=== PATIENT | female | born 1955 | race Caucasian/White ===

== ENCOUNTER 2023-06-24 09:12 | Outpatient (CLI) | payer OTHER, SELFPAY ==
[2023-06-24 09:40] LABS: Basophils Absolute Auto 0.05 K/mm3 (0.00-0.10); Basophils Percent Auto 0.4 % (0.0-1.0); Eosinophils Absolute Auto 0.18 K/mm3 (0.02-0.50); Eosinophils Percent Auto 1.6 % (1.0-6.0); Hematocrit 34.9 % (35.0-42.0); Hemoglobin 11.1 g/dL (11.7-13.8); Immature Granulocyte Absolute 0.04 K/mm3 (0.00-0.00); Immature Granulocyte Percent A 0.4 % (0.0-0.0); Lymphocytes Absolute Auto 2.66 K/mm3 (1.10-4.50); Lymphocytes Percent Auto 23.8 % (18.0-42.0); Mean Corpuscular HGB Conc 31.8 g/dL (32.0-36.0); Mean Corpuscular Hemoglobin 26.6 pg (27.0-31.0); Mean Corpuscular Volume 83.5 fL (78.0-102.0); Mean Platelet Volume 8.7 fl (9.2-11.8); Monocytes Absolute Auto 0.63 K/mm3 (0.10-0.90); Monocytes Percent Auto 5.6 % (2.0-11.0); Neutrophils Absolute Auto 7.6 K/mm3 (1.7-7.2); Neutrophils Percent Auto 68.2 % (50.0-70.0); Platelet Count Result 375 K/mm3 (150-420); Red Blood Count 4.18 M/mm3 (4.20-5.40); Red Cell Distribution Width 15.8 % (11.6-14.4); White Blood Count 11.2 K/mm3 (4.8-10.8)
[2023-06-24 09:52] LABS: Creatinine Urine 52.24 mg/dL (40-278); MALB Creatinine Ratio 91.3 mg/g (0-30); Microalbumin Urine Random 47.7 mg/L
[2023-06-24 10:23] LABS: Albumin Level 4.1 g/dL (3.4-5.0); Anion Gap 12 mmol/L (8-16); Blood Urea Nitrogen 55 mg/dL (7-18); Calcium 9.5 mg/dL (8.5-10.1); Carbon Dioxide 23 mmol/L (21-32); Chloride 103 mmol/L (98-108); Estimated Glomerular Filt Rate 20; Glucose 92 mg/dL (70-99); Osmolality Calculated 301 mOsm/kg (285-295); Phosphorus 4.6 mg/dL (2.6-4.7); Potassium 4.9 mmol/L (3.5-5.1); Sodium 138 mmol/L (136-145)
[2023-06-26 19:59] LABS: Osmolality, Urine 408 mOsm/kg (50-1200)
[2023-06-27 19:37] LABS: Parathyroid Intact 119 pg/mL (14-64)
== END 2023-06-24 09:13 | disposition home or self-care (01) ==
LOC: CHSLAB 09:21
PROVIDERS: PCP Nurse Practitioner Family
DX: N18.4 Chronic kidney disease, stage 4 (severe) (principal)
CPT/HCPCS: 36415; 80069; 82043; 83935; 83970; 85025

== ENCOUNTER 2024-03-31 10:05 | Emergency (ER) | payer MEDICARE, MEDICAID, SELFPAY ==
[2024-03-31 10:08] VITALS: BP 145/55; PULSE 81; RESP 16; TEMP 36.5; O2SAT 98
--- NOTE | 2024-03-31 10:26 | PC.NURSE ---
Patient calm and cooperative at this time. Patient answered all questions. Patient denies SI today, but states in the last month she has had thought of killing herself.
[2024-03-31 11:05] LABS: Basophils Percent Auto 0.4 % (0.2-1.2); Eosinophils Absolute Auto 0.1 K/mm3 (0-0.3); Eosinophils Percent Auto 0.9 % (0-4.4); Hematocrit 33.9 % (37.0-47.0); Hemoglobin 10.7 g/dL (12.0-15.0); Immature Granulocyte Absolute 0.03 K/mm3 (0.00-0.031); Immature Granulocyte Percent A 0.3 % (0-0.5); Lymphocytes Absolute Auto 1.25 K/mm3 (0.9-3.2); Mean Corpuscular HGB Conc 31.6 g/dl (32-36); Mean Corpuscular Hemoglobin 26.1 pg (26-34); Mean Corpuscular Volume 82.7 fl (80-100); Mean Platelet Volume 9.5 fl (7.4-10.4); Monocytes Absolute Auto 0.6 K/mm3 (0.1-0.6); Monocytes Percent Auto 5.9 % (2.6-8.5); Neutrophils Absolute Auto 7.7 K/mm3 (1.3-6.7); Neutrophils Percent Auto 79.5 % (45.5-73.1); Platelet Count Result 373 k/mm3 (150-375); Red Cell Distribution Width 14.5 % (11.5-14.5); White Blood Count 9.7 K/mm3 (4.5-10.0)
[2024-03-31 11:28] LABS: Alanine Aminotransferase 23 U/L (6-35); Albumin Level 4.7 g/dL (3.5-5.1); Alkaline Phosphatase 119 U/L (38-126); Anion Gap 16 mmol/L (4-12); Aspartate Amino Transferase 17 U/L (14-36); Bilirubin,Total 0.6 mg/dL (0.2-1.3); Blood Urea Nitrogen 64 mg/dL (7-17); Calcium 9.5 mg/dL (8.4-10.2); Carbon Dioxide 17 mmol/L (22-30); Chloride 105 mmol/L (98-107); Estimated Glomerular Filt Rate 18; Glucose 112 mg/dL (65-110); Potassium 5.1 mmol/L (3.4-5.0); Sodium 138 mmol/L (137-145)
--- NOTE | 2024-03-31 11:34 | PC.NURSE ---
belongings locked in cabinet
[2024-03-31 11:36] LABS: Ethanol < 10 mg/dL (<10)
[2024-03-31 11:41] LABS: SARS-CoV-2 RNA PCR Negative (Negative)
[2024-03-31 12:00] LABS: Thyroid Stimulating Hormone Reflex < 0.015 uIU/mL (0.465-4.68)
--- NOTE | 2024-03-31 12:21 | ED.GENADULT ---
HPI - General Adult General Chief complaint: Psychiatric Symptoms Stated complaint: suicidal thoughts Time Seen by Provider: 03/31/24 11:57 History of Present Illness HPI narrative: 68-year-old female present to the emergency department for evaluation for suicidal ideation. reports the patient has had increasingly unusual behavior. Patient does have a psych history but has not seen her psychiatrist in over year. Patient states that she was having increased thoughts of suicide so she wanted to be evaluated emergency department. Review of Systems Review of Systems: All systems reviewed & are unremarkable except as noted in HPI and below PMFSH Social History Social History (System 08/21/19 @ 14:30 by Tanna Peoples) Substance use type: does not use Exam Narrative: APPEARANCE: Well appearing, no pain, no distress, well-nourished. HEAD: normocephalic, atraumatic. EYES: PERRLA/EOMI, conjunctivae clear. NOSE: Normal no drainage EARS:TMS clear with good light reflex. THROAT: Pharynx clear, no exudate. NECK: Supple. No adenopathy, no masses. RESPIRATORY: Airway patent, respirations nonlabored. Clear to auscultation bilaterally, no rales, rhonchi, wheezing. CARDIOVASCULAR: Regular rate and rhythm without murmurs rubs or gallops. ABDOMINAL: Soft, nontender, nondistended, normal bowel sounds MUSCULOSKELETAL: Moves all extremities. Strength/ROM intact, No edema, No calf tenderness. NEURO: Alert. Cranial nerves II through XII intact. Grossly intact SKIN: Warm, dry. Normal Color PSYCHIATRIC: Flat affect Course Course Emergency Course: Patient was but by crisis, patient does not meet criteria for inpatient psychiatric hospitalization. Patient family are comfortable with the plan for discharge and close follow-up. Vital Signs Vital signs: Vital Signs Temperature 97.7 F 03/31/24 10:08 Pulse Rate 81 03/31/24 10:08 Respiratory Rate 16 03/31/24 10:08 Blood Pressure 145/55 H 03/31/24 10:08 Pulse Oximetry 98 03/31/24 10:08 Temperature 98.5 F 03/31/24 15:39 Pulse Rate 74 03/31/24 15:39 Respiratory Rate 16 03/31/24 15:39 Blood Pressure 106/61 03/31/24 15:39 Pulse Oximetry 97 03/31/24 15:39 Medical Decision Making MDM Narrative Medical decision making narrative: 60-year-old female presents emergency department for evaluation for suicidal ideation. Patient denied any current suicidal ideation in the emergency department. Patient is afebrile with no leukocytosis and a stable hemoglobin of 10.7. Patient does have DONTA similar to her baseline. TSH was low free T4 free T3 are pending. Urine shows no evidence of infection but did have some evidence of contamination. Urine cultures pending. Patient was evaluated crisis and patient will sign a safety a agreement. Patient and were comfortable with this plan Differential Diagnosis Differential Diagnosis: Suicidal ideation, homicidal ideation, psychosis, schizophrenia, delusions Vital Signs Vital Signs: Vital Signs Temperature 97.7 F 03/31/24 10:08 Pulse Rate 81 03/31/24 10:08 Respiratory Rate 16 03/31/24 10:08 Blood Pressure 145/55 H 03/31/24 10:08 Pulse Oximetry 98 03/31/24 10:08 Temperature 98.5 F 03/31/24 15:39 Pulse Rate 74 03/31/24 15:39 Respiratory Rate 16 03/31/24 15:39 Blood Pressure 106/61 03/31/24 15:39 Pulse Oximetry 97 03/31/24 15:39 Lab Data Lab results reviewed: Yes I reviewed the patient's lab results. 03/31/24 10:58 03/31/24 10:58 Labs: Lab Results 03/31/24 03/31/24 03/31/24 Range/Units 10:58 13:19 13:33 WBC 9.7 (4.5-10.0) K/mm3 RBC 4.10 L (4.2-5.4) M/mm3 Hgb 10.7 L (12.0-15.0) g/dL Hct 33.9 L (37.0-47.0) % MCV 82.7 (80-100) fl MCH 26.1 (26-34) pg MCHC 31.6 L (32-36) g/dl RDW 14.5 (11.5-14.5) % Plt Count 373 (150-375) k/mm3 MPV 9.5 (7.4-10.4) fl Immature Gran % (Auto)
--- NOTE | 2024-03-31 12:23 | ECG_ITS ---
Test Date: 2024-03-31 14:17:19 Measurements Intervals [place] Rate: 72 P: 58 ME: 165 QRS: 21 QRSD: 84 T: 40 QT: 364 QTc: 401 Interpretive Statements SINUS RHYTHM BASELINE ARTIFACT- I, II, III, AVR, AVL, AVF NORMAL ECG No previous ECG available for comparison Electronically Signed On 03-31-2024 16:00:55 CDT by Richie Lima D.O.
[2024-03-31 13:54] LABS: Amphetamine Screen Urine Negative (Negative); Barbiturate Screen Urine Negative (Negative); Benzodiazepines Screen Urine Negative (Negative); Cannabinoid Screen Urine Negative (Negative); Cocaine Screen Urine Negative (Negative); Methadone Screen Urine Negative (Negative); Opiate Screen Urine Negative (Negative); Phencyclidine Screen Urine Negative (Negative)
[2024-03-31 13:56] LABS: Free T4 Free Thyroxine Reflex 3.05 ng/dL (0.78-2.19)
[2024-03-31 14:02] LABS: Appearance Urine Cloudy (Clear); Bacteria Urine 1+ /hpf; Bilirubin Urine Negative (Negative); Blood Urine Negative (Negative); Color Urine Yellow (Yellow); Glucose Urine UA Negative (Negative); Ketones Urine Negative (Negative); Leukocyte Esterase Ur 2+ LEU/UL (Negative); Need Manual Microscopic Reviewed; Nitrate Urine Negative (Negative); Protein Urine Trace mg/dL (Negative); RBC Urine 0-2 /hpf (0-2); Specific Grav Ur 1.014 (1.001-1.035); Squamous Epithelial Cell Urine Few /hpf (Few); Uric Acid Crystals Urine Present /hpf; Urobilinogen Urine 0.2 mg/dL (<2.0)
[2024-03-31 14:03] LABS: Add Urine Microscopic? YES
--- NOTE | 2024-03-31 14:12 | PC.NURSE ---
food tray ordered for patient
[2024-03-31 15:39] VITALS: BP 106/61; PULSE 74; RESP 16; TEMP 36.9; O2SAT 97
[2024-04-07 08:17] LABS: T3 Free 4.4 pg/mL
== END 2024-03-31 15:41 | disposition home or self-care (01) ==
PROVIDERS: Nurse Practitioner Family; Emergency Provider Emergency Medicine; PCP Nurse Practitioner Family
DX: R45.851 Suicidal ideations (principal); Z20.822 Contact with and (suspected) exposure to COVID-19
CPT/HCPCS: 36415; 80053; 80307; 81001; 84439; 84443; 84480; 85025; 87086; 87088; 87635; 93005; 99284

== ENCOUNTER 2025-03-17 10:14 | Emergency (ER) | payer MEDICARE, MEDICAID, SELFPAY ==
[2025-03-17 10:14] VITALS: BP 135/75; PULSE 86; RESP 16; TEMP 36.6; O2SAT 98
--- NOTE | 2025-03-17 10:16 | ED.WOUNDLAC ---
HPI - Wound/Laceration General Chief Complaint: Wound/Laceration Stated Complaint: tdap shot Time Seen by Provider: 03/17/25 10:16 Source: patient and family Mode of arrival: ambulatory Limitations: no limitations History of Present Illness HPI narrative: 69-year-old female with a history of CKD, left breast cancer status post mastectomy and chemo, thyroid cancer status post resection on thyroid replacement presents to the ED after she stepped on a nail 1 hour prior to coming to the ED. she has a puncture wound on the right sole. Patient got tetanus shot in May of 2023. No other injuries noted. Onset (ago): hour(s) ( 1 hour ago) Location: other ( right sole) Place: home Patient tetanus UTD: Yes Context: accidental Associated symptoms: none Related Data Allergies Allergy/AdvReac Type Severity Reaction Status Date / Time No Known Allergies Allergy Verified 03/17/25 10:21 Review of Systems Review of Systems: All systems reviewed & are unremarkable except as noted in HPI and below Constitutional: Constitutional: Reports as per HPI and Reports no additional constitutional complaints Eyes: Eyes: Reports as per HPI and Reports no additional eye complaints ENT: Reports system reviewed and no additional complaints, except as documented and Reports as per HPI Cardiovascular: Cardiovascular: Reports as per HPI and Reports no additional cardiovascular complaints Respiratory: Respiratory: Reports as per HPI and Reports no additional respiratory complaints Gastrointestinal: Gastrointestinal: Reports as per HPI and Reports no additional gastrointestinal complaints Genitourinary: Genitourinary: Reports no additional female genitourinary complaints and Reports as per HPI Musculoskeletal: Musculoskeletal: Reports no additional musculoskeletal complaints and Reports as per HPI Integumentary/Breasts: Skin/Breast: Reports system reviewed and no additional complaints, except as docu Comments: puncture wound right sole Neurologic: Reports system reviewed and no additional complaints, except as documented and Reports as per HPI Psychiatric: Psychiatric: Reports no additional psychiatric complaints and Reports as per HPI Endocrine: Endocrine: Reports no additional endocrine complaints and Reports as per HPI Hematologic/Lymphatic: Hematologic/Lymphatic: Reports no additional hematologic/lymphatic complaints and Reports as per HPI Allergic/Immunologic: Allergic/Immunologic: Reports no additional allergic/immunologic complaints and Reports as per HPI PMF Past Medical History Medical History (Updated 03/17/25 @ 10:29 by Bob Gray MD) Hx of thyroid cancer Breast cancer CKD (chronic kidney disease) Social History Social History (System 08/21/19 @ 14:30 by Tanna Peoples) Substance use type: does not use Exam Narrative: vitals are stable Const: General: no acute distress Nutritional Appearance: well nourished Orientation/consciousness: patient oriented x3 Limitations: no limitations HENMT: Head: normal to inspection Ears: external ears normal Face/Nose/Sinus: Normal external nose present Face and sinus: normal facial exam Mouth: Yes Normal oral and palatal mucosa present Throat: posterior oropharynx normal Eyes: Conjunctivae: conjunctivae normal Pupils: Equal, round and reactive pupils present EOM: EOMs intact bilaterally Direct Ophthalmoscopy: no photophobia Neck: Neck: normal visual inspection, no lymphadenopathy and no meningeal signs Chest: Chest palpation & inspection: normal inspection of the chest Resp: Effort & Inspection: normal respiratory effort Auscultation: clear to auscultation bilaterally Cardio: Rate: regular rate Rhythm: regular rhythm GI: GI Palp: Yes Soft to palpation Other: no tenderness/ rigidity / rebound. Back/Spine/Pelvis: Back: no CVA tenderness Skin: General skin exam: normal color Rashes: no rashes Other: Puncture wound on the right sole measuring 3 mm over the 2nd metatarsal Neuro: General: patient oriented x3, moves all extremities, no meningeal signs, no focal motor deficits and CN's II-XI intact bilaterally Cranial nerves: Yes Nystagmus not present Speech: normal speech Gait exam (Neuro): Normal gait present Extrem: General: normal to inspection and no clubbing, cyanosis or edema Psych: Mental Status: mental status grossly normal Affect: normal affect Attitude: cooperative Course Course Emergency Course: puncture wound right foot-- up-to-date on tetanus Vital Signs Vital signs: Vital Signs Temperature 36.6 C 03/17/25 10:14 Pulse Rate 86 03/17/25 10:14 Respiratory Rate 16 03/17/25 10:14 Blood Pressure 135/75 03/17/25 10:14 Pulse Oximetry 98 03/17/25 10:14 Temperature 36.6 C 03/17/25 10:50 Pulse Rate 86 03/17/25 10:50 Respiratory Rate 16 03/17/25 10:50 Blood Pressure 135/75 03/17/25 10:50 Pulse Oximetry 98 03/17/25 10:50 Oxygen Delivery Room Air 03/17/25 10:50 MDM - Wound/Laceration MDM Narrative Medical decision making narrative: puncture wound right sole Differential Diagnosis Differential diagnosis: Likely other ( abrasion,) Discharge Plan Discharge Clinical Impression: Puncture wound of foot Qualifiers: Encounter type: initial encounter Laterality: right Qualified Code(s): S91.331A - Puncture wound without foreign body, right foot, initial encounter Patient Disposition: Home Condition: Stable Instructions: Antibiotic Form, Puncture Wound in the Foot (ED) Patient Language: [place] Prescriptions: New amoxicillin 500 mg capsule 500 mg PO Q12H Qty: 14 0RF Follow-up/Referrals: UNKNOWN,DOCTOR [Non-Staff] - Time of Disposition: 10:30
--- OUTSIDE RECORDS SUMMARY | 2025-03-17 10:17 | XMS_ITS | Data Portability ---
Author Organization [facility], [address] ([place]) Address [address] 4th [place] [address] Care Team Providers Care Engineering Instructor Name Role Phone NORRIS RUSSO Primary Care Provider [phone] MARTÍN KRISHNAMURTHY Vascular Surgeon Assessment Encounter Date Assessment Date Assessment LastModified by Organization Details LastModified Time 05/31/2024 05/31/2024 69 year old yung vasquez with past medical history of kidney calcification, Breast Ca stage 1 resected April 2019, strong family history for diabetes, HTN, thyroid cancer (Jul 27, and Sep 27) following for CKD stage III, and PCKD. Her mom started HD at age 78. Ultrasound in 2015 demonstrated one kidney was 16 cm other [address] scan done March 2018 showed no volumetric measurements (Spade) Genna was unaccompanied in the office today. 1. Polycystic kidney disease, baseline 1.5-2.4 , She has had previous episodes with a idiopathic rise in her creatinine which have resolved. -Her creatinine has remained mildly variable most recently 2.0 with a GFR of 26% -We very briefly discussed dialysis and in center would be the appropriate dialysis for her. -She had a left radial cephalic AV fistula Sep [address] Krishnamurthy. The fistula has good bruit and thrill -Transplant eligibility -Currently being worked up by transplant listed status 7 -Need to follow up on biopsy of lymph nodes and will call her daughter to inquire as Genna believes that she heard the doctor say lymphoma -Urine osmolality 421. I did discuss the need for increased water as I like this urine osmolality below 200 to help prevent progression of her polycystic kidney disease 2. Hemoglobin - decreased to 9.8 planning to check an iron panel she does take ferrous sulfate daily 3. Blood pressure taking amlodipine 10 mg daily. coreg 25 mg BID, isosorbide 30 mg daily and with PKD studies showing evidence to have a systolic blood pressure below 110 to prevent cyst formation I -With her hyperkalemia and DONTA we had her discontinue her lisinopril/HCTZ -She had a myocardial perfusion scan that was abnormal showing small to medium area of moderate intensity consistent with ischemia discussed the risks with cardiac cath 4. Bone disease, patient is taking ergocalciferol, PTH 89 with a calcium of 9.0 and phosphorus of 3.9. Vit D 27 now on ergocalciferol 50,000 units weekly 5. Metabolic acidosis -stable at 27 no longer on bicarb 6. Abdominal pain with some abnormal cyst appreciated in the past, she had some equivocal cyst appreciated which were anticipated to be hemorrhagic. Since these findings were equivocal we did a CT with IV contrast in 2016. There are no abnormal otherwise appreciated on CT scan in March 2018, but the volume was not mentioned. 7. Hyperkalemia -most recently 4.6 8. Prediabetes - Most recent hgb A1c 5.5% - She reports that her PCP started her on Trulicity but she has can't get it from the pharmacy 9. Disposition: return to clinic in 2 months Labs prior to return: Renal Function Panel, CBC, microalbumin, iPTH , Urine Osm, iron panel [phone] Call daughter Edie for all appointments and labs and make sure it is listed as the primary number as Genna had hearing issues Labs today: iron panel Dr. Mac office note regarding biopsy - Call Edie to confirm Dr. dos santos Send task out to follow up on biopsy being done June 08 at [facility] [email or web address] Not available 05/31/2024 14:39:42 08/02/2024 08/02/2024 69 year old yung n with past medical history of kidney calcification, Breast Ca stage 1 resected April 2019, strong family history for diabetes, HTN, thyroid cancer (Jul 27, and Sep 27) following for CKD stage III, and PCKD. Her mom started HD at age 78. Ultrasound in 2015 demonstrated one kidney was 16 cm other [address] scan done March 2018 showed no volumetric measurements ([place]) Genna was unaccompanied in the office today. 1. Polycystic kidney disease, baseline 2.0-2.4 , She has had previous episodes with a idiopathic rise in her creatinine which have resolved. -Her creatinine has remained mildly variable most recently 2.2 with a GFR of 23%. She did have a bump in her proteinuria plan to get a urinalysis today -We very briefly discussed dialysis and in center would be the appropriate dialysis for her. -She had a left radial cephalic AV fistula Sep [address] Krishnamurthy. The fistula has good bruit and thrill -Transplant eligibility -Currently being worked up by transplant listed status 7 -Urine osmolality 422. I did discuss the need for increased water as I like this urine osmolality below 200 to help prevent progression of her polycystic kidney disease 2. Hemoglobin - Improved to 11.3 taking one ferrous sulfate daily with mild ILSA noted plean to increase to twice a day 3. Blood pressure taking amlodipine 10 mg daily. coreg 25 mg BID, isosorbide 30 mg daily and with PKD studies showing evidence to have a systolic blood pressure below 110 to prevent cyst formation I -With her hyperkalemia and DONTA we had her discontinue her lisinopril/HCTZ -She had a myocardial perfusion scan that was abnormal showing small to medium area of moderate intensity consistent with ischemia discussed the risks with cardiac cath 4. Bone disease, patient is taking ergocalciferol, PTH 110 with a calcium of 9.2 and phosphorus of 3.0. Vit D 27 now on ergocalciferol 50,000 units weekly 5. Metabolic acidosis -stable at 27 no longer on bicarb 6. Abdominal pain with some abnormal cyst appreciated in the past, she had some equivocal cyst appreciated which were anticipated to be hemorrhagic. Since these findings were equivocal we did a CT with IV contrast in 2017. There are no abnormal otherwise appreciated on CT scan in March 2018, but the volume was not mentioned. 7. Hyperkalemia -most recently 4.0 8. Prediabetes - Most recent hgb A1c 5.5% - She reports that her PCP started her on Trulicity but she has can't get it from the pharmacy 9. Disposition: return to clinic in 2-3 months Labs prior to return: Renal Function Panel, CBC, microalbumin, iPTH , Urine Osm, iron panel Ferrous sulfate twice daily -Labs today: Urinalysis with reflex to culture [phone] Call daughter dEie for all appointments and labs and make sure it is listed as the primary number as Genna had hearing issues [email or web address] Not available 08/02/2024 09:57:49 10/04/2024 10/04/2024 69 year old yung vasquez with past medical history of kidney calcification, Breast Ca stage 1 resected April 2019, strong family history for diabetes, HTN, thyroid cancer (Jul 27, and Sep 27) following for CKD stage III, and PCKD. Her mom started HD at age 78. Ultrasound in 2015 demonstrated one kidney was 16 cm other [address] scan done March 2018 showed no volumetric measurements ([place]ade) Genna was unaccompanied in the office today. 1. Polycystic kidney disease, baseline 2.0-2.4 , She has had previous episodes with a idiopathic rise in her creatinine which have resolved. -Her creatinine has remained mildly variable most recently 2.4 with a GFR of 21%. Urine albumin 795.1. Plan for urinalysis today -We very briefly discussed dialysis and in center would be the appropriate dialysis for her. -She had a left radial cephalic AV fistula Sep [address] Krishnamurthy. The fistula has good bruit and thrill -Transplant eligibility -Currently being worked up by transplant listed status 7 -Urine osmolality 422. I did discuss the need for increased water as I like this urine osmolality below 200 to help prevent progression of her polycystic kidney disease 2. Hemoglobin - Stable at 10.7 -taking one ferrous sulfate BID with mild ILSA 3. Blood pressure taking amlodipine 10 mg daily. coreg 25 mg BID, isosorbide 30 mg daily and with PKD studies showing evidence to have a systolic blood pressure below 110 to prevent cyst formation -Blood pressures likely elevated due to her pain and she has not taken her medications today. I am going to call her pharmacy and verify that she is getting these medications. -With her hyperkalemia and DONTA we had her discontinue her lisinopril/HCTZ -She had a myocardial perfusion scan that was abnormal showing small to medium area of moderate intensity consistent with ischemia discussed the risks with cardiac cath 4. Bone disease, patient is taking ergocalciferol, PTH 190 with a calcium of 8.9 and phosphorus of 4.2. Vit D 27 now on ergocalciferol 50,000 units weekly -Plan to start calcitriol 0.25 MWF 5. Metabolic acidosis -stable at 24 no longer on bicarb 6. Abdominal pain with some abnormal cyst appreciated in the past, she had some equivocal cyst appreciated which were anticipated to be hemorrhagic. Since these findings were equivocal we did a CT with IV contrast in 2017. There are no abnormal otherwise appreciated on CT scan in March 2018, but the volume was not mentioned. -Planning to repeat CT today as she is tender to palpation and visible hurting 7. Hyperkalemia -most recently 4.6 8. Prediabetes - Most recent hgb A1c 5.5% - She reports that her PCP started her on Trulicity but she has can't get it from the pharmacy any longer 9. Disposition: return to clinic in 2 months Labs prior to return: Renal Function Panel, CBC, microalbumin, iPTH , Urine Osm, iron panel Ferrous sulfate twice daily -Labs today: Urinalysis with reflex to culture. CT scan for abdominal pain -Call pharmacy to verify BP meds please echo Daly [phone] Call daughter Edie for all appointments and labs and make sure it is listed as the primary number as Genna had hearing issues [email or web address] Not available 10/04/2024 09:56:51 12/07/2024 12/07/2024 69 year old yung vasquez with past medical history of kidney calcification, Breast Ca stage 1 resected April 2019, strong family history for diabetes, HTN, thyroid cancer (Jul 27, and Sep 27) following for CKD stage III, and PCKD. Her mom started HD at age 78. Ultrasound in 2016 demonstrated one kidney was 16 cm other [address] scan done March 2018 showed no volumetric measurements ([place]) Genna was unaccompanied in the office today. Paper Labs 1. Polycystic kidney disease, baseline 2.0-2.4 , She has had previous episodes with a idiopathic rise in her creatinine which have resolved. -Her creatinine has remained mildly variable most recently 2.29 with a GFR of 23%. Urine albumin 1073. Plan for urinalysis today -We have previously discussed dialysis and in center would be the appropriate dialysis for her. -She had a left radial cephalic AV fistula Sep [address] Krishnamurthy. The fistula has good bruit and thrill -Transplant eligibility -Currently being worked up by transplant listed status 7 since January 25, 2024. Will reach out to transplant for an update on her eligibility -Urine osmolality 362. I did discuss the need for increased water as I like this urine osmolality below 200 to help prevent progression of her polycystic kidney disease 2. Hemoglobin - Stable at 11.4 -taking one ferrous sulfate BID with mild ILSA 3. Blood pressure taking amlodipine 10 mg daily. metoprolol 100 mg , isosorbide 60 mg daily and with PKD studies showing evidence to have a systolic blood pressure below 110 to prevent cyst formation -Previous hyperkalemia with lisinopril -Patient of [facility] -Stress test with ischemia in the inferolateral wall. Cath with non obstructive CAD. 2022 -She has not taken any of her blood pressure medications as of yet today. Therefore I will make no changes. I am also going to call and verify with her daughter Edie her medications as the list in the system is not accurate 4. Bone disease, patient is taking ergocalciferol, PTH 272 with a calcium of 8.9 and phosphorus of 4.2. Vit D 27 now on ergocalciferol 50,000 units monthly -We verified her medications with her daughter and calcitriol was not on her list therefore will start at 0.25 mcg MWF 5. Metabolic acidosis -stable at 24 no longer on bicarb 6. Abdominal pain with some abnormal cyst appreciated in the past, she had some equivocal cyst appreciated which were anticipated to be hemorrhagic. Since these findings were equivocal we did a CT with IV contrast in 2016. There are no abnormal otherwise appreciated on CT scan in March 2018, but the volume was not mentioned. 7. Hyperkalemia -most recently 4.6 8. Prediabetes - Most recent hgb A1c 5.5% - She reports that her PCP started her on Trulicity but she is no longer on this. 9. Disposition: return to clinic in 2 months Labs prior to return: Renal Function Panel, CBC, microalbumin, iPTH , Urine Osm, iron panel -Labs today: Urinalysis with reflex to culture -Start calcitriol to 0.25 mcg MWF [phone] Call trevor Irizarry for all appointments and labs and make sure it is listed as the primary number as Genna had hearing issues -Please call Edie and verify all her medications and update her medication list. Is she going to go to her transplant appointment in December with Genna? [email or web address] Not available 12/08/2024 08:55:51 03/09/2025 03/09/2025 69 year old yung vasquez with past medical history of kidney calcification, Breast Ca stage 1 resected April 2019, strong family history for diabetes, HTN, thyroid cancer (Jul 27, and Sep 27) following for CKD stage III, and PCKD. Her mom started HD at age 78. Ultrasound in 2016 demonstrated one kidney was 16 cm other [address] scan done March 2018 showed no volumetric measurements ([place]) Genna was unaccompanied in the office today. 1. Polycystic kidney disease, baseline 2.0-2.4 , She has had previous episodes with a idiopathic rise in her creatinine which have resolved. -Her creatinine has remained mildly variable most recently 2.79 with a GFR of 18%. Urine albumin 1403 -We have previously discussed dialysis and in center would be the appropriate dialysis for her. -She had a left radial cephalic AV fistula Sep [address] Krishnamurthy. The fistula has good bruit and thrill -Transplant eligibility -Currently being worked up by transplant listed status 7 since January 25, 2024. -She stated she needs to have a brain MRI which has not been ordered yet. I will reach out to transplant today. I also noted in their note it discussed a CT to evaluate liver. She did have a CT completed October 2024 I will notify them -6 min walk test ordered for next month -Urine osmolality 322. I did discuss the need for increased water as I like this urine osmolality below 200 to help prevent progression of her polycystic kidney disease 2. Hemoglobin - Stable at 10.7 -taking one ferrous sulfate BID with mild ILSA 3. Blood pressure taking amlodipine 10 mg daily. metoprolol 100 mg , isosorbide 60 mg daily and with PKD studies showing evidence to have a systolic blood pressure below 110 to prevent cyst formation -Previous hyperkalemia with lisinopril -Patient of [facility] -Stress test with ischemia in the inferolateral wall. Cath with non obstructive CAD. 2022 -No changes recommended today 4. Bone disease, patient is taking ergocalciferol, calcium of 9.3 and phosphorus of 2.7. Vit D 27 now on ergocalciferol 50,000 units monthly - PTH improved slightly to 204 plan to increase calcitriol to daily 5. Metabolic acidosis -stable at 24 no longer on bicarb 6. Abdominal pain with some abnormal cyst appreciated in the past, she had some equivocal cyst appreciated which were anticipated to be hemorrhagic. Since these findings were equivocal we did a CT with IV contrast in 2017. There are no abnormal otherwise appreciated on CT scan in March 2018, but the volume was not mentioned. 7. Hyperkalemia -most recently 4.6 8. Prediabetes - Most recent hgb A1c 5.5% - She reports that her PCP started her on Trulicity but she is no longer on this. 9. Disposition: return to clinic in 2 months Labs prior to return: Renal Function Panel, CBC, microalbumin, iPTH , Urine Osm, iron panel [phone] Call daughter Edie for all appointments and labs and make sure it is listed as the primary number as Genna had hearing issues [email or web address] Not available 03/09/2025 12:25:46 Plan of Treatment Reminders Order Date Submit Date Provider Last Modified By Organization Details Last Modified Time Details Appointments Establish ed Patient 15.EST 2024 08:30A M Britney Eduardo Not available Not available Not available Lab None recorded. Referral None recorded. Procedures None recorded. Surgeries None recorded. Imaging None recorded. Medication Orders None recorded. Patient TargetsNo targets recorded. Patient InstructionsNo instructions recorded. Reason for Referral None Reported. Results Created Date Observation Date Name Description Value Unit Range Abnormal Flag Note LastModifiedBy Organization Detail LastModifiedTime 08/02/20 24 08/02/2024 urina lysis , compl ete urinalysis, complete LOW LEVEL S OF HEMOG LOBIN IN ABSEN CE OF HEMAT URIA MAY NOT BE CLINI NANO TAYLER Jacobs Not Available [facility] [address], [id number], 08/02/2024 12:44:37 08/02/20 24 08/02/2024 urina lysis , compl ete color YELLOW Not Available [facility] [address] [place] [address], [id number], 08/02/2024 12:44:37 08/02/20 24 08/02/2024 urina lysis , compl ete clarity CLEAR Not Available [facility] [address], [id number], 08/02/2024 12:44:37 08/02/20 24 08/02/2024 urina lysis , compl ete pH 6.5 5.0-7. 5 Not Available [facility] [address] [place] [address], [id number], 08/02/2024 12:44:37 08/02/20 24 08/02/2024 urina lysis , compl ete specific gravity 1.010 1.000- 1.030 Not Available [facility] [address] [place] [address], [id number], 08/02/2024 12:44:37 08/02/20 24 08/02/2024 urina lysis , compl ete blood NEGATI VE negati ve Not Available [facility] [address] [place] [address], [id number], 08/02/2024 12:44:37 08/02/20 24 08/02/2024 urina lysis , compl ete bilirubin NEGATI VE negati ve Not Available [facility] [address] [place] [address], [id number], 08/02/2024 12:44:37 08/02/20 24 08/02/2024 urina lysis , compl ete urobilinogen 0.2 0.2-1. 0 Not Available [facility] [address] [place] [address], [id number], 08/02/2024 12:44:37 08/02/20 24 08/02/2024 urina lysis , compl ete ketone NEGATI VE negati ve Not Available [facility] [address] [place] [address], [id number], 08/02/2024 12:44:37 08/02/20 24 08/02/2024 urina lysis , compl ete glucose NEGATI VE negati ve Not Available [facility] [address] [place] [address], [id number], 08/02/2024 12:44:37 08/02/2008/02/2024 urina lysis , compl ete protein 2+ negati ve abnormal Not Available [facility] [address] [place] [address], [id number], 08/02/2024 12:44:37 08/02/2008/02/2024 urina lysis , compl ete nitrite NEGATI VE negati ve Not Available [facility] [address] [place] [address], [id number], 08/02/2024 12:44:37 08/02/2008/02/2024 urina lysis , compl ete leukocytes NEGATI VE negati ve Not Available [facility] [address] [place] [address], [id number], 08/02/2024 12:44:37 08/02/2008/02/2024 urina lysis , compl ete RBC 0-2 0-2/hp f Not Available [facility] [address] [place] [address], [id number], 08/02/2024 12:44:37 08/02/2008/02/2024 urina lysis , compl ete WBC 0-5 0-5/hp f Not Available [facility] [address] [place] [address], [id number], 08/02/2024 12:44:37 08/02/2008/02/2024 urina lysis , compl ete squamous epithelial 3-5 0-10/h pf Not Available [facility] [address] [place] [address], [id number], 08/02/2024 12:44:37 08/02/2008/02/2024 urina lysis , compl ete bacteria NONE SEEN none Not Available [facility] [address] [place] [address], [id number], 08/02/2024 12:44:37 08/02/20 24 08/02/2024 urina lysis , compl ete hyaline cast 0-2 0-2/lp f Not Available [facility] [address] [place] [address], [id number], 08/02/2024 12:44:37 08/02/20 24 08/03/2024 cultu re + sensi tivit y, urine urine culture and sens. CHERISE L URINE >100, 000 CFU/m L Mixed uroge nital pedro , 3 or more colon y types indic ative of conta minat ion. Not Available [facility] [address] [place] [address], [id number], 08/03/2024 14:47:07 10/04/19 25 10/04/2024 urina lysis , compl ete urinalysis, complete LOW LEVEL S OF HEMOG LOBIN IN ABSEN CE OF HEMAT URIA MAY NOT BE CLINI NANO SIGNI FICAN T. Not Available [facility] [address] [place] [address], [id number], 10/04/2024 13:30:38 10/04/19 25 10/04/2024 urina lysis , compl ete color YELLOW Not Available [facility] [address] [place] [address], [id number], 10/04/2024 13:30:38 10/04/19 25 10/04/2024 urina lysis , compl ete clarity CLEAR Not Available [facility] [address] [place] [address], [id number], 10/04/2024 13:30:38 10/04/19 25 10/04/2024 urina lysis , compl ete pH 6.5 5.0-7. 5 Not Available [facility] [address] [place] [address], [id number], 10/04/2024 13:30:38 10/04/19 25 10/04/2024 urina lysis , compl ete specific gravity 1.010 1.000- 1.030 Not Available [facility] [address] [place] [address], [id number], 10/04/2024 13:30:38 10/04/19 25 10/04/2024 urina lysis , compl ete blood NEGATI VE negati ve Not Available [facility] [address] [place] [address], [id number], 10/04/2024 13:30:38 10/04/19 25 10/04/2024 urina lysis , compl ete bilirubin NEGATI VE negati ve Not Available [facility] [address] [place] [address], [id number], 10/04/2024 13:30:38 10/04/19 25 10/04/2024 urina lysis , compl ete urobilinogen 0.2 0.2-1. 0 Not Available [facility] [address] [place] [address], [id number], 10/04/2024 13:30:38 10/04/19 25 10/04/2024 urina lysis , compl ete ketone NEGATI VE negati ve Not Available [facility] [address] [place] [address], [id number], 10/04/2024 13:30:38 10/04/19 25 10/04/2024 urina lysis , compl ete glucose NEGATI VE negati ve Not Available [facility] [address] [place] [address], [id number], 10/04/2024 13:30:38 10/04/19 25 10/04/2024 urina lysis , compl ete protein 2+ negati ve abnormal Not Available [facility] [address] [place] [address], [id number], 10/04/2024 13:30:38 10/04/19 25 10/04/2024 urina lysis , compl ete nitrite NEGATI VE negati ve Not Available [facility] [address] [place] [address], [id number], 10/04/2024 13:30:38 10/04/19 25 10/04/2024 urina lysis , compl ete leukocytes TRACE negati ve abnormal Not Available [facility] [address] [place] [address], [id number], 10/04/2024 13:30:38 10/04/19 25 10/04/2024 urina lysis , compl ete RBC 0-2 0-2/hp f Not Available [facility] [address] [place] [address], [id number], 10/04/2024 13:30:38 10/04/19 25 10/04/2024 urina lysis , compl ete WBC 0-5 0-5/hp f Not Available [facility] [address] [place] [address], [id number], 10/04/2024 13:30:38 10/04/19 25 10/04/2024 urina lysis , compl ete squamous epithelial 0-2 0-10/h pf Not Available [facility] [address] [place] [address], [id number], 10/04/2024 13:30:38 10/04/19 25 10/04/2024 urina lysis , compl ete bacteria NONE SEEN none Not Available [facility] [address] [place] [address], [id number], 10/04/2024 13:30:38 10/04/19 25 10/04/2024 urina lysis , compl ete hyaline cast 0-2 0-2/lp f Not Available [facility] [address] [place] [address], [id number], 10/04/2024 13:30:38 10/04/19 25 10/06/2024 cultu re + sensi tivit y, urine urine culture and sens. CHERISE L URINE After overn ight incub ation <10,0 00 CFU/m L Yanely l uroge nital pedro isola karen. No addit ional growt h after two night s incub ation . Not Available [facility] [address] [place] [address], [id number], 10/06/2024 10:08:20 10/04/19 25 10/05/2024 cultu re + sensi tivit y, urine urine culture and sens. PREL IM URINE After overn ight incub ation <10,0 00 CFU/m L Yanely l uroge nital pedro isola karen. Not Available [facility] [address] [place] [address], [id number], 10/05/2024 16:23:34 02/21/20 25 03/15/2025 HLA LMNX PRA luminex class I pra % 2 % Not Available [address] [address], [address], 03/15/2025 10:55:08 02/21/20 25 03/15/2025 HLA LMNX PRA luminex class I pra interp Positi ve Not Available [address], [address], 03/15/2025 10:55:08 02/21/20 25 03/15/2025 HLA LMNX PRA luminex class II pra % 0 % Not Available [address], [address], 03/15/2025 10:55:08 02/21/20 25 03/15/2025 HLA LMNX PRA luminex class II pra interp Negati ve Not Available [address], [address], 03/15/2025 10:55:08 07/10/20 24 11/26/2023 imagi ng/di agnos tic resul t No observ ation record ed. [email or web address] Not Available 23:49:02 02/20/20 25 10/23/2024 CT, abdom en, w/o contr ast No observ ation record ed. [email or web address] [facility] (Radiology) [address] [facility] , [place], [address], 02/22/2025 10:05:34 03/16/20 25 10/21/2017 imagi ng/di agnos tic resul t No observ ation record ed. [email or web address] Not Available 0 03/16/2025 06:34:50 03/16/20 25 12/08/2018 imagi ng/di agnos tic resul t No observ ation record ed. [email or web address] Not Available 0 03/16/2025 06:34:54 03/16/20 25 03/08/2018 imagi ng/di agnos tic resul t No observ ation record ed. [email or web address] Not Available 0 03/16/2025 06:35:06 03/16/20 25 03/13/2019 imagi ng/di agnos tic resul t No observ ation record ed. [email or web address] Not Available 0 03/16/2025 06:35:08 03/16/20 25 07/31/2018 imagi ng/di agnos tic resul t No observ ation record ed. [email or web address] Not Available 0 03/16/2025 06:35:17 Result Notes None recorded. Problems Name Problem SNOMED Code Status Onset Date Resolution Date Notes Provider Name and Address Organization Details Recorded Time Iron deficiency anemia 35968432 Active 2023 Kezia Turner [facility] 4 14:07:43 Acute abdominal pain 399905932 Active 2024 Kezia Turner [facility] 5 10:37:56 Increased frequency of urination 237162222 Active 2024 Gemma Cuenca [facility] 5 10:07:20 Anemia 886243372 Active 2023 Kezia Turner [facility] 4 22:00:54 Chronic kidney disease stage 4 705834032 Active 2023 Kezia Turner null, [facility] 4 22:01:06 Essential hypertension 23576317 Active 2023 Kezia Turner null, [facility] 4 22:01:15 Gastroesophage al reflux disease 513627049 Active 2023 [facility] 4 22:01:24 Hypocalcemia 1527102 Active 2023 [facility] 4 22:01:40 Autosomal dominant polycystic kidney disease 390863197 Active 2023 [facility] 4 22:01:52 Proteinuria 50597935 Active 2023 Kezia Turner [facility] 4 22:02:02 Cyst of kidney 611493685 Active 2023 [facility] 4 22:02:10 Vitamin D deficiency 93174762 Active 2023 [facility] 4 22:02:31 Ischemic hand 077106178 Active 2023 Martín Krishnamurthy MD [facility] [place] [address], [phone], [facility] 4 19:15:19 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 Procedures Surgical History Date Name Laterality Status Provider Name and Address Organization Details Recorded Time 4 Av fusion direct any site completed Bev Guido [facility] 02/04/2024 13:52:39 3 Av fusion direct any site completed Bev Guido [facility] 02/04/2024 13:51:31 Imaging Results None recorded. Procedure Notes None recorded. Medical Equipment None Reported. Medications Name Sig Start Date Stop Date Status Note LastModified by Organization Details LastModified Time quetiapine 25 mg tablet TAKE 1 TABLETS BY MOUTH DAILY active Not Available Not Available No t Available levothyroxi ne 175 mcg tablet TAKE 1 TABLET BY MOUTH DAILY DIRECTED active Not Available Not Available No t Available atorvastati n 80 mg tablet active Not Available Not Available Not Available tizanidine 2 mg tablet TAKE 1 TABLET BY MOUTH EVERY 8 HOURS NEEDED. START WITH 1 TABLET AT BEDTIME active Not Available Not Available No t Available lisinopril 20 mg-hydrochl orothiazide 12.5 mg tablet TAKE 1 TABLET BY MOUTH DAILY active Not Available Not Available No t Available hydrocodone 5 mg-acetamin ophen 325 mg tablet TAKE 1 TABLET BY MOUTH EVERY 4 TO 6 HOURS NEEDED FOR PAIN 12/08 completed Not Available Not Available Not Available lisinopril 20 mg tablet TAKE 1 TABLET BY MOUTH DAILY 12/07 completed Not Available Not Available Not Available prednisone 20 mg tablet TAKE 1 TABLET BY MOUTH TWICE DAILY FOR 4 DAYS THEN 1 TABLET DAILY FOR 4 DAYS THEN STOP 08/02 completed Not Available Not Available Not Available isosorbide mononitrate ER 30 mg tablet,exte nded release 24 hr take two tablets daily active Not Available Not Available No t Available metoprolol succinate ER 100 mg tablet,exte nded release 24 hr Take 1 tablet every day by oral route. active Not Available Not Available No t Available venlafaxine ER 150 mg capsule,ext ended release 24 hr TAKE 1 CAPSULE BY MOUTH EVERY MORNING active Not Available Not Available No t Available ciprofloxac in 500 mg tablet TAKE 1 TABLET BY MOUTH DAILY FOR 5 DAYS 08/02 completed Not Available Not Available Not Available omeprazole 40 mg capsule,del ayed release TAKE 1 CAPSULE BY MOUTH EVERY DAY active Not Available Not Available No t Available aspirin 81 mg tablet,chiquita yed release TAKE 1 TABLET BY MOUTH EVERY DAY active Not Available Not Available No t Available tramadol 50 mg tablet TAKE 1 TABLET BY MOUTH 3 TIMES DAILY NEEDED 12/08 completed Not Available Not Available Not Available isosorbide mononitrate ER 60 mg tablet,exte nded release 24 hr 12/07 completed Not Available Not Available Not Available famotidine 20 mg tablet TAKE 1 TABLET BY MOUTH TWICE DAILY active Not Available Not Available No t Available amlodipine 10 mg tablet Take 1 tablet every day by oral route. active Not Available Not Available No t Available docusate sodium 100 mg capsule TAKE 1 CAPSULE BY MOUTH EVERY MORNING FOR CONSTIPAT ION active Not Available Not Available No t Available levothyroxi ne 200 mcg tablet TAKE 1ST THING IN THE MORNING ON AN EMPTY STOMACH. WAIT 1 HOUR BEFORE FOOD OR OTHER MEDICATIO NS 12/08 completed Not Available Not Available Not Available ergocalcife rol (vitamin D2) 1,250 mcg (50,000 unit) capsule TAKE 1 CAPSULE BY MOUTH MONTHLY active Not Available Not Available No t Available letrozole 2.5 mg tablet TAKE 1 TABLET BY MOUTH DAILY active Not Available Not Available No t Available methylpredn isolone 4 mg tablets in a dose pack FOLLOW PACKAGE DIRECTION S 12/07 completed Not Available Not Available Not Available calcitriol 0.25 mcg capsule take one capsule three times a week (Wednesday,, and Wednesday) 2024 active Not Available Not Available Not Avai lable levothyroxi ne 112 mcg tablet TAKE 2 TABLETS BY MOUTH ONCE DAILY IN THE MORNING 30 MINUTES PRIOR TO BREAKFAST 12/08 completed Not Available Not Available Not Available amoxicillin 875 mg-potassiu m clavulanate 125 mg tablet TAKE 1 TABLET BY MOUTH EVERY 12 HOURS 08/02 completed Not Available Not Available Not Available FeroSul 325 mg (65 mg iron) tablet TAKE 1 TABLET BY MOUTH EVERY DAY FOR ANEMIA active Not Available Not Available No t Available oseltamivir 30 mg capsule TAKE 1 CAPSULE BY MOUTH DAILY FOR 10 DAYS 12/07 completed Not Available Not Available Not Available Trulicity 1.5 mg/0.5 mL subcutaneou s pen injector ADMINISTE R 1.5 MG UNDER THE SKIN 1 TIME WEEKLY 03/20 completed Not Available Not Available Not Available Vitals Date Recorded Body height Body mass index (BMI) Body weight Heart rate Oxygen saturation Oxygen saturation in Arterial blood by Pulse oximetry Systolic And Diastolic Systolic And Diastolic Provider Name and Address Organization Details Last Updated DateTime 5 162.56 cm 33.3 kg/m2 57094.9 2 g 70 /min 99 % 99 % 188/90 mm[Hg] 176/94 mm[Hg] Kezia Turner [place] [facility] 5 09:30:57 Date Recorded Systolic And Diastolic Provider Name and Address Organization Details Last Updated DateTime 12/07/2024 128/78 mm[Hg] Britney Eduardo, [employer] [address], [address], [facility] 12/07/2024 12:31:57 Date Recorded Body height Body mass index (BMI) Body weight Heart rate Oxygen saturation Oxygen saturation in Arterial blood by Pulse oximetry Systolic And Diastolic Provider Name and Address Organization Details Last Updated DateTime 5 162.56 cm 33 kg/m2 98910.7 4 g 65 /min 99 % 99 % 138/90 mm[Hg] [facility] 5 12:15:19 Date Recorded Body height Body mass index (BMI) Body weight Heart rate Oxygen saturation Oxygen saturation in Arterial blood by Pulse oximetry Systolic And Diastolic Provider Name and Address Organization Details Last Updated DateTime 5 162.56 cm 33.5 kg/m2 43614.5 1 g 71 /min 96 % 96 % 116/68 mm[Hg] Liane Santana [facility] 5 12:08:24 Date Recorded Body height Body mass index (BMI) Body weight Heart rate Oxygen saturation Oxygen saturation in Arterial blood by Pulse oximetry Systolic And Diastolic Provider Name and Address Organization Details Last Updated DateTime 4 162.56 cm 32.8 kg/m2 78790.1 4 g 91 /min 99 % 99 % 126/84 mm[Hg] [facility] 4 14:25:52 Date Recorded Body height Body mass index (BMI) Body weight Body temperature Heart rate Oxygen saturation Oxygen saturation in Arterial blood by Pulse oximetry Systolic And Diastolic Provider Name and Address Organization Details Last Updated DateTime 4 162.56 cm 34.2 kg/m2 19494.8 8 g 98.7 [degF] 70 /min 96 % 96 % 134/80 mm[Hg] Leann Krishnamurthy [facility] 4 09:38:21 Social History None recorded. Functional Status None recorded. Mental Status None recorded. Family History Nothing Reported. Medical History No medical history recorded. Gynecological HistoryNo gynecological history recorded. Obstetrics History GPAL:G 0 P 0 0 0 0 Immunizations Vaccine Type Date Status Note Provider Nam e and Address Organization Details Recorded Time Pneumococcal conjugate PCV20, polysaccharide [id number] conjugate, adjuvant, 4 completed [facility] 09:38:44 RSV, recombinant, protein subunit RSVpreF, adjuvant reconstituted, 0.5 mL, 4 completed [facility] 08/02/2024 09:38:45 Influenza, high-dose, trivalent, 4 completed [facility] 08/02/2024 09:38:45 Influenza, split virus, quadrivalent, preservative 9 completed Kezia Turner [facility] 01/18/2024 10:43:40 Influenza, split virus, quadrivalent, preservative 8 completed [facility] 01/18/2024 10:43:40 zoster recombinant 2 completed [facility] 01/18/2024 10:43:40 zoster recombinant 1 completed Kezia Turner [facility] 01/18/2024 10:43:40 Influenza, high-dose, quadrivalent, 2 completed [facility] 01/18/2024 10:43:41 Influenza, high-dose, quadrivalent, 1 completed [facility] 01/18/2024 10:43:41 Influenza, adjuvanted, quadrivalent, 3 completed [facility] 01/18/2024 10:43:41 Influenza, adjuvanted, quadrivalent, 0 completed [facility] 01/18/2024 10:43:41 COVID-19, mRNA, LNP-S, PF, 30 mcg/0.3 mL dose 1 completed Kezia Turner null, [facility] 01/18/2024 10:43:41 COVID-19, mRNA, LNP-S, PF, 30 mcg/0.3 mL dose 1 completed [facility] 01/18/2024 10:43:41 COVID-19, mRNA, LNP-S, PF, 30 mcg/0.3 mL dose 1 completed [facility] 01/18/2024 10:43:41 COVID-19, mRNA, LNP-S, PF, 30 mcg/0.3 mL dose, dany-sucrose 2 completed Kezia Turner [facility] 01/18/2024 10:43:41 COVID-19, mRNA, LNP-S, bivalent, PF, 30 mcg/0.3 mL dose 2 completed [facility] 01/18/2024 10:43:41 COVID-19, mRNA, LNP-S, PF, dany-sucrose, 30 mcg/0.3 mL 3 completed Kezia Turner [facility] 01/18/2024 10:43:41 pneumococcal polysaccharide PPV23 0 completed Keiza Turner [facility] 01/18/2024 10:43:41 Tdap 3 completed [facility] 01/18/2024 10:43:41 Influenza, split virus, trivalent, preservative 4 completed [facility] 01/18/2024 10:43:41 Influenza, split virus, quadrivalent, PF 5 completed [facility] 01/18/2024 10:43:41 Influenza, split virus, quadrivalent, PF 7 completed Kezia Turner [facility] 01/18/2024 10:43:41 Influenza, split virus, quadrivalent, PF 6 completed Kezia Turner [facility] 01/18/2024 10:43:41 Past Encounters Encounter ID Performer Location Encounter Start Date Encounter Closed Date Diagnosis/Indication Diagnosis SNOMED-CT Code Diagnosis ICD10 Code Diagnosis Note [id number] Britney Eduardo APRN [facility] ([place]) [address] [place] [address] 01/18/2024 10:14:56 01/18/2024 11:01:36 Chronic kidney disease stage 4 800724940 N18.4 Autosomal dominant polycystic kidney disease 081096124 Q61.2 Proteinuria 92974571 R80 .9 Essential hypertension 24727146 I10 Gastroesop hageal reflux disease 928367442 K21.9 Anemia 459100874 D64.9 Vitamin D deficiency 347 51252 E55.9 [id number] Britney Eduardo APRN [facility] ([place]) [address] [place] [address] 03/28/2024 11:19:17 03/28/2024 11:44:19 Chronic kidney disease stage 4 634230688 N18.4 Autosomal dominant polycystic kidney disease 225736841 Q61.2 Proteinuria 88856349 R80 .9 Essential hypertension 12624754 I10 Gastroesop hageal reflux disease 106488670 K21.9 Anemia 132586276 D64.9 Vitamin D deficiency 347 98403 E55.9 [id number] Martín Krishnamurthy MD [address] [facility] ([place]) [address] [place] [address] [address] 03/20/2024 10:36:14 03/20/2024 16:27:58 Chronic kidney disease stage 4 740541039 N18.4 Ischemic hand 941608920 I99.8 [id number] Britney Eduardo APRN [facility] ([place]) [address] [place] [address] 05/31/2024 14:22:05 05/31/2024 14:42:39 Anemia 052357447 D64.9 Chronic ki dney disease stage 4 271676578 N18.4 Gastroesop hageal reflux disease 519084995 K21.9 Vitamin D deficiency 347 25426 E55.9 Essential hypertension 19784249 I10 Proteinuria 41785751 R80 .9 Autosomal dominant polycystic kidney disease 051294205 Q61.2 [id number] Britney Eduardo [facility] ([place]) [address] [place] [address] 08/02/2024 09:27:28 08/02/2024 09:57:55 Chronic kidney disease stage 4 101577065 N18.4 Anemia 955051377 D64.9 Vitamin D deficiency 347 56507 E55.9 Gastroesop hageal reflux disease 550897235 K21.9 Autosomal dominant polycystic kidney disease 191818886 Q61.2 Essential hypertension 05143341 I10 Proteinuria 29845263 R80 .9 [id number] Britney Eduardo [facility] ([place]) [address] [place] [address] 10/04/2024 09:10:34 10/04/2024 09:58:33 Chronic kidney disease stage 4 016289090 N18.4 Anemia 201158891 D64.9 Vitamin D deficiency 347 88399 E55.9 Gastroesop hageal reflux disease 591848095 K21.9 Autosomal dominant polycystic kidney disease 726842401 Q61.2 Essential hypertension 74913509 I10 Proteinuria 76030017 R80 .9 [id number] Britney Eduardo [facility] ([place]) [address] [place] [address] 12/07/2024 12:07:32 12/07/2024 12:44:01 Gastroesophageal reflux disease 737421084 K21.9 Essential hypertension 57590746 I10 Chronic ki dney disease stage 4 602861976 N18.4 Vitamin D deficiency 347 70436 E55.9 Anemia 067259110 D64.9 Autosomal dominant polycystic kidney disease 714236490 Q61.2 Proteinuria 98763973 R80 .9 [id number] Britney Eduardo [facility] ([place]) [address] [place] [address] 03/09/2025 12:00:55 03/09/2025 12:24:32 Anemia 063364810 D64.9 Chronic ki dney disease stage 4 391604522 N18.4 Renal Function Panel, CBC, microalbum in, iPTH , Urine Osm, iron panel Gastroesop hageal reflux disease 702758955 K21.9 Vitamin D deficiency 347 13121 E55.9 Essential hypertension 83303614 I10 Autosomal dominant polycystic kidney disease 081658456 Q61.2 Proteinuria 58546093 R80 .9 Health Concerns Section Related Observation LastModified by Organization Detai ls LastModified Time None Recorded Concern Status LastModified by Organization Details LastModified Time None Recorded Advance Directives Directive None Recorded Payers Insurance Date Sequence Insurance Name Policy Number Policy Bateman Covered Member ID Bateman Member ID Guarantor Name 04/18/2024 1 [employer] (MEDICARE REPLACEMENT/A DVANTAGE - PPO) [id number] [facility] [id number] [facility] 04/18/2024 1 [place] [facility] [id number] [facility] 02/18/2025 2 [place] [facility] [id number] [facility] 03/10/2025 1 [employer] (MEDICARE REPLACEMENT/A DVANTAGE - PPO) [id number] [facility] [id number] [facility] 08/29/2024 3 [place] [facility] [id number] [facility] Notes Date Note Type Note Provider Name and Address Organization Details Recorded Time 05/31/2024 text/html 1. Her heartburn has been better controlled recently on the famotidine twice a day.2. Her blood pressure has been stable here and at home. She has not had any lightheadedness or dizziness . She has no edema.3. She denies any urinary complaints such as frequency or dysuria.4. She does not check her blood sugars at home. She is unaware of any hypoglycemic events 5. The burning she was having in her fistula has resolved and she is having no issues 6. SHe is having a biopsy done on lymph nodes in her neck on June 08. This was ordered from Dr. Middleton . Genna reports that there is concern for cancer. She reports that she was having pain in her throat and is now on antibiotics as well10 point review system was otherwise unremarkable. Britney Eduardo, P[employer]ANCE AUDITOR [address] [place] [address], [phone], [facility] 05/31/2024 16:05:06 08/02/2024 text/html 1. Her heartburn has been better controlled recently on the famotidine and omeprazole. Her swallowing has improved and she is able to eat regular foods. SHe denies any nausea2. Her blood pressure has been stable here and at home. She has not had any lightheadedness or dizziness . She has no edema.3. She denies any urinary complaints such as frequency or dysuria.4. She does not check her blood sugars at home. She is unaware of any hypoglycemic events 5. She continues to have her migraines and take tylenol for this. SHe does not take any [id number] point review system was otherwise unremarkable. Britney Eduardo, P[employer]ANCE AUDITOR [address] [place] [address], [phone], [facility] 08/02/2024 09:57:58 10/04/2024 text/html 1. Her heartburn has been better controlled recently on the famotidine and omeprazole. Her swallowing has improved and she is able to eat regular foods. She denies any nausea2. Her blood pressure has been stable here and at home. She has not had any lightheadedness or dizziness . She has no edema.3. She denies any urinary complaints such as frequency or dysuria. She reports that she is having some pain in her left flank recently. SHe has not noticed any hematuria or change in urination. SHe reports that this pain has been there for about 1 week and has continued to worsen4. She does not check her blood sugars at home. She is unaware of any hypoglycemic events 5. She continues to have her migraines and take tylenol for this. SHe does not take any [id number] point review system was otherwise unremarkable. Britney Eduardo, P[employer] AUDITOR [address] [place] [address], [phone], [facility] 10/04/2024 09:57:00 12/07/2024 text/html 1. Her heartburn has been better controlled recently on the famotidine and omeprazole. She denies any nausea. She continues to have flank pain mainly on the left side2. Her blood pressure is elevated today she has not taken any of her blood pressure medications yet. She has not had any lightheadedness or dizziness . She has no edema. She does report exertional dyspnea3. She denies any urinary complaints such as frequency or dysuria. She reports that she still has the left-sided flank pain but it has improved greatly since I saw her last.4. She does not check her blood sugars at home. She is unaware of any hypoglycemic events 5. She continues to have her migraines and take tylenol for this. She does not take any RIUIYa76 point review system was otherwise unremarkable. Wilber Orellana MD [address] [facility], [place], [address], [facility] 12/08/2024 11:37:02 03/09/2025 text/html 1. Her heartburn has been better controlled recently on the famotidine and omeprazole. She denies any nausea. She continues to have flank pain mainly on the left side2. Her blood pressure is stable today. She has not had any lightheadedness or dizziness . She has no edema. She does report exertional dyspnea which is stable for her3. She denies any urinary complaints such as frequency or dysuria.4. She does not check her blood sugars at home. She is unaware of any hypoglycemic events 5. She continues to have her migraines and take tylenol for this. She does not take any [id number] point review system was otherwise unremarkable. Britney Eduardo, ANDRIY [address] , [place], [address], [facility] 03/09/2025 12:26:12 OBGyn Episode No OBEpisode recorded.
--- OUTSIDE RECORDS SUMMARY | 2025-03-17 10:17 | XMS_ITS ---
Author Organization Unknown Address [address] [place] [phone] Phone Care Team Providers Care Consumer Analyst Name Role Phone JANETH RAPP Attending Unavailable [facility] Primary Unavailable Immunization Immunization Date Status Additional Notes Code Code System pneumococcal polysaccharide PPV23 06/13/2020 Completed 33 CVX Tdap 06/01/2023 Completed 115 CVX Influenza, high-dose, trivalent, PF 05/05/2024 Completed 135 CVX Influenza, split virus, trivalent, preservative 05/18/2014 Completed 141 CVX Influenza, split virus, quadrivalent, PF 06/19/2015 Completed 150 CVX Influenza, split virus, quadrivalent, PF 07/01/2016 Completed 150 CVX Influenza, split virus, quadrivalent, PF 06/23/2017 Completed 150 CVX Influenza, split virus, quadrivalent, preservative 06/22/2018 Completed 158 C VX Influenza, split virus, quadrivalent, preservative 06/10/2019 Completed 158 C VX zoster recombinant 07/31/2021 Completed 187 CVX zoster recombinant 09/30/2021 Completed 187 CVX Influenza, high-dose, quadrivalent, PF 07/01/2021 Completed 197 CVX Influenza, high-dose, quadrivalent, PF 06/02/2022 Completed 197 CVX Influenza, adjuvanted, quadrivalent, PF 06/13/2020 Completed 205 CVX Influenza, adjuvanted, quadrivalent, PF 06/11/2023 Completed 205 CVX COVID-19, mRNA, LNP-S, PF, 3 0 mcg/0.3 mL dose 11/01/2020 Completed 208 CVX COVID-19, mRNA, LNP-S, PF, 3 0 mcg/0.3 mL dose 11/22/2020 Completed 208 CVX COVID-19, mRNA, LNP-S, PF, 3 0 mcg/0.3 mL dose 07/01/2021 Completed 208 CVX Pneumococcal conjugate PCV20 , polysaccharide [id number] conjugate, adjuvant, PF 05/05/2024 Completed 216 CVX COVID-19, mRNA, LNP-S, PF, 3 0 mcg/0.3 mL dose, dany-sucrose 12/11/2021 Completed 217 CVX COVID-19, mRNA, LNP-S, bivalent, PF, 30 mcg/0.3 mL dose 07/17/2022 Completed 300 CVX RSV, recombinant, protein subunit RSVpreF, adjuvant reconstituted, 0.5 mL, PF 05/05/2024 Completed 303 CV X COVID-19, mRNA, LNP-S, PF, dany-sucrose, 30 mcg/0.3 mL 06/11/2023 Completed 309 CVX COVID-19, mRNA, LNP-S, PF, dany-sucrose, 30 mcg/0.3 mL 06/15/2024 Completed 309 CVX Results BASIC METABOLIC PANEL - Jeremy ect Date/Time: 07/13/2023 08:24 [facility] ID: [id number] [address] [place], [place], [id number] LOINC: 87389-0 Test Value Unit Reference Range Code Code System Flag FASTING YES BUN 49 mg/dL L=7 H=20 3094-0 LOINC H CREATININE 2.10 mg/dL L=0.52 H=1.04 2160-0 LOINC H GLUCOSE 85 mg/dL L=74 H=106 2345-7 LOINC CALCIUM 9.6 mg/dL L=8.3 H=10.5 19773-5 LOINC SODIUM 140 mmol/L L=132 H=144 2951-2 LOINC POTASSIUM 4.9 mmol/L L=3.5 H=5.1 2823-3 LOINC CHLORIDE 105 mmol/L L=98 H=107 2075-0 LOINC CO2 25.0 mmol/L L=22.0 H=30.0 8-9 LOINC ANION GAP 15 L=10 H=20 29309-8 LOINC BUN/CREAT 23.3 3097-3 LOINC AGE 68 37073-0 LOINC eGFR NON-AFR 25 ml/min eGFR AFR AMER 30 ml/min CBC W/ DIFF - Collect Date/T taj: 07/13/2023 08:24 [facility] ID: [id number] [place], [place], [id number] LOINC: 72126-3 Test Value Unit Reference Range Code Code System Flag WBC 8.9 10^3uL L=4.8 H=10.8 RBC 4.38 10^6uL L=4.20 H=5.40 HEMOGLOBIN 11.6 g/dL L=12.0 H=16.0 718-7 LOINC L HEMATOCRIT 36.5 VOL% L=37.0 H=47.0 4544-3 LOINC L MCV 83.3 fL L=81.0 H=99.0 MCH 26.5 pg L=27.0 H=32.0 L MCHC 31.8 g/dL L=32.0 H=36.0 L PLATELETS 302 10^3uL L=100 H=400 60378-1 LOINC RDW 15.9 % L=11.7 H=15.5 H %GRAN 68.4 % L=40.0 H=70.0 92088-5 LOINC %LYMPH 23.2 % L=20.0 H=45.0 736-9 LOINC %MONO 5.5 % L=2.0 H=10.0 64736-0 LOINC %EOS 2.2 % L=0.0 H=6.0 713-8 LOINC %BASO 0.6 % L=0.0 H=3.0 706-2 LOINC #NEUT 6.1 10^3uL L=1.9 H=7.6 33011-2 LOINC #LYMPH 2.1 10^3uL L=0.9 H=4.9 66879-6 LOINC #MONO 0.5 10^3uL L=0.1 H=0.9 00237-2 LOINC #EOS 0.2 10^3uL L=0.0 H=0.6 712-0 LOINC #BASO 0.05 10^3uL L=0.00 H=0.10 12771-0 LOINC #IM GRANS 0.0 10^3uL L=0.0 H=7.0 67168-1 LOINC %IM GRANS 0.1 % L=0.0 H=5.0 20202-5 LOINC %NRB 0.0 L=0.0 H=0.2 47833-9 LOINC #NRB 0.000 L=0.000 H=0.012 69705-5 LOINC MANUAL DIFF NOT INDICATED RBC MORPH NOT INDICATED Social History Type Status Start Date End Date Code Code Syst em Smoking History Never smoker (Never Smoked) 595858903 SNOMED CT Sex Female Assessment You had the following problems:ESSENTIAL (PRIMARY) HYPERTENSIONPOLYCYSTIC KIDNEY, UNSPECIFIEDPROTEINURIA, UNSPECIFIED Hospital Discharge Instructions Should you have any questions prior to discharge, please contact a member of your healthcare team. If you have left the hospital and have any questions, please contact your primary care physician. Reason For Referral No Data Found Problems Problem Start Date Resolved Date Status Code Code System ESSENTIAL (PRIMARY) HYPERTENSION active 35972802 SNOMED-CT POLYCYSTIC KIDNEY, UNSPECIFIED active 81966368 SNOMED-CT PROTEINURIA, UNSPECIFIED active 29077 008 SNOMED-CT Plan of Treatment Digital Naman Screen Bilateral (06901) US Soft Tissue Head & Neck (90719) 02/11 Encounters Encounter Diagnosis Start Date Code Code Sys tem Abnormal result of other cardiovascular function study 07/13/2023 SNOMED-CT Personal Care Team Section Performer Name Performer Role Active Date Inactive SINDHU Butler PCP - Primary care physician 2022-10-29 2023-09-21
--- OUTSIDE RECORDS SUMMARY | 2025-03-17 10:17 | XMS_ITS ---
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 System Operator Name Role Phone SYBIL LING Attending Unavailable [facility] Primary Unavailable Immunization Immunization Date Status Additional [...] 208 CVX Pneumococcal conjugate PCV20 , polysaccharide [id number] conjugate, adjuvant, PF 05/05/2024 Completed 216 CVX [...] 30 mcg/0.3 mL 06/15/2024 Completed 309 CVX Social History Type Status Start Date End Date Code Code Syst em Smoking History Never smoker (Never Smoked) 025535965 SNOMED CT Sex Female Assessment You had [...] Code Code System ESSENTIAL (PRIMARY) HYPERTENSION active 40169409 SNOMED-CT POLYCYSTIC KIDNEY, UNSPECIFIED active 60792453 SNOMED-CT PROTEINURIA, UNSPECIFIED active 78618 008 SNOMED-CT Plan of Treatment Digital Naman Screen Bilateral (94664) US Soft Tissue Head & Neck (84245) 02/11 Encounters Encounter Diagnosis Start Date Code Code Sys tem Encounter for other preprocedural examination 02/23/20 24 SNOMED-CT Personal Care Team Section Performer Name Performer Role Active Date Inactive SINDHU Butler PCP - Primary care physician 2022-10-29 2023-09-21
--- OUTSIDE RECORDS SUMMARY | 2025-03-17 10:18 | XMS_ITS | Clinical Summary ---
Author Organization [facility] Address [address] [place] [address] Care Team Providers Care Certified Family Mediator Name Role Phone Brown Middleton MD Unavailable [phone] Hai Frausto MD Unavailable [phone] Wilber Orellana MD Unavailable [phone] Kristopher Almaraz MD Unavailable [phone] Karly Valencia APRN Primary Care Provider + Allergies Active Allergy Reactions Criticality Noted Date Comments Ibuprofen Other (see comment) 08/25/2022 Severe kidney disease Medications venlafaxine XR 150 MG 24 hr capsule Take 1 capsule (150 mg total) by mouth daily with breakfast. 02/27/2021 Active letrozole (FEMARA) 2.5 MG tabletIndication s:Malignant neoplasm of upper-outer quadrant of left breast in female, estrogen receptor positive (CMS/HCC HHS/HCC) take 1 tablet by mouth daily 90 tablet 3 02/02/2024 Active isosorbide mononitrate ER (IMDUR) 60 MG 24 hr tablet TAKE 1 TABLET(60 MG) BY MOUTH DAILY 90 tablet 3 02/01/2024 Active atorvastatin (LIPITOR) 80 MG tablet Take 1 tablet (80 mg total) by mouth nightly at bedtime. 90 tablet 3 05/26/2024 Active docusate sodium (COLACE) 100 MG capsule Take 1 capsule (100 mg total) by mouth daily. Active levothyroxine (SYNTHROID) 175 MCG tablet Take 1 tablet (175 mcg total) by mouth every morning. Active omeprazole (PRILOSEC) 40 MG capsule Take 1 capsule (40 mg total) by mouth daily. Active tiZANidine (ZANAFLEX) 2 MG tablet Take 1 tablet (2 mg total) by mouth daily. Active vitamin D2, ergocalciferol, (DRISDOL) 1.25 mg capsule Take 1 capsule (1.25 mg total) by mouth once a week. Active ferrous sulfate, 65 mg elemental, 325 (65 FE) MG tablet Take 1 tablet (325 mg total) by mouth daily with breakfast. Active QUEtiapine (SEROQUEL) 25 MG tablet Take 1 tablet (25 mg total) by mouth nightly at bedtime. Active amLODIPine (NORVASC) 10 MG tablet TAKE 1 TABLET(10 MG) BY MOUTH DAILY 90 tablet 3 12/04/2024 Active aspirin EC (ASPIRIN LOW DOSE) 81 MG tablet Take 1 tablet (81 mg total) by mouth daily. 90 tablet 3 12/25/2024 Active metoprolol succinate ER (TOPROL-XL) 100 MG 24 hr tablet Take 1 tablet (100 mg total) by mouth daily. 90 tablet 3 01/25/2025 Active Active Problems Problem Noted Date Diagnosed Date Morbid (severe) obesity due to excess calories 0 01/04/2023 FH: heart disease 10/29/2022 Chest pain, unspecified type 10/29/2022 Stage 4 chronic kidney disease ([facility]) 10/29/2022 Essential (primary) hypertension 10/29/2022 Anemia due to stage 3a chronic kidney disease At risk for loss of bone density 09/19/2019 Class 1 obesity without serious comorbidity in a dult 05/23/2019 History of thyroid cancer 05/23/2019 Malignant neoplasm of upper- 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 ([facility]) 05/02/2019 Cancer Staging:Pathologic stage from 05/04/2019:Stage IA(pT1b, pN0(sn), cM0, G2, ER+, ID+, HER2-) - Unsigned Clinical: Unsigned Encounters Date Type Department Care Team Description 03/15/2025 12:56 PM CDT - 03/15/2025 11:59 PM CDT Hospital Encounter [facility] [address] [address] Wilber Orellana MD Arrived Discharge Disposition: Home or Self Care (Routine Discharge) 03/15/2025 Travel 02/20/2025 9:43 AM CDT - 02/20/2025 11:59 PM CDT Hospital Encounter [facility] [id number] [place] [address] Wilber Orellana MD Discharge Disposition: Home or Self Care (Routine Discharge) 02/20/2025 9:28 AM CDT - 02/20/2025 9:42 AM CDT Hospital Encounter [facility] [id number] [place] [address] Briteny Eduardo, SUPERIOR COURT CLERK Discharge Disposition: Home or Self Care (Routine Discharge) 02/20/2025 Orders Only [facility] [id number] [place] [address] Wilber Orellana MD 02/20/2025 Orders Only [facility] [id number] [place] [address] Britney Eduardo NP 02/20/2025 Travel 02/02/2025 8:45 AM CDT - 02/02/2025 11:59 PM CDT Hospital Encounter [facility] [id number] [place] [address] Wilber Orellana MD Discharge Disposition: Home or Self Care (Routine Discharge) 02/02/2025 Orders Only [facility] [id number] [place] [address] Wilber Orellana MD 02/02/2025 Travel 01/25/2025 Orders Only [facility] [address] [place] [address] Douglas Vincent MD 01/25/2025 Transcribe Orders [facility] Pre Access Team [address] [place] [address] Wilber Orellana MD 01/04/2025 Results Follow-Up [facility] [address] [place] [address] Alysha Guallpa RN USE ECHOCARDIOGRAM, NM PHARM NUC STRESS TEST 1 DAY W TRACING 01/03/2025 8:20 AM CDT - 01/03/2025 11:59 PM CDT Hospital Encounter [facility] [address] [place] [address] [place] [address] Douglas Vincent MD Quarton, Brian L, MD Discharge Disposition: Home or Self Care (Routine Discharge) 01/03/2025 8:20 AM CDT - 01/03/2025 11:59 PM CDT Hospital Encounter [facility] [address] [place] [address] [place] [address] Douglas Vincent MD Discharge Disposition: Home or Self Care (Routine Discharge) 01/03/2025 Travel 01/02/2025 Results Follow-Up [facility] [address] [place] [address] [place] [address] Noemi Degroot MD MG SCREENING W ОЛЬГА RT DIGI 01/01/2025 12:14 PM CDT - 01/01/2025 11:59 PM CDT Hospital Encounter [facility] [address] [place] [address] [place] [address] Noemi Degroot MD Discharge Disposition: Home or Self Care (Routine Discharge) 01/01/2025 Travel 12/25/2024 Orders Only [facility] [address] [place] [address] Douglas Vincent MD 12/22/2024 Scan [facility] [address] [place] [address] Scanned, Doc Pccl ECG (SCAN) from Last 3 Months Family History Medical History Relation Comments Heart Attack Brother Heart Attack Father Heart Disease Father Kidney Disease Mother Heart Attack Sister Stroke Sister Relation Status Comments Brother Father Mother Sister Social History Tobacco Use Types Packs/Day Years Used Date Smoking Tobacco: Never Passive Smoke Exposure: Never Smokeless Tobacco: Never Tobacco Cessation:Counseling Given: Not Answered Alcohol Use Standard Drinks/Week Comments No 0 (1 standard drink = 0.6 oz pur e alcohol) AUDIT-C Answer Date Recorded Frequency of Alcohol Consumption Never 04/04/2019 Average Number of Drinks Not on file 019 Frequency of Binge Drinking Not on file 03/14 Comments No Sex and Gender Information Value Date Recorded Sex Assigned at Female 10/23/2024 12:36 PM THREAD CUTTER Legal Sex Female 8:54 PM CDT Gender Identity Not on file Sexual Orientation Not on file Last Filed Vital Signs Vital Sign Reading Time Taken Comments Blood Pressure 130/78 11/16/2024 1:06 PM THREAD CUTTER Pulse 70 11/16/2024 1:06 PM THREAD CUTTER Temperature 36 C (96.8 F) 07/17/2024 11:23 AM THREAD CUTTER Respiratory Rate 16 11/16/2024 1:06 PM THREAD CUTTER Oxygen Saturation 98% 07/17/2024 11:23 AM THREAD CUTTER Inhaled Oxygen Concentration - - Weight 90.7 kg (200 lb) 11/16/2024 1:06 PM THREAD CUTTER Height 162.6 cm (5' 4) 11/16/2024 1:06 PM THREAD CUTTER Body Mass Index 34.33 11/16/2024 1:06 PM THREAD CUTTER Plan of Treatment Health Maintenance Due Date Last Done Comments Hepatitis C 1973 Annual Medicare Wellness Visit 2020 Colorectal Cancer Screening FIT/FOBT (1 Year) 10/13/2023 10/13/2022 COVID-19 Vaccine ( season) 2024 06/15/2024, 06/11/2023, 07/17/2022, Additional history exists Mammogram Screening 01/01/2027 01/01/2025, 12/30/2023, 12/17/2022, Additional history exists DTaP, Tdap and Td Vaccines (2 - Td or Tdap) 06/01/2033 06/01/2023 Zoster Vaccines Completed 09/30/2021, 07/31/2021 Dexa Scan (General) Completed 11/25/2023, Pneumococcal Vaccine: 50+ Years Completed 05/05/2024, 06/13/2020 RSV Immunization or 60+ Years Completed 05/05/2024 Meningococcal B Vaccine Aged Out No l onger eligible based on patient's age to complete this topic Meningococcal Vaccine Aged Out No ida juan eligible based on patient's age to complete this topic RSV Immunizations Under 20 Months Aged Out No longer eligible based on patient's age to complete this topic Procedures Procedure Name Priority Date/Time Associated Diagnosis Comments OSMOLALITY, URINE Routine 02/20/2025 9:5 4 AM CDT Chronic kidney disease, stage 4 (severe) (CMS/HCC HHS/HCC) ALBUMIN URINE RANDOM W/CREATININE Routine 02/20/2025 9:54 AM CDT Chronic kidney disease, stage 4 (severe) (CMS/HCC HHS/HCC) MISCELLANEOUS LAB TEST Routine 9:52 AM CDT Pre-transplant evaluation for kidney transplant RENAL FUNCTION PANEL Routine 02/20/2025 9:52 AM CDT Chronic kidney disease, stage 4 (severe) (CMS/HCC HHS/HCC) CBC W/DIFF AUTOMATED Routine 02/20/2025 9:52 AM CDT Chronic kidney disease, stage 4 (severe) (CMS/HCC HHS/HCC) PTH - INTACT Routine 02/20/2025 9:52 AM CDT Chronic kidney disease, stage 4 (severe) (CMS/HCC HHS/HCC) IRON SAT PANEL (IRON,IBC,%SAT) Routine 02/20/2025 9:52 AM CDT Chronic kidney disease, stage 4 (severe) (CMS/HCC HHS/HCC) MISCELLANEOUS LAB TEST Routine 9:06 AM CDT Pre-transplant evaluation for kidney transplant NM PHARM NUC STRESS TEST 1DAY W TRACING Routine 01/03/2025 11:11 AM CDT Current use of beta denis Chest pain, unspecified type STRESS TEST ONLY, EXERCISE Routine 01/03/2025 8:21 AM CDT Chest pain, unspecified type USE ECHOCARDIOGRAM Routine 01/01/2025 1: 28 PM CDT Pre-transplant evaluation for kidney transplant MG SCREENING W ОЛЬГА RT DIGI Routine 01/01/2025 12:26 PM CDT Malignant neoplasm of upper-outer quadrant of left breast in female, estrogen receptor positive (CMS/HCC HHS/HCC) Encounter for screening mammogram for malignant neoplasm of breast ECG GENERIC (SCAN ORDER) Routine 12/22/2024 12:00 AM CDT BONE DENSITY/DEXA Routine 11/25/2023 10: 22 AM CDT Malignant neoplasm of upper-outer quadrant of left breast in female, estrogen receptor positive At risk for loss of bone density penitentiary (current) use of other agents affecting estrogen receptors and estrogen levels OCCULT BLOOD, FECES STAT 10/13/2022 9 :49 AM THREAD CUTTER from Last 3 Months or Most Recently Relevant to Health Maintenance Results * (ABNORMAL) ALBUMIN CREATININE URINE RANDOM (02/20/2025 9:54 AM CDT) ALBUMIN (U) 80.6 MG/DL 02/20/2025 10:54 AM CDT [facility] Comment:REFERENCE RANGE NOT ESTABLISHED CREATININE RANDOM (U) 57.4 MG/DL 02/20/2025 10:54 AM CDT [facility] Comment:REFERENCE RANGE NOT ESTABLISHED ALBUMIN/CREAT RATIO 1,403.0(H) <30 MG/G 02/20/2025 10:54 AM CDT [facility] Comment: NORMAL TO MILDLY INCREASED ALBUMINURIA: <30 MG/G MODERATELY INCREASED ALBUMINURIA: 30 TO 300 MG/G SEVERELY INCREASED ALBUMINURIA: >300 MG/G PER KDIGO URINE SPECIMEN / Unknown 02/20/2025 9:54 AM CDT Britney Eduardo NP URINE ORDERABLES Final Result [facility] [address] [place] [address], * OSMOLALITY, URINE (02/20/2025 9:54 AM CDT) OSMOLALITY (U) 392 50 - 1,200 MOSM/KG 02/20/2025 1:45 PM CDT [facility] URINE SPECIMEN / Unknown 02/20/2025 9:54 AM CDT Britney Eduardo SUPERIOR COURT CLERK URINE ORDERABLES Final Result Performing Organization Address City/[facility]/ZIP Co de Phone Number [facility] [address] [place] [address], [place] [phone] * MISCELLANEOUS LAB TEST (02/20/2025 9:52 AM CDT) Only the most recent of2 resultswithin the time period is included. TEST NAME: HLA CARESET AB WITH SCREEN TO [facility] COURTESY DRAW 02/20/2025 9:55 AM CDT [facility] SPECIMEN TYPE BLOOD 02/20/2025 9:55 AM CDT [facility] TEST RESULT: NO REPORT 02/20/2025 10:17 AM CDT [facility] 02/20/2025 9:52 AM CDT Wilber Orellana MD LABORATORY Final Result Performing Organization Address [facility] Co de Phone Number [facility] [address] [place] [address], [place] [phone] * (ABNORMAL) PTH - INTACT (02/20/2025 9:52 AM CDT) PTH 204.6(H) 18.4 - 80.1 PG/ML 02/20/2025 1:53 PM CDT [facility] Comment: ASSAY PERFORMED BY CHEMILUMINESCENCE METHODOLOGY USING [employer]EM[employer] XPT REAGENT. PATIENT RESULTS DETERMINED BY ASSAYS USING DIFFERENT MANUFACTURERS FOR METHODS MAY NOT BE COMPARABLE. 02/20/2025 9:52 AM CDT us Britney Eduardo SUPERIOR COURT CLERK LABORATORY Final Result Performing Organization Address [facility]/ZIP Co de Phone Number [facility] [address] [place] [address], [place] [phone] * (ABNORMAL) IRON SATURATION PNL (FE/TIBC/SAT) (02/20/2025 9:52 AM CDT) IRON 39(L) 50 - 170 MCG/DL 02/20/2025 12:49 PM CDT [facility] IRON BINDING CAPACITY 235(L) 250 - 450 MCG/DL 02/20/2025 12:49 PM CDT [facility] IRON SATURATION 17 % 12:49 PM CDT [facility] Comment:REFERENCE RANGE NOT ESTABLISHED 02/20/2025 9:52 AM CDT us Britney Eduardo NP LABORATORY Final Result [facility] [email or web address] [place] [id number], * (ABNORMAL) RENAL FUNCTION PANEL (02/20/2025 9:52 AM CDT) SODIUM S/P/B 140 136 - 145 MMOL/L 02/20/2025 10:28 AM CDT [facility] POTASSIUM S/P/B 4.3 3.5 - 5.1 MMOL/L 02/20/2025 10:28 AM CDT [facility] CHLORIDE S/P/B 105 98 - 107 MMOL/L 02/20/2025 10:28 AM CDT [facility] CO2 25.7 21.0 - 32.0 MMOL/L 02/20/2025 10:28 AM CDT [facility] GLUCOSE 109(H) 70 - 99 MG/DL 02/20/2025 10:28 AM CDT [facility] Comment: FASTING GLUCOSE 100 TO 125 MG/DL IS CONSISTENT WITH IMPAIRED FASTING GLUCOSE. FASTING GLUCOSE >125 MG/DL IS CONSISTENT WITH DIABETES. RANDOM GLUCOSE >200 MG/DL WITH HYPERGLYCEMIC SYMPTOMS IS CONSISTENT WITH DIABETES. PER ADA GUIDELINES BUN 48(H) 6 - 24 MG/DL 02/20/2025 10:28 AM CDT [facility] CREATININE S/P/B 2.79(H) 0.55 - 1.02 MG/DL 02/20/2025 10:28 AM CDT [facility] CALCIUM S/P/B 9.3 8.4 - 10.5 MG/DL 02/20/2025 10:28 AM CDT [facility] ALBUMIN S/P/B 3.7 3.4 - 5.0 G/DL 02/20/2025 10:28 AM CDT [facility] PHOSPHORUS 2.7 2.6 - 4.7 MG/DL 02/20/2025 10:28 AM CDT [facility] ANION GAP 9.3 5.0 - 15.0 MMOL/L 02/20/2025 10:28 AM CDT [facility] OSMOLALITY (CALC) 303 MOSM/KG 025 10:28 AM T [facility] Comment:REFERENCE RANGE NOT ESTABLISHED GFR ESTIMATE 18(L) >89 ML/MIN/1. 73 M2 02/20/2025 10:28 AM CDT [facility] GFR NOTES GFR REFERENCE S: 02/20/2025 10:28 AM T [facility] Comment: THE ESTIMATED GFR IS CALCULATED USING THE 2020 CKD-EPI EQUATION. THE FOLLOWING CATEGORIES FOR GRADING RENAL FUNCTION ARE RECOMMENDED BY THE INTERNATIONAL SOCIETY OF NEPHROLOGY (KDIGO 2012 CLINICAL PRACTICE GUIDELINE). G1,NORMAL OR HIGH: >89 ml/min/1.73 m2 G2,MILDLY DECREASED: 60-89 ml/min/1.73 m2 G3A,MILDLY TO MODERATELY DECREASED: 45-59 ml/min/1.73 m2 G3B,MODERATELY TO SEVERELY DECREASED: 30-44 ml/min/1.73 m2 G4,SEVERELY DECREASED: 15-29 ml/min/1.73 m2 G5,KIDNEY FAILURE: <15 ml/min/1.73 m2 02/20/2025 9:52 AM CDT Britney Eduardo NP LABORATORY Final Result [facility] [address] [email or web address] [address], * (ABNORMAL) CBC W/DIFF AUTOMATED (02/20/2025 9:52 AM CDT) WBC 6.92 4.00 - 10.80 x10'3/uL 02/20/2025 10:04 AM CDT [facility] RBC 4.05(L) 4.10 - 5.40 x10'6/uL 02/20/2025 10:04 AM CDT [facility] HGB 10.7(L) 12.0 - 16.0 G/DL 02/20/2025 10:04 AM CDT [facility] HCT 34.4(L) 36.0 - 47.0 % 02/20/2025 10:04 AM CDT [facility] MCV 84.9 78.0 - 100.0 FL 02/20/2025 10:04 AM CDT [facility] MCH 26.4(L) 27.0 - 31.0 PG 02/20/2025 10:04 AM CDT [facility] MCHC 31.1(L) 33.0 - 36.0 G/DL 02/20/2025 10:04 AM CDT [facility] RDW 16.0(H) 11.5 - 14.5 % 02/20/2025 10:04 AM CDT [facility] PLT 317 150 - 350 x10'3/uL 02/20/2025 10:04 AM CDT [facility] MPV 9.2 7.4 - 10.4 FL 02/20/2025 10:04 AM CDT [facility] CBC COMMENT NORMAL REFERENCE RANGE NOT ESTABLISHED FOR THE PROPORTIONAL LEUKOCYTE DIFFERENTIAL. 02/20/2025 10:04 AM CDT [facility] NEUTROPHILS % 71.9 % 02/20/2025 10:04 AM CDT [facility] LYMPHOCYTES % 19.8 % 02/20/2025 10:04 AM CDT [facility] MONOCYTES % 4.8 % 02/20/2025 10:04 AM CDT [facility] EOSINOPHILS % 2.6 % 02/20/2025 10:04 AM CDT [facility] BASOPHILS % 0.6 % 02/20/2025 10:04 AM CDT [facility] IMMATURE GRANS % 0.3 % 02/21/20 10:04 AM CDT [facility] NRBC % 0.0 % 02/20/2025 10:04 AM CDT [facility] ABS. NEUTROPHILS 4.98 1.60 - 8.30 x10'3/uL 02/20/2025 10:04 AM CDT [facility] ABS. LYMPHOCYTES 1.37 0.80 - 4.70 x10'3/uL 02/20/2025 10:04 AM CDT [facility] ABS. MONOCYTES 0.33 0.00 - 1.50 x10'3/uL 02/20/2025 10:04 AM CDT [facility] ABS. EOSINOPHILS 0.18 0.00 - 0.40 x10'3/uL 02/20/2025 10:04 AM CDT [facility] ABS. BASOPHILS 0.04 0.00 - 0.20 x10'3/uL 02/20/2025 10:04 AM CDT [facility] ABS. IMMATURE GRANULOCYTES 0.02 0.00 - 0.03 x10'3/uL 02/20/2025 10:04 AM CDT [facility] ABS. NUCLEATED RBC'S 0.00 0.00 - 0.01 x10'3/uL 02/20/2025 10:04 AM CDT [facility] 02/20/2025 9:52 AM CDT us Britney Eduardo NP LABORATORY Final Result [facility] [address] [email or web address] [address], * NM PHARM NUC STRESS TEST 1 DAY W TRACING (01/03/2025 11:11 AM CDT) Anatomical Region Laterality Modality Cardiac Nuclear Medicine 01/03/2025 9:17 AM CDT Narrative 01/05/2025 6:10 AM CDT MYOCARDIAL PERFUSION SCAN Pat.Name: Genna Fraga Pat.ID: [id number] .Date: 01/03/2025 Refer.MD: [place], [facility] Exam Time: 9:17:00 AM Study Type:SUSAN SR Height: 64 in Weight: 200 lb BSA: 1.96 m2 Age: 8 1955,69Y Sex: F Sonogrphr: TERI Stubbs Pat. Stat.:Outpatient Reason for Study:Current use of beta denis, Chest pain, unspecified type, Pre-op kidney transplant Procedures: Study performed at [place], [place] and interpreted by [facility]. Regadenoson Stress, Stress Gated SPECT, Rest SPECT Risk Factors:Diabetes, Family history, Hypertension ++++++++++++++++++++++++++++++++++++ SUMMARY: ++++++++++++++++++++++++++++++++++++ Normal Perfusion Study with diaphragmatic attenuation . Significant diaphragmatic attenuation noted. There is a mild basal inferior perfusion defect during stress and rest. There is post stress normal wall motion in all juarez. Left ventricular EF is 59 %. The study quality is good. ++++++++++++++++++++++++++++++++++++ FINDINGS: ++++++++++++++++++++++++++++++++++++ Stress Findings: Negative electrocardiographic portion of regadenoson stress test. Impr: Normal Perfusion Study with diaphragmatic attenuation . Transient Ischemic Dilatation: The TID is 1.07. LV Perfusion Results: There is a mild basal inferior perfusion defect during stress and rest. Gated SPECT Results: Left ventricular EF is 59 %. There is post stress normal wall motion in all juarez. Study Quality/Artifacts: The study quality is good. ++++++++++++++++++++++++++++++++++++ STRESS: ++++++++++++++++++++++++++++++++++++ Baseline Vital Signs: HR: 66 bmp Rest BP: 120/80 Regadenoson Peak Dose: 0.4 mg Stress Test Results: Target HR: 151 bmp Symptoms and Complications: Reason for Stopping Test: Protocol completed Stress Induced Symptoms: None <Electronic Signature> 01/05/2025 06:10 AM Jamee De La Torre M.D. Procedure Note Jamee De La Torre MD - 01/05/2025 MYOCARDIAL PERFUSION SCAN Pat.Name: Genna Fraga Pat.ID: [id number] .Date: 01/03/2025 Refer.MD: Zelalem, [facility] Exam Time: 9:17:00 AM Study Type:[facility] Height: 64 in Weight: 200 lb BSA: 1.96 m2 Age: 8 1955,69Y Sex: F Sonogrphr: TERI Stubbs Pat. Stat.:Outpatient Reason for Study:Current use of beta denis, Chest pain, unspecified type, Pre-op kidney transplant Procedures: Study performed at [facility], [place], [place] and interpreted by [facility]. Regadenoson Stress, Stress Gated SPECT, Rest SPECT Risk Factors:Diabetes, Family history, Hypertension ++++++++++++++++++++++++++++++++++++ SUMMARY: ++++++++++++++++++++++++++++++++++++ Normal Perfusion Study with diaphragmatic attenuation . Significant diaphragmatic attenuation noted. There is a mild basal inferior perfusion defect during stress and rest. There is post stress normal wall motion in all juarez. Left ventricular EF is 59 %. The study quality is good. ++++++++++++++++++++++++++++++++++++ FINDINGS: ++++++++++++++++++++++++++++++++++++ Stress Findings: Negative electrocardiographic portion of regadenoson stress test. Impr: Normal Perfusion Study with diaphragmatic attenuation . Transient Ischemic Dilatation: The TID is 1.07. LV Perfusion Results: There is a mild basal inferior perfusion defect during stress and rest. Gated SPECT Results: Left ventricular EF is 59 %. There is post stress normal wall motion in all juarez. Study Quality/Artifacts: The study quality is good. ++++++++++++++++++++++++++++++++++++ STRESS: ++++++++++++++++++++++++++++++++++++ Baseline Vital Signs: HR: 66 bmp Rest BP: 120/80 Regadenoson Peak Dose: 0.4 mg Stress Test Results: Target HR: 151 bmp Symptoms and Complications: Reason for Stopping Test: Protocol completed Stress Induced Symptoms: None <Electronic Signature> 01/05/2025 06:10 AM Jamee De La Torre M.D. Douglas Vincent MD [facility] Final Result * USE ECHOCARDIOGRAM (01/01/2025 1:28 PM CDT) Anatomical Region Laterality Modality Cardiac Ultrasound 01/01/2025 1:02 PM CDT Narrative 01/03/2025 6:00 AM CDT Echocardiography Report Pat.Name: Fraga Genna Pat.ID: [id number] .Date: 01/01/2025 Refer.MD: Zelalem, [facility] Exam Time: 1:02:00 PM Study Type:OUTREACH Height: 64 in Weight: 199 lb BSA: 1.95 m2 Age: 8 1955,69Y Sex: F Sonogrphr: Sf Pat. Stat.:Outpatient Reason for Study:Pre-transplant evaluation for kidney transplant Procedures: Study performed at [facility], [place], [place] and interpreted by [facility]. 2D, M-mode, Doppler, Color Flow ++++++++++++++++++++++++++++++++++++ SUMMARY: ++++++++++++++++++++++++++++++++++++ The left ventricular size is normal. Estimated left ventricular ejection fraction is 55-60%. Left ventricular diastolic function is abnormal (grade 1 - impaired relaxation). The right ventricle size is normal. The right ventricular function is normal. No evidence of pericardial effusion. No evidence of aortic regurgitation or aortic stenosis. Mild mitral regurgitation. There is trace tricuspid regurgitation. ++++++++++++++++++++++++++++++++++++ FINDINGS: ++++++++++++++++++++++++++++++++++++ LV: The left ventricular size is normal. The left ventricular systolic function is normal. Estimated left ventricular ejection fraction is 55-60%. Left ventricular diastolic function is abnormal (grade 1 - impaired relaxation). RV: The right ventricle size is normal. The right ventricular function is normal. LA: Left atrial size is normal. RA: The right atrial size is normal. JEAN PIERRE: No evidence of pericardial effusion. AO: Aorta is normal. SVn: Inferior vena cava is normal. AV: The aortic valve is trileaflet. No evidence of aortic valve stenosis. The peak velocity across the aortic valve measures 2.22m/sec with a peak gradient of 20mmHg and a mean gradient of 9mmHg. The calculated aortic valve area is 2.0cm2. No evidence of aortic regurgitation. MV: Structurally normal mitral valve. Mild mitral regurgitation. PV: The pulmonic valve is normal There is trace pulmonic regurgitation TV: The tricuspid valve appears structurally normal. There is trace tricuspid regurgitation. <Electronic Signature> 01/03/2025 06:00 AM Jamee De La Torre M.D. Procedure Note Jamee De La Torre MD - 01/03/2025 Echocardiography Report Pat.Name: Genna Fraga Pat.ID: [id number] .Date: 01/01/2025 [facility]: 1:02:00 PM Study Type:OUTREACH Height: 64 in Weight: 199 lb BSA: 1.95 m2 Age: 8 1955,69Y Sex: F Sonogrphr: Sf Pat. Stat.:Outpatient Reason for Study:Pre-transplant evaluation for kidney transplant Procedures: Study performed at [place], [place] and interpreted by [facility]. 2D, M-mode, Doppler, Color Flow ++++++++++++++++++++++++++++++++++++ SUMMARY: ++++++++++++++++++++++++++++++++++++ The left ventricular size is normal. Estimated left ventricular ejection fraction is 55-60%. Left ventricular diastolic function is abnormal (grade 1 - impaired relaxation). The right ventricle size is normal. The right ventricular function is normal. No evidence of pericardial effusion. No evidence of aortic regurgitation or aortic stenosis. Mild mitral regurgitation. There is trace tricuspid regurgitation. ++++++++++++++++++++++++++++++++++++ FINDINGS: ++++++++++++++++++++++++++++++++++++ LV: The left ventricular size is normal. The left ventricular systolic function is normal. Estimated left ventricular ejection fraction is 55-60%. Left ventricular diastolic function is abnormal (grade 1 - impaired relaxation). RV: The right ventricle size is normal. The right ventricular function is normal. LA: Left atrial size is normal. RA: The right atrial size is normal. JEAN PIERRE: No evidence of pericardial effusion. AO: Aorta is normal. SVn: Inferior vena cava is normal. AV: The aortic valve is trileaflet. No evidence of aortic valve stenosis. The peak velocity across the aortic valve measures 2.22m/sec with a peak gradient of 20mmHg and a mean gradient of 9mmHg. The calculated aortic valve area is 2.0cm2. No evidence of aortic regurgitation. MV: Structurally normal mitral valve. Mild mitral regurgitation. PV: The pulmonic valve is normal There is trace pulmonic regurgitation TV: The tricuspid valve appears structurally normal. There is trace tricuspid regurgitation. <Electronic Signature> 01/03/2025 06:00 AM Jamee De La Torre M.D. Douglas Vincent MD ECHO Final Result * MG SCREENING W ОЛЬГА RT DIGI (01/01/2025 12:26 PM CDT) Anatomical Region Laterality Modality Breast Right Mammography 01/01/2025 4:26 PM CDT Impressions 01/01/2025 4:27 PM CDT IMPRESSION: No suspicious change since the previous exams. Recommendation: 1: Routine Screening Right in 1 Year Assessment: ACR BI-RADS 2 - BENIGN FINDING(S) Ordered By: NOEMI DEGROOT Interpreted By: Harsha Saucedo MD, 01/01/2025 4:26 PM Narrative 01/01/2025 4:[address] PM [address]T [address] [place] [address] Examination: Digital right screening mammogram with CAD. Clinical history: Asymptomatic patient presents for routine screening. Prior left mastectomy for cancer. Comparison: 12/30/2023, 12/17/2022, 12/15/2021. Technique: CC and MLO right digital mammograms. The exam was interpreted with the use of a computer-aided detection (CAD) system. Additional 3-D tomosynthesis images were acquired. Tissue density: There are scattered areas of fibroglandular density. Findings: The breast tissue contains scattered fibroglandular densities. Benign-appearing calcification noted. No suspicious mass, microcalcification or area of architectural distortion can be identified. From a mammographic standpoint, routine followup in one year would seem adequate. Noemi Degroot MD MAMMO Final Result * ECG (12/22/2024 12:00 AM CDT) 12/22/2024 us Doc Pccl Scanned SCANNING Final Result [facility] * BONE DENSITY/DEXA (11/25/2023 10:22 AM CDT) Anatomical Region Laterality Modality Bone Bone Density 11/26/2023 10:5 7 AM CDT Impressions 11/26/2023 10:59 AM CDT Impression: Normal BMD Referred By: NOEMI DEGROOT Interpreted By: Johan Sandhu MD, 11/26/2023 10:57 AM Narrative 11/26/2023 10:59 AM CDT 11/26/2023 Examination: DEXA Bone densitometry Clinical history: Postmenopausal female here for bone mineral density evaluation and comparison to 06/19/2021. Rheumatoid arthritis and cancer. Exercises. Technique: DEXA bone minimal density evaluation was performed in the AP projection over the lumbar spine and over both hips in the AP projection utilizing standard imaging techniques. Assessment: The BMD measured at the AP spine L1-L4 is 1.565 g/cm2 with a T-score of 4.7 and a Z-Score of 6.7. There is a 0.6% change from the prior study which is not statistically significant. The BMD measured at the femur total left is 1.226 g/cm2 with a T-score of 2.3 and a Z-Score of 3.8. There is a 4.7% change from the prior study. The BMD measured at the femur total right is 1.179 g/cm2 with a T-score of 1.9 and aZ-Score of 3.4. There is a -5% change from the prior study. Recommendations: All patients should ensure an adequate intake of dietary calcium and vitamin D. The NOF recommend adults under the age of 50 need 1000 mg of calcium and 400-800 IU of vitamin D daily. Effective therapy for the prevention and treatment of osteoporosis include biphosphonates. Follow-up: People with diagnosed cases of osteoporosis or at high risk for fracture should have regular bone mineral density test. For patients eligible for Medicare, routine testing is allowed once every 2 years. Testing frequency can be increased to one year for patients who have rapidly progressing disease, those who are receiving or discontinuing medical therapy to restore bone mass, or have additional risk factors. Based on these results, a followup exam is recommended in November 2025 Procedure Note Johan Sandhu MD - 11/26/2023 11/26/2023 Examination: DEXA Bone densitometry Clinical history: Postmenopausal female here for bone mineral densityevaluation and comparison to 06/19/2021. Rheumatoid arthritis and cancer.Exercises. Technique: DEXA bone minimal density evaluation was performed in the APprojection over the lumbar spine and over both hips in the AP projectionutilizing standard imaging techniques. Assessment: The BMD measured at the AP spine L1-L4 is 1.565 g/cm2 with a T-score of4.7 and a Z-Score of 6.7. There is a 0.6% change from the prior studywhich is not statistically significant. The BMD measured at the femur total left is 1.226 g/cm2 with a T-score of2.3 and a Z-Score of 3.8. There is a 4.7% change from the prior study. The BMD measured at the femur total right is 1.179 g/cm2 with a T-score of1.9 and aZ-Score of 3.4. There is a -5% change from the prior study. Recommendations: All patients should ensure an adequate intake of dietary calcium andvitamin D. The NOF recommend adults under the age of 50 need 1000 mg ofcalcium and 400-800 IU of vitamin D daily. Effective therapy for theprevention and treatment of osteoporosis include biphosphonates. Follow-up: People with diagnosed cases of osteoporosis or at high risk for fractureshould have regular bone mineral density test. For patients eligible forMedicare, routine testing is allowed once every 2 years. Testing frequencycan be increased to one year for patients who have rapidly progressingdisease, those who are receiving or discontinuing medical therapy torestore bone mass, or have additional risk factors. Based on these results, a followup exam is recommended in November 2025 Impression: Normal BMD Referred By: NOEMI DEGROOT Interpreted By: Johan Sandhu MD, 11/26/2023 10:57 AM Noemi Degroot MD DEXA Final Result * OCCULT BLOOD, FECES (10/13/2022 9:49 AM THREAD CUTTER) OCCULT BLOOD FECAL NEGATIVE NEGATIVE 10/13/2022 10:01 AM THREAD CUTTER [facility] STOOL SPECIMEN / Unknown 10/13/2022 9:49 AM THREAD CUTTER us Valentin Del Angel DO BODY FLUIDS AND STOOLS ORDERA BLES Final Result [facility] [address] [email or web address] [address], from Last 3 Months or Most Recently Relevant to Health Maintenance Insurance MEDICAID [employer] GENERIC - COMMERCIAL Advance Directives Documents on File Type Date Recorded Patient Operations Professional Expl anation Advance Directives and Living Will 05/02/2019 10:53 AM 08/08/14 POA-HC Advance Directives and Living Will 11/27/2017 POWER OF CARGO SERVICE SUPERVISOR FO R HEALTH CARE Advance Directives and Living Will 2015 POWER OF CARGO SERVICE SUPERVISOR FO R HEALTH CARE Advance Directives and Living Will 02/25/2015 POWER OF CARGO SERVICE SUPERVISOR FO R HEALTH CARE Advance Directives and Living Will 01/11/2015 POWER OF CARGO SERVICE SUPERVISOR FO R HEALTH CARE Advance Directives and Living Will 11/19/2014 POWER OF CARGO SERVICE SUPERVISOR FO R HEALTH CARE Advance Directives and Living Will 11/19/2014 POWER OF CARGO SERVICE SUPERVISOR FO R HEALTH CARE Advance Directives and Living Will 10/16/2014 POWER OF CARGO SERVICE SUPERVISOR FO R HEALTH CARE Advance Directives and Living Will 10/11/2014 POWER OF CARGO SERVICE SUPERVISOR FO R HEALTH CARE Advance Directives and Living Will 10/08/2014 POWER OF CARGO SERVICE SUPERVISOR FO R HEALTH CARE Advance Directives and Living Will 09/25/2014 POWER OF CARGO SERVICE SUPERVISOR FO R HEALTH CARE Advance Directives and Living Will 08/08/2014 POWER OF CARGO SERVICE SUPERVISOR FO R HEALTH CARE * Full Code (Latest Code Status on File) Date Activated Date Inactivated Comments 05/02/2019 6:10 PM 05/05/2019 3:22 PM Care Teams Certified Family Mediator Relationship Specialty Start Date End Date Karly Valencia APRN [address] [place] [id number] PCP - General Nurse Practitioner Family 02/02/25 Brown Middleton MD [address] [place] [address] Consulting Physician ENDOCRINOLOGY 05/26/24 Hai Frausto MD [address] [facility] [address] [place] [phone] SURGERY 10/27/24 Wilber Orellana MD [address] [phone] Consulting Physician INTERNAL MEDICINE 06/30/23 Kristopher Almaraz MD [address] [id number] Referring Physician Psychiatry 12/14/24
--- OUTSIDE RECORDS SUMMARY | 2025-03-17 10:18 | XMS_ITS | Encounter Summary ---
Author Organization [facility] Address Formerly [facility], [facility] [place] [address] Care Team Providers Care Child Life Assistant Name Role Phone [facility] Primary Care Provider [phone] Riccardo Osorio MD Primary Care Provider [phone] Marni Ugalde MD Unavailable Unavailabl e Britney Eduardo WATER PUMP SERVICER Unavailable [phone] Susan Sen WATER PUMP SERVICER Primary Care Provider [phone] Wilber Orellana MD Unavailable [phone] Brown Middleton MD Unavailable [phone] Hai Frausto MD Unavailable [phone] Wilber Orellana MD Unavailable [phone] None, Provider Unavailable Unavailable None, Provider Primary Care Provider Unavaila Kristopher Pandya MD Unavailable Karly Valencia APRN Primary Care Provider + Encounter Details Date Type Department Care Team (Late st Contact Info) Description 02/18/2019 Abstract [facility] CONVERSION [address] [place] [address] , Generic Conversion, Social History Tobacco Use Types Packs/Day Years Used Date Smoking Tobacco: Never Comments Unknown Sex and Gender Information Value Date Recorded Sex Assigned at Female 10/23/2024 12:36 PM TOP FRAME FITTER Legal Sex Female 8:54 PM CDT Gender Identity Not on file Sexual Orientation Not on file documented as of this encounter Plan of Treatment Not on file documented as of this encounter Visit Diagnoses Not on filedocumented in this encounter Care Teams Child Life Assistant Relationship Specialty Start Date End Date Elis Linn [facility] [address] [place], [place] [id number] PCP - General NURSE PRACTITIONER 04/03/19 08/03/22 Riccardo Osorio MD [address] [place] [address] PCP - General FAMILY PRACTICE 08/04/22 02/24/23 [place] [address] PCP - General Nurse Practitioner Women's Health 02/25/23 06/22/23 None, MD Tammie PCP - General UNKNOWN PHYSICIAN SPECIALTY 11/16/24 02/01/25 Karly Valencia APRN [address] [place] [phone] PCP - General Nurse Practitioner Family 02/02/25 [facility] [place] [address] Consulting Physician CARDIOVASCULAR DISEASE 08/25/2205/25 Britney Eduardo WATER PUMP [place] [phone] Nurse Practitioner Nurse Practitioner Family 01/01/23 05/25/24 Wilber Orellana MD [address] [place] [address] Consulting Physician NEPHROLOGY 06/30/23 11/06/24 Brown Middleton MD [address] [place] [phone] Consulting Physician ENDOCRINOLOGY 05/26/24 Hai Frausto MD [address] [facility] [address] [place] [address] SURGERY 10/27/24 Wilber Orellana MD [address] [address] Consulting Physician INTERNAL MEDICINE 06/30/23 None, Tammie, UNKNOWN PHYSICIAN SPECIALTY 11/16/24 12/13/24 Kristopher Almaraz MD [address] [id number] Referring Physician Psychiatry 12/14/24 documented as of this encounter
--- OUTSIDE RECORDS SUMMARY | 2025-03-17 10:18 | XMS_ITS ---
Author Organization [facility] Address [facility] [place] [address] Care Team Providers Care Business Area Director Name Role Phone Brown Middleton MD Unavailable [phone] Hai Frausto MD Unavailable [phone] Wilber Orellana MD Unavailable [phone] Kristopher Almaraz MD Unavailable [phone] Karly Valencia APRN Primary Care Provider + Active Problems Problem Noted Date Diagnosed Date Morbid (severe) obesity due to excess calories 0 01/04/2023 FH: heart disease 10/29/2022 Chest pain, unspecified type 10/29/2022 Stage 4 chronic kidney disease ([facility]) 10/29/2022 Essential (primary) hypertension 10/29/2022 Anemia due to stage 3a chronic kidney disease At risk for loss of bone density 09/19/2019 Class 1 obesity without serious comorbidity in a dult 05/23/2019 History of thyroid cancer 05/23/2019 Malignant neoplasm of upper- 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 ([facility]) 05/02/2019 Cancer Staging:Pathologic stage from 05/04/2019:Stage IA(pT1b, pN0(sn), cM0, G2, ER+, TN+, HER2-) - Unsigned Clinical: Unsigned Current Treatment and Therapy Plans zoledronic acid (ZOMETA) every 6 months* Plan Start Date:09/26/2019 Plan Provider:Noemi Marshall MD Linked Problems Malignant neoplasm of upper- outer quadrant of left breast in female, estrogen receptor positive (CMS/HCC HHS/HCC)At risk for loss of bone density Treatment Medications Current Day (Day 1, Cycle 6 - Planned for 05/17/2022) No medications scheduled. No medications schedul ed. Other Current Plans iron sucrose (VENOFER) weekly x3* Plan Start Date:12/17/2022 Plan Provider:DEVON Colvin Linked Problems Anemia due to stage 3a chron ic kidney disease (CMS/HCC) Treatment Medications No medications scheduled. Past Treatment and Therapy Plans No past plan information found. Treatment Summaries Malignant neoplasm of upper-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 (CMS/HCC HHS/HCC)* Images from the original note were not included. Survivorship Care Plan Patient Name Genna Fraga Date of 1955 Plan Completed By Nuzhat Pablo RN, MSN, MA, OCN on 05/10/19 Care Team Medical Oncologist Noemi Marshall MD [phone] Surgeon Serena Chandler MD [phone] Radiation Oncologist Primary Care Physician NORRIS RUSSO, [facility] [phone] Nurse Navigator Nuzhat Pablo RN, MSN, MA, OCN [phone] Diagnosis Malignant neoplasm of upper-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 (CMS/HCC) 05/02/2019 Initial Diagnosis Malignant neoplasm of upper-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 (CMS/HCC) Age at diagnosis 64-year-old Pertinent Past Medical History High blood pressure, anemia and thyroid cancer Diagnostic Procedures Malignant neoplasm of upper-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 (CMS/HCC) 05/02/2019 Pathology FINAL DIAGNOSIS: A) LYMPH NODE, LEFT SENTINEL #1, BIOPSY: - A SINGLE LYMPH NODE, NEGATIVE FOR TUMOR. - IMMUNOHISTOCHEMICAL STAIN FOR CAM5.2 WAS PERFORMED ON BLOCKS A1-A5 AND IS NEGATIVE. B) LYMPH NODE, LEFT SENTINEL #2, BIOPSY: - A SINGLE LYMPH NODE, NEGATIVE FOR TUMOR. - IMMUNOHISTOCHEMICAL STAIN FOR CAM5.2 WAS PERFORMED ON BLOCKS B1-B2 AND IS NEGATIVE. C) BREAST, LEFT, SIMPLE MASTECTOMY: HISTOLOGIC TYPE OF TUMOR: INVASIVE CARCINOMA OF NO SPECIAL TYPE (DUCTAL NOT OTHERWISE SPECIFIED). HISTOLOGIC GRADE: GLANDULAR (ACINAR)/TUBULAR DIFFERENTIATION: SCORE 3 NUCLEAR PLEOMORPHISM: SCORE 2 MITOTIC RATE: SCORE 1 TOTAL KITTY SCORE/OVERALL GRADE: GRADE 2, SCORE 6 TUMOR SIZE: GREATEST DIMENSION OF THE LARGEST INVASIVE FOCUS IS 7 MM. TUMOR FOCALITY: SINGLE FOCUS OF INVASIVE CARCINOMA. TUMOR SITE: CENTRAL BREAST. MACROSCOPIC AND MICROSCOPIC EXTENT OF TUMOR: SKIN UNINVOLVED. NIPPLE UNINVOLVED. NECROSIS: ABSENT. DUCTAL CARCINOMA IN SITU (DCIS): DCIS IS PRESENT. ESTIMATED SIZE IS 9 MM. THERE IS NO EXTENSIVE INTRADUCTAL COMPONENT. ARCHITECTURAL PATTERN IS SOLID. NUCLEAR GRADE IS INTERMEDIATE. NECROSIS IS ABSENT. LOBULAR CARCINOMA IN SITU (LCIS): NO LCIS IN SPECIMEN. ANCILLARY STUDIES (PERFORMED ON PREVIOUS OUTSIDE BIOPSY, WHICH WAS NOT REVIEWED. IF REPEAT TESTING IS DESIRED, TISSUE IS AVAILABLE. TREATMENT EFFECT: NO KNOWN PRESURGICAL THERAPY. LYMPHOVASCULAR INVASION: NONE IDENTIFIED. MARGINS INVASIVE CARCINOMA: UNINVOLVED BY INVASIVE CARCINOMA. NEAREST DEEP MARGIN IS 35 MM. DCIS: UNINVOLVED BY DCIS. NEAREST DEEP MARGIN IS UNINVOLVED BY 35 MM. REGIONAL LYMPH NODES: NUMBER OF LYMPH NODES EXAMINED: 2 NUMBER OF SENTINEL LYMPH NODES EXAMINED: 2 NUMBER OF LYMPH NODES INVOLVED BY TUMOR: 0 ADDITIONAL PATHOLOGIC FINDINGS: PROLIFERATIVE FIBROCYSTIC CHANGE. PATHOLOGIC STAGE CLASSIFICATION (AJCC 8th Edition): pT1b pN0(sn) D) BREAST, LEFT SUBCUTICULAR TISSUE, EXCISION: - BENIGN BREAST PARENCHYMA AND FIBROADIPOSE TISSUE. - NEGATIVE FOR TUMOR. Surgery Malignant neoplasm of upper-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 (CMS/HCC) 05/02/2019 Surgery Procedure: 1. LEFT AXILLARY SENTINEL NODE BIOPSY USING BLUE DYE 2. LEFT SIMPLE MASTECTOMY Surgeon: Serena Chandler MD Family History Family History Problem Relation Name Age of Onset Kidney Disease Mother Heart Disease Father Genetic Testing Chemotherapy and Other Treatments Malignant neoplasm of upper-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 (CMS/HCC) Treatment on clinical trial? NO Pre-operative chemotherapy administered? NO Radiation Malignant neoplasm of upper-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 (CMS/HCC) Ongoing Toxicities and Side Effects Malignant neoplasm of upper-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 (CMS/HCC) Follow-Up Care with Dr. Marshall every 3 months. Cancer Surveillance Tests Diagnostic Mammogram How Often? 6 months after completion of radiation and then at least annually determined by the recommendations of the previous mammogram Ordering Provider Noemi Marshall MD Follow-Up Instructions Physical exam with breast surgeon Every 6 months for 2 years, then every year for 3 years alternating with medical oncology Coordinating physician Serena Chandler MD Physical exam with medical oncologist Every 6 months for 2 years, then every year for 3 years alternating with breast surgeon Coordinating physician Noemi Marshall MD According to the [place] [employer], about 20 percent of cancer diagnoses are due to factors that are within your control such as nutrition, physical activity, smoking and alcohol use. We have made a commitment to your continued wellness as you transition into survivorship! Nutritional health and maintaining a healthy weight are a few of the many important parts of your recovery. You have already received tools to encourage healthy habits from our staff, and we want youto feel confident with your wellness decisions in the future. Continue all standard non-cancer related health care with your primary care provider. For a period of time, your oncology team will continue to monitor your cancer related health and needs after you have completed treatment. Usually this is done with physical exams and mammograms if appropriate. Other tests such as blood tumor marker studies, blood tests of liver function, CTs, bone scans, and chest x-rays are not a standard part of follow-up, and will be done only if you have symptoms or findings that suggest that the cancer has recurred, or as part of evaluating new treatments by clinical trials. It is important to tell your care team about any new unusual and/or persistent symptoms. These should include: New lumps in the breast Bone pain Chest pain Abdominal pain Shortness of breath or difficulty breathing Persistent headaches Persistent coughing Rash on breast Nipple discharge (liquid coming from the nipple) Retrieved from cancer.net 10/10/2015 Summary of the [place] [employer] Guidelines on Nutrition and Physical Activity Achieve and maintain a healthy weight throughout life. Be as lean as possible throughout life without being underweight. Avoid excess weight gain at all ages. For those who are overweight or obese, losing even a small amount of weight has health benefits and is a good place to start. Get regular physical activity and limit intake of high-calorie foods and drinks as keys to help maintain a healthy weight. Be physically active. Get at least 150 minutes of moderate intensity or 75 minutes of vigorous intensity activity each week (or a combination of these), preferably spread throughout the week. Limit sedentary behavior such as sitting, lying down, watching TV, and other forms of screen-based entertainment. Doing some physical activity above usual activities, no matter what one?s level of activity, can have many health benefits. Eat a healthy diet, with an emphasis on plant foods. Choose foods and drinks in amounts that help you get to and maintain a healthy weight Limit how much processed meat and red meat you eat. Eat at least 2?? cups of vegetables and fruits each day. Choose whole grains instead of refined grain products. If you drink alcohol, limit your intake. Drink no more than 1 drink per day for women or 2 per day for men. Last Medical Review: 09/23/2011 Last Revised: 12/20/2014 Other Concerns and Resources If you are experiencing issues with emotional or mental health, parenting, work/employment, finances, and/or insurance, there may be local and national resources available to assist you. Please discuss this with your oncology team and/or primary care provider for additional information. Below is a general list of resources: [facility] wwws.bcrecovery.org [facility]'s mission is to provide environments for women breast cancer survivors to heal emotionally. All programs are designed and conducted by survivors for survivors. [facility] offers wellness retreats- [employer]- for women in all stages of breast cancer - newly diagnosed, in treatment and many years finished with treatment. After Breast Cancer Diagnosis http://www.abcdbreastcancersupport.org/ 114.439.9259 Provides free, personalized information and one-to-one support to those affected by breast cancer- patients, families, and friends. Trained and professionally supported volunteer survivors and co-survivors help those battling breast cancer, from the newly diagnosed to those in treatment and beyond. [place] www.cancer.org 725-970-7157 Provides cancer information, resources and emotional support to patients and their family memebers. [place] [employer] Oncology www.cancer.net 896-379-3973 Provides trusted and up-to-date cancer information, developed by the world?s leading cancer doctors. [employer] www.cancercare.org 086-800-0811 A national nonprofit organization, which provides free professional help to people with cancer through counseling, education, information and referral and direct financial information. National Cancer Tornado www.cancer.gov 943-096-2589 Provides cancer information such as statistics, prevention, early detection, survivor netowrks and emotional support. National Comprehensive Cancer Network www.nccn.com Provides information about follow-up care for cancer. Living Beyond Breast Cancer www.lbbc.org 031-727-6995 Breast cancer information and support is available focusing on living well beyond breast cancer with educational newsletters, interactive message boards and much more. The [employer] www.[employer].org 640-537-3414 Offers recent breast cancer news, information on breast health, a calendar of events and announcements of research initiatives. Helpline is also available. Breast 360 www.uqzcyi682.org Provides patient information from the [place] [employer] Breast Surgeons, with the goal to engage,educate, and empower readers so they are able to make informed decisions for their breast health care.
--- OUTSIDE RECORDS SUMMARY | 2025-03-17 10:18 | XMS_ITS ---
Author Organization [facility] Address [address] [place], [place] [address] Care Team Providers Care Cocoa Bean Roaster Name Role Phone RODDY KUO Unavailable [phone] Marleen Gee Unavailable Unavailable EMILY CARVAJAL Unavailable [phone] REASON FOR VISIT *General care Encounters Encounter Location Date Provider Diagnosis [facility] [address], [place] [id number] 04/06/2024 EMILY CARVAJAL Plan Of Treatment No Information Progress Notes * Genna KEENEDOB: (69 yo F)Acc No.[id number]:04/06/2024 Patient: Genna MCPHERSON Provider: Camille CARVAJAL :1955 A ge:68 Y S ex:Female Date:04/06/2024 Address:[address] JAM[place]ning [id number] Subjective: * Chief Complaints: * 1 . *General care. * Medical History: Objective: * Vitals: Assessment: Plan: * Treatment: * Billing Information: * Visit Code: * Procedure Codes: * Electronic signature of DEBBY CARVAJAL DPM on 03/17/2025 at 10:18 AM CDT Sign off status: Pending * Provider: Camille CARVAJAL Date: 04/06/2024 Generated for Stacey gee/Juice/eTjessicasmitting on: 03/17/2025 10:18 AM CDT
--- OUTSIDE RECORDS SUMMARY | 2025-03-17 10:18 | XMS_ITS ---
Author Organization Unknown Address [address] [place] [phone] Phone Care Team Providers Care Binding Machine Operator Name Role Phone KAMILLA DALLAS Attending Unavailable [facility] Primary Unavailable [facility] Secondary Unavailable Immunization Immunization Date Status Additional Notes [...] 208 CVX Pneumococcal conjugate PCV20 , polysaccharide [id number] conjugate, adjuvant, PF 05/05/2024 Completed 216 CVX [...] mcg/0.3 mL 06/15/2024 Completed 309 CVX Results TSH - Collect Date/Time: 08:42 [facility] ID: [id number] [address] [place], [place], [id number] LOINC: 03061-9 Test Value Unit Reference Range Code Code System Flag TSH. < 0.150 uIU/L L=0.470 H=4.680 96993-6 LOINC L Social History Type Status Start Date End Date Code Code Syst em Smoking History Never smoker (Never Smoked) 778658299 SNOMED CT Sex Female Assessment You had [...] Code Code System ESSENTIAL (PRIMARY) HYPERTENSION active 19576955 SNOMED-CT POLYCYSTIC KIDNEY, UNSPECIFIED active 39087150 SNOMED-CT PROTEINURIA, UNSPECIFIED active 63632 008 SNOMED-CT Plan of Treatment Digital Naman Screen Bilateral (30649) US Soft Tissue Head & Neck (33708) 02/11 Encounters Encounter Diagnosis Start Date Code Code Sys tem Postprocedural hypothyroidism 03/01/2024 SNOMED-CT Personal Care Team Section Performer Name Performer Role Active Date Inactive SINDHU Butler PCP - Primary care physician 2022-10-29 2023-09-21
--- OUTSIDE RECORDS SUMMARY | 2025-03-17 10:18 | XMS_ITS | Encounter Summary ---
Author Organization [facility] Address [address] [place] [address] Care Team Providers Care Career Center Advisor Name Role Phone Marni Ugalde MD Unavailable Unavailabl Britney Jang NP Unavailable [phone] Wilber Orellana MD Unavailable [phone] Brown Middleton MD Unavailable [phone] Hai Frausto MD Unavailable [phone] Wilber Orellana MD Unavailable [phone] None, Provider Unavailable Unavailable None, Provider Primary Care Provider Unavaila Kristopher Pandya MD Unavailable [phone] Karly Valencia APRN Primary Care Provider + Encounter Details Date Type Department Care Team (Late st Contact Info) Description 07/09/2023 Prep for Procedure [facility] [facility] Pre/Post [address] [place] [address] Valeri Coffey MD [facility] [address] [place] [address] Social History Tobacco Use Types Packs/Day Years Used Date Smoking Tobacco: Never Passive Smoke Exposure: Never Smokeless Tobacco: Never Alcohol Use Standard Drinks/Week Comments No 0 (1 standard drink = 0.6 oz pur e alcohol) AUDIT-C Answer Date Recorded Frequency of Alcohol Consumption Never 04/04/2019 Average Number of Drinks Not on file 019 Frequency of Binge Drinking Not on file 03/14 Comments Unknown Sex and Gender Information Value Date Recorded Sex Assigned at Female 10/23/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 Answer Date of Assessment Author Status No 05/03/2019 5:09 AM CDT Activ e * Do you have serious difficulty walking or climbing stairs? Answer Date of Assessment Author Status No 05/03/2019 5:09 AM CDT Greta Miller RN Active * Do you have difficulty dressing or bathing? Answer Date of Assessment Author Status No 05/03/2019 5:09 AM TIAT Greta Miller RN Active * Because of a physical, mental, or emotional condition, do you have difficulty doing errands alone such as visiting a doctor's office or shopping? Answer Date of Assessment Author Status No 05/03/2019 5:09 AM CDT Greta Miller RN Active documented as of this encounter Mental Status * Because of a physical, mental, or emotional condition, do you have serious difficulty concentrating, remembering, or making decisions? Answer Entry Date Author Status No 05/03/2019 5:09 AM TIAT Greta Miller RN Active documented in this encounter Plan of Treatment Not on file documented as of this encounter Visit Diagnoses Not on filedocumented in this encounter Care Teams Career Center Advisor Relationship Specialty Start Date End Date None, Tammie, PCP - General UNKNOWN PHYSICIAN SPECIALTY 11/16/24 02/01/25 Karly Valencia APRN [address] [place], [place] [phone] PCP - General Nurse Practitioner Family 02/02/25 Marni Ugalde MD Consulting Physician CARDIOVASCULAR DISEASE 08/25/2205/25 Britney Eduardo NP Nurse Practitioner Nurse Practitioner Family 01/01/23 05/25/24 Wilber Orellana MD [address] [place] [address] Consulting Physician NEPHROLOGY 06/30/23 11/06/24 Brown Middleton MD [address] [place] [address] Consulting Physician ENDOCRINOLOGY 05/26/24 Hai Frausto MD [address] [phone] SURGERY 10/27/24 Wilber Orellana MD [address] [phone] Consulting Physician INTERNAL MEDICINE 06/30/23 None, Provider, UNKNOWN PHYSICIAN SPECIALTY 11/16/24 12/13/24 Kristopher Almaraz MD [address] [phone] Referring Physician Psychiatry 12/14/24 documented as of this encounter
--- OUTSIDE RECORDS SUMMARY | 2025-03-17 10:18 | XMS_ITS | Encounter Summary ---
Author Organization [facility] Address [address] [place] [address] Care Team Providers Care Driver Messenger Name Role Phone Marni Ugalde MD Unavailable Unavailabl Britney Jang NP Unavailable [phone] Wilber Orellana MD Unavailable [phone] Brown Middleton MD Unavailable [phone] Hai Frausto MD Unavailable [phone] Wilber Orellana MD Unavailable [phone] None, Provider Unavailable Unavailable None, Provider Primary Care Provider Unavaila Kristopher Pandya MD Unavailable [phone] Karly Valencia APRN Primary Care Provider + Encounter Details Date Type Department Care Team (Late st Contact Info) Description 07/07/2023 Hospital Orders Only [employer] Developer Pre/Post [address] [place] [address] Valeri Coffey MD 2 [facility] [address] [place] [address] Social History Tobacco Use Types Packs/Day Years [...] Sex Assigned at Female 10/23/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 Female 8:54 PM CDT Gender [...] on filedocumented in this encounter Care Teams Driver Messenger Relationship Specialty Start Date End Date None, Tammie, PCP - General UNKNOWN PHYSICIAN SPECIALTY 11/16/24 02/01/25 Karly Valencia APRN [address] [place], [place] [phone] PCP - General Nurse Practitioner Family 02/02/25 Marni Ugalde MD Consulting Physician CARDIOVASCULAR DISEASE 08/25/2205/25 Britney Eduardo NP Nurse Practitioner Nurse Practitioner Family 01/01/23 05/25/24 Wilber Orellana MD [address] [place] [address] Consulting Physician NEPHROLOGY 06/30/23 11/06/24 Brown Middleton MD [address] [place] [phone] Consulting Physician ENDOCRINOLOGY 05/26/24 Hai Frausto MD [address] [phone] SURGERY 10/27/24 Wilber Orellana MD [address] [phone] Consulting Physician INTERNAL MEDICINE 06/30/23 None, Provider, UNKNOWN PHYSICIAN SPECIALTY 11/16/24 12/13/24 Kristopher Almaraz MD [address] [id number] Referring Physician Psychiatry 12/14/24 documented as of this encounter
--- OUTSIDE RECORDS SUMMARY | 2025-03-17 10:18 | XMS_ITS ---
Author Organization Unknown Address [address] [place] [phone] Phone Care Team Providers Care Explosives Operator Name Role Phone KAMILLA HAYNES Attending Unavailable FAMILIA CEE Primary Unavailable CRYSTAL Rudd APN Secondary Unavailable Immunization Immunization Date Status Additional [...] 208 CVX Pneumococcal conjugate PCV20 , polysaccharide [id number] conjugate, adjuvant, PF 05/05/2024 Completed 216 CVX [...] mcg/0.3 mL 06/15/2024 Completed 309 CVX Results RENAL FUNCTION PANEL - Colle ct Date/Time: 04/25/2024 12:32 [facility] ID: [id number] [address] [place], [place], [id number] LOINC: 73326-2 Test Value Unit Reference Range Code Code System Flag FASTING? NO BUN 28 mg/dL L=7 H=20 3094-0 LOINC H CREATININE 2.10 mg/dL L=0.52 H=1.04 2160-0 LOINC H GLUCOSE 111 mg/dL L=74 H=106 2345-7 LOINC H CALCIUM 9.2 mg/dL L=8.3 H=10.5 18337-3 LOINC SODIUM 140 mmol/L L=132 H=144 2951-2 LOINC POTASSIUM 4.1 mmol/L L=3.5 H=5.1 2823-3 LOINC CHLORIDE 105 mmol/L L=98 H=107 2075-0 LOINC CO2 26.0 mmol/L L=22.0 H=30.0 2028-9 LOINC ANION GAP 13 L=10 H=20 72591-2 LOINC BUN/CREAT 13.3 3097-3 LOINC PHOSPHORUS 2.5 mg/dL L=2.5 H=4.9 2777-1 LOINC ALBUMIN 4.3 G/dL L=3.5 H=5.0 1751-7 LOINC AGE 69 [address]-3 LOINC eGFR NON-AFR 25 ml/min eGFR AFR AMER 30 ml/min US SOFT TISSUE HEAD AND NECK - Completed: 04/25/2024 14:04 LOINC: EXAM DESCRIPTION: US SOFT TISSUE HEAD AND NECK REASON FOR STUDY: Choking, history of thyroidectomy. TECHNIQUE: A Dynamic assessment was performed of the neck by the help aid, with selected grayscale and color Doppler images acquired and recorded in PACS. COMPARISON: 08/12/2020. FINDINGS: Prominent bilateral nonspecific cervical lymph nodes are again seen as noted from 07/16/2020. On the right this includes a level 1 lymph node 1 x 0.5 x 0.9 cm, level 2 1.4 x 0.7 x 1.3 cm, 1.2 x 0.5 x 1.4 cm, and 2.7 x 0.7 x 1.7 cm, level 3 lymph node 0.7 x 0.4 x 0.6 cm and level 4 lymph node 1.1 x 0.6 x 1.1 cm. In the left neck level 2 lymph node 1.0 x 0.6 x 1.1 cm and 1.2 x 0.5 x 1.2 cm. Level 3 lymph node 1.3 x 0.5 x 1.1 cm and level 4 lymph node 2.2 x 0.5 x 1.8 cm. IMPRESSION: Multiple bilateral prominent lymph nodes are nonspecific, these appears similar to July 2020. Correlate for any history of malignancy. If there is a history of thyroid malignancy, correlation with thyroglobulin level recommended and if elevated, I 131 whole-body scan could be considered. Otherwise, correlation with mucosal surface head neck assessment. Further assessment could be made with a CT neck soft tissue with contrast. THIS IS AN ELECTRONICALLY VERIFIED FINAL REPORT 04/27/2024 7:34 AM - Electronically signed by Marcelo Nielsen M.D. CH: DARCI Report ID: [id number] Reading Location: [id number] Social History Type Status Start Date End Date Code Code Syst em Smoking History Never smoker (Never Smoked) 328303823 SNOMED CT Sex Female Assessment You had [...] Code Code System ESSENTIAL (PRIMARY) HYPERTENSION active 92975326 SNOMED-CT POLYCYSTIC KIDNEY, UNSPECIFIED active 07555773 SNOMED-CT PROTEINURIA, UNSPECIFIED active 95832 008 SNOMED-CT Plan of Treatment Digital Naman Screen Bilateral (33224) US Soft Tissue Head & Neck (42545) 02/11 Encounters Encounter Diagnosis Start Date Code Code Sys tem Unspecified foreign body in larynx causing other injury, initial encounter 04/25/2024 SNOMED-CT Personal Care Team Section Performer Name Performer Role Active Date Inactive SINDHU Butler PCP - Primary care physician 2022-10-29 2023-09-21 Imaging Narrative Notes
--- OUTSIDE RECORDS SUMMARY | 2025-03-17 10:18 | XMS_ITS ---
Author Organization Unknown Address [address] [place] [phone] Phone Care Team Providers Care Count Team Clerk Name Role Phone FEEDRICO UREÑA APN Attending Unavailable FAMILIA CEE Primary Unavailable Immunization [...] 208 CVX Pneumococcal conjugate PCV20 , polysaccharide [id number] conjugate, adjuvant, PF 05/05/2024 Completed 216 CVX [...] mcg/0.3 mL 06/15/2024 Completed 309 CVX Results DIG 3D NAMAN SCREENING R MATTHIEU SHAIKH - Completed: 09/26/2024 10:47 LOINC: \TM00\\12PI\\DRAo\\BM09\ \MRLo\ [place] [address] ---------NAME--------- NUMBER SEX AGE ADMIT DISC. XRAY# F/C TYPE JASSI DIAMOND [id number] F 69 09/26/24 09/26/24 44832 MB7 O/P DATE OF : 1955 M/R# [id number] PH#: [phone] \[facility]\ LOCATION: TRANSCRIBED: 09/26/24 11:51 DIG 3D NAMAN SCREENING R [id number] COMPLETED:09/26/24 10:47 [facility] [address] (REASON-DIG 3D NAMAN SCREENING R UNILATERAL: SCREENING PHYSICIAN: FEDERICO GODOY R A D I O L O G Y R E P O R T PROCEDURE: DIG 3D NAMAN SCREENING R UNILATERAL CLINICAL INDICATION: Screening COMPARISON STUDY: 03/11/2021 TECHNIQUE: Using a full field digital 2D mammography unit CC and MLO views of the right breasts are performed. This examination was analyzed using RICS Software DBT/MMG, an [employer] Real[employer] software developed to enhance the effectiveness of breast cancer screening with mammography. FINDINGS: BREAST COMPOSITION: C - The breasts are heterogeneously dense, which may obscure small masses. No suspicious masses, architectural distortion, asymmetries or suspicious calcifications in the right breast. IMPRESSION: No evidence of malignancy. RECOMMENDATION: Recommend annual mammogram. ASSESSMENT: BIRADS: 1 - Negative T MARKETING MANAGER \ITLo\ \UNDo\ \UNDx\ \ITLx\ Reviewed and Electronically Signed by: BLACK SALVADOR Signed Date: SIGNDATE 09/26/24.1151.[email or web address].to [facility] via fax Social History Type Status Start Date End Date Code Code Syst em Smoking History Never smoker (Never Smoked) 026469026 SNOMED CT Sex Female Assessment You had [...] Code Code System ESSENTIAL (PRIMARY) HYPERTENSION active 17151322 SNOMED-CT POLYCYSTIC KIDNEY, UNSPECIFIED active 20125737 SNOMED-CT PROTEINURIA, UNSPECIFIED active 75374 008 SNOMED-CT Plan of Treatment Digital Naman Screen Bilateral (74907) US Soft Tissue Head & Neck (36156) 02/11 Encounters Encounter Diagnosis Start Date Code Code Sys tem Encounter for screening mamm ogram for malignant neoplasm of breast 09/26/2024 SNOMED-CT Personal Care Team Section Performer Name Performer Role Active Date Inactive SINDHU Butler PCP - Primary care physician 2022-10-29 2023-09-21 Imaging Narrative Notes [facility] 09/26/2024 11:[address] [address] ---------NAME--------- NUMBER SEX AGE ADMIT DISC. XRAY# F/C TYPE JASSI DIAMOND [id number] F 69 09/26/24 09/26/24 33340 MB7 O/P DATE OF : 1955 M/R# [id number] #: [id number] LOCATION: TRANSCRIBED: 09/26/24 11:51 DIG 3D NAMAN SCREENING R [id number] COMPLETED:09/26/24 10:47 [facility] [address] (REASON-DIG 3D NAMAN SCREENING R UNILATERAL: SCREENING PHYSICIAN: FEDERICO ROS RADIOLOGY REPORT PROCEDURE: DIG 3D NAMAN SCREENING R UNILATERAL CLINICAL INDICATION: Screening COMPARISON STUDY: 03/11/2021 TECHNIQUE: Using a full field digital 2D mammography unit CC and MLO views of the right breasts are performed. This examination was analyzed using RICS Software DBT/MMG, an The RealReal software developed to enhance the effectiveness of breast cancer screening with mammography. FINDINGS: BREAST COMPOSITION: C - The breasts are heterogeneously dense, which may obscure small masses. No suspicious masses, architectural distortion, asymmetries or suspicious calcifications in the right breast. IMPRESSION: No evidence of malignancy. RECOMMENDATION: Recommend annual mammogram. ASSESSMENT: BIRADS: 1 - Negative T MARKETING MANAGER Reviewed and Electronically Signed by: BLACK SALVADOR Signed Date: SIGNDATE 09/26/24.1151.[email or web address].to [facility] via fax
--- OUTSIDE RECORDS SUMMARY | 2025-03-17 10:18 | XMS_ITS | Encounter Summary ---
Author Organization [facility] Address [address] [place] [address] Care Team Providers Care Bending Shed Worker Name Role Phone Marni Ugalde MD Unavailable Unavailabl Britney Jang NP Unavailable [phone] Wilber Orellana MD Unavailable [phone] Brown Middleton MD Unavailable [phone] Hai Frausto MD Unavailable [phone] Wilber Orellana MD Unavailable [phone] None, Provider Unavailable Unavailable None, Provider Primary Care Provider Unavaila Kristopher Pandya MD Unavailable [phone] Karly Valencia APRN Primary Care Provider + Encounter Details Date Type Department Care Team (Late st Contact Info) Description 07/05/2023 Prep for Procedure [facility] [address] [place] [phone] Valrei Coffey MD 2 [facility] [address] [facility] [address] [place] [address] Social History Tobacco Use Types Packs/Day Years [...] Sex Assigned at Female 10/23/2024 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 Sex Female 8:54 PM CDT Gender [...] on filedocumented in this encounter Care Teams Bending Shed Worker Relationship Specialty Start Date End Date None, Provider, PCP - General UNKNOWN PHYSICIAN SPECIALTY 11/16/24 02/01/25 Karly Valencia APRN [address] [place], [place] [phone] PCP - General Nurse Practitioner Family 02/02/25 Marni Ugalde MD Consulting Physician CARDIOVASCULAR DISEASE 08/25/2205/25 Britney Eduardo NP Nurse Practitioner Nurse Practitioner Family 01/01/23 05/25/24 Wilber Orellana MD [address] [place] [address] Consulting Physician NEPHROLOGY 06/30/23 11/06/24 Brown Middleton MD [address] [place] [phone] Consulting Physician ENDOCRINOLOGY 05/26/24 Hia Frausto MD [address] [phone] SURGERY 10/27/24 Wilber Orellana MD [address] [place] [phone] Consulting Physician INTERNAL MEDICINE 06/30/23 None, Tammie, UNKNOWN PHYSICIAN SPECIALTY 11/16/24 12/13/24 Kristopher Almaraz MD [address] [id number] Referring Physician Psychiatry 12/14/24 documented as of this encounter
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
--- OUTSIDE RECORDS SUMMARY | 2025-03-17 10:18 | XMS_ITS ---
Author Organization Unknown Address [address] [place] [phone] Phone Care Team Providers Care Oven Laborer Name Role Phone JANETH RAPP Attending Unavailable [facility] Primary Unavailable Immunization Immunization Date Status Additional [...] 208 CVX Pneumococcal conjugate PCV20 , polysaccharide JTR711 conjugate, adjuvant, PF 05/05/2024 Completed 216 CVX [...] BASIC METABOLIC PANEL - Jeremy ect Date/Time: 07/27/2023 08:25 [facility] ID: [id number] [address] [place], [place], [id number] LOINC: 12483-2 Test Value Unit Reference Range Code Code System Flag FASTING NO BUN 73 mg/dL L=7 H=20 3094-0 LOINC H CREATININE 2.60 mg/dL L=0.52 H=1.04 2160-0 LOINC H GLUCOSE 76 mg/dL L=74 H=106 2345-7 LOINC CALCIUM 9.6 mg/dL L=8.3 H=10.5 75863-9 LOINC SODIUM 140 mmol/L L=132 H=144 2951-2 LOINC POTASSIUM 4.9 mmol/L L=3.5 H=5.1 2823-3 LOINC CHLORIDE 104 mmol/L L=98 H=107 2075-0 LOINC CO2 26.0 mmol/L L=22.0 H=30.0 2028-9 LOINC ANION GAP 15 L=10 H=20 11498-4 LOINC BUN/CREAT 28.1 3097-3 LOINC AGE 68 46944-6 LOINC eGFR NON-AFR 19 ml/min eGFR AFR AMER 23 ml/min Social History Type Status Start Date End Date Code Code Syst em Smoking History Never smoker (Never Smoked) 339338443 SNOMED CT Sex Female Assessment You had [...] Code Code System ESSENTIAL (PRIMARY) HYPERTENSION active 72647235 SNOMED-CT POLYCYSTIC KIDNEY, UNSPECIFIED active 73245795 SNOMED-CT PROTEINURIA, UNSPECIFIED active 53293 008 SNOMED-CT Plan of Treatment Digital Naman Screen Bilateral (20742) US Soft Tissue Head & Neck (24614) 02/11 Encounters Encounter Diagnosis Start Date Code Code Sys tem Disorder of kidney and ureter, unspecified 07/27/2023 SNOMED-CT Personal Care Team Section Performer Name Performer Role Active Date Inactive SINDHU Butler PCP - Primary care physician 2022-10-29 2023-09-21
--- OUTSIDE RECORDS SUMMARY | 2025-03-17 10:18 | XMS_ITS | Encounter Summary ---
Author Organization [facility] Address [address] [place] [address] Care Team Providers Care Gallery Host Name Role Phone Brown Middleton MD Unavailable [phone] Hai Frausto MD Unavailable [phone] Wilber Orellana MD Unavailable [phone] Kristopher Almaraz MD Unavailable [phone] Karly Valencia APRN Primary Care Provider + Encounter Details Date Type Department Care Team (Late st Contact Info) Description 03/15/2025 12:56 PM CDT - 03/15/2025 11:59 PM CDT Hospital Encounter [facility] [address] [facility] [place] [address] Wilber Orellana MD [address] [place] [address] Arrived Discharge Disposition: Home or Self Care (Routine Discharge) Social History Tobacco Use Types Packs/Day Years [...] Sex Assigned at Female 10/23/2024 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 90 tablet 3 12/25/2024 atorvastatin (LIPITOR) 80 MG tablet Take 1 tablet (80 mg total) by mouth nightly at bedtime. 90 tablet 3 05/26/2024 docusate sodium (COLACE) 100 MG capsule Take 1 capsule (100 mg total) by mouth daily. ferrous sulfate, 65 mg elemental, 325 (65 FE) MG tablet Take 1 tablet (325 mg total) by mouth daily with breakfast. isosorbide mononitrate ER (IMDUR) 60 MG 24 hr tablet TAKE 1 TABLET(60 MG) BY MOUTH DAILY 90 tablet 3 02/01/2024 letrozole (FEMARA) 2.5 MG tabletIndications: Malignant neoplasm of upper-outer quadrant of left breast in female, estrogen receptor positive (CMS/HCC HHS/HCC) take 1 tablet by mouth daily 90 tablet 3 02/02/2024 levothyroxine (SYNTHROID) 175 MCG tablet Take 1 tablet (175 mcg total) by mouth every morning. metoprolol succinate ER (TOPROL-XL) 100 MG 24 hr tablet Take 1 tablet (100 mg total) by mouth daily. 90 tablet 3 01/25/2025 omeprazole (PRILOSEC) 40 MG capsule Take 1 capsule (40 mg total) by mouth daily. QUEtiapine (SEROQUEL) 25 MG tablet Take 1 tablet (25 mg total) by mouth nightly at bedtime. tiZANidine (ZANAFLEX) 2 MG tablet Take 1 tablet (2 mg total) by mouth daily. venlafaxine XR 150 MG 24 hr capsule Take 1 capsule (150 mg total) by mouth daily with breakfast. 02/27/2021 vitamin D2, ergocalciferol, (DRISDOL) 1.25 mg capsule Take 1 capsule (1.25 mg total) by mouth once a week. documented as of this encounter Plan of Treatment Not on file documented as of this encounter Visit Diagnoses Not on filedocumented in this encounter Care Teams Gallery Host Relationship Specialty Start Date End Date Karly Valencia APRN [address] [place] [id number] PCP - General Nurse Practitioner Family 02/02/25 Brown Middleton MD [address] [place] [phone] Consulting Physician ENDOCRINOLOGY 05/26/24 Hai Frausto MD [address] [phone] SURGERY 10/27/24 Wilber Orellana MD [address] [place] [phone] Consulting Physician INTERNAL MEDICINE 06/30/23 Kristopher Almaraz MD [address] [place] [address] Referring Physician Psychiatry 12/14/24 documented as of this encounter
--- OUTSIDE RECORDS SUMMARY | 2025-03-17 10:18 | XMS_ITS | Encounter Summary ---
Author Organization [facility] Address [address] [place] [address] Care Team Providers Care Adjunct Nursing Faculty Name Role Phone [facility] Primary Care Provider [phone] Riccardo Osorio MD Primary Care Provider [phone] Marni Ugalde MD Unavailable Unavailabl e Britney Eduardo RESOLUTION MANAGER Unavailable [phone] Susan Sen RESOLUTION MANAGER Primary Care Provider [phone] Wilber Orellana MD Unavailable [phone] Brown Middleton MD Unavailable [phone] Hai Frausto MD Unavailable [phone] Wilber Orellana MD Unavailable [phone] None, Provider Unavailable Unavailable None, Provider Primary Care Provider Unavaila Kristopher Pandya MD Unavailable Karly Valencia APRN Primary Care Provider + Encounter Details Date Type Department Care Team (Late st Contact Info) Description 11/27/2017 Abstract [facility] CONVERSION [address] [place] [address] , Generic Conversion, Social History Tobacco Use Types Packs/Day Years Used Date Smoking Tobacco: Never Comments Unknown Sex and Gender Information Value Date Recorded Sex Assigned at Female 10/23/2024 12:36 PM TABLEAU LEAD Legal Sex Female 8:54 PM CDT Gender Identity Not on file Sexual Orientation Not on file documented as of this encounter Plan of Treatment Not on file documented as of this encounter Visit Diagnoses Not on filedocumented in this encounter Care Teams Adjunct Nursing Faculty Relationship Specialty Start Date End Date Elis Linn [facility] [address] [place] [address] PCP - General NURSE PRACTITIONER 04/03/19 08/03/22 Riccardo Osorio MD [address] [place] [address] PCP - General FAMILY PRACTICE 08/04/22 02/24/23 [place] [address] PCP - General Nurse Practitioner Women's Health 02/25/23 06/22/23 None, MD Tammie PCP - General UNKNOWN PHYSICIAN SPECIALTY 11/16/24 02/01/25 Karly Valencia APRN [address] [place] [phone] PCP - General Nurse Practitioner Family 02/02/25 Marni Ugalde MD [address] [place] [address] Consulting Physician CARDIOVASCULAR DISEASE 08/25/2205/25 Britney [place] [phone] Nurse Practitioner Nurse Practitioner Family 01/01/23 05/25/24 Wilber Orellana MD [address] [place] [address] Consulting Physician NEPHROLOGY 06/30/23 11/06/24 Brown Middleton MD [address] [place] [phone] Consulting Physician ENDOCRINOLOGY 05/26/24 Hai Frausto MD [address] [facility] [address] [place] [address] SURGERY 10/27/24 Wilber Orellana MD [address] [place] [phone] Consulting Physician INTERNAL MEDICINE 06/30/23 None, Provider, UNKNOWN PHYSICIAN SPECIALTY 11/16/24 12/13/24 Kristopher Almaraz MD [address] [id number] Referring Physician Psychiatry 12/14/24 documented as of this encounter
--- OUTSIDE RECORDS SUMMARY | 2025-03-17 10:19 | XMS_ITS | Patient Health Record ---
Author Organization [facility] Address [address] [place], [place] [id number] Care Team Providers Care Water Reclamation Systems Operator Name Role Phone RODDY KUO Unavailable [phone] Marleen Gee Unavailable Unavailable WEI EMILY Unavailable [phone] Allergies No Known Allergies Reason For Referral No Information Medications Medication SIG (Take, Route, Frequency, Duration) Notes Start Date End Date Status Levothyroxine Sodium 200 MCG Oral; Duration: 30 Days Acti ve Metoprolol Tartrate 50 MG Oral; Duration: 1 Days Active Docusate Sodium 100 MG TAKE ONE CAPSULE BY MOUTH EVERY MORNING FOR CONSTIPATION Oral; Duration: 30 Days Active Vitamin D (Ergocalciferol) 1.25 MG (04220 UT) TAKE 1 CAPSULE BY MOUTH WEEKLY FOR 8 WEEKS THEN ONCE MONTHLY Oral; Duration: 18 Days Active Metoprolol Succinate ER 100 MG Oral; Duration: 90 Days Acti ve Carvedilol 25 MG Oral; Duration: 90 Days Active FeroSul 325 (65 Fe) MG TAKE 1 TABLET BY MOUTH DAILY FOR ANEMIA Oral; Duration: 30 Days Active Lisinopril 20 MG TAKE 1 TABLET BY ROBERT TH DAILY Oral; Duration: 90 Days Active Letrozole 2.5 MG TAKE 1 TABLET BY ROBERT TH EVERY DAY Oral; Duration: 90 Days Active Famotidine 20 MG Oral; Duration: 90 Days Active predniSONE 20 MG Oral; Duration: 8 Days Active Trulicity 1.5 MG/0.5ML Subcutaneous; Dur ation: 28 Days Active amLODIPine Besylate 10 MG Oral; Duration: 90 Days Active Venlafaxine HCl ER 150 MG Oral; Duration: 76 Days Active Atorvastatin Calcium 80 MG Oral; Duration: 90 Days Active Aspirin Low Dose 81 MG TAKE 1 TABLET BY MOUTH DAILY Oral; Duration: 90 Days Active Isosorbide Mononitrate ER 30 MG Oral; Duration: 90 Days Acti ve Immunizations Vaccine Route Administration Date Status Comme nts Influenza, high dose seasonal Unknown 07/23/2023 Admini stered Encounters Encounter Location Date Provider Diagnosis [facility] [address] [place], [place] [phone] 04/27/2024 EMILY CARVAJAL Plan Of Treatment No Information Insurance Providers Payer Name Payer Address Payer Phone Subscriber Number Group Number Insured Name Patient Relationship to Insured Coverage Start Date Coverage End Date Aetna [address] [place] [address] [id number] Genna Fraga Self - patient is the insured Medical (General) History Medical History History ICD Code acid reflux Blood transfusion anemia Cancer (type of cancer) Arthritis Gout rheumatoid arthritis Sleep apnea Thyroid Disease Back Trouble Psychiatric Disorder hypertension Surgical History Surgery Date(Month/Year) left breast lumpectomy Thyroid Removed
--- OUTSIDE RECORDS SUMMARY | 2025-03-17 10:19 | XMS_ITS ---
Author Organization Unknown Address [address] [place] [address] [phone] Phone Care Team Providers Care Delivery Consultant Name Role Phone KAMILLA WINSTONROBERTO Attending Unavailable BARBOSA COLEMAN Primary Unavailable Immunization Immunization Date Status Additional [...] 208 CVX Pneumococcal conjugate PCV20 , polysaccharide [id number] conjugate, adjuvant, PF 05/05/2024 Completed 216 CVX [...] mcg/0.3 mL 06/15/2024 Completed 309 CVX Results US SOFT TISSUE HEAD AND NECK - Completed: 02/26/2025 09:15 LOINC: \TM00\\12PI\\DRAo\\BM09\ \[place]\ [place] [address] ---------NAME--------- NUMBER SEX AGE ADMIT DISC. XRAY# F/C TYPE JASSI DIAMOND [id number] F 69 02/26/25 02/26/25 24715 MB7 O/P DATE OF : 1955 M/R# [id number] PH#: [phone] [facility] LOCATION: TRANSCRIBED: 02/26/25 9:46 US SOFT TISSUE HEAD AND NECK 15062 COMPLETED:02/26/25 9:15 APC 44016 {REASON-US ECHO HEAD: MASS/LUMP PHYSICIAN: KAMILLA BE R A D I O L O G Y R E P O R T Exam: US SOFT TISSUE HEAD AND NECK Clinical History: MASS/LUMP Comparison: US SOFT TISSUE HEAD AND NECK on DOS: 04/25/24, US SOFT TISSUE HEAD AND NECK on DOS: 07/16/20 Technique: Targeted sonographic evaluation of the soft tissues of the neck was obtained utilizing grayscale and color Doppler imaging. Findings/Impression: Bilateral morphologically benign-appearing lymph nodes are present throughout the cervical chain. For example, Right level 2 node measures 2.6 x 1.8 cm. Left level 2 lymph node measures 1.2 x 0.5 cm Left level 1 lymph node measures 1.7 x 1.3 cm. Right level 1 lymph node measures 0.9 x 0.7 cm. These are grossly unchanged since ultrasound dated 04/25/2024. ATRICIAN \ITLo\ \UNDo\ \UNDx\ \ITLx\ Reviewed and Electronically Signed by: Yobany Bustos MD Signed Date: 02/26/25 09:46 02/26/25.0948.APC.to [facility] via fax Social History Type Status Start Date End Date Code Code Syst em Smoking History Never smoker (Never Smoked) 658466632 SNOMED CT Sex Female Assessment You had [...] Code Code System ESSENTIAL (PRIMARY) HYPERTENSION active 53060093 SNOMED-CT POLYCYSTIC KIDNEY, UNSPECIFIED active 73281228 SNOMED-CT PROTEINURIA, UNSPECIFIED active 45628 008 SNOMED-CT Plan of Treatment Digital Naman Screen Bilateral (76698) US Soft Tissue Head & Neck (31941) 02/11 Encounters Encounter Diagnosis Start Date Code Code Sys tem Primary malignant neoplasm of thyroid gland 02/26/2025 91814907 SNOMED-CT Personal Care Team Section Performer Name Performer Role Active Date Inactive SINDHU Butler PCP - Primary care physician 2022-10-29 2023-09-21 Imaging Narrative Notes [facility] 02/26/2025 09:49 [facility] [address] [place] [address] ---------NAME--------- NUMBER SEX AGE ADMIT DISC. XRAY# F/C TYPE JASSI DIAMOND [id number] F 69 02/26/25 02/26/25 65708 MB7 O/P DATE OF : 1955 M/R# [id number] #: [id number] LOCATION: TRANSCRIBED: 02/26/25 9:46 US SOFT TISSUE HEAD AND NECK 43802 COMPLETED:02/26/25 9:15 APC 16515 {REASON-US ECHO HEAD: MASS/LUMP PHYSICIAN: KAMILLA SA RADIOLOGY REPORT Exam: US SOFT TISSUE HEAD AND NECK Clinical History: MASS/LUMP Comparison: US SOFT TISSUE HEAD AND NECK on DOS: 04/25/24, US SOFT TISSUE HEAD AND NECK on DOS: 07/16/20 Technique: Targeted sonographic evaluation of the soft tissues of the neck was obtained utilizing grayscale and color Doppler imaging. Findings/Impression: Bilateral morphologically benign-appearing lymph nodes are present throughout the cervical chain. For example, Right level 2 node measures 2.6 x 1.8 cm. Left level 2 lymph node measures 1.2 x 0.5 cm Left level 1 lymph node measures 1.7 x 1.3 cm. Right level 1 lymph node measures 0.9 x 0.7 cm. These are grossly unchanged since ultrasound dated 04/25/2024. ATRICIAN Reviewed and Electronically Signed by: Yobany Bustos MD Signed Date: 02/26/25 09:46 02/26/25.0948.APC.to [facility] via fax
--- OUTSIDE RECORDS SUMMARY | 2025-03-17 10:19 | XMS_ITS ---
Author Organization Unknown Address [address] [place] [address] [phone] Phone Care Team Providers Care Hollow Tile Partition Erector Name Role Phone JAMILA MURPHY Attending Unavailable FAMILIA CEE Primary Unavailable CRYSTAL [...] 208 CVX Pneumococcal conjugate PCV20 , polysaccharide [id number] conjugate, adjuvant, PF 05/05/2024 Completed 216 CVX [...] mcg/0.3 mL 06/15/2024 Completed 309 CVX Results MICROALBUMIN - Collect Date/ Time: 09/21/2023 08:22 [facility] ID: [id number] [address] [place] [address], [id number] LOINC: 66685-1 Test Value Unit Reference Range Code Code System Flag MICROALBUMIN 26.2 mg/L L=0.0 H=16.7 53070-4 LOINC H UR CREATININE 65.50 mg/dL L=30.00 H=125 2161-8 LOINC MA/CR 40.0 mg/gCR OSMOLALITY URINE - Collect D ate/Time: 09/21/2023 08:22 [facility] ID: [id number] [address] [place] [address], [id number] LOINC: 2695-5 Test Value Unit Reference Range Code Code System Flag Osmolality, Urine 409 2695-5 LOINC LIPID PANEL - Collect Date/T taj: 09/21/2023 08:20 [facility] ID: [id number] [place], [place], [id number] LOINC: 23210-5 Test Value Unit Reference Range Code Code System Flag FASTING YES CHOLESTEROL 192 mg/dL L=0 H=200 2092-3 LOINC TRIGLYCERIDE 299 mg/dL L=0 H=150 2571-8 LOINC H HDL 35 mg/dL L=40 H=60 2084-9 LOINC L LDL 89 mg/dL 2088-1 LOINC CBC W/ DIFF - Collect Date/T taj: 09/21/2023 08:20 [facility] ID: [id number] [place], [id number] LOINC: 71266-7 Test Value Unit Reference Range Code Code System Flag WBC 7.7 10^3uL L=4.8 H=10.8 RBC 3.96 10^6uL L=4.20 H=5.40 L HEMOGLOBIN 10.7 g/dL L=12.0 H=16.0 718-7 LOINC L HEMATOCRIT 33.5 VOL% L=37.0 H=47.0 4544-3 LOINC L MCV 84.6 fL L=81.0 H=99.0 MCH 27.0 pg L=27.0 H=32.0 MCHC 31.9 g/dL L=32.0 H=36.0 L PLATELETS 349 10^3uL L=100 H=400 04043-8 LOINC RDW 14.6 % L=11.7 H=15.5 %GRAN 65.7 % L=40.0 H=70.0 67623-2 LOINC %LYMPH 24.1 % L=20.0 H=45.0 736-9 LOINC %MONO 6.6 % L=2.0 H=10.0 51873-2 LOINC %EOS 2.9 % L=0.0 H=6.0 713-8 LOINC %BASO 0.4 % L=0.0 H=3.0 706-2 LOINC #NEUT 5.1 10^3uL L=1.9 H=7.6 74984-1 LOINC #LYMPH 1.9 10^3uL L=0.9 H=4.9 40556-7 LOINC #MONO 0.5 10^3uL L=0.1 H=0.9 18153-3 LOINC #EOS 0.2 10^3uL L=0.0 H=0.6 712-0 LOINC #BASO 0.03 10^3uL L=0.00 H=0.10 98351-1 LOINC #IM GRANS 0.0 10^3uL L=0.0 H=7.0 53601-4 LOINC %IM GRANS 0.3 % L=0.0 H=5.0 38617-8 LOINC %NRB 0.0 L=0.0 H=0.2 76343-4 LOINC #NRB 0.000 L=0.000 H=0.012 54144-3 LOINC MANUAL DIFF NOT INDICATED RBC MORPH NOT INDICATED RENAL FUNCTION PANEL - Colle ct Date/Time: 09/21/2023 08:20 [facility] ID: [id number] [address] [place], [place], [address] LOINC: 56890-6 Test Value Unit Reference Range Code Code System Flag FASTING? YES BUN 63 mg/dL L=7 H=20 3094-0 LOINC H CREATININE 2.30 mg/dL L=0.52 H=1.04 2160-0 LOINC H GLUCOSE 116 mg/dL L=74 H=106 2345-7 LOINC H CALCIUM 9.6 mg/dL L=8.3 H=10.5 56847-2 LOINC SODIUM 141 mmol/L L=132 H=144 2951-2 LOINC POTASSIUM 4.6 mmol/L L=3.5 H=5.1 2823-3 LOINC CHLORIDE 106 mmol/L L=98 H=107 2075-0 LOINC CO2 24.0 mmol/L L=22.0 H=30.0 2028-9 LOINC ANION GAP 16 L=10 H=20 69625-0 LOINC BUN/CREAT 27.4 3097-3 LOINC PHOSPHORUS 4.1 mg/dL L=2.5 H=4.9 2777-1 LOINC ALBUMIN 4.4 G/dL L=3.5 H=5.0 1751-7 LOINC AGE 68 54048-2 LOINC eGFR NON-AFR 22 ml/min eGFR AFR AMER 27 ml/min PTH - Collect Date/Time: 05/2024 08:20 [facility] ID: [id number] [place], [place], [id number] LOINC: 2731-8 Test Value Unit Reference Range Code Code System Flag PTH, Intact 91 15-65 2731-8 LOINC H COMPREHENSIVE METABOLIC PANE L - Collect Date/Time: 09/21/2023 08:20 [facility] ID: [id number] [place], [id number] LOINC: 20869-9 Test Value Unit Reference Range Code Code System Flag FASTING YES BUN 63 mg/dL L=7 H=20 3094-0 LOINC H CREATININE 2.30 mg/dL L=0.52 H=1.04 2160-0 LOINC H GLUCOSE 116 mg/dL L=74 H=106 2345-7 LOINC H SODIUM 141 mmol/L L=132 H=144 2951-2 LOINC POTASSIUM 4.6 mmol/L L=3.5 H=5.1 2823-3 LOINC CHLORIDE 106 mmol/L L=98 H=107 2075-0 LOINC CO2 24.0 mmol/L L=22.0 H=30.0 2028-9 LOINC ANION GAP 16 L=10 H=20 23852-9 LOINC OSMOLALITY 311 mOs/kG L=280 H=296 60416-0 LOINC H BUN/CREAT 27.4 3097-3 LOINC CALCIUM 9.6 mg/dL L=8.3 H=10.5 95954-8 LOINC AST 20 U/L L=15 H=46 1920-8 LOINC ALT 22 U/L L=9 H=72 1742-6 LOINC ALKALINE PHOS 117 U/L L=38 H=126 6768-6 LOINC TOTAL BILI 0.3 mg/dL L=0.2 H=1.3 1975-2 LOINC ALBUMIN 4.4 G/dL L=3.5 H=5.0 1751-7 LOINC TOTAL PROTEIN 8.2 g/L L=6.3 H=8.2 2885-2 LOINC A/G RATIO 1.2 74664-1 LOINC AGE 68 86993-4 LOINC eGFR NON-AFR 22 ml/min eGFR AFR AMER 27 ml/min Social History Type Status Start Date End Date Code Code Syst em Smoking History Never smoker (Never Smoked) 161488255 SNOMED CT Sex Female Assessment You had [...] Code Code System ESSENTIAL (PRIMARY) HYPERTENSION active 88495818 SNOMED-CT POLYCYSTIC KIDNEY, UNSPECIFIED active 16937917 SNOMED-CT PROTEINURIA, UNSPECIFIED active 47702 008 SNOMED-CT Plan of Treatment Digital Naman Screen Bilateral (75475) US Soft Tissue Head & Neck (02186) 02/11 Encounters Encounter Diagnosis Start Date Code Code Sys tem Essential (primary) hypertension 09/21/2023 SNOMED-CT Personal Care Team Section Performer Name Performer Role Active Date Inactive SINDHU Butler PCP - Primary care physician 2022-10-29 2023-09-21
--- OUTSIDE RECORDS SUMMARY | 2025-03-17 10:44 | XMS_ITS ---
Author Organization Unknown Address [address] [place] [phone] Phone Care Team Providers Care Office Supervisor Name Role Phone JANETH RAPP Attending Unavailable [facility] Primary Unavailable Immunization Immunization Date [...] 208 CVX Pneumococcal conjugate PCV20 , polysaccharide [id number] conjugate, adjuvant, PF 05/05/2024 Completed 216 CVX [...] PANEL - Jeremy ect Date/Time: 07/13/2023 08:24 [facility] ID: [id number] [address] [place], [place], [address] LOINC: 38887-8 Test Value Unit Reference Range Code Code System Flag FASTING YES BUN 49 mg/dL L=7 H=20 3094-0 LOINC H CREATININE 2.10 mg/dL L=0.52 H=1.04 2160-0 LOINC H GLUCOSE 85 mg/dL L=74 H=106 2345-7 LOINC CALCIUM 9.6 mg/dL L=8.3 H=10.5 91198-7 LOINC SODIUM 140 mmol/L L=132 H=144 2951-2 LOINC POTASSIUM 4.9 mmol/L L=3.5 H=5.1 2823-3 LOINC CHLORIDE 105 mmol/L L=98 H=107 2075-0 LOINC CO2 25.0 mmol/L L=22.0 H=30.0 2028-9 LOINC ANION GAP 15 L=10 H=20 02812-9 LOINC BUN/CREAT 23.3 3097-3 LOINC AGE 68 84111-0 LOINC eGFR NON-AFR 25 ml/min eGFR AFR AMER 30 ml/min CBC W/ DIFF - Collect Date/T taj: 07/13/2023 08:24 [facility] ID: [id number] [address] [place], [place], [id number] LOINC: 01700-6 Test Value Unit Reference Range Code Code System Flag WBC 8.9 10^3uL L=4.8 H=10.8 RBC 4.38 10^6uL L=4.20 H=5.40 HEMOGLOBIN 11.6 g/dL L=12.0 H=16.0 718-7 LOINC L HEMATOCRIT 36.5 VOL% L=37.0 H=47.0 4544-3 LOINC L MCV 83.3 fL L=81.0 H=99.0 MCH 26.5 pg L=27.0 H=32.0 L MCHC 31.8 g/dL L=32.0 H=36.0 L PLATELETS 302 10^3uL L=100 H=400 81966-2 LOINC RDW 15.9 % L=11.7 H=15.5 H %GRAN 68.4 % L=40.0 H=70.0 19351-1 LOINC %LYMPH 23.2 % L=20.0 H=45.0 736-9 LOINC %MONO 5.5 % L=2.0 H=10.0 87070-7 LOINC %EOS 2.2 % L=0.0 H=6.0 713-8 LOINC %BASO 0.6 % L=0.0 H=3.0 706-2 LOINC #NEUT 6.1 10^3uL L=1.9 H=7.6 89210-9 LOINC #LYMPH 2.1 10^3uL L=0.9 H=4.9 63494-9 LOINC #MONO 0.5 10^3uL L=0.1 H=0.9 29000-1 LOINC #EOS 0.2 10^3uL L=0.0 H=0.6 712-0 LOINC #BASO 0.05 10^3uL L=0.00 H=0.10 30073-9 LOINC #IM GRANS 0.0 10^3uL L=0.0 H=7.0 93438-9 LOINC %IM GRANS 0.1 % L=0.0 H=5.0 52820-7 LOINC %NRB 0.0 L=0.0 H=0.2 72764-9 LOINC #NRB 0.000 L=0.000 H=0.012 41770-2 LOINC MANUAL DIFF NOT INDICATED RBC MORPH NOT INDICATED Social History Type Status Start Date End Date Code Code Syst em Smoking History Never smoker (Never Smoked) 131336182 SNOMED CT Sex Female Assessment You had [...] Code Code System ESSENTIAL (PRIMARY) HYPERTENSION active 59198108 SNOMED-CT POLYCYSTIC KIDNEY, UNSPECIFIED active 70461022 SNOMED-CT PROTEINURIA, UNSPECIFIED active 63060 008 SNOMED-CT Plan of Treatment Digital Naman Screen Bilateral (81208) US Soft Tissue Head & Neck (00076) 02/11 Encounters Encounter Diagnosis Start Date Code Code Sys tem Abnormal result of other cardiovascular function study 07/13/2023 SNOMED-CT Personal Care Team Section Performer Name Performer Role Active Date Inactive SINDHU Butler PCP - Primary care physician 2022-10-29 2023-09-21
--- OUTSIDE RECORDS SUMMARY | 2025-03-17 10:44 | XMS_ITS ---
Author Organization Unknown Address [address] [place] [phone] Phone Care Team Providers Care Manager Speech Name Role Phone SYBIL LING Attending Unavailable [...] 208 CVX Pneumococcal conjugate PCV20 , polysaccharide PEU879 conjugate, adjuvant, PF 05/05/2024 Completed 216 CVX [...] em Smoking History Never smoker (Never Smoked) 361688654 SNOMED CT Sex Female Assessment You had [...] Code Code System ESSENTIAL (PRIMARY) HYPERTENSION active 19169421 SNOMED-CT POLYCYSTIC KIDNEY, UNSPECIFIED active 99812424 SNOMED-CT PROTEINURIA, UNSPECIFIED active 75617 008 SNOMED-CT Plan of Treatment Digital Naman Screen Bilateral (36949) US Soft Tissue Head & Neck (80210) 02/11 Encounters Encounter Diagnosis Start Date Code Code Sys tem Encounter for other preprocedural examination 02/23/20 24 SNOMED-CT Personal Care Team Section Performer Name Performer Role Active Date Inactive SINDHU Butler PCP - Primary care physician 2022-10-29 2023-09-21
--- OUTSIDE RECORDS SUMMARY | 2025-03-17 10:45 | XMS_ITS | Encounter Summary ---
Author Organization [facility] Address [address] [place] [address] Care Team Providers Care Manager Commodities Name Role Phone Brown Middleton MD Unavailable [phone] Hai Frausto MD Unavailable [phone] Wilber Orellana MD Unavailable [phone] Kristopher Almaraz MD Unavailable [phone] Karly Valencia APRN Primary Care Provider + Encounter Details Date Type Department Care Team (Late st Contact Info) Description 03/15/2025 12:56 PM CDT - 03/15/2025 11:59 PM CDT Hospital Encounter [facility] [address] [place] [address] Wilber Orellana MD [address] [place] [address] Arrived Discharge Disposition: Home or [...] Sex Assigned at Female 10/23/2024 12:36 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 Legal Sex Female 8:54 PM CDT Gender [...] on filedocumented in this encounter Care Teams Manager Commodities Relationship Specialty Start Date End Date Karly Valencia APRN [address] [place] [phone] PCP - General Nurse Practitioner Family 02/02/25 Brown Middleton MD [address] [place] [phone] Consulting Physician ENDOCRINOLOGY 05/26/24 Hai Frausto MD [address] [phone] SURGERY 10/27/24 Wilber Orellana MD [address] [place] [phone] Consulting Physician INTERNAL MEDICINE 06/30/23 Kristopher Almaraz MD [address] [place] [address] Referring Physician Psychiatry 12/14/24 documented as of this encounter
--- OUTSIDE RECORDS SUMMARY | 2025-03-17 10:45 | XMS_ITS ---
Author Organization Unknown Address [address] [place] [phone] Phone Care Team Providers Care Retort Loader Name Role Phone KAMILLA HAYNES Attending Unavailable [...] 208 CVX Pneumococcal conjugate PCV20 , polysaccharide ITU453 conjugate, adjuvant, PF 05/05/2024 Completed 216 CVX [...] 309 CVX Results RENAL FUNCTION PANEL - [facility] ct Date/Time: 04/25/2024 12:32 [facility] ID: [id number] [address] [place], [place], [id number] LOINC: 46447-8 Test Value Unit Reference Range Code Code System Flag FASTING? NO BUN 28 mg/dL L=7 H=20 3094-0 LOINC H CREATININE 2.10 mg/dL L=0.52 H=1.04 2160-0 LOINC H GLUCOSE 111 mg/dL L=74 H=106 2345-7 LOINC H CALCIUM 9.2 mg/dL L=8.3 H=10.5 61357-2 LOINC SODIUM 140 mmol/L L=132 H=144 2951-2 LOINC POTASSIUM 4.1 mmol/L L=3.5 H=5.1 2823-3 LOINC CHLORIDE 105 mmol/L L=98 H=107 2075-0 LOINC CO2 26.0 mmol/L L=22.0 H=30.0 2028-9 LOINC ANION GAP 13 L=10 H=20 76917-2 LOINC BUN/CREAT 13.3 3097-3 LOINC PHOSPHORUS 2.5 mg/dL L=2.5 H=4.9 2777-1 LOINC ALBUMIN 4.3 G/dL L=3.5 H=5.0 1751-7 LOINC AGE 69 99344-7 LOINC eGFR NON-AFR 25 ml/min eGFR AFR AMER 30 ml/min US SOFT TISSUE HEAD AND NECK - Completed: 04/25/2024 14:04 LOINC: EXAM DESCRIPTION: US SOFT TISSUE HEAD AND NECK REASON FOR STUDY: Choking, history of thyroidectomy. TECHNIQUE: A Dynamic assessment was performed of the neck by the window treatment installer, with selected grayscale and color Doppler images [...] Marcelo Nielsen M.D. CH: [facility] Report ID: [id number] Reading Location: [id number] Social History Type Status Start Date End Date Code Code Syst em Smoking History Never smoker (Never Smoked) 288558222 SNOMED CT Sex Female Assessment You had [...] Code Code System ESSENTIAL (PRIMARY) HYPERTENSION active 34902668 SNOMED-CT POLYCYSTIC KIDNEY, UNSPECIFIED active 03277768 SNOMED-CT PROTEINURIA, UNSPECIFIED active 94339 008 SNOMED-CT Plan of Treatment Digital Naman Screen Bilateral (68930) US Soft Tissue Head & Neck (58746) 02/11 Encounters Encounter Diagnosis Start Date Code Code Sys tem Unspecified foreign body in larynx causing other injury, initial encounter 04/25/2024 SNOMED-CT Personal Care Team Section Performer Name Performer Role Active Date Inactive SINDHU Butler PCP - Primary care physician 2022-10-29 2023-09-21 Imaging Narrative Notes
--- OUTSIDE RECORDS SUMMARY | 2025-03-17 10:45 | XMS_ITS | Encounter Summary ---
Author Organization [facility] Address [address] [place] [address] Care Team Providers Care Regional Transportation Manager Name Role Phone [facility]ario [facility] Primary Care Provider [phone] Riccardo Osorio MD Primary Care Provider [phone] Marni Ugalde MD Unavailable Unavailabl e Britney Eduardo [employer] INTERN Unavailable [phone] Susan Sen [employer] INTERN Primary Care Provider [phone] Wilber Orellana MD Unavailable [phone] Brown Middleton MD Unavailable [phone] Hai Frausto MD Unavailable [phone] Wilber Orellana MD Unavailable [phone] None, Provider Unavailable Unavailable None, Provider Primary Care Provider Unavaila Kristopher Pandya MD Unavailable [phone] Karly Valencia APRN Primary Care Provider + Encounter Details Date Type Department Care Team (Late st Contact Info) Description 11/27/2017 Abstract [facility] CONVERSION [address] [place] [address] , Generic Conversion, Social History Tobacco Use Types Packs/Day Years Used Date Smoking Tobacco: Never Comments Unknown Sex and Gender Information Value Date Recorded Sex Assigned at Female 10/23/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 Sex Female 8:54 PM CDT Gender Identity Not on file Sexual Orientation Not on file documented as of this encounter Plan of Treatment Not on file documented as of this encounter Visit Diagnoses Not on filedocumented in this encounter Care Teams Regional Transportation Manager Relationship Specialty Start Date End Date Elis Linn [facility] [address] [place] [address] PCP - General NURSE PRACTITIONER 04/03/19 08/03/22 Riccardo Osorio MD [address] [place] [address] PCP - General FAMILY PRACTICE 08/04/22 02/24/23 [place] [address] PCP - General Nurse Practitioner Women's Health 02/25/23 06/22/23 None, MD Tammie PCP - General UNKNOWN PHYSICIAN SPECIALTY 11/16/24 02/01/25 Karly Valencia APRN [address] [place] [phone] PCP - General Nurse Practitioner Family 02/02/25 Marni Ugalde MD [address] [place] [address] Consulting Physician CARDIOVASCULAR DISEASE 08/25/2205/25 Britney [place] [phone] Nurse Practitioner Nurse Practitioner Family 01/01/23 05/25/24 Wilber Orellana MD [address] [place] [address] Consulting Physician NEPHROLOGY 06/30/23 11/06/24 Brown Middleton MD [address] [place] [phone] Consulting Physician ENDOCRINOLOGY 05/26/24 Hai Frausto MD [address] [facility] [address] [place] [phone] SURGERY 10/27/24 Wilber Orellana MD [address] [place] [phone] Consulting Physician INTERNAL MEDICINE 06/30/23 None, Provider, UNKNOWN PHYSICIAN SPECIALTY 11/16/24 12/13/24 Kristopher Almaraz MD [address] [phone] Referring Physician Psychiatry 12/14/24 documented as of this encounter
--- OUTSIDE RECORDS SUMMARY | 2025-03-17 10:45 | XMS_ITS | Encounter Summary ---
Author Organization [facility] Address [address] [place] [address] Care Team Providers Care Senior Ux Designer Name Role Phone Marni Ugalde MD Unavailable Unavailabl Britney Jang NP Unavailable [phone] Wilber Orellana MD Unavailable [phone] Brown Middleton MD Unavailable [phone] Hai Frausto MD Unavailable [phone] Wilber Orellana MD Unavailable [phone] None, Provider Unavailable Unavailable None, Provider Primary Care Provider Unavaila Kristopher Pandya MD Unavailable [phone] Karly Valencia APRN Primary Care Provider + Encounter Details Date Type Department Care Team (Late st Contact Info) Description 07/09/2023 Prep for Procedure [employer] Transaction Processor Pre/Post [address] [place] [address] Valeri Coffey MD [facility] [address] [place] [address] Social History Tobacco Use Types Packs/Day Years [...] Sex Assigned at Female 10/23/2024 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 Sex Female 8:54 PM CDT Gender [...] on filedocumented in this encounter Care Teams Senior Ux Designer Relationship Specialty Start Date End Date None, Tammie, PCP - General UNKNOWN PHYSICIAN SPECIALTY 11/16/24 02/01/25 Karly Valencia APRN [address] [place], [place] [phone] PCP - General Nurse Practitioner Family 02/02/25 Marni Ugalde MD Consulting Physician CARDIOVASCULAR DISEASE 08/25/2205/25 Britney Eduardo NP Nurse Practitioner Nurse Practitioner Family 01/01/23 05/25/24 Wilber Orellana MD [address] [place] [address] Consulting Physician NEPHROLOGY 06/30/23 11/06/24 Brown Middleton MD [address] [place] [id number] Consulting Physician ENDOCRINOLOGY 05/26/24 Hai Frausto MD [address] [phone] SURGERY 10/27/24 Wilber Orellana MD [address] [phone] Consulting Physician INTERNAL MEDICINE 06/30/23 None, Provider, UNKNOWN PHYSICIAN SPECIALTY 11/16/24 12/13/24 Kristopher Almaraz MD [address] [id number] Referring Physician Psychiatry 12/14/24 documented as of this encounter
--- OUTSIDE RECORDS SUMMARY | 2025-03-17 10:45 | XMS_ITS | Clinical Summary ---
Author Organization [facility] Address [address] [place] [address] Care Team Providers Care Apple Packing Header Name Role Phone Brown Middleton MD Unavailable [phone] Hai Frausto MD Unavailable [phone] Wilber Orellana MD Unavailable [phone] Kristopher Almaraz MD Unavailable [phone] Karly Valencia APRN Primary Care Provider [...] type 10/29/2022 Stage 4 chronic kidney disease ([facility]) 10/29/2022 Essential (primary) hypertension 10/29/2022 Anemia due to stage 3a chronic kidney disease At risk for loss of bone density 09/19/2019 Class 1 obesity without serious comorbidity in a dult 05/23/2019 History of thyroid cancer 05/23/2019 Malignant neoplasm of upper- 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 ([facility]) 05/02/2019 Cancer Staging:Pathologic stage from 05/04/2019:Stage IA(pT1b, pN0(sn), cM0, G2, ER+, FL+, HER2-) - Unsigned Clinical: Unsigned Encounters Date Type Department Care Team Description 03/15/2025 12:56 PM CDT - 03/15/2025 11:59 PM CDT Hospital Encounter [facility] [address] [place] [address] Wilber Orellana MD Arrived Discharge Disposition: Home or Self Care (Routine Discharge) 03/15/2025 Travel 02/20/2025 9:43 AM CDT - 02/20/2025 11:59 PM CDT Hospital Encounter [id number] [place] [address] Wilber Orellana MD Discharge Disposition: Home or Self Care (Routine Discharge) 02/20/2025 9:28 AM CDT - 02/20/2025 9:42 AM CDT Hospital Encounter [id number] [place] [address] Britney Eduardo, CYBER SPECIAL AGENT Discharge Disposition: Home or Self Care (Routine Discharge) 02/20/2025 Orders Only [id number] [place] [address] Wilber Orellana MD 02/20/2025 Orders Only [id number] [place] [address] Britney Eduardo NP 02/20/2025 Travel 02/02/2025 8:45 AM CDT - 02/02/2025 11:59 PM CDT Hospital Encounter [id number] [place] [address] Wilber Orellana MD Discharge Disposition: Home or Self Care (Routine Discharge) 02/02/2025 Orders Only [id number] [place] [address] Wilber Orellana MD 02/02/2025 Travel 01/25/2025 Orders Only [facility] [address] [place] [address] Douglas Vincent MD 01/25/2025 Transcribe Orders [facility] Pre Access Team [address] [place] [address] Wilber Orellana MD 01/04/2025 Results Follow-Up [facility] [address] [place] [address] Alysha Guallpa RN USE ECHOCARDIOGRAM, NM PHARM NUC STRESS TEST 1 DAY W TRACING 01/03/2025 8:20 AM CDT - 01/03/2025 11:59 PM CDT Hospital Encounter [facility] [address] [place] [address] [place] [address] Douglas Vincent MD Quarton, Brian L, MD Discharge Disposition: Home or Self Care (Routine Discharge) 01/03/2025 8:20 AM CDT - 01/03/2025 11:59 PM CDT Hospital Encounter [facility] [address] [place] [address] [place] [address] Douglas Vincent MD Discharge Disposition: Home or Self Care (Routine Discharge) 01/03/2025 Travel 01/02/2025 Results Follow-Up [facility] [address] [place] [address] [place] [address] Noemi Degroot MD MG SCREENING W ОЛЬГА RT DIGI 01/01/2025 12:14 PM CDT - 01/01/2025 11:59 PM CDT Hospital Encounter [facility] [address] [place] [address] [place] [address] Noemi Degroot MD Discharge Disposition: Home or Self Care (Routine Discharge) 01/01/2025 Travel 12/25/2024 Orders Only [facility] [address] [place] [address] Douglas Vincent MD 12/22/2024 Scan [facility] [address] [place] [address] Scanned, Doc Pccl ECG (SCAN) from Last [...] Sex Assigned at Female 10/23/2024 12:36 PM ENVIRONMENTAL LABORATORY TECHNICIAN Legal Sex Female 8:54 PM CDT Gender Identity Not on file Sexual Orientation Not on file Last Filed Vital Signs Vital Sign Reading Time Taken Comments Blood Pressure 130/78 11/16/2024 1:06 PM ENVIRONMENTAL LABORATORY TECHNICIAN Pulse 70 11/16/2024 1:06 PM ENVIRONMENTAL LABORATORY TECHNICIAN Temperature 36 C (96.8 F) 07/17/2024 11:23 AM ENVIRONMENTAL LABORATORY TECHNICIAN Respiratory Rate 16 11/16/2024 1:06 PM ENVIRONMENTAL LABORATORY TECHNICIAN Oxygen Saturation 98% 07/17/2024 11:23 AM ENVIRONMENTAL LABORATORY TECHNICIAN Inhaled Oxygen Concentration - - Weight 90.7 kg (200 lb) 11/16/2024 1:06 PM ENVIRONMENTAL LABORATORY TECHNICIAN Height 162.6 cm (5' 4) 11/16/2024 1:06 PM ENVIRONMENTAL LABORATORY TECHNICIAN Body Mass Index 34.33 11/16/2024 1:06 PM ENVIRONMENTAL LABORATORY TECHNICIAN Plan of Treatment Health Maintenance Due Date [...] At risk for loss of bone density skilled nursing (current) use of other agents affecting estrogen receptors and estrogen levels OCCULT BLOOD, FECES STAT 10/13/2022 9 :49 AM ENVIRONMENTAL LABORATORY TECHNICIAN from Last 3 Months or Most Recently Relevant to Health Maintenance Results * (ABNORMAL) ALBUMIN CREATININE URINE RANDOM (02/20/2025 9:54 AM CDT) ALBUMIN (U) 80.6 MG/DL 02/20/2025 10:54 AM CDT [facility] Comment:REFERENCE RANGE NOT ESTABLISHED CREATININE RANDOM (U) 57.4 MG/DL 02/20/2025 10:54 AM CDT [facility] Comment:REFERENCE RANGE NOT ESTABLISHED ALBUMIN/CREAT RATIO 1,403.0(H) <30 MG/G 02/20/2025 10:54 AM CDT [facility] Comment: NORMAL TO MILDLY INCREASED ALBUMINURIA: <30 MG/G MODERATELY INCREASED ALBUMINURIA: 30 TO 300 MG/G SEVERELY INCREASED ALBUMINURIA: >300 MG/G PER KDIGO URINE SPECIMEN / Unknown 02/20/2025 9:54 AM CDT Britney Eduardo NP URINE ORDERABLES Final Result [facility] [address] [place] [address], * OSMOLALITY, URINE (02/20/2025 9:54 AM CDT) OSMOLALITY (U) 392 50 - 1,200 MOSM/KG 02/20/2025 1:45 PM CDT [facility] URINE SPECIMEN / Unknown 02/20/2025 9:54 AM CDT Britney Eduardo CYBER SPECIAL AGENT URINE ORDERABLES Final Result Performing Organization Address City/[facility]/ZIP Co de Phone Number [facility] [address] [place] [address], [place] [phone] * MISCELLANEOUS LAB TEST (02/20/2025 9:52 AM CDT) Only the most recent of2 resultswithin the time period is included. TEST NAME: HLA CARESET AB WITH SCREEN TO MMC COURTESY DRAW 02/20/2025 9:55 AM CDT [facility] SPECIMEN TYPE BLOOD 02/20/2025 9:55 AM CDT [facility] TEST RESULT: NO REPORT 02/20/2025 10:17 AM CDT [facility] 02/20/2025 9:52 AM CDT Wilber Orellana MD LABORATORY Final Result Performing Organization Address [facility] Co de Phone Number [facility] [address] [place] [address], [place] [phone] * (ABNORMAL) PTH - INTACT (02/20/2025 9:52 AM CDT) PTH 204.6(H) 18.4 - 80.1 PG/ML 02/20/2025 1:53 PM CDT [facility] Comment: ASSAY PERFORMED BY CHEMILUMINESCENCE METHODOLOGY USING SIEMENS RotaryViewAUR XPT REAGENT. PATIENT RESULTS DETERMINED BY ASSAYS USING DIFFERENT MANUFACTURERS FOR METHODS MAY NOT BE COMPARABLE. 02/20/2025 9:52 AM CDT us Britney Eduardo CYBER SPECIAL AGENT LABORATORY Final Result Performing Organization Address [facility]/ZIP Co de Phone Number [facility] [address] [place] [address], [place] [phone] * (ABNORMAL) IRON SATURATION PNL (FE/TIBC/SAT) (02/20/2025 9:52 AM CDT) IRON 39(L) 50 - 170 MCG/DL 02/20/2025 12:49 PM CDT [facility] IRON BINDING CAPACITY 235(L) 250 - 450 MCG/DL 02/20/2025 12:49 PM CDT [facility] IRON SATURATION 17 % 12:49 PM CDT [facility] Comment:REFERENCE RANGE NOT ESTABLISHED 02/20/2025 9:52 AM CDT us Britney Eduardo NP LABORATORY Final Result [facility] [address] [place] [phone], * (ABNORMAL) RENAL FUNCTION PANEL (02/20/2025 9:52 AM CDT) SODIUM S/P/B 140 136 - 145 MMOL/L 02/20/2025 10:28 AM CDT [facility] POTASSIUM S/P/B 4.3 3.5 - 5.1 MMOL/L 02/20/2025 10:28 AM CDT [facility] CHLORIDE S/P/B 105 98 - 107 MMOL/L 02/20/2025 10:28 AM CDT [facility] CO2 25.7 21.0 - 32.0 MMOL/L 02/20/2025 10:28 AM CDT [facility] GLUCOSE 109(H) 70 - 99 MG/DL 02/20/2025 10:28 AM CDT [facility] Comment: FASTING GLUCOSE 100 TO 125 MG/DL IS CONSISTENT WITH IMPAIRED FASTING GLUCOSE. FASTING GLUCOSE >125 MG/DL IS CONSISTENT WITH DIABETES. RANDOM GLUCOSE >200 MG/DL WITH HYPERGLYCEMIC SYMPTOMS IS CONSISTENT WITH DIABETES. PER ADA GUIDELINES BUN 48(H) 6 - 24 MG/DL 02/20/2025 10:28 AM CDT [facility] CREATININE S/P/B 2.79(H) 0.55 - 1.02 MG/DL 02/20/2025 10:28 AM CDT [facility] CALCIUM S/P/B 9.3 8.4 - 10.5 MG/DL 02/20/2025 10:28 AM CDT [facility] ALBUMIN S/P/B 3.7 3.4 - 5.0 G/DL 02/20/2025 10:28 AM CDT [facility] PHOSPHORUS 2.7 2.6 - 4.7 MG/DL 02/20/2025 10:28 AM CDT [facility] ANION GAP 9.3 5.0 - 15.0 MMOL/L 02/20/2025 10:28 AM CDT [facility] OSMOLALITY (CALC) 303 MOSM/KG 025 10:28 AM T [facility] Comment:REFERENCE RANGE NOT ESTABLISHED GFR ESTIMATE 18(L) >89 ML/MIN/1. 73 M2 02/20/2025 10:28 AM CDT [facility] GFR NOTES GFR REFERENCE S: 02/20/2025 10:28 AM T [facility] Comment: THE ESTIMATED GFR IS CALCULATED [...] CDT Britney Eduardo NP LABORATORY Final Result [facility] [address] [place] [address], * (ABNORMAL) CBC W/DIFF AUTOMATED (02/20/2025 9:52 AM CDT) WBC 6.92 4.00 - 10.80 x10'3/uL 02/20/2025 10:04 AM CDT [facility] RBC 4.05(L) 4.10 - 5.40 x10'6/uL 02/20/2025 10:04 AM CDT [facility] HGB 10.7(L) 12.0 - 16.0 G/DL 02/20/2025 10:04 AM CDT [facility] HCT 34.4(L) 36.0 - 47.0 % 02/20/2025 10:04 AM CDT [facility] MCV 84.9 78.0 - 100.0 FL 02/20/2025 10:04 AM CDT [facility] MCH 26.4(L) 27.0 - 31.0 PG 02/20/2025 10:04 AM CDT [facility] MCHC 31.1(L) 33.0 - 36.0 G/DL 02/20/2025 10:04 AM CDT [facility] RDW 16.0(H) 11.5 - 14.5 % 02/20/2025 10:04 AM CDT [facility] PLT 317 150 - 350 x10'3/uL 02/20/2025 10:04 AM CDT [facility] MPV 9.2 7.4 - 10.4 FL 02/20/2025 10:04 AM CDT [facility] CBC COMMENT NORMAL REFERENCE RANGE NOT ESTABLISHED FOR THE PROPORTIONAL LEUKOCYTE DIFFERENTIAL. 02/20/2025 10:04 AM CDT [facility] NEUTROPHILS % 71.9 % 02/20/2025 10:04 AM CDT [facility] LYMPHOCYTES % 19.8 % 02/20/2025 10:04 AM CDT [facility] MONOCYTES % 4.8 % 02/20/2025 10:04 AM CDT [facility] EOSINOPHILS % 2.6 % 02/20/2025 10:04 AM CDT [facility] BASOPHILS % 0.6 % 02/20/2025 10:04 AM CDT [facility] IMMATURE GRANS % 0.3 % 02/21/20 10:04 AM CDT [facility] NRBC % 0.0 % 02/20/2025 10:04 AM CDT [facility] ABS. NEUTROPHILS 4.98 1.60 - 8.30 x10'3/uL 02/20/2025 10:04 AM CDT [facility] ABS. LYMPHOCYTES 1.37 0.80 - 4.70 x10'3/uL 02/20/2025 10:04 AM CDT [facility] ABS. MONOCYTES 0.33 0.00 - 1.50 x10'3/uL 02/20/2025 10:04 AM CDT [facility] ABS. EOSINOPHILS 0.18 0.00 - 0.40 x10'3/uL 02/20/2025 10:04 AM CDT [facility] ABS. BASOPHILS 0.04 0.00 - 0.20 x10'3/uL 02/20/2025 10:04 AM CDT [facility] ABS. IMMATURE GRANULOCYTES 0.02 0.00 - 0.03 x10'3/uL 02/20/2025 10:04 AM CDT [facility] ABS. NUCLEATED RBC'S 0.00 0.00 - 0.01 x10'3/uL 02/20/2025 10:04 AM CDT [facility] 02/20/2025 9:52 AM CDT us Britney Eduardo NP LABORATORY Final Result [facility] [address] [place] [address], * NM PHARM NUC STRESS TEST 1 DAY W TRACING (01/03/2025 11:11 AM CDT) Anatomical Region Laterality Modality Cardiac Nuclear Medicine 01/03/2025 9:17 AM CDT Narrative 01/05/2025 6:10 AM CDT MYOCARDIAL PERFUSION SCAN Pat.Name: Genna Fraga Pat.ID: [id number] .Date: 01/03/2025 Refer.MD: [place], [facility] Exam Time: 9:17:00 AM Study Type:SUSAN SR Height: 64 in Weight: 200 lb BSA: 1.96 m2 Age: 8 1955,69Y Sex: F Sonogrphr: TERI Stubbs Pat. Stat.:Outpatient Reason for Study:Current use of beta denis, Chest pain, unspecified type, Pre-op kidney transplant Procedures: Study performed at [place], [place] and interpreted by [facility]. Regadenoson Stress, Stress Gated SPECT, [...] MYOCARDIAL PERFUSION SCAN Pat.Name: Genna Fraga Pat.ID: [id number] .Date: 01/03/2025 Refer.MD: [place], [facility] Exam Time: 9:17:00 AM Study Type:[facility] Height: 64 in Weight: 200 lb BSA: 1.96 m2 Age: 8 1955,69Y Sex: F Sonogrphr: TERI Stubbs Pat. Stat.:Outpatient Reason for Study:Current use of beta denis, Chest pain, unspecified type, Pre-op kidney transplant Procedures: Study performed at [facility], [place], [place] and interpreted by [facility]. Regadenoson Stress, Stress Gated SPECT, [...] De La Torre M.D. Douglas Vincent MD [facility] Final Result * USE ECHOCARDIOGRAM (01/01/2025 1:28 PM CDT) Anatomical Region Laterality Modality Cardiac Ultrasound 01/01/2025 1:02 PM CDT Narrative 01/03/2025 6:00 AM CDT Echocardiography Report Pat.Name: Fraga Genna Pat.ID: [id number] .Date: 01/01/2025 Refer.MD: [place], [facility] Exam Time: 1:02:00 PM Study Type:OUTREACH Height: 64 in Weight: 199 lb BSA: 1.95 m2 Age: 8 1955,69Y Sex: F Sonogrphr: Sf Pat. Stat.:Outpatient Reason for Study:Pre-transplant evaluation for kidney transplant Procedures: Study performed at [facility], [place], [place] and interpreted by [facility]. 2D, M-mode, Doppler, Color Flow [...] 01/03/2025 Echocardiography Report Pat.Name: Genna Fraga Pat.ID: [id number] .Date: 01/01/2025 [facility]: 1:02:00 PM Study Type:OUTREACH Height: 64 in Weight: 199 lb BSA: 1.95 m2 Age: 8 1955,69Y Sex: F Sonogrphr: Sf Pat. Stat.:Outpatient Reason for Study:Pre-transplant evaluation for kidney transplant Procedures: Study performed at [place], [place] and interpreted by [facility]. 2D, M-mode, Doppler, Color Flow [...] 4:26 PM Narrative 01/01/2025 4:[address] [place] [address] Examination: Digital right screening mammogram with CAD. [...] * OCCULT BLOOD, FECES (10/13/2022 9:49 AM ENVIRONMENTAL LABORATORY TECHNICIAN) OCCULT BLOOD FECAL NEGATIVE NEGATIVE 10/13/2022 10:01 AM ENVIRONMENTAL LABORATORY TECHNICIAN [facility] STOOL SPECIMEN / Unknown 10/13/2022 9:49 AM ENVIRONMENTAL LABORATORY TECHNICIAN us Valentin Del Angel DO BODY FLUIDS AND STOOLS ORDERA BLES Final Result [facility] [address] [place] [address], from Last 3 Months or Most Recently Relevant to Health Maintenance Insurance MEDICAID [employer] - [employer]CIAL Advance Directives Documents on File Type Date Recorded Patient President And Chief Executive Officer Expl anation Advance Directives and Living Will 05/02/2019 10:53 AM 08/08/14 POA-HC Advance Directives and Living Will 11/27/2017 POWER OF MARKETING FINANCE SPECIALIST FO R HEALTH CARE Advance Directives and Living Will 2015 POWER OF MARKETING FINANCE SPECIALIST FO R HEALTH CARE Advance Directives and Living Will 02/25/2015 POWER OF MARKETING FINANCE SPECIALIST FO R HEALTH CARE Advance Directives and Living Will 01/11/2015 POWER OF MARKETING FINANCE SPECIALIST FO R HEALTH CARE Advance Directives and Living Will 11/19/2014 POWER OF MARKETING FINANCE SPECIALIST FO R HEALTH CARE Advance Directives and Living Will 11/19/2014 POWER OF MARKETING FINANCE SPECIALIST FO R HEALTH CARE Advance Directives and Living Will 10/16/2014 POWER OF MARKETING FINANCE SPECIALIST FO R HEALTH CARE Advance Directives and Living Will 10/11/2014 POWER OF MARKETING FINANCE SPECIALIST FO R HEALTH CARE Advance Directives and Living Will 10/08/2014 POWER OF MARKETING FINANCE SPECIALIST FO R HEALTH CARE Advance Directives and Living Will 09/25/2014 POWER OF MARKETING FINANCE SPECIALIST FO R HEALTH CARE Advance Directives and Living Will 08/08/2014 POWER OF MARKETING FINANCE SPECIALIST FO R HEALTH CARE * Full Code (Latest Code Status on File) Date Activated Date Inactivated Comments 05/02/2019 6:10 PM 05/05/2019 3:22 PM Care Teams Apple Packing Header Relationship Specialty Start Date End Date Karly Valencia APRN [address] [place] [phone] PCP - General Nurse Practitioner Family 02/02/25 Brown Middleton MD [address] [place] [address] Consulting Physician ENDOCRINOLOGY 05/26/24 Hai Frausto MD [address] [facility] [address] [place] [phone] SURGERY 10/27/24 Wilber Orellana MD [address] [phone] Consulting Physician INTERNAL MEDICINE 06/30/23 Kristopher Almaraz MD [address] [id number] Referring Physician Psychiatry 12/14/24
--- OUTSIDE RECORDS SUMMARY | 2025-03-17 10:45 | XMS_ITS ---
Author Organization [facility] Address [facility] [place] [address] Care Team Providers Care Machine Package Sealer Name Role Phone Brown Middleton MD Unavailable [phone] Hai Frausto MD Unavailable [phone] Wilber Orellana MD Unavailable [phone] Kristopher Almaraz MD Unavailable [phone] Karly Valencia APRN Primary Care Provider + Active Problems Problem Noted Date Diagnosed Date Morbid (severe) obesity due to excess calories 0 01/04/2023 FH: heart disease 10/29/2022 Chest pain, unspecified type 10/29/2022 Stage 4 chronic kidney disease ([facility]) 10/29/2022 Essential (primary) hypertension 10/29/2022 Anemia due to stage 3a chronic kidney disease At risk for loss of bone density 09/19/2019 Class 1 obesity without serious comorbidity in a dult 05/23/2019 History of thyroid cancer 05/23/2019 Malignant neoplasm of upper- 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 ([facility]) 05/02/2019 Cancer Staging:Pathologic stage from 05/04/2019:Stage IA(pT1b, pN0(sn), cM0, G2, ER+, FL+, HER2-) - Unsigned Clinical: Unsigned Current Treatment [...] Care Team Medical Oncologist Noemi Marshall MD [phone] Surgeon Serena Chandler MD [phone] Radiation Oncologist Primary Care Physician NORRIS RUSSO, [facility] [phone] Nurse Navigator Nuzhat Pablo RN, MSN, MA, OCN [phone] Diagnosis Malignant neoplasm of upper-outer quadrant of [...] physician Noemi Marshall MD According to the [place] [employer], about 20 percent of cancer [...] Retrieved from cancer.net 10/10/2015 Summary of the [place] [employer] Guidelines on Nutrition and Physical [...] with treatment. After Breast Cancer Diagnosis http://www.abcdbreastcancersupport.org/ 826.861.7031 Provides free, personalized information and one-to-one support to those affected by breast cancer- patients, families, and friends. Trained and professionally supported volunteer survivors and co-survivors help those battling breast cancer, from the newly diagnosed to those in treatment and beyond. [place] [employer] www.cancer.org 153-001-0333 Provides cancer information, resources and emotional support to patients and their family memebers. [place] [employer] of Clinical Oncology www.cancer.net 377-922-2546 Provides trusted and up-to-date cancer information, developed by the world?s leading cancer doctors. [employer] Inc www.cancercare.org 536-105-4701 A national nonprofit organization, which provides free professional help to people with cancer through counseling, education, information and referral and direct financial information. National Cancer [place] www.cancer.gov 150-778-7045 Provides cancer information such as statistics, prevention, early detection, survivor netowrks and emotional support. National Comprehensive Cancer Network www.nccn.com Provides information about follow-up care for cancer. Living Beyond Breast Cancer www.lbbc.org 841-355-3749 Breast cancer information and support is available focusing on living well beyond breast cancer with educational newsletters, interactive message boards and much more. The [employer]ina [employer] Komen Foundation www.Swipe.to.org 475-696-0279 Offers recent breast cancer news, information on breast health, a calendar of events and announcements of research initiatives. Helpline is also available. Breast 360 www..org Provides patient information from the [place] [employer] of Breast Surgeons, with the goal to engage,educate, and empower readers so they are able to make informed decisions for their breast health care.
--- OUTSIDE RECORDS SUMMARY | 2025-03-17 10:45 | XMS_ITS | Encounter Summary ---
Author Organization [facility] Address [address] [place] [address] Care Team Providers Care Is Analyst Name Role Phone Marni Ugalde MD Unavailable Unavailabl Britney Jang NP Unavailable [phone] Wilber Orellana MD Unavailable [phone] Brown Middleton MD Unavailable [phone] Hai Frausto MD Unavailable [phone] Wilber Orellana MD Unavailable [phone] None, Provider Unavailable Unavailable None, Provider Primary Care Provider Unavaila Kristopher Pandya MD Unavailable [phone] Karly Valencia APRN Primary Care Provider + Encounter Details Date Type Department Care Team (Late st Contact Info) Description 07/07/2023 Hospital Orders Only [facility] Pre/Post [address] [place] [address] Valeri Coffey MD 2 [facility] [address] [place] [address] Social History Tobacco Use Types Packs/Day Years [...] Sex Assigned at Female 10/23/2024 12:36 PM OB NURSE Legal Sex Female 8:54 PM CDT Gender [...] on filedocumented in this encounter Care Teams Is Analyst Relationship Specialty Start Date End Date None, Tammie, PCP - General UNKNOWN PHYSICIAN SPECIALTY 11/16/24 02/01/25 Karly Valencia APRN [address] [place], [place] [phone] PCP - General Nurse Practitioner Family 02/02/25 Marni Ugalde MD Consulting Physician CARDIOVASCULAR DISEASE 08/25/2205/25 Britney Eduardo NP Nurse Practitioner Nurse Practitioner Family 01/01/23 05/25/24 Wilber Orellana MD [address] [place] [address] Consulting Physician NEPHROLOGY 06/30/23 11/06/24 Brown Midldeton MD [address] [place] [phone] Consulting Physician ENDOCRINOLOGY 05/26/24 Hai Frausto MD [address] [phone] SURGERY 10/27/24 Wilber Orellana MD [address] [phone] Consulting Physician INTERNAL MEDICINE 06/30/23 None, Provider, UNKNOWN PHYSICIAN SPECIALTY 11/16/24 12/13/24 Kristopher Almaraz MD [address] [id number] Referring Physician Psychiatry 12/14/24 documented as of this encounter
--- OUTSIDE RECORDS SUMMARY | 2025-03-17 10:45 | XMS_ITS | Encounter Summary ---
Author Organization [facility] Address Critical access hospital[address] [place] [address] Care Team Providers Care Quick Mixer Operator Name Role Phone KavehGerardorosario [facility] Primary Care Provider [phone] Riccardo Osorio MD Primary Care Provider [phone] Marni Ugalde MD Unavailable Unavailabl e Britney Eduardo RN [facility] Unavailable [phone] Susan Sen RN [facility] Primary Care Provider [phone] Wilber Orellana MD Unavailable [phone] Brown Middleton MD Unavailable [phone] Hai Frausto MD Unavailable [phone] Wilber Orellana MD Unavailable [phone] None, Provider Unavailable Unavailable None, Provider Primary Care Provider Unavaila Kristopher Pandya MD Unavailable [phone] Karly Valencia APRN Primary Care Provider + Encounter Details Date Type Department Care Team (Late st Contact Info) Description 02/18/2019 Abstract SFL CONVERSION [address] [place] [address] , Generic Conversion, Social History Tobacco Use Types Packs/Day Years Used Date Smoking Tobacco: Never Comments Unknown Sex and Gender Information Value Date Recorded Sex Assigned at Female 10/23/2024 12:36 PM RAT POISONER Legal Sex Female 8:54 PM CDT Gender Identity Not on file Sexual Orientation Not on file documented as of this encounter Plan of Treatment Not on file documented as of this encounter Visit Diagnoses Not on filedocumented in this encounter Care Teams Quick Mixer Operator Relationship Specialty Start Date End Date Elis Linn [facility] [address] [place], [place] [phone] PCP - General NURSE PRACTITIONER 04/03/19 08/03/22 Riccardo Osorio MD [address] [place] [address] PCP - General FAMILY PRACTICE 08/04/22 02/24/23 [place] [address] PCP - General Nurse Practitioner Women's Health 02/25/23 06/22/23 None, MD Tammie PCP - General UNKNOWN PHYSICIAN SPECIALTY 11/16/24 02/01/25 Karly Valencia APRN [address] [place] [phone] PCP - General Nurse Practitioner Family 02/02/25 Marni Ugalde MD [facility] [place] [address] Consulting Physician CARDIOVASCULAR DISEASE 08/25/2205/25 Britney Eduardo RN [facility] [place] [address] Nurse Practitioner Nurse Practitioner Family 01/01/23 05/25/24 Wilber Orellana MD [address] [place] [address] Consulting Physician NEPHROLOGY 06/30/23 11/06/24 Brown Middleton MD [address] [place] [address] Consulting Physician ENDOCRINOLOGY 05/26/24 Hai Frausto MD [address] [facility] [address] [place] [address] SURGERY 10/27/24 Wilber Orellana MD [address] [address] Consulting Physician INTERNAL MEDICINE 06/30/23 None, Tammie, UNKNOWN PHYSICIAN SPECIALTY 11/16/24 12/13/24 Kristopher Almaraz MD [address] [phone] Referring Physician Psychiatry 12/14/24 documented as of this encounter
--- OUTSIDE RECORDS SUMMARY | 2025-03-17 10:45 | XMS_ITS ---
Author Organization Unknown Address [address] [place] [phone] Phone Care Team Providers Care Floor Worker Transfer Bay Name Role Phone KAMILLA DALLAS Attending Unavailable [facility] Primary Unavailable [facility] Secondary Unavailable Immunization Immunization Date Status [...] 208 CVX Pneumococcal conjugate PCV20 , polysaccharide [id number] conjugate, adjuvant, PF 05/05/2024 Completed 216 CVX [...] Completed 309 CVX COVID-19, mRNA, LNP-S, PF, adny-sucrose, 30 mcg/0.3 mL 06/15/2024 Completed 309 CVX Results TSH - Collect Date/Time: 08:42 [facility] [id number] [address] [place], [place], [phone] LOINC: 26791-9 Test Value Unit Reference Range Code Code System Flag TSH. < 0.150 uIU/L L=0.470 H=4.680 75876-4 LOINC L Social History Type Status Start Date End Date Code Code Syst em Smoking History Never smoker (Never Smoked) 704041790 SNOMED CT Sex Female Assessment You had [...] Code Code System ESSENTIAL (PRIMARY) HYPERTENSION active 14165723 SNOMED-CT POLYCYSTIC KIDNEY, UNSPECIFIED active 73884351 SNOMED-CT PROTEINURIA, UNSPECIFIED active 41059 008 SNOMED-CT Plan of Treatment Digital Naman Screen Bilateral (68023) US Soft Tissue Head & Neck (66852) 02/11 Encounters Encounter Diagnosis Start Date Code Code Sys tem Postprocedural hypothyroidism 03/01/2024 SNOMED-CT Personal Care Team Section Performer Name Performer Role Active Date Inactive SINDHU Butler PCP - Primary care physician 2022-10-29 2023-09-21
--- OUTSIDE RECORDS SUMMARY | 2025-03-17 10:45 | XMS_ITS | Encounter Summary ---
Author Organization [facility] Address [address] [place] [address] Care Team Providers Care Medical Device Assembler Name Role Phone Marni Ugalde MD Unavailable Unavailabl Britney Jang NP Unavailable [phone] Wilber Orellana MD Unavailable [phone] Brown Middleton MD Unavailable [phone] Hai Frausto MD Unavailable [phone] Wilber Orellana MD Unavailable [phone] None, Provider Unavailable Unavailable None, Provider Primary Care Provider Unavaila Kristopher Pandya MD Unavailable [phone] Karly Valencia APRN Primary Care Provider + Encounter Details Date Type Department Care Team (Late st Contact Info) Description 07/05/2023 Prep for Procedure [facility] [address] [place] [phone] Valeri Coffey MD [address] [facility] [address], [facility] [address] [place] [address] Social History Tobacco Use Types Packs/Day Years [...] Sex Assigned at Female 10/23/2024 12:36 PM LIBRARIAN SPECIAL LIBRARY Legal Sex Female 8:54 PM CDT Gender [...] on filedocumented in this encounter Care Teams Medical Device Assembler Relationship Specialty Start Date End Date None, Provider, PCP - General UNKNOWN PHYSICIAN SPECIALTY 11/16/24 02/01/25 Karly Valencia APRN [address] [place], [place] [address] PCP - General Nurse Practitioner Family 02/02/25 Marni Ugalde MD Consulting Physician CARDIOVASCULAR DISEASE 08/25/2205/25 Britney Eduardo NP Nurse Practitioner Nurse Practitioner Family 01/01/23 05/25/24 Wilber Orellana MD [address] [place] [address] Consulting Physician NEPHROLOGY 06/30/23 11/06/24 Brown Middleton MD [address] [place] [address] Consulting Physician ENDOCRINOLOGY 05/26/24 Hai Frausto MD [address] [phone] SURGERY 10/27/24 Wilber Orellana MD [address] [place] [phone] Consulting Physician INTERNAL MEDICINE 06/30/23 None, Tammie, UNKNOWN PHYSICIAN SPECIALTY 11/16/24 12/13/24 Kristopher Almaraz MD [address] [phone] Referring Physician Psychiatry 12/14/24 documented as of this encounter
--- OUTSIDE RECORDS SUMMARY | 2025-03-17 10:45 | XMS_ITS ---
Author Organization Unknown Address [address] [place] [phone] Phone Care Team Providers Care Graphics Intern Name Role Phone JANETH RAPP Attending Unavailable [facility] Primary Unavailable Immunization Immunization Date Status [...] 208 CVX Pneumococcal conjugate PCV20 , polysaccharide [id number] conjugate, adjuvant, PF 05/05/2024 Completed 216 CVX [...] PANEL - Jeremy ect Date/Time: 07/27/2023 08:25 [facility] ID: [id number] [address] [place], [place], [id number] LOINC: 09694-9 Test Value Unit Reference Range Code Code System Flag FASTING NO BUN 73 mg/dL L=7 H=20 3094-0 LOINC H CREATININE 2.60 mg/dL L=0.52 H=1.04 2160-0 LOINC H GLUCOSE 76 mg/dL L=74 H=106 2345-7 LOINC CALCIUM 9.6 mg/dL L=8.3 H=10.5 50294-7 LOINC SODIUM 140 mmol/L L=132 H=144 2951-2 LOINC POTASSIUM 4.9 mmol/L L=3.5 H=5.1 2823-3 LOINC CHLORIDE 104 mmol/L L=98 H=107 2075-0 LOINC CO2 26.0 mmol/L L=22.0 H=30.0 2028-9 LOINC ANION GAP 15 L=10 H=20 06266-7 LOINC BUN/CREAT 28.1 3097-3 LOINC AGE 68 87404-5 LOINC eGFR NON-AFR 19 ml/min eGFR AFR AMER 23 ml/min Social History Type Status Start Date End Date Code Code Syst em Smoking History Never smoker (Never Smoked) 331535165 SNOMED CT Sex Female Assessment You had [...] Code Code System ESSENTIAL (PRIMARY) HYPERTENSION active 08244678 SNOMED-CT POLYCYSTIC KIDNEY, UNSPECIFIED active 79627698 SNOMED-CT PROTEINURIA, UNSPECIFIED active 39688 008 SNOMED-CT Plan of Treatment Digital Naman Screen Bilateral (73030) US Soft Tissue Head & Neck (90393) 02/11 Encounters Encounter Diagnosis Start Date Code Code Sys tem Disorder of kidney and ureter, unspecified 07/27/2023 SNOMED-CT Personal Care Team Section Performer Name Performer Role Active Date Inactive SINDHU Butler PCP - Primary care physician 2022-10-29 2023-09-21
--- OUTSIDE RECORDS SUMMARY | 2025-03-17 10:46 | XMS_ITS ---
Author Organization Unknown Address [address] [place] [phone] Phone Care Team Providers Care Cryptologic Technician Operator/Analyst Name Role Phone KAMILLA WINSTONROBERTO Attending Unavailable [...] 208 CVX Pneumococcal conjugate PCV20 , polysaccharide [id number] conjugate, adjuvant, PF 05/05/2024 Completed 216 CVX [...] - Completed: 02/26/2025 09:15 LOINC: \TM00\\12PI\\DRAo\\BM09\ \MRHo\ [place] [address] ---------NAME--------- NUMBER SEX AGE ADMIT DISC. XRAY# F/C TYPE JASSI DIAMOND [id number] F 69 02/26/25 02/26/25 61589 MB7 O/P DATE OF : 1955 M/R# [id number] PH#: [phone] [facility] LOCATION: TRANSCRIBED: 02/26/25 9:46 US SOFT TISSUE HEAD AND NECK 63106 COMPLETED:02/26/25 9:15 APC 98351 {REASON-US ECHO HEAD: MASS/LUMP PHYSICIAN: KAMILLA BE [...] are grossly unchanged since ultrasound dated 04/25/2024. ROOM SPAWN MAKER \ITLo\ \UNDo\ \UNDx\ \ITLx\ Reviewed and Electronically Signed by: Yobany Bustos MD Signed Date: 02/26/25 09:46 02/26/25.0948.APC.to [facility] via fax Social History Type Status Start Date End Date Code Code Syst em Smoking History Never smoker (Never Smoked) 788764709 SNOMED CT Sex Female Assessment You had [...] Code Code System ESSENTIAL (PRIMARY) HYPERTENSION active 71888150 SNOMED-CT POLYCYSTIC KIDNEY, UNSPECIFIED active 31678966 SNOMED-CT PROTEINURIA, UNSPECIFIED active 56623 008 SNOMED-CT Plan of Treatment Digital Naman Screen Bilateral (57991) US Soft Tissue Head & Neck (60444) 02/11 Encounters Encounter Diagnosis Start Date Code Code Sys tem Primary malignant neoplasm of thyroid gland 02/26/2025 54111331 SNOMED-CT Personal Care Team Section Performer Name Performer Role Active Date Inactive SINDHU Butler PCP - Primary care physician 2022-10-29 2023-09-21 Imaging Narrative Notes [facility] 02/26/2025 09:49 [facility] [address] [place] [address] ---------NAME--------- NUMBER SEX AGE ADMIT DISC. XRAY# F/C TYPE JASSI DIAMOND [id number] F 69 02/26/25 02/26/25 68767 MB7 O/P DATE OF : 1955 M/R# [id number] #: [id number] LOCATION: TRANSCRIBED: 02/26/25 9:46 US SOFT TISSUE HEAD AND NECK 42676 COMPLETED:02/26/25 9:15 APC 39015 {REASON-US ECHO HEAD: MASS/LUMP PHYSICIAN: KAMILLA SA [...] are grossly unchanged since ultrasound dated 04/25/2024. ROOM SPAWN MAKER Reviewed and Electronically Signed by: Yobany Bustos MD Signed Date: 02/26/25 09:46 02/26/25.0948.APC.to [facility] via fax
--- OUTSIDE RECORDS SUMMARY | 2025-03-17 10:46 | XMS_ITS ---
Author Organization Unknown Address [address] [place] [phone] Phone Care Team Providers Care Tray Drier Operator Name Role Phone FEDERICO UREÑA APN Attending Unavailable [facility] Primary [...] 208 CVX Pneumococcal conjugate PCV20 , polysaccharide [id number] conjugate, adjuvant, PF 05/05/2024 Completed 216 CVX [...] - Completed: 09/26/2024 10:47 LOINC: \TM00\\12PI\\DRAo\\BM09\ \[place]\ [place] [address] ---------NAME--------- NUMBER SEX AGE ADMIT DISC. XRAY# F/C TYPE JASSI DIAMOND [id number] F 69 09/26/24 09/26/24 29788 MB7 O/P DATE OF : 1955 M/R# [id number] PH#: [phone] \[facility]\ LOCATION: TRANSCRIBED: 09/26/24 11:51 DIG 3D NAMAN SCREENING R [id number] COMPLETED:09/26/24 10:47 [facility] 70254 (REASON-DIG 3D NAMAN SCREENING R UNILATERAL: SCREENING PHYSICIAN: FEDERICO GODOY R A D I O L O G Y R E P O R T PROCEDURE: DIG 3D NAMAN SCREENING R UNILATERAL CLINICAL INDICATION: Screening COMPARISON STUDY: 03/11/2021 TECHNIQUE: Using a full field digital 2D mammography unit CC and MLO views of the right breasts are performed. This examination was analyzed using [employer] DBT/MMG, an [email or web address] software developed to enhance the effectiveness of breast cancer screening with mammography. FINDINGS: BREAST COMPOSITION: C - The breasts are heterogeneously dense, which may obscure small masses. No suspicious masses, architectural distortion, asymmetries or suspicious calcifications in the right breast. IMPRESSION: No evidence of malignancy. RECOMMENDATION: Recommend annual mammogram. ASSESSMENT: BIRADS: 1 - Negative UTER TRAIN OPERATOR \ITLo\ \UNDo\ \UNDx\ \ITLx\ Reviewed and Electronically Signed by: BLACK SALVADOR Signed Date: SIGNDATE 09/26/24.1151.[place].to [facility] via fax Social History Type Status Start Date End Date Code Code Syst em Smoking History Never smoker (Never Smoked) 855154340 SNOMED CT Sex Female Assessment You had [...] Code Code System ESSENTIAL (PRIMARY) HYPERTENSION active 07192165 SNOMED-CT POLYCYSTIC KIDNEY, UNSPECIFIED active 61201186 SNOMED-CT PROTEINURIA, UNSPECIFIED active 20081 008 SNOMED-CT Plan of Treatment Digital Naman Screen Bilateral (73946) US Soft Tissue Head & Neck (45073) 02/11 Encounters Encounter Diagnosis Start Date Code Code Sys tem Encounter for screening mamm ogram for malignant neoplasm of breast 09/26/2024 SNOMED-CT Personal Care Team Section Performer Name Performer Role Active Date Inactive SINDHU Butler PCP - Primary care physician 2022-10-29 2023-09-21 Imaging Narrative Notes [facility] 09/26/2024 11:[address] [address] ---------NAME--------- NUMBER SEX AGE ADMIT DISC. XRAY# F/C TYPE JASSI DIAMOND [id number] F 69 09/26/24 09/26/24 65877 MB7 O/P DATE OF : 1955 M/R# [id number] #: [id number] LOCATION: TRANSCRIBED: 09/26/24 11:51 DIG 3D NAMAN SCREENING R [id number] COMPLETED:09/26/24 10:47 [facility] 17956 (REASON-DIG 3D NAMAN SCREENING R UNILATERAL: SCREENING PHYSICIAN: FEDERICO ROS RADIOLOGY REPORT PROCEDURE: DIG 3D NAMAN SCREENING R UNILATERAL CLINICAL INDICATION: Screening COMPARISON STUDY: 03/11/2021 TECHNIQUE: Using a full field digital 2D mammography unit CC and MLO views of the right breasts are performed. This examination was analyzed using [employer] DBT/MMG, an [email or web address] software developed to enhance the effectiveness of breast cancer screening with mammography. FINDINGS: BREAST COMPOSITION: C - The breasts are heterogeneously dense, which may obscure small masses. No suspicious masses, architectural distortion, asymmetries or suspicious calcifications in the right breast. IMPRESSION: No evidence of malignancy. RECOMMENDATION: Recommend annual mammogram. ASSESSMENT: BIRADS: 1 - Negative UTER TRAIN OPERATOR Reviewed and Electronically Signed by: BLACK SALVADOR Signed Date: SIGNDATE 09/26/24.1151.[place].to [facility] via fax
--- OUTSIDE RECORDS SUMMARY | 2025-03-17 10:46 | XMS_ITS ---
Author Organization Unknown Address [address] [place] [phone] Phone Care Team Providers Care Switch Cleaner Name Role Phone JAMILA MURPHY Attending Unavailable [...] 208 CVX Pneumococcal conjugate PCV20 , polysaccharide [id number] conjugate, adjuvant, PF 05/05/2024 Completed 216 CVX [...] MICROALBUMIN - Collect Date/ Time: 09/21/2023 08:22 [facility] ID: [id number] [address] [place] [address], [id number] LOINC: 19793-3 Test Value Unit Reference Range Code Code System Flag MICROALBUMIN 26.2 mg/L L=0.0 H=16.7 83743-6 LOINC H UR CREATININE 65.50 mg/dL L=30.00 H=125 2161-8 LOINC MA/CR 40.0 mg/gCR OSMOLALITY URINE - Collect D ate/Time: 09/21/2023 08:22 [facility] ID: [id number] [address] [place] [address], [id number] LOINC: 2695-5 Test Value Unit Reference Range Code Code System Flag Osmolality, Urine 409 2695-5 LOINC LIPID PANEL - Collect Date/T taj: 09/21/2023 08:20 [facility] ID: [id number] [address] [place], [place], [id number] LOINC: 11633-9 Test Value Unit Reference Range Code Code System Flag FASTING YES CHOLESTEROL 192 mg/dL L=0 H=200 2092-3 LOINC TRIGLYCERIDE 299 mg/dL L=0 H=150 2571-8 LOINC H HDL 35 mg/dL L=40 H=60 2084-9 LOINC L LDL 89 mg/dL 2088-1 LOINC CBC W/ DIFF - Collect Date/T taj: 09/21/2023 08:20 [facility] ID: [id number] [address] [place], [place], [id number] LOINC: 27921-3 Test Value Unit Reference Range Code Code System Flag WBC 7.7 10^3uL L=4.8 H=10.8 RBC 3.96 10^6uL L=4.20 H=5.40 L HEMOGLOBIN 10.7 g/dL L=12.0 H=16.0 718-7 LOINC L HEMATOCRIT 33.5 VOL% L=37.0 H=47.0 4544-3 LOINC L MCV 84.6 fL L=81.0 H=99.0 MCH 27.0 pg L=27.0 H=32.0 MCHC 31.9 g/dL L=32.0 H=36.0 L PLATELETS 349 10^3uL L=100 H=400 68702-8 LOINC RDW 14.6 % L=11.7 H=15.5 %GRAN 65.7 % L=40.0 H=70.0 32905-2 LOINC %LYMPH 24.1 % L=20.0 H=45.0 736-9 LOINC %MONO 6.6 % L=2.0 H=10.0 84305-9 LOINC %EOS 2.9 % L=0.0 H=6.0 713-8 LOINC %BASO 0.4 % L=0.0 H=3.0 706-2 LOINC #NEUT 5.1 10^3uL L=1.9 H=7.6 15836-8 LOINC #LYMPH 1.9 10^3uL L=0.9 H=4.9 58098-8 LOINC #MONO 0.5 10^3uL L=0.1 H=0.9 33941-4 LOINC #EOS 0.2 10^3uL L=0.0 H=0.6 712-0 LOINC #BASO 0.03 10^3uL L=0.00 H=0.10 96323-8 LOINC #IM GRANS 0.0 10^3uL L=0.0 H=7.0 25509-3 LOINC %IM GRANS 0.3 % L=0.0 H=5.0 42023-5 LOINC %NRB 0.0 L=0.0 H=0.2 09444-8 LOINC #NRB 0.000 L=0.000 H=0.012 40013-5 LOINC MANUAL DIFF NOT INDICATED RBC MORPH NOT INDICATED RENAL FUNCTION PANEL - Colle ct Date/Time: 09/21/2023 08:20 [facility] ID: [id number] [address] [place], [place], [id number] LOINC: 73357-3 Test Value Unit Reference Range Code Code System Flag FASTING? YES BUN 63 mg/dL L=7 H=20 3094-0 LOINC H CREATININE 2.30 mg/dL L=0.52 H=1.04 2160-0 LOINC H GLUCOSE 116 mg/dL L=74 H=106 2345-7 LOINC H CALCIUM 9.6 mg/dL L=8.3 H=10.5 80129-2 LOINC SODIUM 141 mmol/L L=132 H=144 2951-2 LOINC POTASSIUM 4.6 mmol/L L=3.5 H=5.1 2823-3 LOINC CHLORIDE 106 mmol/L L=98 H=107 2075-0 LOINC CO2 24.0 mmol/L L=22.0 H=30.0 2028-9 LOINC ANION GAP 16 L=10 H=20 53262-0 LOINC BUN/CREAT 27.4 3097-3 LOINC PHOSPHORUS 4.1 mg/dL L=2.5 H=4.9 2777-1 LOINC ALBUMIN 4.4 G/dL L=3.5 H=5.0 1751-7 LOINC AGE 68 57017-0 LOINC eGFR NON-AFR 22 ml/min eGFR AFR AMER 27 ml/min PTH - Collect Date/Time: 05/2024 08:20 [facility] ID: [id number] [place], [place], [id number] LOINC: 2731-8 Test Value Unit Reference Range Code Code System Flag PTH, Intact 91 15-65 2731-8 LOINC H COMPREHENSIVE METABOLIC PANE L - Collect Date/Time: 09/21/2023 08:20 [facility] ID: [id number] [address] [place] [address], [id number] LOINC: 10396-0 Test Value Unit Reference Range Code Code System Flag FASTING YES BUN 63 mg/dL L=7 H=20 3094-0 LOINC H CREATININE 2.30 mg/dL L=0.52 H=1.04 2160-0 LOINC H GLUCOSE 116 mg/dL L=74 H=106 2345-7 LOINC H SODIUM 141 mmol/L L=132 H=144 2951-2 LOINC POTASSIUM 4.6 mmol/L L=3.5 H=5.1 2823-3 LOINC CHLORIDE 106 mmol/L L=98 H=107 2075-0 LOINC CO2 24.0 mmol/L L=22.0 H=30.0 8-9 LOINC ANION GAP 16 L=10 H=20 27830-5 LOINC OSMOLALITY 311 mOs/kG L=280 H=296 79365-0 LOINC H BUN/CREAT 27.4 3097-3 LOINC CALCIUM 9.6 mg/dL L=8.3 H=10.5 46289-4 LOINC AST 20 U/L L=15 H=46 1920-8 LOINC ALT 22 U/L L=9 H=72 1742-6 LOINC ALKALINE PHOS 117 U/L L=38 H=126 6768-6 LOINC TOTAL BILI 0.3 mg/dL L=0.2 H=1.3 1975-2 LOINC ALBUMIN 4.4 G/dL L=3.5 H=5.0 1751-7 LOINC TOTAL PROTEIN 8.2 g/L L=6.3 H=8.2 2885-2 LOINC A/G RATIO 1.2 24105-7 LOINC AGE 68 40391-0 LOINC eGFR NON-AFR 22 ml/min eGFR AFR AMER 27 ml/min Social History Type Status Start Date End Date Code Code Syst em Smoking History Never smoker (Never Smoked) 216956894 SNOMED CT Sex Female Assessment You had [...] Code Code System ESSENTIAL (PRIMARY) HYPERTENSION active 86226213 SNOMED-CT POLYCYSTIC KIDNEY, UNSPECIFIED active 59810865 SNOMED-CT PROTEINURIA, UNSPECIFIED active 03891 008 SNOMED-CT Plan of Treatment Digital Naman Screen Bilateral (46595) US Soft Tissue Head & Neck (30231) 02/11 Encounters Encounter Diagnosis Start Date Code Code Sys tem Essential (primary) hypertension 09/21/2023 SNOMED-CT Personal Care Team Section Performer Name Performer Role Active Date Inactive SINDHU Butler PCP - Primary care physician 2022-10-29 2023-09-21
[2025-03-17 10:50] VITALS: BP 135/75; PULSE 86; RESP 16; TEMP 36.6; O2SAT 98
== END 2025-03-17 10:50 | disposition home or self-care (01) ==
LOC: CHSED 10:42
PROVIDERS: Emergency Provider Internal Medicine Critical Care Medicine; PCP Nurse Practitioner Family
DX: S91.331A Puncture wound without foreign body, right foot, initial encounter (principal); N18.9 Chronic kidney disease, unspecified; Z85.3 Personal history of malignant neoplasm of breast; Z85.850 Personal history of malignant neoplasm of thyroid; W45.0XXA Nail entering through skin, initial encounter
CPT/HCPCS: 99283

== ENCOUNTER 2025-05-06 14:51 | Emergency (ER) | payer MEDICARE, MEDICAID, SELFPAY ==
--- OUTSIDE RECORDS SUMMARY | 2024-04-06 11:00 | XMS_ITS ---
Author Organization [facility] Address [address] [place], [place] [id number] Care Team Providers Care Latent Fingerprint Examiner Name Role Phone RODDY KUO Unavailable [phone] Marleen Gee Unavailable Unavailable EMIYL CARVAJAL Unavailable [phone] REASON FOR VISIT *General care Encounters Encounter Location Date Provider Diagnosis [facility] [address], [place] [id number] 04/06/2024 EMILY CARVAJAL Plan Of Treatment No Information Progress Notes * Genna KEENEDOB: (70 yo F)Acc No.[id number]:04/06/2024 Patient: Genna MCPHERSON Provider: Camille CARVAJAL :1955 A ge:68 Y S ex:Female Date:04/06/2024 Address:[address] [place] [id number] Subjective: * Chief Complaints: * 1 . *General care. * Medical History: Objective: * Vitals: Assessment: Plan: * Treatment: * Billing Information: * Visit Code: * Procedure Codes: * Electronic signature of DEBBY CARVAJAL DPM on 05/06/2025 at 02:53 PM CDT Sign off status: Pending * Provider: Camille CARVAJAL Date: 04/06/2024 Generated for Stacey gee/Juice/eTransmitting on: 05/06/2025 02:53 PM CDT
[2025-05-06] VITALS (32 sets, daily range): BP systolic 140–197; BP diastolic 75–98; PULSE 80–116; RESP 15–20; TEMP 37.2–37.7; O2SAT 79–100
--- NOTE | ~2025-05-06 | XR_ITS ---
XR chest 2V 05/06/2025 15:35 Indication: Shortness of breath and chest pain Procedure: 2 view chest Comparison: 10/16/2015 Findings: Heart size normal. No focal air space disease, pulmonary edema, pleural effusion or suspected pneumothorax. No acute osseous abnormality. Impression: 1: No acute cardiopulmonary disease. Reviewed, dictated and finalized at location O. Impression: 1: No acute cardiopulmonary disease.
--- NOTE | 2025-05-06 14:53 | ED_ITS ---
HPI - SOB/Dyspnea General Chief Complaint: Shortness of Breath/Dyspnea Stated Complaint: Chest Pain Time Seen by Provider: 05/06/25 14:53 Source: patient Mode of arrival: ambulatory Limitations: no limitations History of Present Illness HPI Narrative: patient is a 70-year-old female with a 1 week history of worsening lower extremity edema and some shortness of breath. Occasional chest pain. patient is an end-stage renal disease situation with pending dialysis and renal transplant. Patient has lots of life stressors at this time. MD elicited complaint: shortness of breath ( With associated bilateral lower extremity edema) Onset (ago): week(s) ( 1) Context: other ( patient having shortness of breath and lower extremity edema for the past week with occasional chest pain) Timing: intermittent and progressively worsening Severity: mild Exacerbating factors: lying flat and exertion Relieving factors: rest Known history of: other ( end-stage renal disease pending renal transplant and dialysis) Associated symptoms: chest pain and sense of impending doom Treatment prior to arrival: none Related Data Home oxygen amount: none Allergies Allergy/AdvReac Type Severity Reaction Status Date / Time No Known Allergies Allergy Verified 05/06/25 14:56 Review of Systems 2 Review of Systems: All systems reviewed & are unremarkable except as noted in HPI and below Constitutional: Constitutional: Reports no additional constitutional complaints Eyes: Eyes: Reports no additional eye complaints ENT: Reports system reviewed and no additional complaints, except as documented Cardiovascular: Cardiovascular: Reports no additional cardiovascular complaints Respiratory: Respiratory: Reports no additional respiratory complaints Gastrointestinal: Gastrointestinal: Reports no additional gastrointestinal complaints Genitourinary: Genitourinary: Reports no additional female genitourinary complaints Musculoskeletal: Musculoskeletal: Reports no additional musculoskeletal complaints Integumentary/Breasts: Skin/Breast: Reports system reviewed and no additional complaints, except as docu Neurologic: Reports system reviewed and no additional complaints, except as documented Psychiatric: Psychiatric: Reports no additional psychiatric complaints Endocrine: Endocrine: Reports no additional endocrine complaints Hematologic/Lymphatic: Hematologic/Lymphatic: Reports no additional hematologic/lymphatic complaints Allergic/Immunologic: Allergic/Immunologic: Reports no additional allergic/immunologic complaints [facility] Past Medical History Medical History Hx of thyroid cancer Breast cancer CKD (chronic kidney disease) Social History Social History Substance use type: does not use Exam 2 Const: General: healthy appearing Nutritional Appearance: well nourished Orientation/consciousness: patient oriented x3 HENMT: Head: normal to inspection Ears: external ears normal F alfonso/Nose/Sinus: Normal external nose present Eyes: Conjunctivae: conjunctivae normal Pupils: Equal, round and reactive pupils present EOM: EOMs intact bilaterally Neck: Neck: normal visual inspection Chest: Chest palpation & inspection: normal inspection of the chest Resp: Effort & Inspection: normal respiratory effort and not labored A uscultation: clear to auscultation bilaterally and no crackles Cardio: Rate: regular rate Rhythm: regular rhythm Heart sounds: no murmurs GI: Inspection: non-distended GI Palp: Yes Soft to palpation, No Tenderness to palpation present (GI), No Guarding due to palpation present (GI), No Rigid due to palpation, No Hernia present, No Palpable mass present and No Rebound tenderness present Auscultation: normal bowel sounds : General: Yes bladder normal to palpation Back/Spine/Pelvis: Back: no CVA tenderness Skin: General skin exam: normal color Rashes: no rashes Wounds: no wounds Neuro: General: patient oriented x3, moves all extremities and no meningeal signs Cranial nerves: Yes Nystagmus not present Speech: normal speech Extrem: General: normal to inspection and edema ( 2+ bilateral lower extremity edema) Psych: Mental Status: mental status grossly normal Affect: normal affect Attitude: cooperative Course Vital Signs Vital signs: Vital Signs Temperature 37.7 C H 05/06/25 14:52 Pulse Rate 111 H 05/06/25 14:52 Respiratory Rate 20 05/06/25 14:52 Blood Pressure 168/82 H 05/06/25 14:52 Pulse Oximetry 99 05/06/25 14:52 Oxygen Delivery Room Air 05/06/25 14:52 Temperature 37.2 C 05/06/25 17:00 Pulse Rate 103 H 05/06/25 15:01 Respiratory Rate 18 05/06/25 15:01 Blood Pressure 152/79 H 05/06/25 15:01 Pulse Oximetry 99 05/06/25 15:01 Oxygen Delivery Room Air 05/06/25 14:55 MDM - SOB/Dyspnea MDM Narrative Medical decision making narrative: Patient is a 70-year-old female with some occasional chest pain and associated shortness of breath and bilateral lower extremity edema for the past week. Will do a cardiac workup at this time. Live found that her symptoms are likely related to a new onset CHF. We will transfer patient for CHF new onset as well as end-stage renal disease so the 2 specialist may work on her medical management. Lab Data Attestation: I reviewed the patient's lab results. 05/06/25 15:07 05/06/25 15:07 Labs: Lab Results 05/06/25 05/06/25 Range/Units 15:07 15:15 WBC 8.2 (4.8-10.8) K/mm3 RBC 3.23 L (4.20-5.40) M/mm3 Hgb 9.0 L (11.7-13.8) g/dL Hct 27.4 L (35.0-42.0) % MCV 84.8 (78.0-102.0) fL MCH 27.9 (27.0-31.0) pg MCHC 32.8 (32-36) g/dL RDW 15.7 H (11.6-14.4) % Plt Count 265 (150-420) K/mm3 MPV 8.6 L (9.2-11.8) fl Immature Gran % (Auto) 0.4 H (0.0-0.0) % Neut % (Auto) 75.4 H (50.0-70.0) % Lymph % (Auto) 14.9 L (18.0-42.0) % [place] % (Auto) 6.7 (2.0-11.0) % Eos % (Auto) 2.1 (1.0-6.0) % Baso % (Auto) 0.5 (0.0-1.0) % Lymph # (Auto) 1.22 (1.10-4.50) K/mm3 [place] # (Auto) 0.55 (0.10-0.90) K/mm3 Eos # (Auto) 0.17 (0.02-0.50) K/mm3 Baso # (Auto) 0.04 (0.00-0.10) K/mm3 Abs Immat Gran (auto) 0.03 H (0.00-0.00) K/mm3 Absolute Neuts (auto) 6.20 (1.70-7.20) K/mm3 Absolute Nucleated RBC 0.00 (0.00-0.00) K/mm3 Nucleated RBC % 0.0 (0-0.0) % PT 11.3 (9.50-12.1) Seconds INR 1.0 APTT 24.1 (23.9-30.70) Sec Sodium 140 (137-145) mmol/L Potassium 4.2 (3.4-5.0) mmol/L Chloride 109 H (98-107) mmol/L Carbon Dioxide 17 L (22-30) mmol/L Anion Gap 14 H (4-12) mmol/L BUN 56 H (7-17) mg/dL Creatinine 2.86 H (0.7-1.0) mg/dL Estim Creat Clear Calc 19 ml/min Estimated GFR 16 L (59 - ) Glucose 109 (65-110) mg/dL Calculated Osmolality 306 H (285-295) mOsm/kg Lactic Acid 0.9 (0.4-2.0) mmol/L Calcium 9.2 (8.4-10.2) mg/dL Total Bilirubin 0.5 (0.2-1.3) mg/dL AST 57 H (14-36) U/L ALT 73 H (6-35) U/L Alkaline Phosphatase 111 (38-126) U/L Troponin I < 0.012 (0.000-0.034) ng/mL NT-Pro-B Natriuret Pep 1830 H (19.9-100) pg/mL Total Protein 8.1 (6.3-8.2) g/dL Albumin 4.6 (3.5-5.1) g/dL Urine Color Light yellow (Yellow) Urine Appearance Clear (Clear) Urine pH 6.0 (5.0-8.0) Ur Specific [place] <= 1.005 L (1.010-1.020) Urine Protein Negative (Negative) Urine Glucose (UA) Negative (Negative) Urine Ketones Negative (Negative) Ur Blood (Man) Negative (Negative) Urine Nitrate Negative (Negative) Urine Bilirubin Negative (Negative) Urine Urobilinogen 0.2 (0.2-1.0) mg/dL Leukocyte Esterase Rfl Negative (Negative) ANTIONETTE/UL Imaging Data Attestation: I personally reviewed and interpreted this imaging study as follows: Radiologist's impression: Chest x-ray is negative for acute process ECG Data EKG #1: Attestation: I personally reviewed and interpreted this ECG as follows: ECG completion date: 05/06/25 ECG completion time: 17:04 EKG Interpretation: tachycardia, sinus rhythm, no ectopy, non-specific ST changes, normal QRS, normal QT and NL axis Discharge Plan Discharge Clinical Impression: New onset of congestive heart failure, End-stage renal disease (ESRD), Anemia associated with chronic renal failure Patient Disposition: Acute Care Hospital Condition: Stable Patient Language: Yi Prescriptions: No Action amoxicillin 500 mg capsule 500 mg PO Q12H Qty: 14 0RF Follow-up/Referrals: UNKNOWN,DOCTOR [Non-Staff] Time of Disposition: 17:14
--- OUTSIDE RECORDS SUMMARY | 2025-05-06 14:53 | XMS_ITS | Encounter Summary ---
Author Organization [facility] Address [address] [place] [address] Care Team Providers Care Turbine Inspector Name Role Phone Marni Ugalde MD Unavailable Unavailabl e Britney Eduardo LABORER MINE Unavailable [phone] Wilber Orellana MD Unavailable [phone] Brown Middleton MD Unavailable [phone] Hai Frausto MD Unavailable [phone] Wilber Orellana MD Unavailable [phone] None, Provider Unavailable Unavailable None, Provider Primary Care Provider Unavaila Kristopher Pandya MD Unavailable [phone] Karly Valencia APRN Primary Care Provider + Britney Eduardo LABORER MINE Unavailable [phone] Elis Linn [facility] Primary Care Provider [phone] Encounter Details Date Type Department Care Team (Late st Contact Info) Description 07/05/2023 Prep for Procedure [facility] eld [address] [place] [phone] Valeri Coffey MD [facility] [address] [address] Social History Tobacco Use Types Packs/Day Years [...] Sex Assigned at Female 10/23/2024 12:36 PM MINERAL TECHNOLOGIST Legal Sex Female 8:54 PM CDT Gender [...] documented in this encounter Plan of Treatment Upcoming Encounters Date Type Department Care Team (Late st Contact Info) Description 05/15/2025 5:30 PM CDT Appointment [facility] [address] [place] [address] Wilber Orellana MD [address] [place] [address] documented as of this encounter Visit Diagnoses Not on filedocumented in this encounter Care Teams Turbine Inspector Relationship Specialty Start Date End Date None, Provider, PCP - General UNKNOWN PHYSICIAN SPECIALTY 11/16/24 02/01/25 Karly Valencia APRN [address] [place] [address] PCP - General Nurse Practitioner Family 02/02/25 04/24/25 Elis Linn [facility] [address] [place] [address] PCP - General NURSE PRACTITIONER 04/25/25 Marni Ugalde MD Consulting Physician CARDIOVASCULAR DISEASE 08/25/2205/25 Britney Eduardo NP Nurse Practitioner Nurse Practitioner Family 01/01/23 05/25/24 Wilber Orellana MD [address] [place], [place] [address] Consulting Physician NEPHROLOGY 06/30/23 11/06/24 Brown Middleton MD [address] [place] [phone] Consulting Physician ENDOCRINOLOGY 05/26/24 Hai Frausto MD [address] [phone] SURGERY 10/27/24 Wilber Orellana MD [address] [place] [phone] Consulting Physician INTERNAL MEDICINE 06/30/23 None, Provider, UNKNOWN PHYSICIAN SPECIALTY 11/16/24 12/13/24 [place] [address] [place] [address] Referring Physician Psychiatry 12/14/24 Britney Eduardo NP [address] [place] [phone] Nurse Practitioner NEPHROLOGY 04/25/25 documented as of this encounter
--- OUTSIDE RECORDS SUMMARY | 2025-05-06 14:53 | XMS_ITS | Encounter Summary ---
Author Organization [facility] Address [address] [place] [address] Care Team Providers Care Commercial Credit Reviewer Name Role Phone Marni Ugalde MD Unavailable Unavailabl e Britney Eduardo PIPER HELPER Unavailable [phone] Wilber Orellana MD Unavailable [phone] Brown Middleton MD Unavailable [phone] Hai Frausto MD Unavailable [phone] Wilber Orellana MD Unavailable [phone] None, Provider Unavailable Unavailable None, Provider Primary Care Provider Unavaila Kristopher Pandya MD Unavailable [phone] Karly Valencia APRN Primary Care Provider + Britney Eduardo PIPER HELPER Unavailable [phone] Elis Linn [facility] Primary Care Provider [phone] Encounter Details Date Type Department Care Team (Late st Contact Info) Description 07/09/2023 Prep for Procedure [facility] [employer] [employer] Pre/Post [address] [place], [place] [id number] Valeri Coffey MD 2 [facility] NEFF [address] [address] Social History Tobacco Use Types Packs/Day Years [...] Sex Assigned at Female 10/23/2024 12:36 PM MAMMOGRAPHY TECHNOLOGIST Legal Sex Female 8:54 PM CDT [...] PM CDT Appointment [facility] [address] [place] [address] Wilber Orellana MD [address] [place] [address] documented as of this encounter Visit Diagnoses Not on filedocumented in this encounter Care Teams Commercial Credit Reviewer Relationship Specialty Start Date End Date None, Provider, PCP - General UNKNOWN PHYSICIAN SPECIALTY 3/6/25 5/22/25 Karly Valencia APRN [address] [place] [address] PCP - General Nurse Practitioner Family 02/02/25 04/24/25 [facility] [address] [place] [address] PCP - General NURSE PRACTITIONER 04/25/25 Marni Ugalde MD Consulting Physician CARDIOVASCULAR DISEASE 08/25/2205/25 Britney Eduardo NP Nurse Practitioner Nurse Practitioner [facility] 01/01/23 05/25/24 Wilber Orellana MD [address] [place] [address] Consulting Physician NEPHROLOGY 06/30/23 11/06/24 Brown Middleton MD [address] [place] [phone] Consulting Physician ENDOCRINOLOGY 05/26/24 Hai Frausto MD [address] [phone] SURGERY 10/27/24 Wilber Orellana MD [address] [phone] Consulting Physician INTERNAL MEDICINE 06/30/23 None, MD Tamime UNKNOWN PHYSICIAN SPECIALTY 11/16/24 12/13/24 [place] [address] [place] [address] Referring Physician Psychiatry 12/14/24 Britney Eduardo NP [address] [place] [phone] Nurse Practitioner NEPHROLOGY 04/25/25 documented as of this encounter
--- OUTSIDE RECORDS SUMMARY | 2025-05-06 14:53 | XMS_ITS | Encounter Summary ---
Author Organization [facility] Address [address] [place] [address] Care Team Providers Care Motor Teacher Name Role Phone Marni Ugalde MD Unavailable Unavailabl e Britney Eduardo MILITARY PILOT Unavailable [phone] Wilber Orellana MD Unavailable [phone] Brown Middleton MD Unavailable [phone] Hai Frausto MD Unavailable [phone] Wilber Orellana MD Unavailable [phone] None, Provider Unavailable Unavailable None, Provider Primary Care Provider Unavaila Kristopher Pandya MD Unavailable [phone] Karly Valencia APRN Primary Care Provider + Britney Eduardo MILITARY PILOT Unavailable [phone] Elis Linn [facility] Primary Care Provider [phone] Encounter Details Date Type Department Care Team (Late st Contact Info) Description 07/07/2023 Hospital Orders Only [facility] Pre/Post [address] [place], [place] [id number] Valeri Coffey MD [address] [facility] [address] [address] Social History Tobacco Use Types Packs/Day Years [...] Sex Assigned at Female 10/23/2024 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 Legal Sex Female 8:54 PM CDT Gender [...] PM CDT Appointment [facility] [address] [place] [address] Wilber Orellana MD [address] [place] [address] documented as of this encounter Visit Diagnoses Not on filedocumented in this encounter Care Teams Motor Teacher Relationship Specialty Start Date End Date None, Provider, PCP - General UNKNOWN PHYSICIAN SPECIALTY 3/6/25 5/22/25 Karly Valencia APRN [address] [place] [address] PCP - General Nurse Practitioner Family 02/02/25 04/24/25 [facility] [address] [place] [address] PCP - General NURSE PRACTITIONER 04/25/25 Marni Ugalde MD Consulting Physician CARDIOVASCULAR DISEASE 08/25/2205/25 Britney Eduardo NP Nurse Practitioner Nurse Practitioner [facility] 01/01/23 05/25/24 Wilber Orellana MD [address] [place] [address] Consulting Physician NEPHROLOGY 06/30/23 11/06/24 Brown Middleton MD [address] [place] [phone] Consulting Physician ENDOCRINOLOGY 05/26/24 Hai Frausto MD [address] [phone] SURGERY 10/27/24 Wilber Orellana MD [address] [phone] Consulting Physician INTERNAL MEDICINE 06/30/23 None, MD Tammie UNKNOWN PHYSICIAN SPECIALTY 11/16/24 12/13/24 [place] [address] [place] [address] Referring Physician Psychiatry 12/14/24 Britney Eduardo NP [address] [place] [phone] Nurse Practitioner NEPHROLOGY 04/25/25 documented as of this encounter
--- NOTE | 2025-05-06 14:54 | ECG_ITS ---
Test Date: 2025-05-06 14:59:34 Measurements Intervals [place] Rate: 103 P: 47 [place]: 158 QRS: 19 QRSD: 89 T: 16 QT: 324 QTc: 425 Interpretive Statements SINUS TACHYCARDIA BASELINE ARTIFACT- I, II, III, AVR, AVL, AVF, V1-V6 BORDERLINE ECG Compared to ECG 03/31/2024 14:17:19 HEART RATE HAS INCREASED Electronically Signed On 05-06-2025 15:17:37 CDT by Richie Lima D.O.
--- OUTSIDE RECORDS SUMMARY | 2025-05-06 14:54 | XMS_ITS | Patient Health Record ---
Author Organization [facility] Address [address] [facility] [address] [place] [address] Care Team Providers Care Soot Blower Name Role Phone Kristopher Almaraz Unavailable [phone] NickCharlana Unavailable [phone] Allergies No Known Allergies Results Component Value Reference Range Notes UDT Reviewed date:05/24/2024 09:24:32 AM Interpretation: Performing Lab: Notes/Report: THC N 0 - 50 ng/ml Cocaine N 0 - 300 ng/ml Amphetamine N 0 - 1000 ng/ml Buprenorphine (BUP) N 0 - 10 ng/ml Secobarbital (Bar) N 0 - 300 ng/ml Oxazepam (BZO) N 0 - 300 ng/ml 5-ooupugrzpt-3,3-roqgndwi-0,3-diphenylpyrrolidine (YE P) N 0 - 300 ng/ml Methamphetamine (MET) N 0 - 1000 ng/ml Methylenedioxymethamphetamine (MDMA) N 0 - 500 ng/ml Morphine (MOP 300/[id number]) N 0 - 300 ng/ml Methadone (MTD) N 0 - 300 ng/ml Phencyclidine (PCP) N 0 - 25 ng/ml Nortriptyline (TCA) N 0 - 1000 ng/ml Oxycodone N 0 - 300 ng/ml x N 0 - 300 ng/ml Reason For Referral No Information Medications Medication SIG (Take, Route, Frequency, Duration) Notes Start Date End Date Status Famotidine 20 MG Tablet TAKE 1 TABLET BY MOUTH DAILY DIRECTED Oral; Duration: 90 Days Active Levothyroxine Sodium 175 MCG Tablet TAKE 1 TABLET BY MOUTH DAILY DIRECTED Oral; Duration: 90 Days Active QUEtiapine Fumarate 25 MG Tablet 2 tablet Oral Once a day; Duration: 90 days take it at bedtime Active Vitamin D (Ergocalciferol) 1.25 MG (30559 UT) Capsule TAKE 1 CAPSULE BY MOUTH MONTHLY Oral; Duration: 84 Days Active Lisinopril 20 MG Tablet TAKE 1 TABLET BY MOUTH DAILY Oral; Duration: 90 Days Active Letrozole 2.5 MG Tablet TAKE 1 TABLET BY MOUTH DAILY Oral; Duration: 90 Days Active Venlafaxine HCl ER 150 MG Capsule Extended Release 24 Hour TAKE 1 CAPSULE BY MOUTH EVERY MORNING; Duration: 90 Active Venlafaxine HCl ER 150 MG Capsule Extended Release 24 Hour 1 capsule every motning Oral Once a day; Duration: 90 days Active Metoprolol Succinate ER 100 MG Tablet Extended Release 24 Hour Oral; Duration: 90 Days Acti ve QUEtiapine Fumarate 25 MG Tablet TAKE 2 TABLETS BY MOUTH DAILY; Duration: 90 Active FeroSul 325 (65 Fe) MG Tablet TAKE 1 TABLET BY MOUTH DAILY Oral; Duration: 27 Days Active Atorvastatin Calcium 80 MG Tablet Oral; Duration: 90 Days Acti ve tiZANidine HCl 2 MG Tablet TAKE 1 TABLET BY MOUTH EVERY 8 HOURS NEEDED. START WITH 1 TABLET AT BEDTIME Oral; Duration: 30 Days Active Aspirin Low Dose 81 MG Tablet Delayed Release TAKE 1 TABLET BY MOUTH DAILY Oral; Duration: 90 Days Active amLODIPine Besylate 10 MG Tablet Oral; Duration: 90 Days Acti ve Isosorbide Mononitrate ER 60 MG Tablet Extended Release 24 Hour Oral; Duration: 90 Days Acti ve Social History Tobacco Use: Social History Observation Description Date Details (start date - stop date) Never Smoker NA - NA Sex Assigned At : Social History Observation Description Sex Assigned At Female Social History Miscellaneous: Social Info Question Answer Notes Advance Care Planning Are you your own decision-maker Yes Do you have Power of Manager [facility] or [facility]? No Safety issues: Are there any firearms in the house? No Social History Social Info Question Answer Notes Household: Marital Status: Number of Adults in household: 3 Number of Children in Household: 0 Level of Education: Not finished High School Drug/Alcohol: Social Info Question Answer Notes Drugs Have you used drugs other than those for medical reasons in the past 12 months? No AUDIT-C (Standard) Did you have a drink containing alcohol in the past year? No Tobacco Use: Social Info Question Answer Notes Tobacco Control (Standard) Tobacco use: Nonsmoker Additional Details Category Social Info Options Details Drug/Alcohol: Do you smoke marijuana? Den ies Do you drink alcohol? No Section Notes: Tobacco use: Denies Problems Problem Type SNOMED Code ICD Code Onset Dates Problem Status W/U Status Risk Notes Problem Moderate recurrent major depression (61169636) Major depressive disorder, recurrent, moderate (F33.1) Active confirmed Problem Generalized anxiety disorder (44009449) Generalized anxiety disorder (F41.1) Active confirmed Problem Posttraumatic stress disorder (42749263) PTSD (post-traumatic stress disorder) (F43.10) Active confirmed Problem Essential hypertension (99151601) Essential (primary) hypertension (I10) 3 Active confirmed Problem Malignant neoplasm of upper-outer quadrant of female breast (747079531) Malignant neoplasm of upper-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 ([facility]) (C50.412) 9 Active confirmed Problem Obesity (808764817) Class 1 obesity without serious comorbidity in adult (E66.9) 9 Active confirmed Problem History of malignant neoplasm of thyroid (459131572) History of thyroid cancer (Z85.850) 9 Active confirmed Problem Anemia due to stage 3a chronic kidney disease ([facility]) (N18.31) 1 Active confirmed Problem Chest pain (75977480) Chest pain, unspecified type (R07.9) 3 Active confirmed Problem Chronic kidney disease stage 4 (746931317) Stage 4 chronic kidney disease ([facility]) (N18.4) 3 Active confirmed Vital Signs Heart Rate 78 /min 04/02/2025 Height-cm 162.56 cm 04/02/2025 Blood pressure diastolic 80 mm Hg 04/02/2025 Weight-kg 91.17 kg 01/01/2025 Height 64 in 04/02/2025 Blood pressure systolic 115 mm Hg 04/02/2025 Weight 201 lbs 01/01/2025 BMI 34.5 kg/m2 01/01/2025 Encounters Encounter Location Date Provider Diagnosis [facility] [address] [facility] [address] [place] [address] 05/24/2024 Kristopher Almaraz Major depressive disorder, recurrent, moderate F33.1 ; PTSD (post-traumatic stress disorder) F43.10 ; Essential (primary) hypertension I10 ; Malignant neoplasm of upper-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 (CMS/HCC HHS/HCC) C50.412 and History of thyroid cancer Z85.[address] [address] 06/21/2024 Kristopher Sung Major depressive disorder, recurrent, moderate F33.1 ; PTSD (post-traumatic stress disorder) F43.10 ; Essential (primary) hypertension I10 ; Malignant neoplasm of upper-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 (CMS/HCC HHS/HCC) C50.412 and History of thyroid cancer Z85.[address] [address] 07/26/2024 Nuzhat Nick Major depressive disorder, recurrent, moderate F33.1 ; PTSD (post-traumatic stress disorder) F43.10 and Generalized anxiety disorder F41.[address] [address] 08/21/2024 Kristopher Sung Major depressive disorder, recurrent, moderate F33.1 ; PTSD (post-traumatic stress disorder) F43.10 ; Essential (primary) hypertension I10 ; Malignant neoplasm of upper-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 (CMS/HCC HHS/HCC) C50.412 and History of thyroid cancer Z85.[address] [address] 10/09/2024 Nuzhat Nick Major depressive disorder, recurrent, moderate F33.1 ; PTSD (post-traumatic stress disorder) F43.10 and Generalized anxiety disorder F41.[address] [address] 10/09/2024 Kristopher Sung Major depressive disorder, recurrent, moderate F33.1 ; Stage 4 chronic kidney disease (CMS/HCC HHS/HCC) N18.4 ; PTSD (post-traumatic stress disorder) F43.10 ; Essential (primary) hypertension I10 ; Malignant neoplasm of upper-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 (CMS/HCC HHS/HCC) C50.412 and History of thyroid cancer Z85.[address] [address] 01/01/2025 Nuzhat Romero Encounter for screen ing for depression Z13.31 ; Major depressive disorder, recurrent, moderate F33.1 ; Generalized anxiety disorder F41.1 and PTSD (post-traumatic stress disorder) F43.10 [facility] [address] [address] 01/01/2025 Kristopher Almaraz Major depressive disorder, recurrent, moderate F33.1 ; Stage 4 chronic kidney disease ([facility]/HCC HHS/HCC) N18.4 ; PTSD (post-traumatic stress disorder) F43.10 ; Essential (primary) hypertension I10 ; Malignant neoplasm of upper-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 ([facility]/HCC HHS/HCC) C50.412 ; History of thyroid cancer Z85.850 ; Encounter for screening for depression Z13.31 and Encounter for screening for cardiovascular disorders Z13.[address] [address] 04/02/2025 Kristopher Almaraz Major depressive disorder, recurrent, moderate F33.1 ; Stage 4 chronic kidney disease ([facility]/HCC HHS/HCC) N18.4 ; PTSD (post-traumatic stress disorder) F43.10 ; Essential (primary) hypertension I10 ; Malignant neoplasm of upper-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 ([facility]/HCC HHS/HCC) C50.412 and Generalized anxiety disorder F41.1 [facility] [address] [address] 05/24/2024 Kristopher Almaraz [address] [address] 06/12/2024 Kristopher Sung [address] [address] 07/25/2024 Kristopher Almaraz Assessments Encounter Date Diagnosis (ICD Code) Assessment [...] her support network, including her cousin in [place] and her family.Medical Management: Follow up with [...] the potential benefits of a trip to [place], as she is interested in traveling for [...] for PTSD to address flashbacks and trauma-related distress.Berenicelianne e continued open communication with her support network, including her cousin in [place] and her family.Medical Management: Follow up with [...] the potential benefits of a trip to [place], as she is interested in traveling for [...] meet new people. Expresses desire to visit [place] and meet a fan. - Plan: - [...] ), who is retired (about 1995) from [employer] work. Client is the 4th of samantha and grewup in [place], [place]. In her younger years, childhood was [...] ), who is retired (about 1995) from [employer] work. Client is the 4th of 12 pablodrjess and grewup in [place], [place]. In her younger years, childhood was [...] primary care physician, Dr. Fredo Gee in [place]. Social Support and Activities - Assessment: Patient reports limited phone access and mainly uses [employer]. No social media usage due to past [...] F33.1) 10/09/2024 Stage 4 chronic kidney disease ([facility]) (ICD-10 - N18.4) 01/01/2025 Major depressive disorder, recurrent, moderate (ICD-10 - F33.1) 01/01/2025 Encounter for screening for depression (ICD-10 - Z13.31) 01/01/2025 Major depressive disorder, recurrent, moderate (ICD-10 - F33.1) 04/02/2025 Major depressive disorder, recurrent, moderate (ICD-10 - F33.1) Patient's depression score is 2, indicating mild symptoms. Patient denies worsening of depression despite stress from 's hospitalization. - Continue current medication regimen for depression. - Monitor depression symptoms and adjust treatment as needed. 04/02/2025 Stage 4 chronic kidney disease ([facility]) (ICD-10 - N18.4) 01/01/2025 Stage 4 chronic kidney disease ([facility]) (ICD-10 - N18.4) 04/02/2025 PTSD (post-traumatic stress disorder) (ICD-10 - F43.10) 10/09/2024 PTSD (post-traumatic stress disorder) (ICD-10 - F43.10) 01/01/2025 Generalized anxiety disorder (ICD-10 - F41.1) [...] primary care physician, Dr. Fredo Gee in [place]. Social Support and Activities - Assessment: Patient reports limited phone access and mainly uses [employer]. No social media usage due to past [...] ), who is retired (about 1995) from [employer] work. Client is the 4th of 12 pablodren and grewup in [place]. In her younger years, childhood was [...] meet new people. Expresses desire to visit [place] and meet a fan. - Plan: - [...] her support network, including her cousin in [place] and her family.Medical Management: Follow up with [...] the potential benefits of a trip to [place], as she is interested in traveling for [...] upper-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 (CMS/HCC [facility]/HCC) (ICD-10 - C50.412) Assessment: Major Depressive Disorder [...] for PTSD to address flashbacks and trauma-related distress.Bereniceag e continued open communication with her support network, including her cousin in [place] and her family.Medical Management: Follow up with [...] the potential benefits of a trip to [place], as she is interested in traveling for [...] meet new people. Expresses desire to visit [place] and meet a fan. - Plan: - [...] primary care physician, Dr. Fredo Gee in [place]. Social Support and Activities - Assessment: Patient reports limited phone access and mainly uses [employer]. No social media usage due to past [...] PTSD (post-traumatic stress disorder) (ICD-10 - F43.10) 04/02/2025 Essential (primary) hypertension (ICD-10 - I10) Patient's blood pressure is well-controlled at home. Patient has been released from regular visits due to stable condition. - Continue current medication regimen for blood pressure. - Monitor blood pressure regularly at home. 04/02/2025 Malignant neoplasm of upper-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 (CMS/HCC HHS/HCC) (ICD-10 - C50.412) 01/01/2025 Essential (primary) hypertension (ICD-10 - I10) 10/09/2024 Malignant neoplasm of upper-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 (CMS/HCC HHS/HCC) (ICD-10 - C50.412) 08/21/2024 Malignant neoplasm [...] primary care physician, Dr. Fredo Gee in [place]. Social Support and Activities - Assessment: Patient reports limited phone access and mainly uses [employer]. No social media usage due to past [...] of upper-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 ([facility]) (ICD-10 - C50.412) Major Depressive Disorder - [...] meet new people. Expresses desire to visit [place] and meet a fan. - Plan: - [...] her support network, including her cousin in [place] and her family.Medical Management: Follow up with [...] the potential benefits of a trip to [place], as she is interested in traveling for [...] meet new people. Expresses desire to visit [place] and meet a fan. - Plan: - [...] primary care physician, Dr. Fredo Gee in [place]. Social Support and Activities - Assessment: Patient reports limited phone access and mainly uses [employer]. No social media usage due to past [...] female breast (CMS/HCC HHS/HCC) (ICD-10 - C50.412) 04/02/2025 Generalized anxiety disorder (ICD-10 - F41.1) Patient's anxiety score is 0, indicating no current symptoms. Patient denies anxiety attacks despite stress from 's hospitalization. - Continue monitoring for any signs of anxiety. - Provide support and reassurance regarding 's condition. 01/01/2025 History of thyroid cancer (ICD-10 - [...] her support network, including her cousin in [place] and her family.Medical Management: Follow up with [...] the potential benefits of a trip to [place], as she is interested in traveling for [...] 4th of 12 chldren and grewup in [place], [place]. In her younger years, childhood was [...] kidney function and symptoms. - Collaborate with head boys golf coach for ongoing management. - Educate patient on [...] social engagement. - Consider referral to a dialysis social worker or therapist for additional support and resources. [...] ensure accuracy, there may be errors, including home planning consultant salesperson inaccuracies and misspellings of medication names. This document should not be considered a verbatim record, and any discrepancies should be verified with the provider. Plan Of Treatment Next Appt Details Provider Name:Kristopher Almaraz , 07/02/2025 08:45:00 AM, [address], [facility] [address], [place], [address], Insurance Providers Payer Name Payer Address Payer Phone Subscriber Number Group Number Insured Name Patient Relationship to Insured Coverage Start Date Coverage End Date [employer] Medicare Supplement [address] [place] [address] [id number] Genna Fraga Self - patient is the insured [place] [address] [address] [place] [address] [id number] Genna Fraga Self - patient is the [...]
--- OUTSIDE RECORDS SUMMARY | 2025-05-06 14:54 | XMS_ITS | Clinical Summary ---
Author Organization [facility] Address [address] [place] [address] Care Team Providers Care Coat Operator Insulator Name Role Phone Brown Middleton MD Unavailable [phone] Hai Frausto MD Unavailable [phone] Wilber Orellana MD Unavailable [phone] Kristopher Almaraz MD Unavailable [phone] Britney Eduardo MINE UTILITY OPERATOR Unavailable [phone] Elis Linn [facility] Primary Care Provider [phone] Allergies Active Allergy Reactions Criticality Noted Date Comments Ibuprofen Other (see comment) 08/25/2022 Severe kidney disease Medications venlafaxine XR 150 MG 24 hr capsule Take 1 capsule (150 mg total) by mouth daily with breakfast. 1 Active docusate sodium (COLACE) 100 MG capsule [...] total) by mouth nightly at bedtime. Active aspirin EC (ASPIRIN LOW DOSE) 81 MG tablet Take 1 tablet (81 mg total) by mouth daily. 90 tablet 3 5 Active metoprolol succinate ER (TOPROL-XL) 100 MG 24 hr tablet Take 1 tablet (100 mg total) by mouth daily. 90 tablet 3 5 Active letrozole (FEMARA) 2.5 MG tabletIndicatio ns:Malignant neoplasm of upper-outer quadrant of left breast in female, estrogen receptor positive ([facility]) TAKE 1 TABLET BY MOUTH DAILY 90 tablet 3 5 Active amLODIPine (NORVASC) 10 MG tablet TAKE 1 TABLET(10 MG) BY MOUTH DAILY 90 tablet 3 5 Active isosorbide mononitrate ER (IMDUR) 60 MG 24 hr tablet Take 1 tablet (60 mg total) by mouth daily. 90 tablet 3 5 Active atorvastatin (LIPITOR) 80 MG tablet TAKE 1 TABLET(80 MG) BY MOUTH EVERY NIGHT AT BEDTIME 90 tablet 5 Active atorvastatin (LIPITOR) 80 MG tablet Take 1 tablet (80 mg total) by mouth nightly at bedtime. 90 tablet 3 4 025 Discontinued Active Problems Problem Noted Date Diagnosed Date Morbid (severe) obesity due to excess calories 0 01/04/2023 FH: heart disease 10/29/2022 Chest pain, unspecified type 10/29/2022 Stage 4 chronic kidney disease ([facility]) 10/29/2022 Essential (primary) hypertension 10/29/2022 Anemia due to stage 3a chronic kidney disease At risk for loss of bone density 09/19/2019 Class 1 obesity without serious comorbidity in a dult 05/23/2019 History of thyroid cancer 05/23/2019 Malignant neoplasm of upper- 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 ([facility]) 05/02/2019 Cancer Staging:Pathologic stage from 05/04/2019:Stage IA(pT1b, pN0(sn), cM0, G2, ER+, ND+, HER2-) - Unsigned Clinical: Unsigned Encounters Date Type Department Care Team Description 05/04/2025 Telephone [facility] [address] [place] [address] Александр Sandhu MD Chest Pain 05/03/2025 Telephone [facility] [address] [place] [address] Douglas Vincent MD Breathing Problem 04/12/2025 7:58 AM CDT - 04/12/2025 11:59 PM CDT Hospital Encounter [facility] [place] [address] Wilber Orellana MD Discharge Disposition: Home or Self Care (Routine Discharge) 04/12/2025 Orders Only [facility] Counts include 234 beds at the [facility] [address] Wilber Orellana MD 04/12/2025 Travel 03/28/2025 8:00 AM CDT - 03/28/2025 11:59 PM CDT Hospital Encounter [facility] [place] [address] Wilber Orellana MD Discharge Disposition: Home or Self Care (Routine Discharge) 03/28/2025 Telephone [facility] [address] [place] [address] Douglas Vincent MD Refill Request 03/28/2025 Travel 03/21/2025 Transcribe Orders [facility] Counts include 234 beds at the [facility] [place] [address] Kristy Robles MD 03/21/2025 Transcribe Orders [facility] Counts include 234 beds at the [facility] [place] [address] Kristy Robles MD 03/15/2025 12:56 PM CDT - 03/15/2025 11:59 PM CDT Hospital [facility] [place] [address] Wilber Orellana MD Discharge Disposition: Home or Self Care (Routine Discharge) 03/15/2025 Travel 02/20/2025 9:43 AM CDT - 02/20/2025 11:59 PM CDT Hospital Encounter [facility] [address] [place] [address] Wilber Orellana MD Discharge Disposition: Home or Self Care (Routine Discharge) 02/20/2025 9:28 AM CDT - 02/20/2025 9:42 AM CDT Hospital Encounter [facility] [address] [place] [address] Britney Eduardo NP Discharge Disposition: Home or Self Care (Routine Discharge) 02/20/2025 Orders Only [facility] [address] [place] [address] Wilber Orellana MD 02/20/2025 Orders Only [facility] [address] [place] [address] Britney Eduardo NP 02/20/2025 Travel from Last 3 Months Family History Medical [...] Sex Assigned at Female 10/23/2024 12:36 PM CUFF STITCHER Legal Sex Female 8:54 PM CDT Gender Identity Not on file Sexual Orientation Not on file Last Filed Vital Signs Vital Sign Reading Time Taken Comments Blood Pressure 130/78 11/16/2024 1:06 PM CUFF STITCHER Pulse 70 11/16/2024 1:06 PM CUFF STITCHER Temperature 36 C (96.8 F) 07/17/2024 11:23 AM CUFF STITCHER Respiratory Rate 16 11/16/2024 1:06 PM CUFF STITCHER Oxygen Saturation 98% 07/17/2024 11:23 AM CUFF STITCHER Inhaled Oxygen Concentration - - Weight 90.7 kg (200 lb) 11/16/2024 1:06 PM CUFF STITCHER Height 162.6 cm (5' 4) 11/16/2024 1:06 PM CUFF STITCHER Body Mass Index 34.33 11/16/2024 1:06 PM CUFF STITCHER Plan of Treatment Upcoming Encounters Date Type Department Care Team (Late st Contact Info) Description 05/15/2025 5:[address] [facility] [address] [place] [address] Wilber Orellana MD [address] [place] [phone] Health Maintenance Due Date Last Done Comments [...] Procedure Name Priority Date/Time Associated Diagnosis Comments MISCELLANEOUS LAB TEST Routine 8:11 AM CDT Pre-transplant evaluation for kidney transplant SIX MINUTE WALK Routine 03/28/2025 8:16 AM CDT Preop examination SIX MINUTE WALK Routine 03/20/2025 9:25 AM CDT Pre-transplant evaluation for kidney transplant OSMOLALITY, URINE Routine 02/20/2025 9:5 4 AM [...] kidney disease, stage 4 (severe) (CMS/HCC HHS/HCC) MG SCREENING W ОЛЬГА RT DIGI Routine 01/01/2025 12:26 PM CDT Malignant neoplasm of upper-outer quadrant of left breast in female, estrogen receptor positive (CMS/HCC HHS/HCC) Encounter for screening mammogram for malignant neoplasm of breast BONE DENSITY/DEXA Routine 11/25/2023 10: 22 AM CDT Malignant neoplasm of upper-outer quadrant of left breast in female, estrogen receptor positive At risk for loss of bone density superintendent container terminal (current) use of other agents affecting estrogen receptors and estrogen levels OCCULT BLOOD, FECES STAT 10/13/2022 9 :49 AM CUFF STITCHER from Last 3 Months or Most Recently Relevant to Health Maintenance Results * MISCELLANEOUS LAB TEST (04/12/2025 8:11 AM CDT) Only the most recent of2 resultswithin the time period is included. TEST NAME: HLA CARESET AB TO [facility] 04/12/2025 8:31 AM CDT [facility] SPECIMEN TYPE BLOOD 04/12/2025 8:31 AM CDT [facility] TEST RESULT: NO REPORT 04/13/2025 7:50 AM CDT [facility] 04/12/2025 8:11 AM CDT Wilber Orellana MD LABORATORY Final Result [facility] [address] [place] [id number], * Six Minute Walk ([id number]) (03/28/2025 8:16 AM CDT) 03/28/2025 8:16 AM CDT Narrative ESCRIPTION - 04/01/2025 11:26 AM CDT Patient Name: GENNA KEENE Date of : 1955 Account: [id number] Facility: [facility] Location: [place] Date of Service: 03/28/2025 Pulmonary Function Test Six-minute walk testing with oximetry. ORDERED BY: Dr. Karly Valencia. INDICATION: Shortness of breath. Baseline oxygen saturation 97% on room air with a heart rate of 80. The patient was able to walk 6-minute walk covering a total of 1200 feet. Lowest oxygen saturation was 93% on room air and heart rate was 116 beats per minute. IMPRESSION: Six-minute walk test. Patient was able to cover 1200 feet over 6 minutes with oxygen saturation staying above 93% on room air. Clinical correlation is required. Signature/Date: Carroll ROBLES MD #[id number] /NELIDA us Wilber Orellana MD PFT ORDERABLES Final Result Performing Organization Address City/[facility]/ZIP Co de Phone Number ESCRIPTION * Six Minute Walk ([id number]) (03/20/2025 9:25 AM CDT) 03/20/2025 9:25 AM CDT Narrative ESCRIPTION - 03/20/2025 5:33 PM CDT Patient Name: GENNA KEENE Date of : 1955 Account: [id number] Facility: [facility] Location: [place] Date of Service: 03/15/2025 Pulmonary Function Test Six minute walk with oximetry done on March 15. ORDERED BY: Karly Valencia. INDICATION: Shortness of breath. Patient had 6-minute walk test with exercise oximetry. Baseline oxygen saturation was 98% with baseline heart rate of 76 beats per minute on room air. She was able to walk for 6 minutes, covering total of 1200 feet over 6 minutes. Lowest artery saturation was 92%. Heart rate went up to 123. She felt lightheaded after 3 minutes. She was able to continue after resting at 3 minutes and completed 6-minute walk on room air. IMPRESSION: Six-minute walk on room air. Oxygen saturation stayed above 92%. Heart rate went up to 123 beats per minute. Patient felt lightheaded after 3 minutes, but she was able to complete 6-minute walk after little rest. She was able to cover a total of 1200 feet over 6 minutes on room air with noted tachycardia, but no desaturations below 92%. Clinical correlation is required. Signature/Date: Carroll ROBLES MD #[id number] /ANK us Wilber Orellana MD PFT ORDERABLES Final Result Performing Organization Address City/[facility]/ZIP Co de Phone Number ESCRIPTION * (ABNORMAL) ALBUMIN CREATININE URINE RANDOM (02/20/2025 9:54 AM CDT) ALBUMIN (U) 80.6 MG/DL 02/20/2025 10:54 AM CDT [facility] Comment:REFERENCE RANGE NOT ESTABLISHED CREATININE RANDOM (U) 57.4 MG/DL 02/20/2025 10:54 AM CDT [facility] Comment:REFERENCE RANGE NOT ESTABLISHED ALBUMIN/CREAT RATIO 1,403.0(H) <30 MG/G 02/20/2025 10:54 AM CDT [facility] Comment: NORMAL TO MILDLY INCREASED ALBUMINURIA: <30 MG/G MODERATELY INCREASED ALBUMINURIA: 30 TO 300 MG/G SEVERELY INCREASED ALBUMINURIA: >300 MG/G PER KDIGO URINE SPECIMEN / Unknown 02/20/2025 9:54 AM CDT us Britney Eduardo MINE UTILITY OPERATOR URINE ORDERABLES Final Result Performing Organization Address City/[facility]/ZIP Co de Phone Number [facility] [address] [place] [address], * OSMOLALITY, URINE (02/20/2025 9:54 AM CDT) OSMOLALITY (U) 392 50 - 1,200 MOSM/KG 02/20/2025 1:45 PM CDT [facility] URINE SPECIMEN / Unknown 02/20/2025 9:54 AM CDT us Britney Eduardo MINE UTILITY OPERATOR URINE ORDERABLES Final Result [facility] [address] [place] [address], [place] [phone] * (ABNORMAL) PTH - INTACT (02/20/2025 9:52 AM CDT) PTH 204.6(H) 18.4 - 80.1 PG/ML 02/20/2025 1:53 PM CDT [facility] Comment: ASSAY PERFORMED BY CHEMILUMINESCENCE METHODOLOGY USING SIEMENS Renaissance LearningAUR XPT REAGENT. PATIENT RESULTS DETERMINED BY ASSAYS USING DIFFERENT MANUFACTURERS FOR METHODS MAY NOT BE COMPARABLE. 02/20/2025 9:52 AM CDT Britney Eduardo MINE UTILITY OPERATOR LABORATORY Final Result Performing Organization Address City/[facility]/ZIP Co de Phone Number [facility] [address] [place] [address], [place] [phone] * (ABNORMAL) IRON SATURATION PNL (FE/TIBC/SAT) (02/20/2025 9:52 AM CDT) IRON 39(L) 50 - 170 MCG/DL 02/20/2025 12:49 PM CDT [facility] IRON BINDING CAPACITY 235(L) 250 - 450 MCG/DL 02/20/2025 12:49 PM CDT [facility] IRON SATURATION 17 % 12:49 PM CDT [facility] Comment:REFERENCE RANGE NOT ESTABLISHED 02/20/2025 9:52 AM CDT Britney Eduardo MINE UTILITY OPERATOR LABORATORY Final Result Performing Organization Address City/[facility]/ZIP Co de Phone Number [facility] [place] [address], [place] [phone] * (ABNORMAL) RENAL FUNCTION PANEL (02/20/2025 9:52 AM CDT) SODIUM S/P/B 140 136 - 145 MMOL/L 02/20/2025 10:28 AM CDT [facility] POTASSIUM S/P/B 4.3 3.5 - 5.1 MMOL/L 02/20/2025 10:28 AM CDT [facility] CHLORIDE S/P/B 105 98 - 107 MMOL/L 02/20/2025 10:28 AM CDT [facility] CO2 25.7 21.0 - 32.0 MMOL/L 02/20/2025 10:28 AM CDT [facility] GLUCOSE 109(H) 70 - 99 MG/DL 02/20/2025 10:28 AM [facility] Comment: FASTING GLUCOSE 100 TO 125 MG/DL IS CONSISTENT WITH IMPAIRED FASTING GLUCOSE. FASTING GLUCOSE >125 MG/DL IS CONSISTENT WITH DIABETES. RANDOM GLUCOSE >200 MG/DL WITH HYPERGLYCEMIC SYMPTOMS IS CONSISTENT WITH DIABETES. PER ADA GUIDELINES BUN 48(H) 6 - 24 MG/DL 02/20/2025 10:28 AM [facility] CREATININE S/P/B 2.79(H) 0.55 - 1.02 MG/DL 02/20/2025 10:28 AM [facility] CALCIUM S/P/B 9.3 8.4 - 10.5 MG/DL 02/20/2025 10:28 AM [facility] ALBUMIN S/P/B 3.7 3.4 - 5.0 G/DL 02/20/2025 10:28 AM [facility] PHOSPHORUS 2.7 2.6 - 4.7 MG/DL 02/20/2025 10:28 AM [facility] ANION GAP 9.3 5.0 - 15.0 MMOL/L 02/20/2025 10:28 AM [facility] OSMOLALITY (CALC) 303 MOSM/KG 025 10:28 AM [facility] Comment:REFERENCE RANGE NOT ESTABLISHED GFR ESTIMATE 18(L) >89 ML/MIN/1. 73 M2 02/20/2025 10:28 AM [facility] GFR NOTES GFR REFERENCE S: 02/20/2025 10:28 AM [facility] Comment: THE ESTIMATED GFR IS CALCULATED [...] CDT Britney Eduardo NP LABORATORY Final Result [facility] [address] [place] [address], * (ABNORMAL) CBC W/DIFF AUTOMATED (02/20/2025 9:52 AM CDT) WBC 6.92 4.00 - 10.80 x10'3/uL 02/20/2025 10:04 AM CDT [facility] RBC 4.05(L) 4.10 - 5.40 x10'6/uL 02/20/2025 10:04 AM CDT [facility] HGB 10.7(L) 12.0 - 16.0 G/DL 02/20/2025 10:04 AM CDT [facility] HCT 34.4(L) 36.0 - 47.0 % 02/20/2025 10:04 AM CDT [facility] MCV 84.9 78.0 - 100.0 FL 02/20/2025 10:04 AM CDT [facility] MCH 26.4(L) 27.0 - 31.0 PG 02/20/2025 10:04 AM CDT [facility] MCHC 31.1(L) 33.0 - 36.0 G/DL 02/20/2025 10:04 AM CDT [facility] RDW 16.0(H) 11.5 - 14.5 % 02/20/2025 10:04 AM CDT [facility] PLT 317 150 - 350 x10'3/uL 02/20/2025 10:04 AM CDT [facility] MPV 9.2 7.4 - 10.4 FL 02/20/2025 10:04 AM CDT [facility] CBC COMMENT NORMAL REFERENCE RANGE NOT ESTABLISHED FOR THE PROPORTIONAL LEUKOCYTE DIFFERENTIAL. 02/20/2025 10:04 AM CDT [facility] NEUTROPHILS % 71.9 % 02/20/2025 10:04 AM CDT [facility] LYMPHOCYTES % 19.8 % 02/20/2025 10:04 AM CDT [facility] MONOCYTES % 4.8 % 02/20/2025 10:04 AM CDT [facility] EOSINOPHILS % 2.6 % 02/20/2025 10:04 AM CDT [facility] BASOPHILS % 0.6 % 02/20/2025 10:04 AM CDT [facility] IMMATURE GRANS % 0.3 % 02/21/20 10:04 AM CDT [facility] NRBC % 0.0 % 02/20/2025 10:04 AM CDT [facility] ABS. NEUTROPHILS 4.98 1.60 - 8.30 x10'3/uL 02/20/2025 10:04 AM CDT [facility] ABS. LYMPHOCYTES 1.37 0.80 - 4.70 x10'3/uL 02/20/2025 10:04 AM CDT [facility] ABS. MONOCYTES 0.33 0.00 - 1.50 x10'3/uL 02/20/2025 10:04 AM CDT [facility] ABS. EOSINOPHILS 0.18 0.00 - 0.40 x10'3/uL 02/20/2025 10:04 AM CDT [facility] ABS. BASOPHILS 0.04 0.00 - 0.20 x10'3/uL 02/20/2025 10:04 AM CDT [facility] ABS. IMMATURE GRANULOCYTES 0.02 0.00 - 0.03 x10'3/uL 02/20/2025 10:04 AM CDT [facility] ABS. NUCLEATED RBC'S 0.00 0.00 - 0.01 x10'3/uL 02/20/2025 10:04 AM CDT [facility] 02/20/2025 9:52 AM CDT Britney Eduardo NP LABORATORY Final Result [facility] [address] [place] [address], * MG SCREENING W ОЛЬГА RT DIGI [...] 4:26 PM Narrative 01/01/2025 4:27 [place] [address] Examination: Digital right screening mammogram with CAD. [...] Noemi Degroot MD MAMMO Final Result * BONE DENSITY/DEXA (11/25/2023 10:22 AM CDT) [...] * OCCULT BLOOD, FECES (10/13/2022 9:49 AM CUFF STITCHER) OCCULT BLOOD FECAL NEGATIVE NEGATIVE 10/13/2022 10:01 AM CUFF STITCHER [facility] STOOL SPECIMEN / Unknown 10/13/2022 9:49 AM CUFF STITCHER Valentin J Del Angel DO BODY FLUIDS AND STOOLS ORDERA BLES Final Result [facility] [address] [place] [address], from Last 3 Months or Most Recently Relevant to Health Maintenance Insurance MEDICAID [employer] - COMMERCIAL Advance Directives Documents on File Type Date Recorded Patient Marine Extension Agent Expl anation Advance Directives and Living Will 05/02/2019 10:53 AM 08/08/14 POA- Advance Directives and Living Will 11/27/2017 POWER OF INSTITUTIONAL COOK R HEALTH CARE Advance Directives and Living Will 2015 POWER OF INSTITUTIONAL COOK FO R HEALTH CARE Advance Directives and Living Will 02/25/2015 POWER OF INSTITUTIONAL COOK FO R HEALTH CARE Advance Directives and Living Will 01/11/2015 POWER OF INSTITUTIONAL COOK FO R HEALTH CARE Advance Directives and Living Will 11/19/2014 POWER OF INSTITUTIONAL COOK FO R HEALTH CARE Advance Directives and Living Will 11/19/2014 POWER OF INSTITUTIONAL COOK FO R HEALTH CARE Advance Directives and Living Will 10/16/2014 POWER OF INSTITUTIONAL COOK FO R HEALTH CARE Advance Directives and Living Will 10/11/2014 POWER OF INSTITUTIONAL COOK FO R HEALTH CARE Advance Directives and Living Will 10/08/2014 POWER OF INSTITUTIONAL COOK FO R HEALTH CARE Advance Directives and Living Will 09/25/2014 POWER OF INSTITUTIONAL COOK FO R HEALTH CARE Advance Directives and Living Will 08/08/2014 POWER OF INSTITUTIONAL COOK FO R HEALTH CARE * Full Code (Latest Code Status on File) Date Activated Date Inactivated Comments 05/02/2019 6:10 PM 05/05/2019 3:22 PM Care Teams Coat Operator Insulator Relationship Specialty Start Date End Date [facility] [address] [place] [address] PCP - General NURSE PRACTITIONER 04/25/25 Brown Middleton MD [address] [place] [address] Consulting Physician ENDOCRINOLOGY 05/26/24 Hai Frausto MD [address] [phone] SURGERY 10/27/24 Wilber Orellnaa MD [address] [phone] Consulting Physician INTERNAL MEDICINE 06/30/23 Kristopher Almaraz MD [address] [address] Referring Physician Psychiatry 12/14/24 Britney Eduardo NP [address] [place] [phone] Nurse Practitioner NEPHROLOGY 04/25/25
--- OUTSIDE RECORDS SUMMARY | 2025-05-06 14:54 | XMS_ITS | Encounter Summary ---
Author Organization [facility] Address [address] [place] [address] Care Team Providers Care Belt Buckle Maker Name Role Phone Elis Linn [facility] Primary Care Provider [phone] Riccardo Osorio MD Primary Care Provider [phone] Marni Ugalde MD Unavailable Unavailabl e Britney Eduardo CRM DYNAMICS DEVELOPER Unavailable [phone] Susan Sen NP Primary Care Provider [phone] Wilber Orellana MD Unavailable [phone] Brown Middleton MD Unavailable [phone] Hai Frausto MD Unavailable [phone] Wilber Orellana MD Unavailable [phone] None, Provider Unavailable Unavailable None, Provider Primary Care Provider Unavaila Kristopher Pandya MD Unavailable [phone] Karly Valencia APRN Primary Care Provider + Britney Eduardo CRM DYNAMICS DEVELOPER Unavailable [phone] Elis Linn [facility] Primary Care Provider [phone] Encounter Details Date Type Department Care Team (Late st Contact Info) Description 11/27/2017 Abstract [facility] CONVERSION [address] [place] [address] , Generic Conversion, Social History Tobacco Use Types Packs/Day Years Used Date Smoking Tobacco: Never Comments Unknown Sex and Gender Information Value Date Recorded Sex Assigned at Female 10/23/2024 12:36 PM ARC AND GAS WELDER Legal Sex Female 8:54 PM CDT Gender Identity Not on file Sexual Orientation Not on file documented as of this encounter Plan of Treatment Upcoming Encounters Date Type Department Care Team (Late st Contact Info) Description 05/15/2025 5:[address] [facility] [address] [place] [address] Wilber Orellana MD [address] [place] [address] documented as of this encounter Visit Diagnoses Not on filedocumented in this encounter Care Teams Belt Buckle Maker Relationship Specialty Start Date End Date Elis Linn FNP-BC [address] [place] [address] PCP - General NURSE PRACTITIONER 04/03/19 08/03/22 Riccardo Osorio MD [address] [place] [phone] PCP - General FAMILY PRACTICE 08/04/22 02/24/23 Susan Sen NP [address] [place] [address] PCP - General Nurse Practitioner Women's Health 02/25/23 06/22/23 None, MD Tammie PCP - General UNKNOWN PHYSICIAN SPECIALTY 11/16/24 02/01/25 Karly Valencia APRN [address] [place] [phone] PCP - General Nurse Practitioner Family 02/02/25 04/24/25 Elis Linn FNP-BC [address] [place] [address] PCP - General NURSE PRACTITIONER 04/25/25 Marni Ugalde MD [address] [place] [address] Consulting Physician CARDIOVASCULAR DISEASE 08/25/2205/25 Britney Eduardo NP [address] [place] [phone] Nurse Practitioner Nurse Practitioner Family 01/01/23 05/25/24 Wilber Orellana MD [address] [place] [address] Consulting Physician NEPHROLOGY 06/30/23 11/06/24 Brown Middleton MD [address] [place] [phone] Consulting Physician ENDOCRINOLOGY 05/26/24 Hai Frausto MD [address] [phone] SURGERY 10/27/24 Wilber Orellana MD [address] [phone] Consulting Physician INTERNAL MEDICINE 06/30/23 None, MD Tammie UNKNOWN PHYSICIAN SPECIALTY 11/16/24 12/13/24 Kristopher Almaraz MD [address] [place], [place] [phone] Referring Physician Psychiatry 12/14/24 Britney Eduardo NP [address] [place] [address] Nurse Practitioner NEPHROLOGY 04/25/25 documented as of this encounter
--- OUTSIDE RECORDS SUMMARY | 2025-05-06 14:54 | XMS_ITS | Patient Health Record ---
Author Organization [facility] Address [address] [place], [place] [id number] Care Team Providers Care Splicer Machine Operator Name Role Phone RODDY KUO Unavailable [phone] Marleen Gee Unavailable Unavailable Allergies No Known Allergies Reason For Referral [...] Days Active Vitamin D (Ergocalciferol) 1.25 MG (12584 UT) TAKE 1 CAPSULE BY MOUTH WEEKLY [...] high dose seasonal Unknown 07/23/2023 Admini stered Plan Of Treatment No Information Insurance Providers Payer Name Payer Address Payer Phone Subscriber Number Group Number Insured Name Patient Relationship to Insured Coverage Start Date Coverage End Date [employer] [address] [place] [phone] [id number] Genna Fraga Self - patient is the insured Medical (General) History Medical History History ICD Code acid reflux Blood transfusion anemia Cancer (type of cancer) Arthritis Gout rheumatoid arthritis Sleep apnea Thyroid Disease Back Trouble Psychiatric Disorder hypertension Surgical History Surgery Date(Month/Year) left breast lumpectomy Thyroid Removed
--- OUTSIDE RECORDS SUMMARY | 2025-05-06 14:54 | XMS_ITS | Encounter Summary ---
Author Organization [facility] Address [facility] [place] [address] Care Team Providers Care Producer Director Name Role Phone Elis Linn [facility] Primary Care Provider [phone] Riccardo Osorio MD Primary Care Provider [phone] Marni Ugalde MD Unavailable Unavailabl e Britney Eduardo DEPARTMENT SECRETARY Unavailable [phone] Susan Sen NP Primary Care Provider [phone] Wilber Orellana MD Unavailable [phone] Brown Middleton MD Unavailable [phone] Hai Frausto MD Unavailable [phone] Wilber Orellana MD Unavailable [phone] None, Provider Unavailable Unavailable None, Provider Primary Care Provider Unavaila Kristopher Pandya MD Unavailable [phone] Karly Valencia APRN Primary Care Provider + Britney Eduardo DEPARTMENT SECRETARY Unavailable [phone] Elis Linn [facility] Primary Care Provider [phone] Encounter Details Date Type Department Care Team (Late st Contact Info) Description 02/18/2019 Abstract SFL CONVERSION [address] [place] [address] , Generic Conversion, Social History Tobacco Use Types Packs/Day Years Used Date Smoking Tobacco: Never Comments Unknown Sex and Gender Information Value Date Recorded Sex Assigned at Female 10/23/2024 12:36 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 [address] [place] [address] Wilber Orellana MD [address] [place] [address] documented as of this encounter Visit Diagnoses Not on filedocumented in this encounter Care Teams Producer Director Relationship Specialty Start Date End Date Elis Linn FNP-BC [address] [place] [address] PCP - General NURSE PRACTITIONER 04/03/19 08/03/22 Riccardo Osorio MD [address] [place] [id number] PCP - General FAMILY PRACTICE 08/04/22 02/24/23 Susan Sen NP [address] [place] [address] PCP - General Nurse Practitioner Women's Health 02/25/23 06/22/23 None, MD Tammie PCP - General UNKNOWN PHYSICIAN SPECIALTY 11/16/24 02/01/25 Karly Valencia APRN [address] [place] [id number] PCP - General Nurse Practitioner Family 02/02/25 04/24/25 Elis Linn FNP-BC [address] [place] [address] PCP - General NURSE PRACTITIONER 04/25/25 Marni Ugalde MD [address] [place] [address] Consulting Physician CARDIOVASCULAR DISEASE 08/25/2205/25 Britney Eduardo NP [address] [place] [address] Nurse Practitioner Nurse Practitioner Family 01/01/23 05/25/24 Wilber Orellana MD [address] [place] [address] Consulting Physician NEPHROLOGY 06/30/23 11/06/24 Brown Middleton MD [address] [place] [phone] Consulting Physician ENDOCRINOLOGY 05/26/24 Hai Frausto MD [address] [phone] SURGERY 10/27/24 Wilber Orellana MD [address] [phone] Consulting Physician INTERNAL MEDICINE 06/30/23 None, MD Tammie UNKNOWN PHYSICIAN SPECIALTY 11/16/24 12/13/24 Kristopher Almaraz MD [address] [place], [place] [id number] Referring Physician Psychiatry 12/14/24 Britney Eduardo NP [address] [place] [address] Nurse Practitioner NEPHROLOGY 04/25/25 documented as of this encounter
--- OUTSIDE RECORDS SUMMARY | 2025-05-06 14:54 | XMS_ITS ---
Author Organization [facility] Address [facility] [place] [address] Care Team Providers Care Auto Seat Cover Installer Name Role Phone Brown Middleton MD Unavailable [phone] Hai Frausto MD Unavailable [phone] Wilber Orellana MD Unavailable [phone] Kristopher Almaraz MD Unavailable [phone] Britney Eduardo INSTRUCTIONAL MANAGER Unavailable [phone] Norris Linn [facility] Primary Care Provider [phone] Active Problems Problem Noted Date Diagnosed Date Morbid (severe) obesity due to excess calories 0 01/04/2023 FH: heart disease 10/29/2022 Chest pain, unspecified type 10/29/2022 Stage 4 chronic kidney disease ([facility]) 10/29/2022 Essential (primary) hypertension 10/29/2022 Anemia due to stage 3a chronic kidney disease At risk for loss of bone density 09/19/2019 Class 1 obesity without serious comorbidity in a dult 05/23/2019 History of thyroid cancer 05/23/2019 Malignant neoplasm of upper- 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 ([facility]) 05/02/2019 Cancer Staging:Pathologic stage from 05/04/2019:Stage IA(pT1b, pN0(sn), cM0, G2, ER+, VT+, HER2-) - Unsigned Clinical: Unsigned Current Treatment [...] Care Team Medical Oncologist Noemi Marshall MD [phone] Surgeon Serena Chandler MD [phone] Radiation Oncologist Primary Care Physician NORRIS LINN, [facility] [phone] Nurse Navigator Nuzhat Pablo RN, MSN, MA, OCN [phone] Diagnosis Malignant neoplasm of upper-outer quadrant of [...] physician Noemi Marshall MD According to the [employer], about 20 percent of cancer [...] Retrieved from cancer.net 10/10/2015 Summary of the [place] Society Guidelines on Nutrition and Physical [...] with treatment. After Breast Cancer Diagnosis http://www.abcdbreastcancersupport.org/ 710.243.2072 Provides free, personalized information and one-to-one support to those affected by breast cancer- patients, families, and friends. Trained and professionally supported volunteer survivors and co-survivors help those battling breast cancer, from the newly diagnosed to those in treatment and beyond. [employer] www.cancer.org 376-592-9706 Provides cancer information, resources and emotional support to patients and their family memebers. [employer] Society of Clinical Oncology www.cancer.net 656-248-8315 Provides trusted and up-to-date cancer information, developed by the world?s leading cancer doctors. Cancer [employer] Inc www.cancercare.org 590-959-8820 A national nonprofit organization, which provides free professional help to people with cancer through counseling, education, information and referral and direct financial information. National Cancer [employer] www.cancer.gov 173-149-2500 Provides cancer information such as statistics, prevention, early detection, survivor netowrks and emotional support. National Comprehensive Cancer Network www.nccn.com Provides information about follow-up care for cancer. Living Beyond Breast Cancer www.lbbc.org 688-619-8233 Breast cancer information and support is available focusing on living well beyond breast cancer with educational newsletters, interactive message boards and much more. The [employer] www.The Venue Report.org 720-964-5034 Offers recent breast cancer news, information on breast health, a calendar of events and announcements of research initiatives. Helpline is also available. Breast 360 www.oouwpq289.org Provides patient information from the [place] Society of Breast Surgeons, with the goal to engage,educate, and empower readers so they are able to make informed decisions for their breast health care.
[2025-05-06 15:11] LABS: Hematocrit 27.4 % (35.0-42.0); Hemoglobin 9.0 g/dL (11.7-13.8); Immature Granulocyte Percent A 0.4 % (0.0-0.0); Lymphocytes Absolute Auto 1.22 K/mm3 (1.10-4.50); Mean Corpuscular HGB Conc 32.8 g/dL (32-36); Mean Corpuscular Hemoglobin 27.9 pg (27.0-31.0); Mean Corpuscular Volume 84.8 fL (78.0-102.0); Nucleated Red Blood Cells Absolute Auto 0.00 K/mm3 (0.00-0.00); Nucleated Red Blood Cells Perc 0.0 % (0-0.0); Platelet Count Result 265 K/mm3 (150-420); Red Blood Count 3.23 M/mm3 (4.20-5.40); White Blood Count 8.2 K/mm3 (4.8-10.8)
[2025-05-06 15:23] LABS: Alanine Aminotransferase 73 U/L (6-35); Albumin Level 4.6 g/dL (3.5-5.1); Alkaline Phosphatase 111 U/L (38-126); Anion Gap 14 mmol/L (4-12); Aspartate Amino Transferase 57 U/L (14-36); Bilirubin,Total 0.5 mg/dL (0.2-1.3); Blood Urea Nitrogen 56 mg/dL (7-17); Calcium 9.2 mg/dL (8.4-10.2); Carbon Dioxide 17 mmol/L (22-30); Chloride 109 mmol/L (98-107); Estimated CRCL calculation 19 ml/min; Estimated Glomerular Filt Rate 16; Glucose 109 mg/dL (65-110); Osmolality Calculated 306 mOsm/kg (285-295); Potassium 4.2 mmol/L (3.4-5.0); Sodium 140 mmol/L (137-145); Total Protein 8.1 g/dL (6.3-8.2)
[2025-05-06 15:28] LABS: Add Urine Microscopic? NO; Appearance Urine Clear (Clear); Glucose Urine UA Negative (Negative); Leukocyte Esterase Ur Negative LEU/UL (Negative); Nitrate Urine Negative (Negative); Specific Grav Ur <= 1.005 (1.010-1.020)
[2025-05-06 15:28] LABS: INR 1.0; Partial Thromboplastin Time 24.1 Sec (23.9-30.70); Prothrombin Time 11.3 Seconds (9.50-12.1)
[2025-05-06 15:33] LABS: NT Pro B Type Natriuretic Pept 1830 pg/mL (19.9-100)
[2025-05-06 15:34] LABS: Troponin I < 0.012 ng/mL (0.000-0.034)
[2025-05-06] MEDS: FUROSEMIDE INJ 20 MG/2 ML VIAL IV PUSH (16:42)
--- NOTE | 2025-05-06 20:01 | PM.IMHP ---
H&P: HPI History of Present Illness Date/Time: 05/06/25 20:01 Chief Complaint: SOB Narrative: 70-year-old female with a PMHx: Of CKD, unknown stage at this time patient transferred from [place] the emergency room due to ongoing complaint of 1 week history of worsening lower extremity edema and moderate SOB, followed with occasional chest pain. Patient reported the chest pain and difficulty breathing began while being seen at [place] the emergency room she was initially evaluated in informed of new onset heart failure. She reports the SOB had been present for about a week worsening significantly over the past couple of days the patient experience increased difficulty while attending protestant leading their daughter to take them to the emergency room. The patient did not report nausea vomiting fever or chills. The patient noted left foot swelling which was reportedly more pronounced than the right she tells me that her urination has been normal and no difficulty reported. ED workup reveals: New onset congestive heart failure with a BNP [id number], creatinine 2.86, BUN 56, anion gap 14, carbon dioxide 17 hgb 9.0 negative troponin, UA unremarkable PMFSH Past Medical History Medical History Hx of thyroid cancer Breast cancer CKD (chronic kidney disease) Social History Social History Smoking status: Never smoker Substance use type: does not use Meds Home Medications and Allergies Home Medications ?Medication ?Instructions ?Recorded ?Confirmed ?Type amlodipine 10 mg tablet 10 mg PO DAILY 05/06/25 05/06/25 History aspirin 81 mg tablet,delayed 81 mg PO DAILY 05/06/25 05/06/25 History release atorvastatin 80 mg tablet 80 mg PO DAILY 05/06/25 05/06/25 History calcitriol 0.25 mcg capsule 0.25 mcg PO DAILY 05/06/25 05/06/25 History docusate sodium 100 mg capsule 100 mg PO DAILY PRN constipation 05/06/25 05/06/25 History ergocalciferol (vitamin D2) 1,250 1,250 mcg PO MONTHLY 05/06/25 05/06/25 History mcg (50,000 unit) capsule famotidine 20 mg tablet 20 mg PO BID 05/06/25 05/06/25 History ferrous sulfate 325 mg (65 mg 325 mg PO BID 05/06/25 05/06/25 History iron) tablet (FeroSul) isosorbide mononitrate 60 mg 60 mg PO DAILY 05/06/25 05/06/25 History tablet,extended release 24 hr levothyroxine 175 mcg tablet 175 mcg PO DAILY 05/06/25 05/06/25 History metoprolol succinate 100 mg 100 mg PO DAILY 05/06/25 05/06/25 History tablet,extended release 24 hr omeprazole 40 mg capsule,delayed 40 mg PO DAILY 05/06/25 05/06/25 History release quetiapine 25 mg tablet 50 mg PO BID 05/06/25 05/06/25 History tizanidine 2 mg tablet 2 mg PO Q8H PRN muscle spasticity 05/06/25 05/06/25 History venlafaxine 150 mg 150 mg PO HS 05/06/25 05/06/25 History capsule,extended release 24 hr Allergies Allergy/AdvReac Type Severity Reaction Status Date / Time No Known Allergies Allergy Verified 05/06/25 14:56 Vital Signs Vital Signs - 24 hr 05/06/25 14:52 05/06/25 14:54 05/06/25 14:55 Temperature 99.8 F H Pulse Rate 111 H 102 H Respiratory Rate 20 15 Blood Pressure 168/82 H Pulse Oximetry 99 99 97 Oxygen Delivery Room Air Room Air 05/06/25 15:00 05/06/25 15:00 05/06/25 15:01 Temperature Pulse Rate 102 H 92 103 H Respiratory Rate 19 18 Blood Pressure 152/79 H Pulse Oximetry 99 99 Oxygen Delivery 05/06/25 15:02 05/06/25 15:15 05/06/25 15:22 Temperature Pulse Rate 103 H 112 H 110 H Respiratory Rate 18 19 Blood Pressure 172/87 H Pulse Oximetry 99 99 Oxygen Delivery 05/06/25 15:34 05/06/25 15:39 05/06/25 15:45 Temperature Pulse Rate 111 H 103 H 101 H Respiratory Rate 16 Blood Pressure 162/88 H Pulse Oximetry 100 99 98 Oxygen Delivery 05/06/25 15:46 05/06/25 16:00 05/06/25 16:00 Temperature Pulse Rate 101 H 82 98 Respiratory Rate Blood Pressure 163/82 H Pulse Oximetry 100 98 Oxygen Delivery 05/06/25 16:01 05/06/25 16:15 05/06/25 16:16 Temperature Pulse Rate 100 102 H 105 H Respiratory Rate Blood Pressure 140/88 157/86 H Pulse Oximetry 99 98 98 Oxygen Delivery 05/06/25 16:31 05/06/25 16:34 05/06/25 16:45 Temperature Pulse Rate 108 H 111 H 111 H Respiratory Rate Blood Pressure 157/78 H Pulse Oximetry 98 96 95 Oxygen Delivery 05/06/25 16:46 05/06/25 17:00 05/06/25 17:00 Temperature 99.0 F Pulse Rate 111 H 80 Respiratory Rate Blood Pressure 156/75 H Pulse Oximetry 99 Oxygen Delivery 05/06/25 17:00 05/06/25 17:01 05/06/25 17:03 Temperature Pulse Rate 105 H 108 H 104 H Respiratory Rate Blood Pressure 197/98 H 181/97 H Pulse Oximetry 99 100 99 Oxygen Delivery 05/06/25 17:16 05/06/25 17:17 05/06/25 17:27 Temperature Pulse Rate 113 H Respiratory Rate Blood Pressure 167/89 H 162/92 H Pulse Oximetry 100 Oxygen Delivery 05/06/25 17:30 05/06/25 17:32 05/06/25 17:45 Temperature Pulse Rate 101 H 109 H 111 H Respiratory Rate 18 20 Blood Pressure 184/91 H Pulse Oximetry 79 L 96 82 L Oxygen Delivery 05/06/25 17:47 05/06/25 18:00 05/06/25 18:02 Temperature 98.9 F Pulse Rate 116 H 109 H 105 H Respiratory Rate 18 Blood Pressure 188/93 H 165/97 H Pulse Oximetry 98 97 Oxygen Delivery H&P: Results Labs Labs: Short CBC 05/06/25 Range/Units 15:07 WBC 8.2 (4.8-10.8) K/mm3 Hgb 9.0 L (11.7-13.8) g/dL Hct 27.4 L (35.0-42.0) % Plt Count 265 (150-420) K/mm3 BMP 05/06/25 15:07 Sodium 140 Potassium 4.2 Chloride 109 H Carbon Dioxide 17 L BUN 56 H Creatinine 2.86 H Glucose 109 Calcium 9.2 Cardiac Enzymes 05/06/25 Range/Units 15:07 Troponin I < 0.012 (0.000-0.034) ng/mL Liver Function 05/06/25 Range/Units 15:07 Total Bilirubin 0.5 (0.2-1.3) mg/dL AST 57 H (14-36) U/L ALT 73 H (6-35) U/L Alkaline Phosphatase 111 (38-126) U/L Albumin 4.6 (3.5-5.1) g/dL Urine 05/06/25 Range/Units 15:15 Urine Color Light yellow (Yellow) Urine Appearance Clear (Clear) Urine pH 6.0 (5.0-8.0) Ur Specific [place] <= 1.005 L (1.010-1.020) Urine Protein Negative (Negative) Urine Glucose (UA) Negative (Negative) ECG ECG completion date: 05/06/25 ECG completion time: 14:54 Interpretation: Test Date: 2025-05-06 14:59:34 Measurements Intervals [place] Rate: 103 P: 47 OK: 158 QRS: 19 QRSD: 89 T: 16 QT: 324 QTc: 425 Interpretive Statements SINUS TACHYCARDIA BASELINE ARTIFACT- I, II, III, AVR, AVL, AVF, V1-V6 BORDERLINE ECG Compared to ECG 03/31/2024 14:17:19 HEART RATE HAS INCREASED Electronically Signed On 05-06-2025 15:17:37 CDT by Richie Lima D.O. Imaging Chest x-ray: Radiologist's impression: XR chest 2V 05/06/2025 15:35 Indication: Shortness of breath and chest pain Procedure: 2 view chest Comparison: 10/16/2015 Findings: Heart size normal. No focal air space disease, pulmonary edema, pleural effusion or suspected pneumothorax. No acute osseous abnormality. Impression: 1: No acute cardiopulmonary disease. Assessment and Plan Assessment and plan (1) New onset of congestive heart failure: Code(s): I50.9 - Heart failure, unspecified Status: Acute (2) End-stage renal disease (ESRD): Code(s): N18.6 - End stage renal disease Status: Acute
== END 2025-05-06 18:15 | disposition short-term general hospital (02) ==
PROVIDERS: Emergency Provider Emergency Medicine; PCP Nurse Practitioner Family
DX: I50.9 Heart failure, unspecified (principal); N18.6 End stage renal disease; D63.1 Anemia in chronic kidney disease; Z85.850 Personal history of malignant neoplasm of thyroid; Z85.3 Personal history of malignant neoplasm of breast
CPT/HCPCS: 36415; 71046; 80053; 81003; 83605; 83880; 84484; 85025; 85610; 85730; 93005; 96374; 99285; J1938

== ENCOUNTER 2025-05-06 23:34 | Inpatient (IN) | payer MEDICARE, MEDICAID, SELFPAY ==
--- NOTE | ~2025-05-06 | XR_ITS ---
EXAMINATION: XR chest 1V portable, 05/12/2025 10:35 CDT HISTORY: SOB COMPARISON: No comparisons available. Technique: Single view. Findings: Moderate pulmonary venous congestion. Small basilar infiltrates. No pneumothorax. Mild cardiomegaly. Mediastinal and hilar contours are within normal limits. Bony thorax no acute abnormality. Impression: CHF. Superimposed early pneumonia Reviewed, dictated and finalized at location A. Impression: CHF. Superimposed early pneumonia
--- NOTE | ~2025-05-06 | CT_ITS ---
EXAMINATION: CT chest abdomen pelvis wo con DATE: 05/09/2025 12:25 CDT INDICATION: Shortness of breath. Renal cyst TECHNIQUE: Computed tomography (CT) of the chest, abdomen, and pelvis was performed without intravenous contrast. The dose-length product was 1248.47 mGy-cm. COMPARISON: CT chest 10/17/2015; ultrasound kidneys 05/07/2025 FINDINGS: The study is limited due to motion artifact. CHEST CT: No enlarged mediastinal or hilar lymph nodes. Heart is mildly enlarged. There are coronary artery calcifications. Thoracic aorta is not aneurysmal. Prior surgical change about the left breast which are new as compared to the study from 2015. Correlate clinically. Tracheobronchial tree is patent. No pne umothorax. No pulmonary mass. No pleural effusion. There are a few small bandlike and reticular opacities in the lower lungs. Differential includes atelectasis/scarring or infiltrates. ABDOMEN/PELVIS CT: Liver, spleen, adrenal glands, pancreas and gallbladder are unremarkable. Abdominal aorta is not aneurysmal. Bladder is unremarkable. No enlarged lymph nodes identified in the abdomen or pelvis. No free fluid in the abdomen or pelvis. CT appearance of the uterus is grossly unremarkable. Large amount of stool. No colitis. No dilated bowel loops. Bones appear osteopenic. Multilevel degenerative change scattered throughout the visualized spine. Moderate degenerative change about the hips. There is an indeterminate 1.6 x 0.8 cm lucency in the left inferior pubic ramus. Numerous bilateral renal cysts. IMPRESSION: 1. Numerous bilateral renal cysts, the largest cyst in the right kidney grossly measures 9.5 cm, the largest cyst in the left kidney grossly measures 5.7 cm. 2. There is an indeterminate 1.6 x 0.8 cm lucency in the left inferior pubic ramus. Dedicated x-rays of the pelvis are recommended. 3. There are a few small bandlike and reticular opacities in the lower lungs. Differential includes atelectasis/scarring or infiltrates. 4. Prior surgical change about the left breast which are new as compared to the study from 2015. Correlate clinically. Reviewed, dictated and finalized at location Q. IMPRESSION: 1. Numerous bilateral renal cysts, the largest cyst in the right kidney grossly measures 9.5 cm, the largest cyst in the left kidney grossly measures 5.7 cm. 2. There is an indeterminate 1.6 x 0.8 cm lucency in the left inferior pubic ra mus. Dedicated x-rays of the pelvis are recommended. 3. There are a few small bandlike and reticular opacities in the lower lungs. D ifferential includes atelectasis/scarring or infiltrates. 4. Prior surgical change about the left breast which are new as compared to e study from 2016. Correlate clinically.
--- NOTE | ~2025-05-06 | US_ITS ---
US renal BI 05/07/2025 11:44 Procedure: Realtime transabdominal ultrasound of the kidneys and bladder. Indication: Elevated serum creatinine. CTD Comparison: CT chest 10/17/2015 Findings: Right kidney measures 15.9 x 7.9 x 7.5 cm. Numerous cysts scattered throughout the right kidney. Largest right renal cyst grossly measures 6.2 x 4.7 x 1.3 cm. Left kidney measures 12.2 x 5.0 x 7.8 cm. Numerous cysts scattered throughout the left kidney. Largest left renal cyst measures 5.9 x 6.6 x 6.0 cm. Visualized bladder is unremarkable. Bilateral ureteral jets were not identified. The kidneys were not fully visualized due to the patient imaging characteristics which limits evaluation. Impression: 1: The kidneys are enlarged with numerous renal cysts. However, the kidneys were not fully visualized due to limitations of this study. Consider a noncontrast CT for further assessment. Reviewed, dictated and finalized at location Q. Impression: 1: The kidneys are enlarged with numerous renal cysts. However, the kidneys wer e not fully visualized due to limitations of this study. Consider a noncontrast CT for further assessment.
--- NOTE | ~2025-05-06 | XR_ITS ---
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 There is mixed lytic and sclerotic lesion of the left inferior pubic ramus which appears slightly expansile. Pelvic rings intact. Impression: 1: Mixed lytic and sclerotic lesion left inferior pubic ramus. In a 70-year-old female, consider metastatic disease, lymphoma, Paget's disease. Consider correlation with bone scan or pet/CT examination. Reviewed, dictated and finalized at location O. Impression: 1: Mixed lytic and sclerotic lesion left inferior pubic ramus. In a 70-year-old female, consider metastatic disease, lymphoma, Paget's disease. Consider corre lation with bone scan or pet/CT examination.
--- NOTE | 2025-05-06 18:58 | ADMGEN ---
This patient, Genna Fraga, was admitted to Medical Room 247-. Patient/family oriented to hospital policies and general routines including ID bracelet, bed and alarms, visiting hours, pain management, procedures, bathroom and other care routines, personal items, smoking policy, room service/diet, and visiting hours. Information on how to activate the Rapid Response Team has been discussed. Patient/Family are encouraged to report perceived risks to care and to ask questions if they do not understand what they are told or what they should do.
[2025-05-06 20:00] VITALS: PULSE 113
[2025-05-06 20:49] VITALS: BMI 34.6
[2025-05-06 20:50] VITALS: BP 157/76; PULSE 104; RESP 18; TEMP 36.7; O2SAT 99
--- NOTE | 2025-05-06 21:12 | PM.IMHP ---
H&P: HPI History of Present Illness Date/Time: 05/06/25 21:12 Chief Complaint: Chest pain/SOB Narrative: 70-year-old female here with a PMHx: CKD unknown stage at this time patient reports she has a history of ESRD, but is not on dialysis, citing she was told that if her kidney function should worsen she would need a kidney transplant or start dialysis. Patient was originally seen at outside emergency room then transferred here due to ongoing SOB and mild chest discomfort during her visit. Patient reports a history of worsening lower extremity edema and SOB that has been ongoing for the past week. She reports the SOB had been present for about a week it begin to worsening significantly over the past couple of days. The patient experienced increased difficulty while attending religious which led her daughter to take her to the emergency room for further evaluation. She denies any nausea vomiting fever chills at this time. Patient reports ongoing bilateral leg swelling, the patient noted left foot swelling which was reportedly more pronounced than the right. ED Work-up reveals: Who EKG tachycardia, sinus rhythm, no ectopic beats, nonspecific ST changes, normal QRS, normal QT. lab reveals chloride 109, carbon dioxide 17, anion gap 14, BUN 56, creatinine 2.86 with a GFR 16 calculated osmolality is 306, AST is 57, ALT 73 [id number], UA unremarkable for any infection or bacteria. Review of Systems Review of Systems: All systems reviewed & are unremarkable except as noted in HPI and below PMFSH Past Medical History Medical History Hx of thyroid cancer Breast cancer CKD (chronic kidney disease) Social History Social History Smoking status: Never smoker Alcohol intake: never Substance use: never Substance use type: does not use Lack of Transportation: No Lack of Food: Never True Current Housing: I Have Housing Concerned About Future Housing: No Difficulty Paying Gas/Electric Bills: No Difficulty Paying for Meds: No Currently Unemployed: No Education: High School Diploma/GED Difficulty w/ Childcare or Family Care: No Spiritual care concerns: No Meds Home Medications and Allergies Home Medications ?Medication ?Instructions ?Recorded ?Confirmed ?Type amlodipine 10 mg tablet 10 mg PO DAILY 05/06/25 05/06/25 History aspirin 81 mg tablet,delayed 81 mg PO DAILY 05/06/25 05/06/25 History release atorvastatin 80 mg tablet 80 mg PO DAILY 05/06/25 05/06/25 History calcitriol 0.25 mcg capsule 0.25 mcg PO DAILY 05/06/25 05/06/25 History docusate sodium 100 mg capsule 100 mg PO DAILY PRN constipation 05/06/25 05/06/25 History ergocalciferol (vitamin D2) 1,250 1,250 mcg PO MONTHLY 05/06/25 05/06/25 History mcg (50,000 unit) capsule famotidine 20 mg tablet 20 mg PO BID 05/06/25 05/06/25 History ferrous sulfate 325 mg (65 mg 325 mg PO BID 05/06/25 05/06/25 History iron) tablet (FeroSul) isosorbide mononitrate 60 mg 60 mg PO DAILY 05/06/25 05/06/25 History tablet,extended release 24 hr levothyroxine 175 mcg tablet 175 mcg PO DAILY 05/06/25 05/06/25 History metoprolol succinate 100 mg 100 mg PO DAILY 05/06/25 05/06/25 History tablet,extended release 24 hr omeprazole 40 mg capsule,delayed 40 mg PO DAILY 05/06/25 05/06/25 History release quetiapine 25 mg tablet 50 mg PO BID 05/06/25 05/06/25 History tizanidine 2 mg tablet 2 mg PO Q8H PRN muscle spasticity 05/06/25 05/06/25 History venlafaxine 150 mg 150 mg PO HS 05/06/25 05/06/25 History capsule,extended release 24 hr Allergies Allergy/AdvReac Type Severity Reaction Status Date / Time No Known Allergies Allergy Verified 05/06/25 14:56 Vital Signs Vital Signs - 24 hr 05/06/25 20:50 Temperature 98.1 F Pulse Rate 104 H Respiratory Rate 18 Blood Pressure 157/76 H Pulse Oximetry 99 Exam Narrative: General: A well-developed, nontoxic-appearing female sitting up in bed. HEENT: PERRL, EOMI. Oral mucosa moist. Neck: Supple. No midline cervical tenderness. Respiratory: Respirations are non- labored and lungs are clear to auscultation bilaterally. Cardiovascular: Regular rate and rhythm with S1-S2. Gastrointestinal: Abdomen is soft, non-tender, and non-distended with positive bowel sounds. Skin: Warm and dry. No rash or lesions on limited exam. Extremities: Bilateral, +1 edema, left leg more pronounced than right leg Neurological: Alert and oriented. Cranial nerves 2-12 are grossly intact. No gross focal deficits to casual conversation. Psychiatric: Pleasant and cooperative with normal mood and affect. Judgment and insight intact. H&P: Results Labs Labs: 05/06/25 15:07 Labs: Lab Results 05/06/25 05/06/25 Range/Units 15:07 15:15 WBC 8.2 (4.8-10.8) K/mm3 RBC 3.23 L (4.20-5.40) M/mm3 Hgb 9.0 L (11.7-13.8) g/dL Hct 27.4 L (35.0-42.0) % MCV 84.8 (78.0-102.0) fL MCH 27.9 (27.0-31.0) pg MCHC 32.8 (32-36) g/dL RDW 15.7 H (11.6-14.4) % Plt Count 265 (150-420) K/mm3 MPV 8.6 L (9.2-11.8) fl Immature Gran % (Auto) 0.4 H (0.0-0.0) % Neut % (Auto) 75.4 H (50.0-70.0) % Lymph % (Auto) 14.9 L (18.0-42.0) % [place] % (Auto) 6.7 (2.0-11.0) % Eos % (Auto) 2.1 (1.0-6.0) % Baso % (Auto) 0.5 (0.0-1.0) % Lymph # (Auto) 1.22 (1.10-4.50) K/mm3 [place] # (Auto) 0.55 (0.10-0.90) K/mm3 Eos # (Auto) 0.17 (0.02-0.50) K/mm3 Baso # (Auto) 0.04 (0.00-0.10) K/mm3 Abs Immat Gran (auto) 0.03 H (0.00-0.00) K/mm3 Absolute Neuts (auto) 6.20 (1.70-7.20) K/mm3 Absolute Nucleated RBC 0.00 (0.00-0.00) K/mm3 Nucleated RBC % 0.0 (0-0.0) % PT 11.3 (9.50-12.1) Seconds INR 1.0 APTT 24.1 (23.9-30.70) Sec Sodium 140 (137-145) mmol/L Potassium 4.2 (3.4-5.0) mmol/L Chloride 109 H (98-107) mmol/L Carbon Dioxide 17 L (22-30) mmol/L Anion Gap 14 H (4-12) mmol/L BUN 56 H (7-17) mg/dL Creatinine 2.86 H (0.7-1.0) mg/dL Estim Creat Clear Calc 19 ml/min Estimated GFR 16 L (59 - ) Glucose 109 (65-110) mg/dL Calculated Osmolality 306 H (285-295) mOsm/kg Lactic Acid 0.9 (0.4-2.0) mmol/L Calcium 9.2 (8.4-10.2) mg/dL Total Bilirubin 0.5 (0.2-1.3) mg/dL AST 57 H (14-36) U/L ALT 73 H (6-35) U/L Alkaline Phosphatase 111 (38-126) U/L Troponin I < 0.012 (0.000-0.034) ng/mL NT-Pro-B Natriuret Pep 1830 H (19.9-100) pg/mL Total Protein 8.1 (6.3-8.2) g/dL Albumin 4.6 (3.5-5.1) g/dL Urine Color Light yellow (Yellow) Urine Appearance Clear (Clear) Urine pH 6.0 (5.0-8.0) Ur Specific [place] <= 1.005 L (1.010-1.020) Urine Protein Negative (Negative) Urine Glucose (UA) Negative (Negative) Urine Ketones Negative (Negative) Ur Blood (Man) Negative (Negative) Urine Nitrate Negative (Negative) Urine Bilirubin Negative (Negative) Urine Urobilinogen 0.2 (0.2-1.0) mg/dL Leukocyte Esterase Rfl Negative (Negative) ANTIONETTE/UL Pulse Oximetry Attestation: I personally reviewed and interpreted this pulse oximetry as follows: ECG ECG completion date: 05/06/25 ECG completion time: 15:00 Interpretation: Test Date: 2025-05-06 14:59:34 Measurements Intervals [place] Rate: 103 P: 47 NM: 158 QRS: 19 QRSD: 89 T: 16 QT: 324 QTc: 425 Interpretive Statements SINUS TACHYCARDIA BASELINE ARTIFACT- I, II, III, AVR, AVL, AVF, V1-V6 BORDERLINE ECG Compared to ECG 03/31/2024 14:17:19 HEART RATE HAS INCREASED Electronically Signed On 05-06-2025 15:17:37 CDT by Richie Lima D.O Imaging Chest x-ray: Radiologist's impression: XR chest 2V 05/06/2025 15:35 Indication: Shortness of breath and chest pain Procedure: 2 view chest Comparison: 10/16/2015 Findings: Heart size normal. No focal air space disease, pulmonary edema, pleural effusion or suspected pneumothorax. No acute osseous abnormality. Impression: 1: No acute cardiopulmonary disease. Assessment and Plan Assessment and plan (1) New onset of congestive heart failure: Code(s): I50.9 - Heart failure, unspecified Status: Acute Assessment and Plan: -new onset -BNP >1800 -continue telemetry -check vitals q 4hrs -Strict I&O, monitor and record -check daily weight -check echocardiogram in the a.m. -consult cardiology in the a.m. -patient given furosemide 20 mg IVP prior to arrival (2) End-stage renal disease (ESRD): Code(s): N18.6 - End stage renal disease Status: Acute Assessment and Plan: Patient reports her nephrology is in [facility] -she reports history ongoing CKD, denies any HD services at this time -serum creatinine elevated 2.86, BUN 56, GFR 16, of note last admission serum creatinine was 2.7 -check [place]. renal -may consider consult Nephrology in the am (3) Anemia associated with chronic renal failure: Code(s): N18.9 - Chronic kidney disease, unspecified; D63.1 - Anemia in chronic kidney disease Status: Acute Assessment and Plan: Chronic Suspect secondary from chronic kidney disease hgb stable at 9.0 -no signs of bleeding at this time -continue monitor BMP, daily Plan Continue home medications: VTE Prophylaxis: Heparin DIET:renal Anticipated hospital stay: > 2days Code Status: Full Hospitalist MIPS Advance Care Plan I have confirmed that the patient's Advanced Care Plan is present, code status is documented, or surrogate decision maker is listed in patient medical record.: Yes Medication Reconciliation I have utilized all available resources to obtain, update and review the patients current medications (includes all prescriptions, OTC, herbals, cannabis, and nutritional supplements).: Yes
[2025-05-06 21:20] VITALS: PULSE 104; RESP 20; O2SAT 97
[2025-05-06 22:34] VITALS: PULSE 96; O2SAT 98
[2025-05-06] MEDS: ACETAMINOPHEN 325 MG TABLET 650 MG PO (22:36)
[2025-05-06] MEDS: VENLAFAXINE HCL XR 75 MG CAP.ER.24H 150 MG PO (22:36)
[2025-05-06 23:34] VITALS: BP 143/57; PULSE 89; RESP 18; TEMP 36.7; O2SAT 99
--- OUTSIDE RECORDS SUMMARY | 2025-05-06 23:42 | XMS_ITS | Encounter Summary ---
Author Organization [facility] Address [address] [place] [address] Care Team Providers Care Marketing Operations Manager Name Role Phone Marni Ugalde MD Unavailable Unavailabl e Britney Eduardo SECURITY CLERK Unavailable [phone] Wilber Orellana MD Unavailable [phone] Brown Middleton MD Unavailable [phone] Hai Frausto MD Unavailable [phone] Wilber Orellana MD Unavailable [phone] None, Provider Unavailable Unavailable None, Provider Primary Care Provider Unavaila Kristopher Pandya MD Unavailable Karly Valencia APRN Primary Care Provider + Britney Eduardo SECURITY CLERK Unavailable [phone] Elis Linn [facility] Primary Care Provider [phone] Encounter Details Date Type Department Care Team (Late st Contact Info) Description 07/09/2023 Prep for Procedure [facility] [employer] Pre/Post [address] [place], [place] [id number] Valeri Coffey MD 2 [facility] JASMEET NEFF [address] [address] Social History Tobacco Use Types Packs/Day Years [...] Sex Assigned at Female 10/23/2024 12:36 PM 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 Legal Sex Female 8:54 PM CDT [...] PM CDT Appointment [facility] [address] [place] [address] Wilber Orellana MD [address] [place] [address] documented as of this encounter Visit Diagnoses Not on filedocumented in this encounter Care Teams Marketing Operations Manager Relationship Specialty Start Date End Date None, Provider, PCP - General UNKNOWN PHYSICIAN SPECIALTY 3/6/25 5/22/25 Karly Valencia APRN [address] [place] [address] PCP - General Nurse Practitioner Family 02/02/25 04/24/25 [facility] [address] [place] [address] PCP - General NURSE PRACTITIONER 04/25/25 Marni Ugalde MD Consulting Physician CARDIOVASCULAR DISEASE 08/25/2205/25 Britney Eduardo NP Nurse Practitioner Nurse Practitioner [facility] 01/01/23 05/25/24 Wilber Orellana MD [address] [place] [address] Consulting Physician NEPHROLOGY 06/30/23 11/06/24 Brown Middleton MD [address] [place] [phone] Consulting Physician ENDOCRINOLOGY 05/26/24 Hai Frausto MD [address] [phone] SURGERY 10/27/24 Wilber Orellana MD [address] [phone] Consulting Physician INTERNAL MEDICINE 06/30/23 None, MD Tammie UNKNOWN PHYSICIAN SPECIALTY 11/16/24 12/13/24 [place] [address] [place] [address] Referring Physician Psychiatry 12/14/24 Britney Eduardo NP [address] [place] [phone] Nurse Practitioner NEPHROLOGY 04/25/25 documented as of this encounter
--- OUTSIDE RECORDS SUMMARY | 2025-05-06 23:42 | XMS_ITS | Encounter Summary ---
Author Organization [facility] [place] [facility] Address [address] [place] [address] Care Team Providers Care Facility Specialist Name Role Phone Marni Ugalde MD Unavailable Unavailabl e Britney Eduardo ELECTRONIC SENSING EQUIPMENT ASSEMBLER Unavailable [phone] Wilber Orellana MD Unavailable [phone] Brown Middleton MD Unavailable [phone] Hai Frausto MD Unavailable [phone] Wilber Orellana MD Unavailable [phone] None, Provider Unavailable Unavailable None, Provider Primary Care Provider Unavaila Kristopher Pandya MD Unavailable [phone] Karly Valencia APRN Primary Care Provider + Britney Eduardo ELECTRONIC SENSING EQUIPMENT ASSEMBLER Unavailable [phone] Elis Linn [facility] Primary Care Provider [phone] Encounter Details Date Type Department Care Team (Late st Contact Info) Description 07/07/2023 Hospital Orders Only [facility] Pre/Post [address] [place], [place] [address] Valeri Coffey MD 2 [facility] JASMEET [address] [address] Social History Tobacco Use Types Packs/Day Years [...] Sex Assigned at Female 10/23/2024 12:36 PM SCOUTS Legal Sex Female 8:54 PM CDT Gender [...] PM CDT Appointment [facility] [address] [place] [address] Wilber Orellana MD [address] [place] [address] documented as of this encounter Visit Diagnoses Not on filedocumented in this encounter Care Teams Facility Specialist Relationship Specialty Start Date End Date None, Provider, PCP - General UNKNOWN PHYSICIAN SPECIALTY 3/6/25 5/22/25 Karly Valencia APRN [address] [place] [address] PCP - General Nurse Practitioner Family 02/02/25 04/24/25 [facility] [address] [place] [address] PCP - General NURSE PRACTITIONER 04/25/25 Marni Ugalde MD Consulting Physician CARDIOVASCULAR DISEASE 08/25/2205/25 Britney Eduardo NP Nurse Practitioner Nurse Practitioner [facility] 01/01/23 05/25/24 Wilber Orellana MD [address] [place] [address] Consulting Physician NEPHROLOGY 06/30/23 11/06/24 Brown Middleton MD [address] [place] [phone] Consulting Physician ENDOCRINOLOGY 05/26/24 Hai Frausto MD [address] [phone] SURGERY 10/27/24 Wilber Orellana MD [address] [phone] Consulting Physician INTERNAL MEDICINE 06/30/23 None, MD Tammie UNKNOWN PHYSICIAN SPECIALTY 11/16/24 12/13/24 [place] [address] [place] [address] Referring Physician Psychiatry 12/14/24 Britney Eduardo NP [address] [place] [phone] Nurse Practitioner NEPHROLOGY 04/25/25 documented as of this encounter
--- OUTSIDE RECORDS SUMMARY | 2025-05-06 23:42 | XMS_ITS | Encounter Summary ---
Author Organization [facility] Address [address] [place] [address] Care Team Providers Care Inclined Railway Operator Name Role Phone Marni Ugalde MD Unavailable Unavailabl e Britney Eduardo BROACHER Unavailable [phone] Wilber Orellana MD Unavailable [phone] Brown Middleton MD Unavailable [phone] Hai Frausto MD Unavailable [phone] Wilber Orellana MD Unavailable [phone] None, Provider Unavailable Unavailable None, Provider Primary Care Provider Unavaila Kristopher Pandya MD Unavailable [phone] Karly Valencia APRN Primary Care Provider + Britney Eduardo BROACHER Unavailable [phone] Elis Linn [facility] Primary Care Provider [phone] Encounter Details Date Type Department Care Team (Late st Contact Info) Description 07/05/2023 Prep for Procedure [facility] eld [address] [place] [phone] Valeri Coffey MD [facility] JASMEET [address] [address] Social History Tobacco Use Types Packs/Day Years [...] Sex Assigned at Female 10/23/2024 12:36 PM 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 Legal Sex Female 8:54 PM CDT Gender [...] Status No 05/03/2019 5:09 AM CDT Greta Milelr RN Active * Because of a physical, [...] PM CDT Appointment [facility] [address] [place] [address] Wilber Orellana MD [address] [place] [address] documented as of this encounter Visit Diagnoses Not on filedocumented in this encounter Care Teams Inclined Railway Operator Relationship Specialty Start Date End Date None, Provider, PCP - General UNKNOWN PHYSICIAN SPECIALTY 11/16/24 02/01/25 Karly Valencia APRN [address] [place] [address] PCP - General Nurse Practitioner Family 02/02/25 04/24/25 [facility] [address] [place] [address] PCP - General NURSE PRACTITIONER 04/25/25 Marni Ugalde MD Consulting Physician CARDIOVASCULAR DISEASE 08/25/2205/25 Britney Eduardo NP Nurse Practitioner Nurse Practitioner Family 01/01/23 05/25/24 Wilber Orellana MD [address] [place], [place] [address] Consulting Physician NEPHROLOGY 06/30/23 11/06/24 Brown Middleton MD [address] [place] [phone] Consulting Physician ENDOCRINOLOGY 05/26/24 Hai Frausto MD [address] [phone] SURGERY 10/27/24 Wilber Orellana MD [address] [place] [phone] Consulting Physician INTERNAL MEDICINE 06/30/23 None, Provider, UNKNOWN PHYSICIAN SPECIALTY 11/16/24 12/13/24 [place] [address] [place] [address] Referring Physician Psychiatry 12/14/24 Britney Eduardo NP [address] [place] [phone] Nurse Practitioner NEPHROLOGY 04/25/25 documented as of this encounter
--- OUTSIDE RECORDS SUMMARY | 2025-05-06 23:43 | XMS_ITS | Clinical Summary ---
Author Organization [facility] Address [address] [place] [address] Care Team Providers Care Contracting Specialist Name Role Phone Brown Middleton MD Unavailable [phone] Hai Frausto MD Unavailable [phone] Wilber Orellana MD Unavailable [phone] Kristopher Almaraz MD Unavailable [phone] Britney Eduardo STAFF OCCUPATIONAL THERAPIST Unavailable [phone] Elis Linn [facility] Primary Care Provider [phone] Allergies Active Allergy Reactions Criticality Noted Date [...] left breast in female, estrogen receptor positive ([facility]) TAKE 1 TABLET BY MOUTH DAILY 90 [...] type 10/29/2022 Stage 4 chronic kidney disease ([facility]) 10/29/2022 Essential (primary) hypertension 10/29/2022 Anemia due to stage 3a chronic kidney disease At risk for loss of bone density 09/19/2019 Class 1 obesity without serious comorbidity in a dult 05/23/2019 History of thyroid cancer 05/23/2019 Malignant neoplasm of upper- 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 ([facility]) 05/02/2019 Cancer Staging:Pathologic stage from 05/04/2019:Stage IA(pT1b, pN0(sn), cM0, G2, ER+, DC+, HER2-) - Unsigned Clinical: Unsigned Encounters Date Type Department Care Team Description 05/04/2025 Telephone [facility] [address] [place] [address] Александр Sandhu MD Chest Pain 05/03/2025 Telephone [facility] [address] [place] [address] Douglas Vincent MD Breathing Problem 04/12/2025 7:58 AM CDT - 04/12/2025 11:59 PM CDT Hospital Encounter [facility] [place] [address] Wilber Orellana MD Discharge Disposition: Home or Self Care (Routine Discharge) 04/12/2025 Orders Only [facility] [place] [address] Wilber Orellana MD 04/12/2025 Travel 03/28/2025 8:00 AM CDT - 03/28/2025 11:59 PM CDT Hospital Encounter [facility] [place] [address] Wilber Orellana MD Discharge Disposition: Home or Self Care (Routine Discharge) 03/28/2025 Telephone [facility] [address] [place] [address] Douglas Vincent MD Refill Request 03/28/2025 Travel 03/21/2025 Transcribe Orders [facility] [place] [address] Kristy Robles MD 03/21/2025 Transcribe Orders [facility] [place] [address] Kristy Robles MD 03/15/2025 12:56 PM CDT - 03/15/2025 11:59 PM CDT [facility] [place] [address] Wilber Orellana MD Discharge Disposition: Home or Self Care (Routine Discharge) 03/15/2025 Travel 02/20/2025 9:43 AM CDT - 02/20/2025 11:59 PM CDT Hospital Encounter [facility] [address] [place] [address] Wilber Orellana MD Discharge Disposition: Home or Self Care (Routine Discharge) 02/20/2025 9:28 AM CDT - 02/20/2025 9:42 AM CDT Hospital Encounter [facility] [address] [place] [address] Britney Eduardo NP Discharge Disposition: Home or Self Care (Routine Discharge) 02/20/2025 Orders Only [facility] [address] [place] [address] Wilber Orellana MD 02/20/2025 Orders Only [facility] [address] [place] [address] Britney Eduardo NP 02/20/2025 Travel from Last [...] Sex Assigned at Female 10/23/2024 12:36 PM [employer] Legal Sex Female 8:54 PM CDT Gender Identity Not on file Sexual Orientation Not on file Last Filed Vital Signs Vital Sign Reading Time Taken Comments Blood Pressure 130/78 11/16/2024 1:06 PM [employer] Pulse 70 11/16/2024 1:06 PM [employer] Temperature 36 C (96.8 F) 07/17/2024 11:23 AM [employer] Respiratory Rate 16 11/16/2024 1:06 PM [employer] Oxygen Saturation 98% 07/17/2024 11:23 AM [employer] Inhaled Oxygen Concentration - - Weight 90.7 kg (200 lb) 11/16/2024 1:06 PM [employer] Height 162.6 cm (5' 4) 11/16/2024 1:06 PM [employer] Body Mass Index 34.33 11/16/2024 1:06 PM [employer] Plan of Treatment Upcoming Encounters Date Type Department Care Team (Late st Contact Info) Description 05/15/2025 5:[address] [facility] [address] [place] [address] Wilber Orellana MD [address] [place] [phone] Health Maintenance Due Date Last Done Comments [...] At risk for loss of bone density terminal computer operator (current) use of other agents affecting estrogen receptors and estrogen levels OCCULT BLOOD, FECES STAT 10/13/2022 9 :49 AM [employer] from Last 3 Months or Most Recently Relevant to Health Maintenance Results * MISCELLANEOUS LAB TEST (04/12/2025 8:11 AM CDT) Only the most recent of2 resultswithin the time period is included. TEST NAME: HLA CARESET AB TO [facility] 04/12/2025 8:31 AM CDT [facility] SPECIMEN TYPE BLOOD 04/12/2025 8:31 AM CDT [facility] TEST RESULT: NO REPORT 04/13/2025 7:50 AM CDT [facility] 04/12/2025 8:11 AM CDT Wilber Orellana MD LABORATORY Final Result [facility] [address] [place] [id number], * [place] ([id number]) (03/28/2025 8:16 AM CDT) 03/28/2025 8:16 AM CDT Narrative ESCRIPTION - 04/01/2025 11:26 AM CDT Patient Name: GENNA KEENE Date of : 1955 Account: [id number] Facility: [facility] Location: [facility] Date of Service: 03/28/2025 Pulmonary Function Test [...] correlation is required. Signature/Date: Carroll ROBLES MD #[id number] /NELIDA us Wilber Orellana MD PFT ORDERABLES Final Result Performing Organization Address City/[facility]/ZIP Co de Phone Number ESCRIPTION * [place] ([id number]) (03/20/2025 9:25 AM CDT) 03/20/2025 9:25 AM CDT Narrative ESCRIPTION - 03/20/2025 5:33 PM CDT Patient Name: GENNA KEENE Date of : 1955 Account: [id number] Facility: [facility] Location: [facility] Date of Service: 03/15/2025 Pulmonary Function Test [...] correlation is required. Signature/Date: Carroll ROBLES MD #[id number] /ANK us Wilber Orellana MD PFT ORDERABLES Final Result Performing Organization Address City/[facility]/ZIP Co de Phone Number ESCRIPTION * (ABNORMAL) ALBUMIN CREATININE URINE RANDOM (02/20/2025 9:54 AM CDT) ALBUMIN (U) 80.6 MG/DL 02/20/2025 10:54 AM CDT [facility] Comment:REFERENCE RANGE NOT ESTABLISHED CREATININE RANDOM (U) 57.4 MG/DL 02/20/2025 10:54 AM CDT [facility] Comment:REFERENCE RANGE NOT ESTABLISHED ALBUMIN/CREAT RATIO 1,403.0(H) <30 MG/G 02/20/2025 10:54 AM CDT [facility] Comment: NORMAL TO MILDLY INCREASED ALBUMINURIA: <30 MG/G MODERATELY INCREASED ALBUMINURIA: 30 TO 300 MG/G SEVERELY INCREASED ALBUMINURIA: >300 MG/G PER KDIGO URINE SPECIMEN / Unknown 02/20/2025 9:54 AM CDT us Britney Eduardo STAFF OCCUPATIONAL THERAPIST URINE ORDERABLES Final Result Performing Organization Address City/[facility]/ZIP Co de Phone Number [facility] [address] [place] [address], * OSMOLALITY, URINE (02/20/2025 9:54 AM CDT) OSMOLALITY (U) 392 50 - 1,200 MOSM/KG 02/20/2025 1:45 PM CDT [facility] URINE SPECIMEN / Unknown 02/20/2025 9:54 AM CDT us Britney Eduardo STAFF OCCUPATIONAL THERAPIST URINE ORDERABLES Final Result [facility] [address] [place] [address], [place] [phone] * (ABNORMAL) PTH - INTACT (02/20/2025 9:52 AM CDT) PTH 204.6(H) 18.4 - 80.1 PG/ML 02/20/2025 1:53 PM CDT [facility] Comment: ASSAY PERFORMED BY CHEMILUMINESCENCE METHODOLOGY USING SIEMENS RoundscapesAUR XPT REAGENT. PATIENT RESULTS DETERMINED BY ASSAYS USING DIFFERENT MANUFACTURERS FOR METHODS MAY NOT BE COMPARABLE. 02/20/2025 9:52 AM CDT Britney Eduardo STAFF OCCUPATIONAL THERAPIST LABORATORY Final Result Performing Organization Address City/[facility]/ZIP Co de Phone Number [facility] [address] [place] [address], [place] [phone] * (ABNORMAL) IRON SATURATION PNL (FE/TIBC/SAT) (02/20/2025 9:52 AM CDT) IRON 39(L) 50 - 170 MCG/DL 02/20/2025 12:49 PM CDT [facility] IRON BINDING CAPACITY 235(L) 250 - 450 MCG/DL 02/20/2025 12:49 PM CDT [facility] IRON SATURATION 17 % 12:49 PM CDT [facility] Comment:REFERENCE RANGE NOT ESTABLISHED 02/20/2025 9:52 AM CDT Britney Eduardo STAFF OCCUPATIONAL THERAPIST LABORATORY Final Result Performing Organization Address City/[facility]/ZIP Co de Phone Number [facility] [place] [address], [place] [phone] * (ABNORMAL) RENAL FUNCTION PANEL (02/20/2025 9:52 AM CDT) SODIUM S/P/B 140 136 - 145 MMOL/L 02/20/2025 10:28 AM CDT [facility] POTASSIUM S/P/B 4.3 3.5 - 5.1 MMOL/L 02/20/2025 10:28 AM CDT [facility] CHLORIDE S/P/B 105 98 - 107 MMOL/L 02/20/2025 10:28 AM CDT [facility] CO2 25.7 21.0 - 32.0 MMOL/L 02/20/2025 10:28 AM CDT [facility] GLUCOSE 109(H) 70 - 99 MG/DL 02/20/2025 10:28 AM [facility] Comment: FASTING GLUCOSE 100 TO 125 MG/DL IS CONSISTENT WITH IMPAIRED FASTING GLUCOSE. FASTING GLUCOSE >125 MG/DL IS CONSISTENT WITH DIABETES. RANDOM GLUCOSE >200 MG/DL WITH HYPERGLYCEMIC SYMPTOMS IS CONSISTENT WITH DIABETES. PER ADA GUIDELINES BUN 48(H) 6 - 24 MG/DL 02/20/2025 10:28 AM [facility] CREATININE S/P/B 2.79(H) 0.55 - 1.02 MG/DL 02/20/2025 10:28 AM [facility] CALCIUM S/P/B 9.3 8.4 - 10.5 MG/DL 02/20/2025 10:28 AM [facility] ALBUMIN S/P/B 3.7 3.4 - 5.0 G/DL 02/20/2025 10:28 AM [facility] PHOSPHORUS 2.7 2.6 - 4.7 MG/DL 02/20/2025 10:28 AM [facility] ANION GAP 9.3 5.0 - 15.0 MMOL/L 02/20/2025 10:28 AM [facility] OSMOLALITY (CALC) 303 MOSM/KG 025 10:28 AM [facility] Comment:REFERENCE RANGE NOT ESTABLISHED GFR ESTIMATE 18(L) >89 ML/MIN/1. 73 M2 02/20/2025 10:28 AM [facility] GFR NOTES GFR REFERENCE S: 02/20/2025 10:28 AM [facility] Comment: THE ESTIMATED GFR IS CALCULATED [...] CDT Britney Eduardo NP LABORATORY Final Result [facility] [address] [place] [address], * (ABNORMAL) CBC W/DIFF AUTOMATED (02/20/2025 9:52 AM CDT) WBC 6.92 4.00 - 10.80 x10'3/uL 02/20/2025 10:04 AM CDT [facility] RBC 4.05(L) 4.10 - 5.40 x10'6/uL 02/20/2025 10:04 AM CDT [facility] HGB 10.7(L) 12.0 - 16.0 G/DL 02/20/2025 10:04 AM CDT [facility] HCT 34.4(L) 36.0 - 47.0 % 02/20/2025 10:04 AM CDT [facility] MCV 84.9 78.0 - 100.0 FL 02/20/2025 10:04 AM CDT [facility] MCH 26.4(L) 27.0 - 31.0 PG 02/20/2025 10:04 AM CDT [facility] MCHC 31.1(L) 33.0 - 36.0 G/DL 02/20/2025 10:04 AM CDT [facility] RDW 16.0(H) 11.5 - 14.5 % 02/20/2025 10:04 AM CDT [facility] PLT 317 150 - 350 x10'3/uL 02/20/2025 10:04 AM CDT [facility] MPV 9.2 7.4 - 10.4 FL 02/20/2025 10:04 AM CDT [facility] CBC COMMENT NORMAL REFERENCE RANGE NOT ESTABLISHED FOR THE PROPORTIONAL LEUKOCYTE DIFFERENTIAL. 02/20/2025 10:04 AM CDT [facility] NEUTROPHILS % 71.9 % 02/20/2025 10:04 AM CDT [facility] LYMPHOCYTES % 19.8 % 02/20/2025 10:04 AM CDT [facility] MONOCYTES % 4.8 % 02/20/2025 10:04 AM CDT [facility] EOSINOPHILS % 2.6 % 02/20/2025 10:04 AM CDT [facility] BASOPHILS % 0.6 % 02/20/2025 10:04 AM CDT [facility] IMMATURE GRANS % 0.3 % 02/21/20 10:04 AM CDT [facility] NRBC % 0.0 % 02/20/2025 10:04 AM CDT [facility] ABS. NEUTROPHILS 4.98 1.60 - 8.30 x10'3/uL 02/20/2025 10:04 AM CDT [facility] ABS. LYMPHOCYTES 1.37 0.80 - 4.70 x10'3/uL 02/20/2025 10:04 AM CDT [facility] ABS. MONOCYTES 0.33 0.00 - 1.50 x10'3/uL 02/20/2025 10:04 AM CDT [facility] ABS. EOSINOPHILS 0.18 0.00 - 0.40 x10'3/uL 02/20/2025 10:04 AM CDT [facility] ABS. BASOPHILS 0.04 0.00 - 0.20 x10'3/uL 02/20/2025 10:04 AM CDT [facility] ABS. IMMATURE GRANULOCYTES 0.02 0.00 - 0.03 x10'3/uL 02/20/2025 10:04 AM CDT [facility] ABS. NUCLEATED RBC'S 0.00 0.00 - 0.01 x10'3/uL 02/20/2025 10:04 AM CDT [facility] 02/20/2025 9:52 AM CDT Britney Eduardo NP LABORATORY Final Result [facility] [address] [place] [address], * MG SCREENING W ОЛЬГА RT DIGI [...] 4:26 PM Narrative 01/01/2025 4:[place] [address] Examination: Digital right screening mammogram with CAD. [...] * OCCULT BLOOD, FECES (10/13/2022 9:49 AM [employer]) OCCULT BLOOD FECAL NEGATIVE NEGATIVE 10/13/2022 10:01 AM [employer] [facility] STOOL SPECIMEN / Unknown 10/13/2022 9:49 AM [employer] Valentin J Del Angel DO BODY FLUIDS AND STOOLS ORDERA BLES Final Result [facility] [address] [place] [address], from Last 3 Months or Most Recently Relevant to Health Maintenance Insurance MEDICAID [employer] - [employer]CIAL Advance Directives Documents on File Type Date Recorded 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 Advance Directives and Living Will 05/02/2019 10:53 AM 08/08/14 POA- Advance Directives and Living Will 11/27/2017 POWER OF SHIPPING LEAD PERSON R HEALTH CARE Advance Directives and Living Will 2015 POWER OF SHIPPING LEAD PERSON FO R HEALTH CARE Advance Directives and Living Will 02/25/2015 POWER OF SHIPPING LEAD PERSON FO R HEALTH CARE Advance Directives and Living Will 01/11/2015 POWER OF SHIPPING LEAD PERSON FO R HEALTH CARE Advance Directives and Living Will 11/19/2014 POWER OF SHIPPING LEAD PERSON FO R HEALTH CARE Advance Directives and Living Will 11/19/2014 POWER OF SHIPPING LEAD PERSON FO R HEALTH CARE Advance Directives and Living Will 10/16/2014 POWER OF SHIPPING LEAD PERSON FO R HEALTH CARE Advance Directives and Living Will 10/11/2014 POWER OF SHIPPING LEAD PERSON FO R HEALTH CARE Advance Directives and Living Will 10/08/2014 POWER OF SHIPPING LEAD PERSON FO R HEALTH CARE Advance Directives and Living Will 09/25/2014 POWER OF SHIPPING LEAD PERSON FO R HEALTH CARE Advance Directives and Living Will 08/08/2014 POWER OF SHIPPING LEAD PERSON FO R HEALTH CARE * Full Code (Latest Code Status on File) Date Activated Date Inactivated Comments 05/02/2019 6:10 PM 05/05/2019 3:22 PM Care Teams Contracting Specialist Relationship Specialty Start Date End Date [facility] [address] [place] [address] PCP - General NURSE PRACTITIONER 04/25/25 Brown Middleton MD [address] [place] [address] Consulting Physician ENDOCRINOLOGY 05/26/24 Hai Frausto MD [address] [phone] SURGERY 10/27/24 Wilber Orellana MD [address] [phone] Consulting Physician INTERNAL MEDICINE 06/30/23 Kristopher Almaraz MD [address] [address] Referring Physician Psychiatry 12/14/24 Britney Eduardo NP [address] [place] [phone] Nurse Practitioner NEPHROLOGY 04/25/25
--- OUTSIDE RECORDS SUMMARY | 2025-05-06 23:43 | XMS_ITS ---
Author Organization [facility] Address [facility] [place] [address] Care Team Providers Care Round Cutter Operator Name Role Phone Brown Middleton MD Unavailable [phone] Hai Frausto MD Unavailable [phone] Wilber Orellana MD Unavailable [phone] Kristopher Almaraz MD Unavailable [phone] Britney dEuardo PLASMA PROCESSOR Unavailable [phone] Norris Linn [facility] Primary Care Provider [phone] Active Problems Problem Noted Date Diagnosed Date Morbid (severe) obesity due to excess calories 0 01/04/2023 FH: heart disease 10/29/2022 Chest pain, unspecified type 10/29/2022 Stage 4 chronic kidney disease ([facility]) 10/29/2022 Essential (primary) hypertension 10/29/2022 Anemia due to stage 3a chronic kidney disease At risk for loss of bone density 09/19/2019 Class 1 obesity without serious comorbidity in a dult 05/23/2019 History of thyroid cancer 05/23/2019 Malignant neoplasm of upper- 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 ([facility]) 05/02/2019 Cancer Staging:Pathologic stage from 05/04/2019:Stage IA(pT1b, pN0(sn), cM0, G2, ER+, NC+, HER2-) - Unsigned Clinical: Unsigned Current Treatment [...] Care Team Medical Oncologist Noemi Marshall MD [phone] Surgeon Serena Chandler MD [phone] Radiation Oncologist Primary Care Physician NORRIS LINN, [facility] [phone] Nurse Navigator Nuzhat Pablo RN, MSN, MA, OCN [phone] Diagnosis Malignant neoplasm of upper-outer quadrant of [...] physician Noemi Marshall MD According to the [place] [employer], about 20 percent of cancer [...] Retrieved from cancer.net 10/10/2015 Summary of the [place] [employer] Guidelines on Nutrition and Physical [...] with treatment. After Breast Cancer Diagnosis http://www.abcdbreastcancersupport.org/ 399.292.5981 Provides free, personalized information and one-to-one support to those affected by breast cancer- patients, families, and friends. Trained and professionally supported volunteer survivors and co-survivors help those battling breast cancer, from the newly diagnosed to those in treatment and beyond. [place] [employer] www.cancer.org 049-432-2575 Provides cancer information, resources and emotional support to patients and their family memebers. [place] Society of Clinical Oncology www.cancer.net 182-114-7004 Provides trusted and up-to-date cancer information, developed by the world?s leading cancer doctors. Cancer Care, Inc www.cancercare.org 164-482-2273 A national nonprofit organization, which provides free professional help to people with cancer through counseling, education, information and referral and direct financial information. National Cancer Tarrs www.cancer.gov 899-243-1366 Provides cancer information such as statistics, prevention, early detection, survivor netowrks and emotional support. National Comprehensive Cancer Network www.nccn.com Provides information about follow-up care for cancer. Living Beyond Breast Cancer www.lbbc.org 993-129-8596 Breast cancer information and support is available focusing on living well beyond breast cancer with educational newsletters, interactive message boards and much more. The [employer] www.[employer].org 279-009-6744 Offers recent breast cancer news, information on breast health, a calendar of events and announcements of research initiatives. Helpline is also available. Breast 360 www.sojtdh528.org Provides patient information from the [place] Society of Breast Surgeons, with the goal to engage,educate, and empower readers so they are able to make informed decisions for their breast health care.
--- OUTSIDE RECORDS SUMMARY | 2025-05-06 23:43 | XMS_ITS | Encounter Summary ---
Author Organization [facility] Address [facility] [place] [address] Care Team Providers Care Manager Assisted Living Name Role Phone Elis Linn [facility] Primary Care Provider [phone] Riccardo Osorio MD Primary Care Provider [phone] Marni Ugalde MD Unavailable Unavailabl e Britney Eduardo JAPANESE PROFESSOR Unavailable [phone] Susan Sen NP Primary Care Provider [phone] Wilber Orellana MD Unavailable [phone] Brown Middleton MD Unavailable [phone] Hai Frausto MD Unavailable [phone] Wilber Orellana MD Unavailable [phone] None, Provider Unavailable Unavailable None, Provider Primary Care Provider Unavaila Kristopher Pandya MD Unavailable [phone] Karly Valencia APRN Primary Care Provider + Britney Eduardo JAPANESE PROFESSOR Unavailable [phone] Elis Linn [facility] Primary Care Provider [phone] Encounter Details Date Type Department Care Team (Late st Contact Info) Description 02/18/2019 Abstract [facility] [address] [place] [address] , Generic Conversion, Social History Tobacco Use Types Packs/Day Years Used Date Smoking Tobacco: Never Comments Unknown Sex and Gender Information Value Date Recorded Sex Assigned at Female 10/23/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 [address] [place] [address] Wilber Orellana MD [address] [place] [address] documented as of this encounter Visit Diagnoses Not on filedocumented in this encounter Care Teams Manager Assisted Living Relationship Specialty Start Date End Date Elis Linn FNP-BC [address] [place] [address] PCP - General NURSE PRACTITIONER 04/03/19 08/03/22 Riccardo Osorio MD [address] [place] [phone] PCP - General FAMILY PRACTICE 08/04/22 02/24/23 Susan Sen NP [address] [place] [address] PCP - General Nurse Practitioner Women's Health 02/25/23 06/22/23 None, MD Tammie PCP - General UNKNOWN PHYSICIAN SPECIALTY 11/16/24 02/01/25 Karly Valencia APRN [address] [place] [phone] PCP - General Nurse Practitioner Family 02/02/25 04/24/25 Elis Linn FNP-[facility] [address] [place] [address] PCP - General NURSE PRACTITIONER 04/25/25 Marni Ugalde MD [address] [place] [address] Consulting Physician CARDIOVASCULAR DISEASE 08/25/2205/25 Britney Eduardo NP [address] [place] [phone] Nurse Practitioner Nurse Practitioner Family 01/01/23 05/25/24 Wilber Orellana MD [address] [place] [address] Consulting Physician NEPHROLOGY 06/30/23 11/06/24 Brown Middleton MD [address] [place] [phone] Consulting Physician ENDOCRINOLOGY 05/26/24 Hai Frausto MD [address] [phone] SURGERY 10/27/24 Wilber Orellana MD [address] [phone] Consulting Physician INTERNAL MEDICINE 06/30/23 None, MD Tammie UNKNOWN PHYSICIAN SPECIALTY 11/16/24 12/13/24 Kristopher Almaraz MD [address] [place], [place] [phone] Referring Physician Psychiatry 12/14/24 Britney Eduardo NP [address] [place] [address] Nurse Practitioner NEPHROLOGY 04/25/25 documented as of this encounter
--- OUTSIDE RECORDS SUMMARY | 2025-05-06 23:43 | XMS_ITS | Encounter Summary ---
Author Organization [facility] Address [address] [place] [address] Care Team Providers Care Manager Access Name Role Phone Elis Linn [facility] Primary Care Provider [phone] Riccardo Osorio MD Primary Care Provider [phone] Marni Ugalde MD Unavailable Unavailabl e Britney Eudardo TRAFFIC MANAGER Unavailable [phone] Susan Sen NP Primary Care Provider [phone] Wilber Orellana MD Unavailable [phone] Brown Middleton MD Unavailable [phone] Hai Frausto MD Unavailable [phone] Wilber Orellana MD Unavailable [phone] None, Provider Unavailable Unavailable None, Provider Primary Care Provider Unavaila Kristopher Pandya MD Unavailable [phone] Karly Valencia APRN Primary Care Provider + Britney Eduardo TRAFFIC MANAGER Unavailable [phone] Elis Linn [facility] Primary Care Provider [phone] Encounter Details Date Type Department Care Team (Late st Contact Info) Description 11/27/2017 Abstract [facility] CONVERSION [address] [place] [address] , Generic Conversion, Social History Tobacco Use Types Packs/Day Years Used Date Smoking Tobacco: Never Comments Unknown Sex and Gender Information Value Date Recorded Sex Assigned at Female 10/23/2024 12:36 PM [employer] Sex Female 8:54 PM CDT Gender Identity Not on file Sexual Orientation Not on file documented as of this encounter Plan of Treatment Upcoming Encounters Date Type Department Care Team (Late st Contact Info) Description 05/15/2025 5:[address] [facility] [address] [place] [address] Wilber Orellana MD [address] [place] [address] documented as of this encounter Visit Diagnoses Not on filedocumented in this encounter Care Teams Manager Access Relationship Specialty Start Date End Date Elis Linn FNP-BC [address] [place] [address] PCP - General NURSE PRACTITIONER 04/03/19 08/03/22 Riccardo Osorio MD [address] [place] [phone] PCP - General FAMILY PRACTICE 08/04/22 02/24/23 Susan Sen NP [address] [place] [address] PCP - General Nurse Practitioner Women's Health 02/25/23 06/22/23 None, MD Tammie PCP - General UNKNOWN PHYSICIAN SPECIALTY 11/16/24 02/01/25 Karly Valencia APRN [address] [place] [id number] PCP - General Nurse Practitioner Family 02/02/25 04/24/25 Elis Linn FNP-BC [address] [place] [address] PCP - General NURSE PRACTITIONER 04/25/25 Marni Ugalde MD [address] [place] [address] Consulting Physician CARDIOVASCULAR DISEASE 08/25/2205/25 Britney Eduardo NP [address] [place] [phone] Nurse Practitioner Nurse Practitioner Family 01/01/23 05/25/24 Wilber Orellana MD [address] [place] [address] Consulting Physician NEPHROLOGY 06/30/23 11/06/24 Brown Middleton MD [address] [place] [phone] Consulting Physician ENDOCRINOLOGY 05/26/24 Hai Frausto MD [address] [phone] SURGERY 10/27/24 Wilber Orellana MD [address] [phone] Consulting Physician INTERNAL MEDICINE 06/30/23 None, MD Tammie UNKNOWN PHYSICIAN SPECIALTY 11/16/24 12/13/24 Kristopher Almaraz MD [address] [place], [place] [phone] Referring Physician Psychiatry 12/14/24 Britney Eduardo NP [address] [place] [address] Nurse Practitioner NEPHROLOGY 04/25/25 documented as of this encounter
[2025-05-07] VITALS (12 sets, daily range): BP systolic 124–166; BP diastolic 56–89; PULSE 70–106; RESP 16–18; TEMP 36.3–36.8; O2SAT 94–98; BMI 34.6
--- NOTE | 2025-05-07 05:00 | ECHO_ITS ---
Patient Info Name: Genna Brown Age: 70 years : 1955 Gender: Female Ht: 64 in Wt: 201 lbs BSA: 2.07 m2 HR: 80 bpm BP: 131 / 81 mmHg Technical Quality: Good Exam Date: 05/07/2025 10:33 AM Patient Status: I Admit Date: 05/06/2025 Exam Type: CA echo doppler color flow Complete two-dimensional, color flow and Doppler transthoracic echocardiogram is performed. Staff Referring Physician: Carlita Knight [facility] Coordinator: Krys Haddad Attending Provider: Kristian Meadows Summary 1. Complete two-dimensional, color flow and Doppler transthoracic echocardiogram is performed. 2. The left ventricle is normal in size and systolic function. There is severe concentric left ventricular hypertrophy. The left ventricular ejection fraction is visually estimated to be 60-65%. There is grade 2 diastolic dysfunction. 3. The right ventricle is normal in size and systolic function. 4. The mitral valve leaflets are sclerotic. There is moderate mitral regurgitation. 5. The tricuspid valve is normal. There is moderate tricuspid regurgitation. 6. There is moderate pulmonary hypertension. Pulmonary arterial systolic pressure is estimated at 51 mmHg. Left Ventricle The left ventricle is normal in size and systolic function. There is severe concentric left ventricular hypertrophy. The left ventricular ejection fraction is visually estimated to be 60-65%. There is grade 2 diastolic dysfunction. Right Ventricle The right ventricle is normal in size and systolic function. Left Atria The left atrium is mildly dilated. Right Atria The right atrium is normal size. Atrial Septum The atrial septum is not well visualized. Aortic Valve The aortic valve is trileaflet and opens well. There is no aortic regurgitation. Pulmonic Valve The pulmonic valve is grossly normal. There is no color Doppler evidence of pulmonic valve regurgitation. Mitral Valve The mitral valve leaflets are sclerotic. There is moderate mitral regurgitation. Tricuspid Valve The tricuspid valve is normal. There is moderate tricuspid regurgitation. Pulmonary Arteries There is moderate pulmonary hypertension. Pulmonary arterial systolic pressure is estimated at 51 mmHg. Pericardium/Pleural Pericardium is normal in appearance with no evidence for significant pericardial effusion. Inferior Vena Cava Normal inferior vena cava with <50% collapse upon inspiration consistent with elevated right atrial pressure, 8 mmHg. Aorta The aortic root at the level of the sinus of Valsalva measures 2.6 cm in diameter. Left Ventricular Outflow Tract Name Value Normal LVOT 2D LVOT Diameter 1.9 cm LVOT Doppler LVOT Peak Velocity 132 cm/s LVOT Peak Gradient 7 mmHg LVOT Mean Gradient 5 mmHg LVOT VTI 30 cm LVOT VTI/AV VTI Ratio 0.7 LVOT Stroke Volume 86 ml LVOT CO 17.8 l/min LVOT CI 8.6 l/min/m2 Pulmonic Valve Name Value Normal PV Doppler PV Peak Velocity 128 cm/s PV Peak Gradient 7 mmHg Mitral Valve Name Value Normal MV Diastolic Function MV E Peak Velocity 107 cm/s MV A Peak Velocity 112 cm/s MV E/A 1.0 MV Decel Time (PW) 253 ms MV Annular TDI MV E/e' (Septal) 12.1 MV E/e' (Lateral) 10.1 MV E/e' (Average) 11.1 Tricuspid Valve Name Value Normal TV Regurgitation Doppler TR Peak Velocity 327 cm/s TR Peak Gradient 43 mmHg Estimated PAP/RSVP RA Pressure 8 mmHg <=5 PA Systolic Pressure 51 mmHg <36 RV Systolic Pressure 51 mmHg <36 TV Annular TDI TV Lateral Natalya s' Velocity 15.0 cm/s >=9.5 Aorta Name Value Normal Ascending Aorta Ao Root Diameter (MM) 3.2 cm Ao Root Diam Index (MM) 1.6 cm/m2 Aortic Valve Name Value Normal AV Doppler AV Peak Velocity 205 cm/s AV Peak Gradient 17 mmHg AV Mean Gradient 11 mmHg AV VTI 45 cm AV Area (Cont Eq VTI) 1.9 cm2 >=3.0 AV Area (Cont Eq Manfred) 1.8 cm2 AV DI (Manfred) 0.65 AV Regurgitation 2D LVOT Area 2.9 cm2 Ventricles Name Value Normal LV Dimensions 2D/MM IVS Diastolic Thickness (2D) 1.5 cm 0.6-1.0 LVID Diastole (2D) 5.2 cm 3.8-5.2 LVIW Diastolic Thickness (2D) 1.3 cm 0.6-0.9 LVID Systole (2D) 3.6 cm 2.2-3.5 LVOT Diameter 1.9 cm LV Mass (2D Cubed) 298.88 g 67.00-162.00 LV Mass Index (2D Cubed) 145 g/m2 43-95 Relative Wall Thickness (2D) 0.50 <=0.42 LV Fractional Shortening/Ejection Fraction 2D/MM LV Fractional Shortening (2D) 29 % 27-45 LV EF (2D Teichjadaz) 56 % LV Diastolic Volume (4C MOD) 150 ml LV EF (4C MOD) 68 % LV Diastolic Volume (2C MOD) 111 ml LV EF (2C MOD) 56 % LV Diastolic Volume (BP MOD) 129 ml 46-106 LV Diastolic Volume Index (BP MOD) 62 ml/m2 29-61 LV Systolic Volume (BP MOD) 48 ml 14-42 LV Systolic Volume Index (BP MOD) 23 ml/m2 8-24 LV EF (BP MOD) 63 % 54-74 LV Diastolic Length (4C) 8.4 cm LV Systolic Length (4C) 6.6 cm LV Stroke Volume (4C MOD) 102 ml RV Dimensions 2D/MM RVID Diastole (2D) 3.5 cm 2.1-3.5 Atria Name Value Normal LA Dimensions LA Dimension (MM) 4.5 cm 2.7-3.8 LA Volume (4C A-L) 44 ml LA Volume (BP A-L) 69 ml RA Dimensions RA Systolic Major Thicket Length (4C) 4.9 cm 2.2-2.8 RA Area (4C) 15.6 cm2 <=18.0 Report Signatures
[2025-05-07 05:04] LABS: Hematocrit 27.7 % (37.0-47.0); Hemoglobin 8.6 g/dL (12.0-15.0); Immature Granulocyte Percent A 0.4 % (0-0.5); Lymphocytes Absolute Auto 1.17 K/mm3 (0.9-3.2); Mean Corpuscular HGB Conc 31.0 g/dl (32-36); Mean Corpuscular Hemoglobin 27.2 pg (26-34); Mean Corpuscular Volume 87.7 fl (80-100); Nucleated Red Blood Cells Absolute Auto 0.000 K/mm3 (0.0-0.012); Nucleated Red Blood Cells Perc 0.0 % (0.0-0.2); Platelet Count Result 250 k/mm3 (150-375); Red Blood Count 3.16 M/mm3 (4.2-5.4); White Blood Count 6.8 K/mm3 (4.5-10.0)
[2025-05-07 05:13] LABS: Hemoglobin A1C 4.3 % (<5.7)
[2025-05-07 05:20] LABS: Alanine Aminotransferase 73 U/L (6-35); Albumin Level 4.2 g/dL (3.5-5.1); Alkaline Phosphatase 118 U/L (38-126); Anion Gap 9 mmol/L (4-12); Aspartate Amino Transferase 55 U/L (14-36); Bilirubin,Total 0.4 mg/dL (0.2-1.3); Blood Urea Nitrogen 52 mg/dL (7-17); Calcium 8.9 mg/dL (8.4-10.2); Carbon Dioxide 18 mmol/L (22-30); Chloride 111 mmol/L (98-107); Estimated CRCL calculation 18 ml/min; Estimated Glomerular Filt Rate 16; Glucose 88 mg/dL (65-110); Potassium 3.9 mmol/L (3.4-5.0); Sodium 138 mmol/L (137-145); Total Protein 7.6 g/dL (6.3-8.2)
[2025-05-07] MEDS: LEVOTHYROXINE SODIUM 100 MCG TABLET PO (06:32)
[2025-05-07] MEDS: LEVOTHYROXINE SODIUM 75 MCG TABLET PO (06:32)
--- NOTE | 2025-05-07 07:41 | P.PNIM_ITS ---
Progress Note: A&P Assessment and Plan (1) New onset of congestive heart failure: Code(s): I50.9 - Heart failure, unspecified Status: Inactive Assessment and Plan: Patient presents with is a worsening of lower extremity edema and shortness of breath, suspected for new onset CHF Elevated BNP> 1800, in the setting of ESRD Status post IV Lasix 20 mg once Cardiology consult in the ED EKG without ST wave changes Echo ordered, continuous telemetry, strict I and os, standing daily weight,Na<2gs Per cardiology, lasix 40 mg IV b.i.d. Dietary consult, PT/OT (2) End-stage renal disease (ESRD): Code(s): N18.6 - End stage renal disease Status: Inactive Assessment and Plan: Patient reports her nephrology is in [facility] Patient she has polycystic kidney Follow renal ultrasound At baseline creatinine seems high 2.7, in this admission her creatinine is 2.86 Nephrology consult Blood pressure control (3) Anemia associated with chronic renal failure: Code(s): N18.9 - Chronic kidney disease, unspecified; D63.1 - Anemia in chronic kidney disease Status: Inactive Assessment and Plan: Anemia likely secondary to kidney disease Iron studies shows iron 31, TIBC 272 and % saturation 11 Will give iron IV x3 (4) Hyperlipidemia: Code(s): E78.5 - Hyperlipidemia, unspecified Status: Acute Assessment and Plan: Continue statin (5) Hypertension: Code(s): I10 - Essential (primary) hypertension Status: Acute Assessment and Plan: Continue amlodipine and isosorbide BP goal <130/80 Plan Subjective Date/time seen: 05/07/25 07:41 Interval history: Patient was seen and evaluated this morning. She is feeling a lot better she does not have chest pain or chest tightness. She has 2+ lower extremity edema. She denies fever, chest pain, abdominal pain or diarrhea. Objective Data Vital Signs Vital Signs: Vital Signs - 24 hr 05/06/25 20:00 05/06/25 20:50 05/06/25 21:20 Temperature 36.7 C Pulse Rate 113 H 104 H 104 H Respiratory Rate 18 20 Blood Pressure 157/76 H Pulse Oximetry 99 97 Oxygen Delivery Room Air Fraction of Inspired Oxygen 21 05/06/25 22:34 05/06/25 23:34 05/07/25 00:00 Temperature 36.7 C Pulse Rate 96 89 95 Respiratory Rate 18 Blood Pressure 143/57 H Pulse Oximetry 98 99 Oxygen Delivery Autopap Fraction of Inspired Oxygen 05/07/25 00:59 05/07/25 03:50 05/07/25 04:00 Temperature 36.8 C Pulse Rate 95 89 85 Respiratory Rate 18 Blood Pressure 131/81 Pulse Oximetry 98 98 Oxygen Delivery Autopap Fraction of Inspired Oxygen Intake/Output Intake/Output: Intake & Output 05/04/25 05/05/25 05/06/25 05/07/25 23:59 23:59 23:59 23:59 Intake Total 550 150 Output Total 100 800 Balance 450 -650 Meds/Results Medications: Active Medications Generic Name Dose Route Start Last Admin Trade Name Freq PRN Reason Stop Dose Admin Acetaminophen 650 mg 05/06/25 22:20 05/06/25 22:36 Acetaminophen 325 Mg Tablet PO 650 mg Q6H PRN Administration Mild Pain (1-3) or Fever Amlodipine Besylate 10 mg 05/07/25 09:00 Amlodipine Besylate 10 Mg Tablet PO DAILY [facility] Aspirin 81 mg 05/07/25 09:00 Aspirin 81 Mg Enteric Tablet PO DAILY [facility] Atorvastatin Calcium 80 mg 05/07/25 09:00 Atorvastatin 40 Mg Tablet PO DAILY [facility] Calcitriol 0.25 mcg 05/07/25 09:00 Calcitriol 0.25 Mcg Capsule PO DAILY [facility] Docusate Sodium 100 mg 05/06/25 21:12 Docusate Sodium 100 Mg Capsule PO DAILY PRN Constipation Heparin Sodium (Porcine) 5,000 units 05/07/25 09:00 Heparin Sodium 5,000 Units/Ml Vial SUB-Q Q12HR [facility] Isosorbide Mononitrate 60 mg 05/07/25 09:00 Isosorbide Mononitrate 60 Mg Tab.Er.24h PO DAILY [facility] Levothyroxine Sodium 100 mcg 05/07/25 06:30 05/07/25 06:32 Levothyroxine Sodium 100 Mcg Tablet PO 100 mcg DAILY@0630 [facility] Administration Levothyroxine Sodium 75 mcg 05/07/25 06:30 05/07/25 06:32 Levothyroxine Sodium 75 Mcg Tablet PO 75 mcg DAILY@0630 SREEDHAR Administration Metoprolol Succinate 100 mg 05/07/25 09:00 Metoprolol Succinate Ext Rel 100 Mg Tabcr PO DAILY [facility] Pantoprazole Sodium 40 mg 05/07/25 09:00 Pantoprazole 40 Mg Tablet PO BID [facility] Perflutren Lipid Microsphere 0 ml 05/06/25 21:13 Perflutren Lipid Microspheres 1.5 Ml Vial Diluted To 10 Ml Total Volume IV PUSH 05/09/25 21:15 ONCE PRN adequate visualization Protocol Quetiapine Fumarate 50 mg 05/06/25 21:20 05/06/25 22:37 Quetiapine Fumarate 25 Mg Tablet PO 50 mg Q12HR [facility]RE[facility] Administration Venlafaxine HCl 150 mg 05/06/25 21:20 05/06/25 22:36 Venlafaxine Hcl Xr 75 Mg Cap.Er.24h PO 150 mg HS SREEDHAR Administration Labs Labs: Laboratory Results - last 24 hr 05/07/25 04:28 WBC 6.8 RBC 3.16 L Hgb 8.6 L Hct 27.7 L MCV 87.7 MCH 27.2 MCHC 31.0 L RDW 16.0 H Plt Count 250 MPV 9.0 Immature Gran % (Auto) 0.4 Neut % (Auto) 72.6 Lymph % (Auto) 17.2 L Hamlin % (Auto) 7.2 Eos % (Auto) 2.2 Baso % (Auto) 0.4 Lymph # (Auto) 1.17 Hamlin # (Auto) 0.5 Eos # (Auto) 0.2 Baso # (Auto) 0.0 Abs Immat Gran (auto) 0.03 Absolute Neuts (auto) 4.9 Absolute Nucleated RBC 0.000 Nucleated RBC % 0.0 Sodium 138 Potassium 3.9 Chloride 111 H Carbon Dioxide 18 L Anion Gap 9 BUN 52 H Creatinine 2.88 H Estim Creat Clear Calc 18 Estimated GFR 16 L Glucose 88 Hemoglobin A1c 4.3 Calcium 8.9 Phosphorus 4.9 H Total Bilirubin 0.4 AST 55 H ALT 73 H Alkaline Phosphatase 118 Total Protein 7.6 Albumin 4.2 Quality VTE Prophylaxis VTE prophylaxis: pharmacologic ordered (Heparin 5000 t.i.d.)
[2025-05-07 07:50] LABS: Iron 31 ug/dL (37-170)
[2025-05-07 07:51] LABS: Magnesium 1.8 mg/dL (1.6-2.3)
[2025-05-07 08:00] LABS: Percent Iron Saturation 11 % (20-50)
[2025-05-07 08:32] LABS: Ferritin 126.00 ng/mL (11.1-264)
[2025-05-07] MEDS: ATORVASTATIN 40 MG TABLET 80 MG PO (09:25)
[2025-05-07] MEDS: ISOSORBIDE MONONITRATE 60 MG TAB.ER.24H PO (09:26)
[2025-05-07] MEDS: ASPIRIN 81 MG ENTERIC TABLET PO (09:26)
[2025-05-07] MEDS: METOPROLOL SUCCINATE EXT REL 100 MG TABCR PO (09:26)
[2025-05-07] MEDS: PANTOPRAZOLE 40 MG TABLET PO ×2 (09:27→16:00)
--- NOTE | 2025-05-07 09:52 | PM.CNCAR ---
Assessment and Plan Assessment and plan (1) Shortness of breath: Code(s): R06.02 - Shortness of breath Status: Acute (2) Hypertension: Code(s): I10 - Essential (primary) hypertension Status: Acute (3) Hyperlipidemia: Code(s): E78.5 - Hyperlipidemia, unspecified Status: Acute Plan 70-year-old woman with CKD stage 4, hypertension, and hyperlipidemia presented with worsening shortness of breath Shortness of breath -likely secondary to volume overload in setting of chronic kidney disease and likely diastolic heart dysfunction -Lasix 40 mg IV b.i.d. and obtain transthoracic echocardiogram -anemia likely a result of worsening renal function -consider Nephrology evaluation Hypertension -amlodipine 10 mg p.o. daily and isosorbide mononitrate 60 mg p.o. daily -blood pressure may improve with volume control Hyperlipidemia -continue atorvastatin 80 mg every evening History of Present Illness History of Present Illness Consult date/time: 05/07/25 09:52 Requesting physician: Carlita Knight APRN Reason For Visit: New CHF Narrative: 70-year-old woman with CKD stage 4, hypertension, and hyperlipidemia presented with worsening shortness of breath. The shortness of breath started about a week ago. Would be exacerbated by physical activity. Associated with orthopnea and lower extremity swelling. Has some abdominal distention. Denies any constipation had bowel movement yesterday. She noted that she has been urinating about the same amount every day. She was at jainism when she significant shortness of breath while sitting and her daughter decided to bring her to the hospital for further evaluation. She also has associated chest discomfort that comes shortly after her shortness of breath. Denies any syncopal events. Review of Systems Cardiovascular: Cardiovascular: Reports as per HPI Respiratory: Respiratory: Reports as per HPI [facility] Past Medical History Medical History Hx of thyroid cancer Breast cancer CKD (chronic kidney disease) Social History Social History Smoking status: Never smoker Alcohol intake: never Substance use: never Substance use type: does not use Lack of Transportation: No Lack of Food: Never True Current Housing: I Have Housing Concerned About Future Housing: No Difficulty Paying Gas/Electric Bills: No Difficulty Paying for Meds: No Currently Unemployed: No Education: High School Diploma/GED Difficulty w/ Childcare or Family Care: No Spiritual care concerns: No Meds Home Medications and Allergies Home Medications ?Medication ?Instructions ?Recorded ?Confirmed ?Type amlodipine 10 mg tablet 10 mg PO DAILY 05/06/25 05/06/25 History aspirin 81 mg tablet,delayed 81 mg PO DAILY 05/06/25 05/06/25 History release atorvastatin 80 mg tablet 80 mg PO DAILY 05/06/25 05/06/25 History calcitriol 0.25 mcg capsule 0.25 mcg PO DAILY 05/06/25 05/06/25 History docusate sodium 100 mg capsule 100 mg PO DAILY PRN constipation 05/06/25 05/06/25 History ergocalciferol (vitamin D2) 1,250 1,250 mcg PO MONTHLY 05/06/25 05/06/25 History mcg (50,000 unit) capsule famotidine 20 mg tablet 20 mg PO BID 05/06/25 05/06/25 History ferrous sulfate 325 mg (65 mg 325 mg PO BID 05/06/25 05/06/25 History iron) tablet (FeroSul) isosorbide mononitrate 60 mg 60 mg PO DAILY 05/06/25 05/06/25 History tablet,extended release 24 hr levothyroxine 175 mcg tablet 175 mcg PO DAILY 05/06/25 05/06/25 History metoprolol succinate 100 mg 100 mg PO DAILY 05/06/25 05/06/25 History tablet,extended release 24 hr omeprazole 40 mg capsule,delayed 40 mg PO DAILY 05/06/25 05/06/25 History release quetiapine 25 mg tablet 50 mg PO BID 05/06/25 05/06/25 History tizanidine 2 mg tablet 2 mg PO Q8H PRN muscle spasticity 05/06/25 05/06/25 History venlafaxine 150 mg 150 mg PO HS 05/06/25 05/06/25 History capsule,extended release 24 hr Allergies Allergy/AdvReac Type Severity Reaction Status Date / Time No Known Allergies Allergy Verified 05/06/25 14:56 Vital Signs Vital Signs - 24 hr 05/06/25 20:00 05/06/25 20:50 05/06/25 21:20 Temperature 36.7 C Pulse Rate 113 H 104 H 104 H Respiratory Rate 18 20 Blood Pressure 157/76 H Pulse Oximetry 99 97 Oxygen Delivery Room Air Fraction of Inspired Oxygen 21 05/06/25 22:34 05/06/25 23:34 05/07/25 00:00 Temperature 36.7 C Pulse Rate 96 89 95 Respiratory Rate 18 Blood Pressure 143/57 H Pulse Oximetry 98 99 Oxygen Delivery Autopap Fraction of Inspired Oxygen 05/07/25 00:59 05/07/25 03:50 05/07/25 04:00 Temperature 36.8 C Pulse Rate 95 89 85 Respiratory Rate 18 Blood Pressure 131/81 Pulse Oximetry 98 98 Oxygen Delivery Autopap Fraction of Inspired Oxygen 05/07/25 08:00 05/07/25 08:00 05/07/25 09:18 Temperature 36.4 C Pulse Rate 98 99 99 Respiratory Rate 18 Blood Pressure 166/89 H 132/80 132/80 Pulse Oximetry 97 Oxygen Delivery Fraction of Inspired Oxygen 05/07/25 09:18 05/07/25 09:23 05/07/25 09:26 Temperature 36.7 C Pulse Rate 100 83 91 Respiratory Rate 16 Blood Pressure 150/68 H 148/83 H Pulse Oximetry 96 Oxygen Delivery Fraction of Inspired Oxygen 05/07/25 09:27 05/07/25 09:27 Temperature Pulse Rate 91 106 H Respiratory Rate 16 Blood Pressure Pulse Oximetry 96 Oxygen Delivery Room Air Fraction of Inspired Oxygen 21 Exam Const: General: comfortable HENMT: Mouth: Yes moist mucous membranes Eyes: EOM: EOMs intact bilaterally Neck: Neck: no JVD Resp: Effort & Inspection: normal respiratory effort Auscultation: rales Cardio: Rate: tachycardic Rhythm: regular rhythm Heart sounds: no gallops GI: Inspection: distended Neuro: Speech: normal speech Extrem: General: pedal edema Results Labs and Meds 05/07/25 04:28 05/07/25 04:28 Lab results: Cardiac Enzymes 05/07/25 Range/Units 04:28 AST 55 H (14-36) U/L CBC 05/07/25 Range/Units 04:28 WBC 6.8 (4.5-10.0) K/mm3 RBC 3.16 L (4.2-5.4) M/mm3 Hgb 8.6 L (12.0-15.0) g/dL Hct 27.7 L (37.0-47.0) % Plt Count 250 (150-375) k/mm3 Lymph # (Auto) 1.17 (0.9-3.2) K/mm3 Moffat # (Auto) 0.5 (0.1-0.6) K/mm3 Eos # (Auto) 0.2 (0-0.3) K/mm3 Baso # (Auto) 0.0 (0.0-0.1) K/mm3 Comprehensive Metabolic Panel 05/07/25 Range/Units 04:28 Sodium 138 (137-145) mmol/L Potassium 3.9 (3.4-5.0) mmol/L Chloride 111 H (98-107) mmol/L Carbon Dioxide 18 L (22-30) mmol/L BUN 52 H (7-17) mg/dL Creatinine 2.88 H (0.7-1.0) mg/dL Glucose 88 (65-110) mg/dL Calcium 8.9 (8.4-10.2) mg/dL AST 55 H (14-36) U/L ALT 73 H (6-35) U/L Alkaline Phosphatase 118 (38-126) U/L Total Protein 7.6 (6.3-8.2) g/dL Albumin 4.2 (3.5-5.1) g/dL Intake and Output 05/06/25 05/07/25 05/07/25 23:59 07:59 15:59 Intake Total 550 150 240 Output Total 100 800 Balance 450 -650 240 Intake: Oral 550 150 240 Output: Urine 100 800 Patient Weight 05/07/25 23:59 Weight 91.5 kg
[2025-05-07] MEDS: IRON SUCROSE COMPLEX 200 MG, IRON SUCROSE COMPLEX 100 MG in SODIUM CHLORIDE 0.9% IV 250 ML 176.67 MG IVPB (15:58)
[2025-05-07] MEDS: FUROSEMIDE INJ 40 MG/4 ML VIAL IV PUSH (16:00)
--- NOTE | 2025-05-07 16:05 | P.CONNP_ITS ---
Assessment and Plan Assessment and plan (1) Stage 4 chronic kidney disease: Code(s): N18.4 - Chronic kidney disease, stage 4 (severe) Status: Chronic Assessment and Plan: * baseline creatinine running 2.3 - 2.8mg/dl * creatinine 2.79mg/dL in February 2025 by outpatient labs * secondary to polycystic kidney disease along with contributions from hypertension and vascular disease * follows with nephrology in [place], [place] for management of this issue (2) Shortness of breath: Code(s): R06.02 - Shortness of breath Status: Acute Assessment and Plan: * suspect multifactorial: * diastolic CHF * advanced CKD * relative anemia * obesity (i.e. OHS?) * other(?) * CXR clear but some peripheral edema noted * no evidence of hypoxia * follow respiratory status with current interventions (3) CHF exacerbation: Code(s): I50.9 - Heart failure, unspecified Status: Acute Assessment and Plan: * suspected and presumably playing a role with #2 * Echo results noted: * left ventricular ejection fraction is visually estimated to be 60 - 65% * There is grade 2 diastolic dysfunction * mitral valve leaflets are sclerotic * There is moderate mitral regurgitation. * tricuspid valve is normal * moderate tricuspid regurgitation * moderate pulmonary hypertension -- pulmonary arterial systolic pressure is estimated at 51 mmHg * Cardiology following * initiated on trial of IV diuresis * follow daily weights, I/Os, and respiratory status * follow renal function (4) Anemia: Code(s): D64.9 - Anemia, unspecified Status: Acute Assessment and Plan: * partly related to underlying CKD * anemia studies also demonstrate iron deficiench * initiated on IV iron * consider NORRIS during hospital stay * follow trend of H/H (5) Hypertension: Code(s): I10 - Essential (primary) hypertension Status: Chronic Assessment and Plan: * elevated on presentation * however, appears to be doing better now * follow trend of hemodynamics (6) Autosomal dominant polycystic kidney disease: Code(s): Q61.2 - Polycystic kidney, adult type Status: Chronic Assessment and Plan: * known history * admission CT imaging consistent with this diagnosis/disease * also supported by family history: * mother with PCKD and required dialysis * sister with PCKD as well I will continue to follow the patient with you while she remains hospitalized and make further recommendations as deemed necessary. Thank you for allowing me to participate in the care of this patient. L History of Present Illness Reason for Consult Consult date: 05/07/25 Reason for consult: chronic renal failure Chief Complaint Chief complaint: New CHF History of Present Illness Narrative: The patient is a 70-year-old female with a past medical history as outlined below who presented to an outside hospital emergency room due to shortness of breath. According to the patient, she has noted the shortness of breath for the past week and seems to be progressively getting worse, more so in the last 2 or 3 days prior to her presentation to the outside hospital ER. Other associated symptoms included mild chest discomfort as well as an increase in lower extremity swelling/edema. while she was in confucianist with her daughter, the shortness of breath made it difficult for her to ambulate at this subsequently led to her visit to the ER for further assessment. Workup and evaluation emergency room demonstrated the patient be hemodynamically stable and afebrile. Routine blood work demonstrated a chemistry consistent with her known history of chronic kidney disease with a BUN of 56, creatinine of 2.86, mildly elevated LFTs, a normal white blood cell count but relative anemia and a normal platelet count. Her urinalysis was unremarkable with regard to an infection and her chest x-ray did not demonstrate any acute pathology either. Given the history of chronic kidney disease and the concern for possible CHF exacerbation, she was transferred to [facility] for further evaluation and therapy. Since her admission, she has been seen by Cardiology and instituted on IV diuretic therapy the assumption that her shortness of breath is secondary to diastolic heart dysfunction in the context of her advanced chronic kidney disease. The patient states that she has been evaluated by Cardiology in the past as part of her transplant workup and there were no significant findings that she is aware of. Renal consultation was requested due to her chronic kidney disease. The patient normally follows with Nephrology in [facility] for her chronic kidney disease which is secondary to her known history of autosomal dominant polycystic kidney disease with some possible contributions from her hypertension and vascular disease as well as age. Her baseline creatinine since the beginning of this year has been fluctuating anywhere from 2.3 - 2.8 mg/dL classifying her as chronic kidney disease stage 4. As far she is aware, this is the 1st time she has ever had any issues or problems with shortness of breath although she does report some on and off mild lower extremity swelling/ edema even at baseline. In spite of her shortness of breath, she does not appear to have any evidence of hypoxia or new oxygen requirements at the time my visit. However, she still feels uncomfortable with regard to her breathing. Review of Systems 2 Review of Systems: As per HPI. [facility] Past Medical History Medical History Hx of thyroid cancer Breast cancer CKD (chronic kidney disease) Social History Social History Smoking status: Never smoker Alcohol intake: never Substance use: never Substance use type: does not use Lack of Transportation: No Lack of Food: Never True Current Housing: I Have Housing Concerned About Future Housing: No Difficulty Paying Gas/Electric Bills: No Difficulty Paying for Meds: No Currently Unemployed: No Education: High School Diploma/GED Difficulty w/ Childcare or Family Care: No Spiritual care concerns: No Meds Home Medications and Allergies Home Medications ?Medication ?Instructions ?Recorded ?Confirmed ?Type amlodipine 10 mg tablet 10 mg PO DAILY 05/06/2504/14 History aspirin 81 mg tablet,delayed 81 mg PO DAILY 05/06/25 0 05/06/25 History release atorvastatin 80 mg tablet 80 mg PO DAILY 05/06/2504/14 History calcitriol 0.25 mcg capsule 0.25 mcg PO DAILY 05/06/25 05/06/25 History docusate sodium 100 mg capsule 100 mg PO DAILY PRN con stipation 05/06/25 05/06/25 History ergocalciferol (vitamin D2) 1,250 1,250 mcg PO MONTHLY 05/06/25 05/06/25 History mcg (50,000 unit) capsule famotidine 20 mg tablet 20 mg PO BID 05/06/25 History ferrous sulfate 325 mg (65 mg 325 mg PO BID 05/06/25 0 05/06/25 History iron) tablet (FeroSul) isosorbide mononitrate 60 mg 60 mg PO DAILY 05/06/25 0 05/06/25 History tablet,extended release 24 hr levothyroxine 175 mcg tablet 175 mcg PO DAILY 05/06/25 05/06/25 History metoprolol succinate 100 mg 100 mg PO DAILY 05/06/25 0 05/06/25 History tablet,extended release 24 hr omeprazole 40 mg capsule,delayed 40 mg PO DAILY 05/06/25 History release quetiapine 25 mg tablet 50 mg PO BID 05/06/25 History tizanidine 2 mg tablet 2 mg PO Q8H PRN muscle spast icity 05/06/25 05/06/25 History venlafaxine 150 mg 150 mg PO HS 05/06/25 History capsule,extended release 24 hr Allergies Allergy/AdvReac Type Severity Reaction Status Date / Time No Known Allergies Allergy Verified 05/06/25 14:56 Vital Signs Vital Signs Temp Pulse Resp BP Pulse Ox O2 Del Method FiO2 05/07/25 16:00 97.5 F L 70 18 128/85 97 05/07/25 12:00 97.4 F L 75 18 125/56 L 97 05/07/25 09:27 106 H 05/07/25 09:27 91 16 96 Room Air 21 05/07/25 09:26 91 05/07/25 09:23 98.1 F 83 16 148/83 H 96 05/07/25 09:18 100 150/68 H 05/07/25 09:18 99 132/80 05/07/25 08:00 97.6 F 99 18 132/80 97 05/07/25 08:00 98 166/89 H 05/07/25 04:00 85 05/07/25 03:50 98.2 F 89 18 131/81 98 05/07/25 00:59 95 98 Autopap 05/07/25 00:00 95 05/06/25 23:34 98.1 F 89 18 143/57 H 99 05/06/25 22:34 96 98 Autopap 05/06/25 21:20 104 H 20 97 Room Air 21 05/06/25 20:50 98.1 F 104 H 18 157/76 H 99 05/06/25 20:00 113 H Exam 2 Narrative: GENERAL APPEARANCE: elderly but well developed well nourished female in no acute distress HEENT: normocephalic, atraumatic, normal conjunctiva and sclera, nares patient NECK: no lymphadenopathy, thyromegaly, or JVD MOUTH: normal lips, teeth, and gums CARDIOVASCULAR: RRR, normal S1 and S2, no rub RESPIRATORY: bibasilar crackles/rales noted ABDOMEN: soft, nontender, + distension, positive bowel sounds present EXTREMITIES: no evidence of cyanosis, clubbing, 1+ edema NEUROLOGICAL: alert and oriented x 3; CN II - XII intact bilaterally; no focal deficits noted Results Lab Results 05/08/25 04:26 05/08/25 04:26 Lab results: Most recent lab results Calcium 8.9 mg/dL (8.4-10.2) 05/07/25 04:28 Phosphorus 4.9 mg/dL (2.5-4.5) H 05/07/25 04:28 Magnesium 1.8 mg/dL (1.6-2.3) 05/07/25 04:28
[2025-05-07] MEDS: VENLAFAXINE HCL XR 75 MG CAP.ER.24H 150 MG PO (20:29)
[2025-05-08] VITALS (9 sets, daily range): BP systolic 109–152; BP diastolic 61–84; PULSE 63–87; RESP 18–20; TEMP 36.4–36.9; O2SAT 93–98
[2025-05-08 04:55] LABS: Hematocrit 26.9 % (37.0-47.0); Hemoglobin 8.4 g/dL (12.0-15.0); Immature Granulocyte Percent A 0.4 % (0-0.5); Lymphocytes Absolute Auto 1.47 K/mm3 (0.9-3.2); Mean Corpuscular HGB Conc 31.2 g/dl (32-36); Mean Corpuscular Hemoglobin 27.1 pg (26-34); Mean Corpuscular Volume 86.8 fl (80-100); Nucleated Red Blood Cells Absolute Auto 0.000 K/mm3 (0.0-0.012); Nucleated Red Blood Cells Perc 0.0 % (0.0-0.2); Platelet Count Result 258 k/mm3 (150-375); Red Blood Count 3.10 M/mm3 (4.2-5.4); White Blood Count 7.3 K/mm3 (4.5-10.0)
[2025-05-08] MEDS: ACETAMINOPHEN 325 MG TABLET 650 MG PO (05:09)
[2025-05-08] MEDS: LEVOTHYROXINE SODIUM 75 MCG TABLET PO (05:09)
[2025-05-08] MEDS: LEVOTHYROXINE SODIUM 100 MCG TABLET PO (05:09)
[2025-05-08 05:29] LABS: Alanine Aminotransferase 77 U/L (6-35); Albumin Level 4.2 g/dL (3.5-5.1); Alkaline Phosphatase 106 U/L (38-126); Anion Gap 10 mmol/L (4-12); Aspartate Amino Transferase 55 U/L (14-36); Bilirubin,Total 0.5 mg/dL (0.2-1.3); Blood Urea Nitrogen 56 mg/dL (7-17); Calcium 9.0 mg/dL (8.4-10.2); Carbon Dioxide 21 mmol/L (22-30); Chloride 105 mmol/L (98-107); Estimated CRCL calculation 17 ml/min; Estimated Glomerular Filt Rate 15; Glucose 77 mg/dL (65-110); Potassium 4.3 mmol/L (3.4-5.0); Sodium 136 mmol/L (137-145); Total Protein 7.5 g/dL (6.3-8.2)
--- NOTE | 2025-05-08 07:30 | P.PNIM_ITS ---
Progress Note: A&P Assessment and Plan (1) New onset of congestive heart failure: Code(s): I50.9 - Heart failure, unspecified Status: Inactive Assessment and Plan: Patient presents with is a worsening of lower extremity edema and shortness of breath, suspected for new onset CHF Elevated BNP> 1800, in the setting of ESRD Status post IV Lasix 20 mg once Cardiology consult in the ED EKG without ST wave changes Echo diastolic dysfunction and moderate pulmonary hypertension continuous telemetry, strict I and os, standing daily weight,Na<2gs Per cardiology, Lasix 40 mg IV b.i.d. Dietary consult, PT/OT (2) End-stage renal disease (ESRD): Code(s): N18.6 - End stage renal disease Status: Inactive Assessment and Plan: Patient reports her nephrology is in [facility] Patient she has polycystic kidney Follow renal ultrasound At baseline creatinine seems high 2.7, in this admission her creatinine is 2.86 Nephrology consult Blood pressure control (3) Anemia associated with chronic renal failure: Code(s): N18.9 - Chronic kidney disease, unspecified; D63.1 - Anemia in chronic kidney disease Status: Inactive Assessment and Plan: Anemia likely secondary to kidney disease Iron studies shows iron 31, TIBC 272 and % saturation 11 Will give iron IV x3 (4) Hyperlipidemia: Code(s): E78.5 - Hyperlipidemia, unspecified Status: Acute Assessment and Plan: Continue statin (5) Hypertension: Code(s): I10 - Essential (primary) hypertension Status: Chronic Assessment and Plan: Continue amlodipine and isosorbide BP goal <130/80 Plan Subjective Date/time seen: 05/08/25 07:30 Interval history: No acute events reported. Echocardiogram shows diastolic dysfunction and pulmonary hypertension. Renal ultrasound shows multiple cyst. Ordered CT scan due to shortness of breath. Will hold CTA chest due to worsening renal funct ion. Review of Systems Review of Systems: All systems reviewed & are unremarkable except as noted in HPI and below Exam Narrative: General: A well-developed, nontoxic-appearing female sitting up in bed. HEENT: PERRL, EOMI. Oral mucosa moist. Neck: Supple. No midline cervical tenderness. Respiratory: Respirations are non- labored and lungs are clear to auscultation bilaterally. Cardiovascular: Regular rate and rhythm with S1-S2. Gastrointestinal: Abdomen is soft, non-tender, and non-distended with positive bowel sounds. Skin: Warm and dry. No rash or lesions on limited exam. Extremities: Bilateral, +1 edema, left leg more pronounced than right leg Neurological: Alert and oriented. Cranial nerves 2-12 are grossly intact. No gross focal deficits to casual conversation. Psychiatric: Pleasant and cooperative with normal mood and affect. Judgment and insight intact. Objective Data Vital Signs Vital Signs: Vital Signs - 24 hr 05/07/25 08:00 05/07/25 08:00 05/07/25 09:18 Temperature 97.6 F Pulse Rate 98 99 99 Respiratory Rate 18 Blood Pressure 166/89 H 132/80 132/80 Pulse Oximetry 97 Oxygen Delivery Fraction of Inspired Oxygen 05/07/25 09:18 05/07/25 09:23 05/07/25 09:26 Temperature 98.1 F Pulse Rate 100 83 91 Respiratory Rate 16 Blood Pressure 150/68 H 148/83 H Pulse Oximetry 96 Oxygen Delivery Fraction of Inspired Oxygen 05/07/25 09:27 05/07/25 09:27 05/07/25 12:00 Temperature 97.4 F L Pulse Rate 91 106 H 75 Respiratory Rate 16 18 Blood Pressure 125/56 L Pulse Oximetry 96 97 Oxygen Delivery Room Air Fraction of Inspired Oxygen 21 05/07/25 16:00 05/07/25 16:00 05/07/25 20:00 Temperature 97.5 F L 98.1 F Pulse Rate 70 75 76 Respiratory Rate 18 18 Blood Pressure 128/85 124/61 Pulse Oximetry 97 94 Oxygen Delivery Fraction of Inspired Oxygen 05/07/25 20:00 05/07/25 20:30 05/08/25 00:00 Temperature 98.4 F Pulse Rate 70 70 Respiratory Rate 18 Blood Pressure 152/84 H Pulse Oximetry 95 Oxygen Delivery Room Air Fraction of Inspired Oxygen 21 05/08/25 00:00 05/08/25 04:00 05/08/25 04:00 Temperature 97.7 F Pulse Rate 69 68 70 Respiratory Rate 18 Blood Pressure 135/76 Pulse Oximetry 95 Oxygen Delivery Fraction of Inspired Oxygen 05/08/25 06:24 Temperature 98.1 F Pulse Rate 72 Respiratory Rate 18 Blood Pressure 137/67 Pulse Oximetry 95 Oxygen Delivery Fraction of Inspired Oxygen Intake/Output Intake/Output: Intake & Output 05/05/25 05/06/25 05/07/25 05/08/25 23:59 23:59 23:59 23:59 Intake Total 550 870 Output Total 781 436 8924 Balance 450 70 -1800 Meds/Results Medications: Active Medications Generic Name Dose Route Start Last Admin Trade Name Mary PRN Reason Stop Dose Admin Acetaminophen 650 mg 05/06/25 22:20 05/08/25 05:09 Acetaminophen 325 Mg Tablet PO 650 mg Q6H PRN Administration Mild Pain (1-3) or Fever Amlodipine Besylate 10 mg 05/07/25 09:00 05/07/25 09:27 Amlodipine Besylate 10 Mg Tablet PO 10 mg DAILY SREEDHAR Administration Aspirin 81 mg 05/07/25 09:00 05/07/25 09:26 Aspirin 81 Mg Enteric Tablet PO 81 mg DAILY SREEDHAR Administration Atorvastatin Calcium 80 mg 05/07/25 09:00 05/07/25 09:25 Atorvastatin 40 Mg Tablet PO 80 mg DAILY SREEDHAR Administration Calcitriol 0.25 mcg 05/07/25 09:00 05/07/25 09:26 Calcitriol 0.25 Mcg Capsule PO 0.25 mcg DAILY SREEDHAR Administration Docusate Sodium 100 mg 05/06/25 21:12 Docusate Sodium 100 Mg Capsule PO DAILY PRN Constipation Furosemide 40 mg 05/07/25 17:00 05/07/25 16:00 Furosemide Inj 40 Mg/4 Ml Vial IV PUSH 40 mg BID SREEDHAR Administration Heparin Sodium (Porcine) 5,000 units 05/07/25 09:00 05/07/25 20:30 Heparin Sodium 5,000 Units/Ml Vial SUB-Q 5,000 units Q12HR SREEDHAR Administration Iron Sucrose 200 mg/ Iron 265 mls @ 176.667 mls/hr 05/07/25 15:00 05/07/25 15:58 Sucrose 100 mg/ Sodium IVPB 05/09/25 16:29 176.67 mls/hr Chloride Q24H SREEDHAR Administration Isosorbide Mononitrate 60 mg 05/07/25 09:00 05/07/25 09:26 Isosorbide Mononitrate 60 Mg Tab.Er.24h PO 60 mg DAILY SREEDHAR Administration Levothyroxine Sodium 100 mcg 05/07/25 06:30 05/08/25 05:09 Levothyroxine Sodium 100 Mcg Tablet PO 100 mcg DAILY@0630 SREEDHAR Administration Levothyroxine Sodium 75 mcg 05/07/25 06:30 05/08/25 05:09 Levothyroxine Sodium 75 Mcg Tablet PO 75 mcg DAILY@0630 SREEDHAR Administration Metoprolol Succinate 100 mg 05/07/25 09:00 05/07/25 09:26 Metoprolol Succinate Ext Rel 100 Mg Tabcr PO 100 mg DAILY SREEDHAR Administration Pantoprazole Sodium 40 mg 05/07/25 09:00 05/07/25 16:00 Pantoprazole 40 Mg Tablet PO 40 mg BID SREEDHAR Administration Perflutren Lipid Microsphere 0 ml 05/06/25 21:13 Perflutren Lipid Microspheres 1.5 Ml Vial Diluted To 10 Ml Total Volume IV PUSH 05/09/25 21:15 ONCE PRN adequate visualization Protocol Quetiapine Fumarate 50 mg 05/06/25 21:20 05/07/25 20:30 Quetiapine Fumarate 25 Mg Tablet PO 50 mg Q12HR SREEDHAR Administration Venlafaxine HCl 150 mg 05/06/25 21:20 05/07/25 20:29 Venlafaxine Hcl Xr 75 Mg Cap.Er.24h PO 150 mg HS SREEDHAR Administration Radiology Results: ITS Impressions Renal Ultrasound 05/07/25 11:54 Impression: 1: The kidneys are enlarged with numerous renal cysts. However, the kidneys were not fully visualized due to limitations of this study. Consider a noncontrast CT for further assessment. Labs Labs: Laboratory Results - last 24 hr 05/07/25 05/07/25 05/07/25 04:28 07:58 11:53 WBC RBC Hgb Hct MCV MCH MCHC RDW Plt Count MPV Immature Gran % (Auto) Neut % (Auto) Lymph % (Auto) Mccormick % (Auto) Eos % (Auto) Baso % (Auto) Lymph # (Auto) Mccormick # (Auto) Eos # (Auto) Baso # (Auto) Abs Immat Gran (auto) Absolute Neuts (auto) Absolute Nucleated RBC Nucleated RBC % Sodium Potassium Chloride Carbon Dioxide Anion Gap BUN Creatinine Estim Creat Clear Calc Estimated GFR Glucose POC Capillary Glucose 91 92 Calcium Phosphorus Magnesium 1.8 Iron 31 L TIBC 272 % Saturation 11 L Ferritin 126.00 Total Bilirubin AST ALT Alkaline Phosphatase Total Protein Albumin 05/07/25 05/07/25 05/08/25 17:08 18:56 04:26 WBC 7.3 RBC 3.10 L Hgb 8.4 L Hct 26.9 L MCV 86.8 MCH 27.1 MCHC 31.2 L RDW 15.9 H Plt Count 258 MPV 9.1 Immature Gran % (Auto) 0.4 Neut % (Auto) 69.2 Lymph % (Auto) 20.2 Mccormick % (Auto) 7.6 Eos % (Auto) 2.2 Baso % (Auto) 0.4 Lymph # (Auto) 1.47 Mccormick # (Auto) 0.6 Eos # (Auto) 0.2 Baso # (Auto) 0.0 Abs Immat Gran (auto) 0.03 Absolute Neuts (auto) 5.0 Absolute Nucleated RBC 0.000 Nucleated RBC % 0.0 Sodium 136 L Potassium 4.3 Chloride 105 Carbon Dioxide 21 L Anion Gap 10 BUN 56 H Creatinine 3.03 H Estim Creat Clear Calc 17 Estimated GFR 15 L Glucose 77 POC Capillary Glucose 80 Calcium 9.0 Phosphorus 4.7 H 4.5 Magnesium Iron TIBC % Saturation Ferritin Total Bilirubin 0.5 AST 55 H ALT 77 H Alkaline Phosphatase 106 Total Protein 7.5 Albumin 4.2 Quality VTE Prophylaxis VTE prophylaxis: pharmacologic ordered (Heparin 5000 t.i.d.) Hospitalist MIPS Advance Care Plan I have confirmed that the patient's Advanced Care Plan is present, code status is documented, or surrogate decision maker is listed in patient medical record.: Yes Medication Reconciliation I have utilized all available resources to obtain, update and review the patients current medications (includes all prescriptions, OTC, herbals, cannabis, and nutritional supplements).: Yes
[2025-05-08] MEDS: FUROSEMIDE INJ 40 MG/4 ML VIAL IV PUSH ×2 (08:16→16:03)
[2025-05-08] MEDS: METOPROLOL SUCCINATE EXT REL 100 MG TABCR PO (08:16)
[2025-05-08] MEDS: ATORVASTATIN 40 MG TABLET 80 MG PO (08:16)
[2025-05-08] MEDS: ASPIRIN 81 MG ENTERIC TABLET PO (08:18)
[2025-05-08] MEDS: ISOSORBIDE MONONITRATE 60 MG TAB.ER.24H PO (08:18)
[2025-05-08] MEDS: PANTOPRAZOLE 40 MG TABLET PO ×2 (08:18→16:03)
--- NOTE | 2025-05-08 09:14 | PM.PNCARD ---
Progress Note: A&P Assessment and Plan (1) Shortness of breath: Code(s): R06.02 - Shortness of breath Status: Acute (2) Hypertension: Code(s): I10 - Essential (primary) hypertension Status: Chronic (3) Hyperlipidemia: Code(s): E78.5 - Hyperlipidemia, unspecified Status: Acute Plan 70-year-old woman with CKD stage 4, hypertension, and hyperlipidemia presented with worsening shortness of breath Shortness of breath -secondary to volume overload in setting of chronic kidney disease and likely diastolic heart dysfunction -Continue Lasix 40 mg IV b.i.d. today -anemia likely a result of worsening renal function -Nephrology following -Echo showed grade 2 diastolic dysfunction. Hypertension -amlodipine 10 mg p.o. daily and isosorbide mononitrate 60 mg p.o. daily -blood pressure may improve with volume control Hyperlipidemia -continue atorvastatin 80 mg every evening Subjective Date/time seen: 05/08/25 09:14 Interval history: Cardiology follow up visit Date of service 05/08/2025: Feeling better today. Still has shortness of breath with activity. No swelling. Review of Systems Cardiovascular: Cardiovascular: Reports as per HPI Respiratory: Respiratory: Reports as per HPI Exam Const: General: comfortable HENMT: Mouth: Yes moist mucous membranes Eyes: EOM: EOMs intact bilaterally Neck: Neck: no JVD Resp: Effort & Inspection: normal respiratory effort Auscultation: rales Cardio: Rate: regular rate Rhythm: regular rhythm Heart sounds: no gallops GI: Inspection: distended Neuro: Speech: normal speech Extrem: General: pedal edema Objective Data Vital Signs Vital Signs: Vital Signs - 24 hr 05/07/25 09:18 05/07/25 09:18 05/07/25 09:23 Temperature 36.7 C Pulse Rate 99 100 83 Respiratory Rate 16 Blood Pressure 132/80 150/68 H 148/83 H Pulse Oximetry 96 Oxygen Delivery Fraction of Inspired Oxygen 05/07/25 09:26 05/07/25 09:27 05/07/25 09:27 Temperature Pulse Rate 91 91 106 H Respiratory Rate 16 Blood Pressure Pulse Oximetry 96 Oxygen Delivery Room Air Fraction of Inspired Oxygen 05/07/25 12:00 05/07/25 16:00 05/07/25 16:00 Temperature 36.3 C L 36.4 C L Pulse Rate 75 70 75 Respiratory Rate 18 18 Blood Pressure 125/56 L 128/85 Pulse Oximetry 97 97 Oxygen Delivery Fraction of Inspired Oxygen 05/07/25 20:00 05/07/25 20:00 05/07/25 20:30 Temperature 36.7 C Pulse Rate 76 70 Respiratory Rate 18 Blood Pressure 124/61 Pulse Oximetry 94 Oxygen Delivery Room Air Fraction of Inspired Oxygen 21 05/08/25 00:00 05/08/25 00:00 05/08/25 04:00 Temperature 36.9 C 36.5 C Pulse Rate 70 69 68 Respiratory Rate 18 18 Blood Pressure 152/84 H 135/76 Pulse Oximetry 95 95 Oxygen Delivery Fraction of Inspired Oxygen 05/08/25 04:00 05/08/25 06:24 05/08/25 08:15 Temperature 36.7 C 36.5 C Pulse Rate 70 72 78 Respiratory Rate 18 18 Blood Pressure 137/67 128/65 Pulse Oximetry 95 98 Oxygen Delivery Fraction of Inspired Oxygen 05/08/25 08:16 Temperature Pulse Rate 76 Respiratory Rate Blood Pressure Pulse Oximetry Oxygen Delivery Fraction of Inspired Oxygen Intake/Output Intake/Output: Intake & Output 05/05/25 05/06/25 05/07/25 05/08/25 23:59 23:59 23:59 23:59 Intake Total 550 870 240 Output Total 715 300 8394 Balance 450 70 -1560 Meds/Results Medications: Active Medications Generic Name Dose Route Start Last Admin Trade Name Freq PRN Reason Stop Dose Admin Acetaminophen 650 mg 05/06/25 22:20 05/08/25 05:09 Acetaminophen 325 Mg Tablet PO 650 mg Q6H PRN Administration Mild Pain (1-3) or Fever Amlodipine Besylate 10 mg 05/07/25 09:00 05/08/25 08:18 Amlodipine Besylate 10 Mg Tablet PO 10 mg DAILY SREEDHAR Administration Aspirin 81 mg 05/07/25 09:00 05/08/25 08:18 Aspirin 81 Mg Enteric Tablet PO 81 mg DAILY SREEDHAR Administration Atorvastatin Calcium 80 mg 05/07/25 09:00 05/08/25 08:16 Atorvastatin 40 Mg Tablet PO 80 mg DAILY SREEDHAR Administration Calcitriol 0.25 mcg 05/07/25 09:00 05/08/25 08:16 Calcitriol 0.25 Mcg Capsule PO 0.25 mcg DAILY SREEDHAR Administration Docusate Sodium 100 mg 05/06/25 21:12 Docusate Sodium 100 Mg Capsule PO DAILY PRN Constipation Furosemide 40 mg 05/07/25 17:00 05/08/25 08:16 Furosemide Inj 40 Mg/4 Ml Vial IV PUSH 40 mg BID SREEDHAR Administration Heparin Sodium (Porcine) 5,000 units 05/07/25 09:00 05/08/25 08:16 Heparin Sodium 5,000 Units/Ml Vial SUB-Q 5,000 units Q12HR SREEDHAR Administration Iron Sucrose 200 mg/ Iron 265 mls @ 176.667 mls/hr 05/07/25 15:00 05/07/25 15:58 Sucrose 100 mg/ Sodium IVPB 05/09/25 16:29 176.67 mls/hr Chloride Q24H SREEDHAR Administration Isosorbide Mononitrate 60 mg 05/07/25 09:00 05/08/25 08:18 Isosorbide Mononitrate 60 Mg Tab.Er.24h PO 60 mg DAILY SREEDHAR Administration Levothyroxine Sodium 100 mcg 05/07/25 06:30 05/08/25 05:09 Levothyroxine Sodium 100 Mcg Tablet PO 100 mcg DAILY@0630 SREEDHAR Administration Levothyroxine Sodium 75 mcg 05/07/25 06:30 05/08/25 05:09 Levothyroxine Sodium 75 Mcg Tablet PO 75 mcg DAILY@0630 SREEDHAR Administration Metoprolol Succinate 100 mg 05/07/25 09:00 05/08/25 08:16 Metoprolol Succinate Ext Rel 100 Mg Tabcr PO 100 mg DAILY SREEDHAR Administration Pantoprazole Sodium 40 mg 05/07/25 09:00 05/08/25 08:18 Pantoprazole 40 Mg Tablet PO 40 mg BID SREEDHAR Administration Perflutren Lipid Microsphere 0 ml 05/06/25 21:13 Perflutren Lipid Microspheres 1.5 Ml Vial Diluted To 10 Ml Total Volume IV PUSH 05/09/25 21:15 ONCE PRN adequate visualization Protocol Quetiapine Fumarate 50 mg 05/06/25 21:20 05/08/25 08:18 Quetiapine Fumarate 25 Mg Tablet PO 50 mg Q12HR SREEDHAR Administration Venlafaxine HCl 150 mg 05/06/25 21:20 05/07/25 20:29 Venlafaxine Hcl Xr 75 Mg Cap.Er.24h PO 150 mg HS SREEDHAR Administration Radiology Results: ITS Impressions Renal Ultrasound 05/07/25 11:54 Impression: 1: The kidneys are enlarged with numerous renal cysts. However, the kidneys were not fully visualized due to limitations of this study. Consider a noncontrast CT for further assessment. Labs Labs: Laboratory Results - last 24 hr 05/07/25 05/07/25 05/07/25 11:53 17:08 18:56 WBC RBC Hgb Hct MCV MCH MCHC RDW Plt Count MPV Immature Gran % (Auto) Neut % (Auto) Lymph % (Auto) Dickenson % (Auto) Eos % (Auto) Baso % (Auto) Lymph # (Auto) Dickenson # (Auto) Eos # (Auto) Baso # (Auto) Abs Immat Gran (auto) Absolute Neuts (auto) Absolute Nucleated RBC Nucleated RBC % Sodium Potassium Chloride Carbon Dioxide Anion Gap BUN Creatinine Estim Creat Clear Calc Estimated GFR Glucose POC Capillary Glucose 92 80 Calcium Phosphorus 4.7 H Total Bilirubin AST ALT Alkaline Phosphatase Total Protein Albumin 05/08/25 05/08/25 04:26 08:19 WBC 7.3 RBC 3.10 L Hgb 8.4 L Hct 26.9 L MCV 86.8 MCH 27.1 MCHC 31.2 L RDW 15.9 H Plt Count 258 MPV 9.1 Immature Gran % (Auto) 0.4 Neut % (Auto) 69.2 Lymph % (Auto) 20.2 Dickenson % (Auto) 7.6 Eos % (Auto) 2.2 Baso % (Auto) 0.4 Lymph # (Auto) 1.47 Dickenson # (Auto) 0.6 Eos # (Auto) 0.2 Baso # (Auto) 0.0 Abs Immat Gran (auto) 0.03 Absolute Neuts (auto) 5.0 Absolute Nucleated RBC 0.000 Nucleated RBC % 0.0 Sodium 136 L Potassium 4.3 Chloride 105 Carbon Dioxide 21 L Anion Gap 10 BUN 56 H Creatinine 3.03 H Estim Creat Clear Calc 17 Estimated GFR 15 L Glucose 77 POC Capillary Glucose 98 Calcium 9.0 Phosphorus 4.5 Total Bilirubin 0.5 AST 55 H ALT 77 H Alkaline Phosphatase 106 Total Protein 7.5 Albumin 4.2
--- NOTE | 2025-05-08 10:55 | P.PNNP_ITS ---
Progress Note: A&P Assessment and Plan (1) Stage 4 chronic kidney disease: Code(s): N18.4 - Chronic kidney disease, stage 4 (severe) Status: Chronic Assessment and Plan: * creatinine slightly worse in the context of IV diuresis * baseline creatinine running 2.3 - 2.8mg/dl * creatinine 2.79mg/dL in February 2025 * secondary to polycystic kidney disease along with contributions from hypertension and vascular disease * follows with nephrology in [place], [place] for management of this issue (2) Shortness of breath: Code(s): R06.02 - Shortness of breath Status: Acute Assessment and Plan: * clinically better * suspect multifactorial: * diastolic CHF * advanced CKD * relative anemia * obesity(?) * other(?) * CXR clear but some peripheral edema noted * no evidence of hypoxia * CT of chest ordered for further evaluation * follow respiratory status with current interventions (3) CHF exacerbation: Code(s): I50.9 - Heart failure, unspecified Status: Acute Assessment and Plan: * suspected and presumably playing a role with #2 * Echo results noted: * left ventricular ejection fraction is visually estimated to be 60 - 65% * there is grade 2 diastolic dysfunction * mitral valve leaflets are sclerotic * moderate mitral regurgitation * tricuspid valve is normal * moderate tricuspid regurgitation * moderate pulmonary hypertension -- pulmonary arterial systolic pressure is estimated at 51 mmHg * Cardiology following * on trial of IV diuresis * follow daily weights, I/Os, and respiratory status * follow renal function (4) Anemia: Code(s): D64.9 - Anemia, unspecified Status: Acute Assessment and Plan: * partly related to underlying CKD * anemia studies also demonstrate iron deficiency * initiated on IV iron * consider NORRIS during hospital stay * follow trend of H/H (5) Hypertension: Code(s): I10 - Essential (primary) hypertension Status: Chronic Assessment and Plan: * elevated on presentation * however, appears to be doing better now * follow trend of hemodynamics (6) Autosomal dominant polycystic kidney disease: Code(s): Q61.2 - Polycystic kidney, adult type Status: Chronic Assessment and Plan: * known history * admission CT imaging consistent with this diagnosis/disease * also supported by family history: * mother with PCKD and required dialysis * sister with PCKD as well Will continue to follow. L Subjective Date/time seen: 05/08/25 10:55 Interval history: Follow-up for chronic kidney disease. Renal function/creatinine up a bit in the context of IV diuretic use but patient feels there is some improvement in her breathing/respiratory status; no other acute issues/events overnight or earlier this morning. Exam 2 Narrative: General: elderly but WD/WN female in NAD Heart: normal S1 and S2; no rub Lungs: clear anteriorly Abdomen: obese but soft, nontender, nondistended, positive bowel sounds Extremities: no cyanosis or clubbing; 1+ edema Skin: warm and dry Objective Data Vital Signs Vital Signs: Vital Signs Temp Pulse Resp BP Pulse Ox O2 Del Method FiO2 05/08/25 08:16 97.7 F 76 18 128/65 98 05/08/25 08:16 76 05/08/25 08:15 97.7 F 78 18 128/65 98 05/08/25 06:24 98.1 F 72 18 137/67 95 05/08/25 04:00 70 05/08/25 04:00 97.7 F 68 18 135/76 95 05/08/25 00:00 69 05/08/25 00:00 98.4 F 70 18 152/84 H 95 05/07/25 20:30 Room Air 21 05/07/25 20:00 70 05/07/25 20:00 98.1 F 76 18 124/61 94 05/07/25 16:00 75 05/07/25 16:00 97.5 F L 70 18 128/85 97 Intake/Output Intake/Output: Intake & Output 05/05/25 05/06/25 05/07/25 05/08/25 23:59 23:59 23:59 23:59 Intake Total 550 1135 240 Output Total 149 839 7848 Balance 450 335 -1560 Meds/Results Medications: Active Medications Generic Name Dose Route Start Last Admin Trade Name Freq PRN Reason Stop Dose Admin Acetaminophen 650 mg 05/06/25 22:20 05/08/25 05:09 Acetaminophen 325 Mg Tablet PO 650 mg Q6H PRN Administration Mild Pain (1-3) or Fever Amlodipine Besylate 10 mg 05/07/25 09:00 05/08/25 08:18 Amlodipine Besylate 10 Mg Tablet PO 10 mg DAILY SREEDHAR Administration Aspirin 81 mg 05/07/25 09:00 05/08/25 08:18 Aspirin 81 Mg Enteric Tablet PO 81 mg DAILY SREEDHAR Administration Atorvastatin Calcium 80 mg 05/07/25 09:00 05/08/25 08:16 Atorvastatin 40 Mg Tablet PO 80 mg DAILY SREEDHAR Administration Calcitriol 0.25 mcg 05/07/25 09:00 05/08/25 08:16 Calcitriol 0.25 Mcg Capsule PO 0.25 mcg DAILY SREEDHAR Administration Docusate Sodium 100 mg 05/06/25 21:12 Docusate Sodium 100 Mg Capsule PO DAILY PRN Constipation Furosemide 40 mg 05/07/25 17:00 05/08/25 08:16 Furosemide Inj 40 Mg/4 Ml Vial IV PUSH 40 mg BID SREEDHAR Administration Heparin Sodium (Porcine) 5,000 units 05/07/25 09:00 05/08/25 08:16 Heparin Sodium 5,000 Units/Ml Vial SUB-Q 5,000 units Q12HR SREEDHAR Administration Iron Sucrose 200 mg/ Iron 265 mls @ 176.667 mls/hr 05/07/25 15:00 05/07/25 17:28 Sucrose 100 mg/ Sodium IVPB 05/09/25 16:29 Infused Chloride Q24H SREEDHAR Infusion Isosorbide Mononitrate 60 mg 05/07/25 09:00 05/08/25 08:18 Isosorbide Mononitrate 60 Mg Tab.Er.24h PO 60 mg DAILY SREEDHAR Administration Levothyroxine Sodium 100 mcg 05/07/25 06:30 05/08/25 05:09 Levothyroxine Sodium 100 Mcg Tablet PO 100 mcg DAILY@0630 SREEDHAR Administration Levothyroxine Sodium 75 mcg 05/07/25 06:30 05/08/25 05:09 Levothyroxine Sodium 75 Mcg Tablet PO 75 mcg DAILY@0630 SREEDHAR Administration Metoprolol Succinate 100 mg 05/07/25 09:00 05/08/25 08:16 Metoprolol Succinate Ext Rel 100 Mg Tabcr PO 100 mg DAILY SREEDHAR Administration Pantoprazole Sodium 40 mg 05/07/25 09:00 05/08/25 08:18 Pantoprazole 40 Mg Tablet PO 40 mg BID SREEDHAR Administration Perflutren Lipid Microsphere 0 ml 05/06/25 21:13 Perflutren Lipid Microspheres 1.5 Ml Vial Diluted To 10 Ml Total Volume IV PUSH 05/09/25 21:15 ONCE PRN adequate visualization Protocol Quetiapine Fumarate 50 mg 05/06/25 21:20 05/08/25 08:18 Quetiapine Fumarate 25 Mg Tablet PO 50 mg Q12HR SREEDHAR Administration Venlafaxine HCl 150 mg 05/06/25 21:20 05/07/25 20:29 Venlafaxine Hcl Xr 75 Mg Cap.Er.24h PO 150 mg HS SREEDHAR Administration Radiology Results: ITS Impressions Renal Ultrasound 05/07/25 11:54 Impression: 1: The kidneys are enlarged with numerous renal cysts. However, the kidneys were not fully visualized due to limitations of this study. Consider a noncontrast CT for further assessment. Labs Labs: Laboratory Tests 05/08/25 04:26 05/08/25 04:26 Calcium 9.0 Phosphorus 4.5 Total Bilirubin 0.5 AST 55 H ALT 77 H Alkaline Phosphatase 106 Total Protein 7.5 Albumin 4.2
[2025-05-08] MEDS: IRON SUCROSE COMPLEX 200 MG, IRON SUCROSE COMPLEX 100 MG in SODIUM CHLORIDE 0.9% IV 250 ML 176.67 MG IVPB (16:03)
[2025-05-08 17:13] LABS: Influenza A QL RT-PCR Negative (Negative); Influenza B QL RT-PCR Negative (Negative); RSV RNA, RT-PCR Negative (Negative); SARS-CoV-2 RNA PCR Negative (Negative)
[2025-05-08] MEDS: VENLAFAXINE HCL XR 75 MG CAP.ER.24H 150 MG PO (19:39)
[2025-05-08] MEDS: MELATONIN 5 MG TABLET PO (20:40)
[2025-05-09] VITALS (16 sets, daily range): BP systolic 107–127; BP diastolic 48–73; PULSE 63–82; RESP 16–20; TEMP 36.3–37; O2SAT 92–98
[2025-05-09] MEDS: LEVOTHYROXINE SODIUM 75 MCG TABLET PO (04:37)
[2025-05-09] MEDS: LEVOTHYROXINE SODIUM 100 MCG TABLET PO (04:37)
[2025-05-09] MEDS: PANTOPRAZOLE 40 MG TABLET PO ×2 (04:37→17:09)
[2025-05-09 05:01] LABS: Hematocrit 25.7 % (37.0-47.0); Hemoglobin 8.2 g/dL (12.0-15.0); Immature Granulocyte Percent A 0.4 % (0-0.5); Lymphocytes Absolute Auto 1.32 K/mm3 (0.9-3.2); Mean Corpuscular HGB Conc 31.9 g/dl (32-36); Mean Corpuscular Hemoglobin 27.9 pg (26-34); Mean Corpuscular Volume 87.4 fl (80-100); Nucleated Red Blood Cells Absolute Auto 0.000 K/mm3 (0.0-0.012); Nucleated Red Blood Cells Perc 0.0 % (0.0-0.2); Platelet Count Result 219 k/mm3 (150-375); Red Blood Count 2.94 M/mm3 (4.2-5.4); White Blood Count 6.7 K/mm3 (4.5-10.0)
[2025-05-09 05:33] LABS: NT Pro B Type Natriuretic Pept 4160 pg/mL (19.9-100)
[2025-05-09 05:38] LABS: Alanine Aminotransferase 87 U/L (6-35); Albumin Level 3.9 g/dL (3.5-5.1); Alkaline Phosphatase 90 U/L (38-126); Anion Gap 11 mmol/L (4-12); Aspartate Amino Transferase 58 U/L (14-36); Bilirubin,Total 0.3 mg/dL (0.2-1.3); Blood Urea Nitrogen 67 mg/dL (7-17); Calcium 8.7 mg/dL (8.4-10.2); Carbon Dioxide 21 mmol/L (22-30); Chloride 105 mmol/L (98-107); Estimated CRCL calculation 15 ml/min; Estimated Glomerular Filt Rate 13; Glucose 79 mg/dL (65-110); Potassium 4.2 mmol/L (3.4-5.0); Sodium 137 mmol/L (137-145); Total Protein 7.2 g/dL (6.3-8.2)
--- NOTE | 2025-05-09 07:56 | PM.IMPN ---
Progress Note: A&P Assessment and Plan (1) New onset of congestive heart failure: Code(s): I50.9 - Heart failure, unspecified Status: Inactive Assessment and Plan: Patient presents with is a worsening of lower extremity edema and shortness of breath, suspected for new onset CHF Elevated BNP> 1800, in the setting of ESRD Status post IV Lasix 20 mg once Cardiology consult in the ED EKG without ST wave changes Echo diastolic dysfunction and moderate pulmonary hypertension continuous telemetry, strict I and os, standing daily weight,Na<2gs Per cardiology, Lasix 40 mg IV b.i.d. Dietary consult, PT/OT (2) End-stage renal disease (ESRD): Code(s): N18.6 - End stage renal disease Status: Inactive Assessment and Plan: Patient reports her nephrology is in [facility] Patient she has polycystic kidney Follow renal ultrasound At baseline creatinine seems high 2.7, in this admission her creatinine is 2.86 Nephrology consult Blood pressure control (3) Anemia associated with chronic renal failure: Code(s): N18.9 - Chronic kidney disease, unspecified; D63.1 - Anemia in chronic kidney disease Status: Inactive Assessment and Plan: Anemia likely secondary to kidney disease Iron studies shows iron 31, TIBC 272 and % saturation 11 Will give iron IV x3 (4) Hyperlipidemia: Code(s): E78.5 - Hyperlipidemia, unspecified Status: Acute Assessment and Plan: Continue statin (5) Hypertension: Code(s): I10 - Essential (primary) hypertension Status: Chronic Assessment and Plan: Continue amlodipine and isosorbide BP goal <130/80 Plan Subjective Date/time seen: 05/09/25 07:56 Interval history: BNP has increased to 4160. Patient is currently on Lasix 40 b.i.d.. Patient has multiple renal cysts. Ordered worley CT pending. Patient had a negative fluid balance yesterday. Review of Systems Review of Systems: All systems reviewed & are unremarkable except as noted in HPI and below Exam Narrative: General: A well-developed, nontoxic-appearing female sitting up in bed. HEENT: PERRL, EOMI. Oral mucosa moist. Neck: Supple. No midline cervical tenderness. Respiratory: Respirations are non- labored and lungs are clear to auscultation bilaterally. Cardiovascular: Regular rate and rhythm with S1-S2. Gastrointestinal: Abdomen is soft, non-tender, and non-distended with positive bowel sounds. Skin: Warm and dry. No rash or lesions on limited exam. Extremities: Bilateral, +1 edema, left leg more pronounced than right leg Neurological: Alert and oriented. Cranial nerves 2-12 are grossly intact. No gross focal deficits to casual conversation. Psychiatric: Pleasant and cooperative with normal mood and affect. Judgment and insight intact. Objective Data Vital Signs Vital Signs: Vital Signs - 24 hr 05/08/25 08:15 05/08/25 08:16 05/08/25 08:16 Temperature 97.7 F 97.7 F Pulse Rate 78 76 76 Respiratory Rate 18 18 Blood Pressure 128/65 128/65 Pulse Oximetry 98 98 Oxygen Delivery Fraction of Inspired Oxygen 05/08/25 08:16 05/08/25 08:16 05/08/25 12:00 Temperature Pulse Rate 76 75 66 Respiratory Rate 18 Blood Pressure Pulse Oximetry 98 Oxygen Delivery Room Air Fraction of Inspired Oxygen 21 05/08/25 12:00 05/08/25 16:00 05/08/25 16:00 Temperature 98.2 F 97.6 F Pulse Rate 74 87 71 Respiratory Rate 20 20 Blood Pressure 109/66 121/72 Pulse Oximetry 97 96 Oxygen Delivery Fraction of Inspired Oxygen 05/08/25 20:00 05/08/25 20:00 05/08/25 20:56 Temperature 98.2 F Pulse Rate 68 80 Respiratory Rate 18 Blood Pressure 113/61 Pulse Oximetry 96 Oxygen Delivery Room Air Fraction of Inspired Oxygen 21 05/08/25 23:30 05/09/25 00:00 05/09/25 00:00 Temperature 97.6 F Pulse Rate 63 63 65 Respiratory Rate 18 Blood Pressure 107/48 L Pulse Oximetry 93 93 Oxygen Delivery Autopap Fraction of Inspired Oxygen 05/09/25 00:23 05/09/25 04:00 05/09/25 04:00 Temperature 97.4 F L Pulse Rate 69 67 Respiratory Rate 18 Blood Pressure 127/70 Pulse Oximetry 93 98 Oxygen Delivery Room Air Fraction of Inspired Oxygen 05/09/25 06:13 05/09/25 07:00 Temperature 97.4 F L Pulse Rate 69 66 Respiratory Rate 18 Blood Pressure 127/70 Pulse Oximetry 98 92 Oxygen Delivery Autopap Fraction of Inspired Oxygen Intake/Output Intake/Output: Intake & Output 05/06/25 05/07/25 05/08/25 08/27/25 23:59 23:59 23:59 23:59 Intake Total 550 1135 1920 Output Total 774 541 0676 600 Balance 450 335 -1280 -600 Meds/Results Medications: Active Medications Generic Name Dose Route Start Last Admin Trade Name Freq PRN Reason Stop Dose Admin Acetaminophen 650 mg 05/06/25 22:20 05/08/25 05:09 Acetaminophen 325 Mg Tablet PO 650 mg Q6H PRN Administration Mild Pain (1-3) or Fever Amlodipine Besylate 10 mg 05/07/25 09:00 05/08/25 08:18 Amlodipine Besylate 10 Mg Tablet PO 10 mg DAILY SREEDHAR Administration Aspirin 81 mg 05/07/25 09:00 05/08/25 08:18 Aspirin 81 Mg Enteric Tablet PO 81 mg DAILY SREEDHAR Administration Atorvastatin Calcium 80 mg 05/07/25 09:00 05/08/25 08:16 Atorvastatin 40 Mg Tablet PO 80 mg DAILY SREEDHAR Administration Calcitriol 0.25 mcg 05/07/25 09:00 05/08/25 08:16 Calcitriol 0.25 Mcg Capsule PO 0.25 mcg DAILY SREEDHAR Administration Docusate Sodium 100 mg 05/06/25 21:12 Docusate Sodium 100 Mg Capsule PO DAILY PRN Constipation Furosemide 40 mg 05/07/25 17:00 05/08/25 16:03 Furosemide Inj 40 Mg/4 Ml Vial IV PUSH 40 mg BID SREEDHAR Administration Heparin Sodium (Porcine) 5,000 units 05/07/25 09:00 05/08/25 19:39 Heparin Sodium 5,000 Units/Ml Vial SUB-Q 5,000 units Q12HR SREEDHAR Administration Iron Sucrose 200 mg/ Iron 265 mls @ 176.667 mls/hr 05/07/25 15:00 05/08/25 16:03 Sucrose 100 mg/ Sodium IVPB 05/09/25 16:29 176.67 mls/hr Chloride Q24H SREEDHAR Administration Isosorbide Mononitrate 60 mg 05/07/25 09:00 05/08/25 08:18 Isosorbide Mononitrate 60 Mg Tab.Er.24h PO 60 mg DAILY SREEDHAR Administration Levothyroxine Sodium 100 mcg 05/07/25 06:30 05/09/25 04:37 Levothyroxine Sodium 100 Mcg Tablet PO 100 mcg DAILY@0630 SREEDHAR Administration Levothyroxine Sodium 75 mcg 05/07/25 06:30 05/09/25 04:37 Levothyroxine Sodium 75 Mcg Tablet PO 75 mcg DAILY@0630 SREEDHAR Administration Melatonin 5 mg 05/08/25 21:00 05/08/25 20:40 Melatonin 5 Mg Tablet PO 5 mg HS SREEDHAR Administration Metoprolol Succinate 100 mg 05/07/25 09:00 05/08/25 08:16 Metoprolol Succinate Ext Rel 100 Mg Tabcr PO 100 mg DAILY SREEDHAR Administration Pantoprazole Sodium 40 mg 05/07/25 09:00 05/09/25 04:37 Pantoprazole 40 Mg Tablet PO 40 mg BID SREEDHAR Administration Perflutren Lipid Microsphere 0 ml 05/06/25 21:13 Perflutren Lipid Microspheres 1.5 Ml Vial Diluted To 10 Ml Total Volume IV PUSH 05/09/25 21:15 ONCE PRN adequate visualization Protocol Quetiapine Fumarate 50 mg 05/06/25 21:20 05/08/25 19:39 Quetiapine Fumarate 25 Mg Tablet PO 50 mg Q12HR SREEDHAR Administration Venlafaxine HCl 150 mg 05/06/25 21:20 05/08/25 19:39 Venlafaxine Hcl Xr 75 Mg Cap.Er.24h PO 150 mg HS SREEDHAR Administration Radiology Results: ITS Impressions Renal Ultrasound 05/07/25 11:54 Impression: 1: The kidneys are enlarged with numerous renal cysts. However, the kidneys were not fully visualized due to limitations of this study. Consider a noncontrast CT for further assessment. Labs Labs: Laboratory Results - last 24 hr 05/08/25 05/08/25 05/08/25 08:19 11:25 16:27 WBC RBC Hgb Hct MCV MCH MCHC RDW Plt Count MPV Immature Gran % (Auto) Neut % (Auto) Lymph % (Auto) [place] % (Auto) Eos % (Auto) Baso % (Auto) Lymph # (Auto) [place] # (Auto) Eos # (Auto) Baso # (Auto) Abs Immat Gran (auto) Absolute Neuts (auto) Absolute Nucleated RBC Nucleated RBC % Sodium Potassium Chloride Carbon Dioxide Anion Gap BUN Creatinine Estim Creat Clear Calc Estimated GFR Glucose POC Capillary Glucose 98 90 Calcium Phosphorus Total Bilirubin AST ALT Alkaline Phosphatase NT-Pro-B Natriuret Pep Total Protein Albumin Influenza A (RT-PCR) Negative Influenza B (RT-PCR) Negative RSV (RT-PCR) Negative SARS-CoV-2 RNA (RT-PCR) Negative 05/08/25 05/09/25 16:42 04:21 WBC 6.7 RBC 2.94 L Hgb 8.2 L Hct 25.7 L MCV 87.4 MCH 27.9 MCHC 31.9 L RDW 16.0 H Plt Count 219 MPV 9.2 Immature Gran % (Auto) 0.4 Neut % (Auto) 67.5 Lymph % (Auto) 19.6 [place] % (Auto) 9.1 H Eos % (Auto) 3.0 Baso % (Auto) 0.4 Lymph # (Auto) 1.32 [place] # (Auto) 0.6 Eos # (Auto) 0.2 Baso # (Auto) 0.0 Abs Immat Gran (auto) 0.03 Absolute Neuts (auto) 4.5 Absolute Nucleated RBC 0.000 Nucleated RBC % 0.0 Sodium 137 Potassium 4.2 Chloride 105 Carbon Dioxide 21 L Anion Gap 11 BUN 67 H D Creatinine 3.50 H Estim Creat Clear Calc 15 Estimated GFR 13 L Glucose 79 POC Capillary Glucose 71 Calcium 8.7 Phosphorus 4.4 Total Bilirubin 0.3 AST 58 H ALT 87 H Alkaline Phosphatase 90 NT-Pro-B Natriuret Pep 4160 H Total Protein 7.2 Albumin 3.9 Influenza A (RT-PCR) Influenza B (RT-PCR) RSV (RT-PCR) SARS-CoV-2 RNA (RT-PCR) Quality VTE Prophylaxis VTE prophylaxis: pharmacologic ordered (Heparin 5000 t.i.d.) Hospitalist MIPS Advance Care Plan I have confirmed that the patient's Advanced Care Plan is present, code status is documented, or surrogate decision maker is listed in patient medical record.: Yes Medication Reconciliation I have utilized all available resources to obtain, update and review the patients current medications (includes all prescriptions, OTC, herbals, cannabis, and nutritional supplements).: Yes
[2025-05-09] MEDS: ATORVASTATIN 40 MG TABLET 80 MG PO (08:19)
[2025-05-09] MEDS: ASPIRIN 81 MG ENTERIC TABLET PO (08:19)
[2025-05-09] MEDS: ISOSORBIDE MONONITRATE 60 MG TAB.ER.24H PO (08:19)
[2025-05-09] MEDS: METOPROLOL SUCCINATE EXT REL 100 MG TABCR PO (08:19)
[2025-05-09] MEDS: FUROSEMIDE INJ 40 MG/4 ML VIAL IV PUSH (08:20)
--- NOTE | 2025-05-09 09:46 | PC.NURSE ---
Notified Dr. Meadows on 05/09/2025 at 0945 that this nurse held the am dose of amlodipine due to a blood presure of 110/65. Physician was okay with holding discussed medication this am.
--- NOTE | 2025-05-09 13:37 | P.PNCA_ITS ---
Progress Note: A&P Assessment and Plan (1) Shortness of breath: Code(s): R06.02 - Shortness of breath Status: Acute (2) Hypertension: Code(s): I10 - Essential (primary) hypertension Status: Chronic (3) Hyperlipidemia: Code(s): E78.5 - Hyperlipidemia, unspecified Status: Acute Plan 70-year-old woman with CKD stage 4, hypertension, and hyperlipidemia presented with worsening shortness of breath Shortness of breath -secondary to volume overload in setting of chronic kidney disease and likely diastolic heart dysfunction -Hold lasix for now because of worsening renal function, resume furosemide 40mg daily prior to discharge if renal function returns to baseline -anemia likely a result of worsening renal function -Nephrology following -Echo showed grade 2 diastolic dysfunction. Hypertension -amlodipine 10 mg p.o. daily and isosorbide mononitrate 60 mg p.o. daily -blood pressure improved Hyperlipidemia -continue atorvastatin 80 mg every evening Subjective Date/time seen: 05/09/25 13:37 Interval history: Cardiology follow up visit Date of service 05/08/2025: Feeling better today. Still has shortness of breath with activity. No swelling. Date of service 05/09/2025: Feels about the same. No shortness of breath at rest but does have shortness of breath walking from her bed to the bathroom. Review of Systems Cardiovascular: Cardiovascular: Reports as per HPI Respiratory: Respiratory: Reports as per HPI Exam Const: General: comfortable HENMT: Mouth: Yes moist mucous membranes Eyes: EOM: EOMs intact bilaterally Neck: Neck: no JVD Resp: Effort & Inspection: normal respiratory effort Auscultation: rales Cardio: Rate: regular rate Rhythm: regular rhythm Heart sounds: no gallops GI: Inspection: distended Neuro: Speech: normal speech Extrem: General: no pedal edema Objective Data Vital Signs Vital Signs: Vital Signs - 24 hr 05/08/25 16:00 05/08/25 16:00 05/08/25 20:00 Temperature 36.4 C 36.8 C Pulse Rate 87 71 68 Respiratory Rate 20 18 Blood Pressure 121/72 113/61 Pulse Oximetry 96 96 Oxygen Delivery Fraction of Inspired Oxygen 05/08/25 20:00 05/08/25 20:56 05/08/25 23:30 Temperature Pulse Rate 80 63 Respiratory Rate Blood Pressure Pulse Oximetry 93 Oxygen Delivery Room Air Autopap Fraction of Inspired Oxygen 21 05/09/25 00:00 05/09/25 00:00 05/09/25 00:23 Temperature 36.4 C Pulse Rate 63 65 Respiratory Rate 18 Blood Pressure 107/48 L Pulse Oximetry 93 93 Oxygen Delivery Room Air Fraction of Inspired Oxygen 05/09/25 04:00 05/09/25 04:00 05/09/25 06:13 Temperature 36.3 C L 36.3 C L Pulse Rate 69 67 69 Respiratory Rate 18 18 Blood Pressure 127/70 127/70 Pulse Oximetry 98 98 Oxygen Delivery Fraction of Inspired Oxygen 05/09/25 07:00 05/09/25 07:55 05/09/25 08:00 Temperature Pulse Rate 66 69 Respiratory Rate 20 Blood Pressure 110/65 121/73 Pulse Oximetry 92 95 Oxygen Delivery Autopap Fraction of Inspired Oxygen 05/09/25 08:00 05/09/25 08:00 05/09/25 08:19 Temperature 36.7 C Pulse Rate 69 82 69 Respiratory Rate 20 Blood Pressure 121/73 Pulse Oximetry 95 Oxygen Delivery Fraction of Inspired Oxygen 05/09/25 09:44 05/09/25 09:45 05/09/25 12:00 Temperature Pulse Rate 73 74 67 Respiratory Rate 20 20 Blood Pressure 118/69 121/66 Pulse Oximetry 97 95 Oxygen Delivery Fraction of Inspired Oxygen Intake/Output Intake/Output: Intake & Output 05/06/25 05/07/25 05/08/25 05/09/25 23:59 23:59 23:59 23:59 Intake Total 550 1135 1920 480 Output Total 529 199 7212 600 Balance 450 335 -1280 -120 Meds/Results Medications: Active Medications Generic Name Dose Route Start Last Admin Trade Name Freq PRN Reason Stop Dose Admin Acetaminophen 650 mg 05/06/25 22:20 05/08/25 05:09 Acetaminophen 325 Mg Tablet PO 650 mg Q6H PRN Administration Mild Pain (1-3) or Fever Amlodipine Besylate 10 mg 05/07/25 09:00 05/09/25 08:29 Amlodipine Besylate 10 Mg Tablet PO Not Given DAILY SREEDHAR Aspirin 81 mg 05/07/25 09:00 05/09/25 08:19 Aspirin 81 Mg Enteric Tablet PO 81 mg DAILY SREEDHAR Administration Atorvastatin Calcium 80 mg 05/07/25 09:00 05/09/25 08:19 Atorvastatin 40 Mg Tablet PO 80 mg DAILY SREEDHAR Administration Calcitriol 0.25 mcg 05/07/25 09:00 05/09/25 08:19 Calcitriol 0.25 Mcg Capsule PO 0.25 mcg DAILY SREEDHAR Administration Docusate Sodium 100 mg 05/06/25 21:12 Docusate Sodium 100 Mg Capsule PO DAILY PRN Constipation Empagliflozin 10 mg 05/10/25 09:00 Empagliflozin 10 Mg Tablet PO DAILY SREEDHAR Heparin Sodium (Porcine) 5,000 units 05/07/25 09:00 05/09/25 08:20 Heparin Sodium 5,000 Units/Ml Vial SUB-Q 5,000 units Q12HR SREEDHAR Administration Iron Sucrose 200 mg/ Iron 265 mls @ 176.667 mls/hr 05/07/25 15:00 05/08/25 16:03 Sucrose 100 mg/ Sodium IVPB 05/09/25 16:29 176.67 mls/hr Chloride Q24H SREEDHAR Administration Isosorbide Mononitrate 60 mg 05/07/25 09:00 05/09/25 08:19 Isosorbide Mononitrate 60 Mg Tab.Er.24h PO 60 mg DAILY SREEDHAR Administration Levothyroxine Sodium 100 mcg 05/07/25 06:30 05/09/25 04:37 Levothyroxine Sodium 100 Mcg Tablet PO 100 mcg DAILY@0630 SREEDHAR Administration Levothyroxine Sodium 75 mcg 05/07/25 06:30 05/09/25 04:37 Levothyroxine Sodium 75 Mcg Tablet PO 75 mcg DAILY@0630 SREEDHAR Administration Melatonin 5 mg 05/08/25 21:00 05/08/25 20:40 Melatonin 5 Mg Tablet PO 5 mg HS SREEDHAR Administration Metoprolol Succinate 100 mg 05/07/25 09:00 05/09/25 08:19 Metoprolol Succinate Ext Rel 100 Mg Tabcr PO 100 mg DAILY SREEDHAR Administration Pantoprazole Sodium 40 mg 05/07/25 09:00 05/09/25 04:37 Pantoprazole 40 Mg Tablet PO 40 mg BID SREEDHAR Administration Perflutren Lipid Microsphere 0 ml 05/06/25 21:13 Perflutren Lipid Microspheres 1.5 Ml Vial Diluted To 10 Ml Total Volume IV PUSH 05/09/25 21:15 ONCE PRN adequate visualization Protocol Quetiapine Fumarate 50 mg 05/06/25 21:20 05/09/25 08:20 Quetiapine Fumarate 25 Mg Tablet PO 50 mg Q12HR SREEDHAR Administration Venlafaxine HCl 150 mg 05/06/25 21:20 05/08/25 19:39 Venlafaxine Hcl Xr 75 Mg Cap.Er.24h PO 150 mg HS SREEDHAR Administration Radiology Results: ITS Impressions Renal Ultrasound 05/07/25 11:54 Impression: 1: The kidneys are enlarged with numerous renal cysts. However, the kidneys were not fully visualized due to limitations of this study. Consider a noncontrast CT for further assessment. Chest/Abdomen/Pelvis CT 05/09/25 12:25 IMPRESSION: 1. Numerous bilateral renal cysts, the largest cyst in the right kidney grossly measures 9.5 cm, the largest cyst in the left kidney grossly measures 5.7 cm. 2. There is an indeterminate 1.6 x 0.8 cm lucency in the left inferior pubic ramus. Dedicated x-rays of the pelvis are recommended. 3. There are a few small bandlike and reticular opacities in the lower lungs. Differential includes atelectasis/scarring or infiltrates. 4. Prior surgical change about the left breast which are new as compared to the study from 2016. Correlate clinically. Labs Labs: Laboratory Results - last 24 hr 05/07/25 05/08/25 05/08/25 20:17 16:27 16:42 WBC RBC Hgb Hct MCV MCH MCHC RDW Plt Count MPV Immature Gran % (Auto) Neut % (Auto) Lymph % (Auto) [place] % (Auto) Eos % (Auto) Baso % (Auto) Lymph # (Auto) [place] # (Auto) Eos # (Auto) Baso # (Auto) Abs Immat Gran (auto) Absolute Neuts (auto) Absolute Nucleated RBC Nucleated RBC % Sodium Potassium Chloride Carbon Dioxide Anion Gap BUN Creatinine Estim Creat Clear Calc Estimated GFR Glucose POC Capillary Glucose 168 H 71 Calcium Phosphorus Total Bilirubin AST ALT Alkaline Phosphatase NT-Pro-B Natriuret Pep Total Protein Albumin Influenza A (RT-PCR) Negative Influenza B (RT-PCR) Negative RSV (RT-PCR) Negative SARS-CoV-2 RNA (RT-PCR) Negative 05/09/25 04:21 WBC 6.7 RBC 2.94 L Hgb 8.2 L Hct 25.7 L MCV 87.4 MCH 27.9 MCHC 31.9 L RDW 16.0 H Plt Count 219 MPV 9.2 Immature Gran % (Auto) 0.4 Neut % (Auto) 67.5 Lymph % (Auto) 19.6 [place] % (Auto) 9.1 H Eos % (Auto) 3.0 Baso % (Auto) 0.4 Lymph # (Auto) 1.32 [place] # (Auto) 0.6 Eos # (Auto) 0.2 Baso # (Auto) 0.0 Abs Immat Gran (auto) 0.03 Absolute Neuts (auto) 4.5 Absolute Nucleated RBC 0.000 Nucleated RBC % 0.0 Sodium 137 Potassium 4.2 Chloride 105 Carbon Dioxide 21 L Anion Gap 11 BUN 67 H D Creatinine 3.50 H Estim Creat Clear Calc 15 Estimated GFR 13 L Glucose 79 POC Capillary Glucose Calcium 8.7 Phosphorus 4.4 Total Bilirubin 0.3 AST 58 H ALT 87 H Alkaline Phosphatase 90 NT-Pro-B Natriuret Pep 4160 H Total Protein 7.2 Albumin 3.9 Influenza A (RT-PCR) Influenza B (RT-PCR) RSV (RT-PCR) SARS-CoV-2 RNA (RT-PCR)
--- NOTE | 2025-05-09 13:48 | P.PNNP_ITS ---
Progress Note: A&P Assessment and Plan (1) Stage 4 chronic kidney disease: Code(s): N18.4 - Chronic kidney disease, stage 4 (severe) Status: Chronic Assessment and Plan: * creatinine worse in the context of IV diuresis * baseline creatinine running 2.3 - 2.8mg/dl * creatinine 2.79mg/dL in February 2025 * secondary to polycystic kidney disease along with contributions from hypertension and vascular disease * follows with nephrology in [place], [place] for management of this issue (2) Shortness of breath: Code(s): R06.02 - Shortness of breath Status: Acute Assessment and Plan: * clinically better * suspect multifactorial: * diastolic CHF * advanced CKD * relative anemia * obesity(?) * other(?) * CXR clear but some peripheral edema noted * no evidence of hypoxia * CT of C/A/P results noted * follow respiratory status with current interventions (3) CHF exacerbation: Code(s): I50.9 - Heart failure, unspecified Status: Acute Assessment and Plan: * suspected and presumably playing a role with #2 * Echo results noted: * left ventricular ejection fraction is visually estimated to be 60 - 65% * there is grade 2 diastolic dysfunction * mitral valve leaflets are sclerotic * moderate mitral regurgitation * tricuspid valve is normal * moderate tricuspid regurgitation * moderate pulmonary hypertension -- pulmonary arterial systolic pressure is estimated at 51 mmHg * Cardiology following * on trial of IV diuresis * follow daily weights, I/Os, and respiratory status * follow renal function (4) Anemia: Code(s): D64.9 - Anemia, unspecified Status: Acute Assessment and Plan: * partly related to underlying CKD * anemia studies also demonstrate iron deficiency * initiated on IV iron * NORRIS during hospital stay * follow trend of H/H (5) Hypertension: Code(s): I10 - Essential (primary) hypertension Status: Chronic Assessment and Plan: * elevated on presentation * however, appears to be doing better now * follow trend of hemodynamics (6) Autosomal dominant polycystic kidney disease: Code(s): Q61.2 - Polycystic kidney, adult type Status: Chronic Assessment and Plan: * known history * admission CT imaging consistent with this diagnosis/disease * also supported by family history: * mother with PCKD and required dialysis * sister with PCKD as well Will continue to follow. L Subjective Date/time seen: 05/09/25 13:48 Interval history: Follow-up for chronic kidney disease. Reports improvement in her breathing with IV diuretics (although still reports some dyspnea with walking in room) but at the expense of her renal function given rising creatinine/worsening renal function; no apparent distress noted when seen; no other issues/events overnight or earlier this morning. Exam 2 Narrative: General: elderly but WD/WN female in NAD Heart: normal S1 and S2; no rub Lungs: clear anteriorly Abdomen: obese but soft, nontender, nondistended, positive bowel sounds Extremities: no cyanosis or clubbing; 1+ edema Skin: warm and intact Objective Data Vital Signs Vital Signs: Vital Signs Temp Pulse Resp BP Pulse Ox O2 Del Method FiO2 05/09/25 12:00 67 05/09/25 09:45 74 20 121/66 95 05/09/25 09:44 73 20 118/69 97 05/09/25 08:19 69 05/09/25 08:00 82 05/09/25 08:00 98.0 F 69 20 121/73 95 05/09/25 08:00 69 20 121/73 95 05/09/25 07:55 110/65 05/09/25 07:00 66 92 Autopap 05/09/25 06:13 97.4 F L 69 18 127/70 98 05/09/25 04:00 67 05/09/25 04:00 97.4 F L 69 18 127/70 98 05/09/25 00:23 93 Room Air 05/09/25 00:00 65 05/09/25 00:00 97.6 F 63 18 107/48 L 93 05/08/25 23:30 63 93 Autopap 05/08/25 20:56 Room Air 21 05/08/25 20:00 80 05/08/25 20:00 98.2 F 68 18 113/61 96 Intake/Output Intake/Output: Intake & Output 05/06/25 05/07/25 05/08/25 05/09/25 23:59 23:59 23:59 23:59 Intake Total 550 1135 2185 480 Output Total 386 232 7610 600 Balance 450 335 1015 -120 Meds/Results Medications: Active Medications Generic Name Dose Route Start Last Admin Trade Name Freq PRN Reason Stop Dose Admin Acetaminophen 650 mg 05/06/25 22:20 05/08/25 05:09 Acetaminophen 325 Mg Tablet PO 650 mg Q6H PRN Administration Mild Pain (1-3) or Fever Amlodipine Besylate 10 mg 05/07/25 09:00 05/09/25 08:29 Amlodipine Besylate 10 Mg Tablet PO Not Given DAILY SREEDHRA Aspirin 81 mg 05/07/25 09:00 05/09/25 08:19 Aspirin 81 Mg Enteric Tablet PO 81 mg DAILY SREEDHAR Administration Atorvastatin Calcium 80 mg 05/07/25 09:00 05/09/25 08:19 Atorvastatin 40 Mg Tablet PO 80 mg DAILY SREEDHAR Administration Calcitriol 0.25 mcg 05/07/25 09:00 05/09/25 08:19 Calcitriol 0.25 Mcg Capsule PO 0.25 mcg DAILY SREEDHAR Administration Docusate Sodium 100 mg 05/06/25 21:12 Docusate Sodium 100 Mg Capsule PO DAILY PRN Constipation Empagliflozin 10 mg 05/10/25 09:00 Empagliflozin 10 Mg Tablet PO DAILY [facility] Heparin Sodium (Porcine) 5,000 units 05/07/25 09:00 05/09/25 08:20 Heparin Sodium 5,000 Units/Ml Vial SUB-Q 5,000 units Q12HR SREEDHAR Administration Isosorbide Mononitrate 60 mg 05/07/25 09:00 05/09/25 08:19 Isosorbide Mononitrate 60 Mg Tab.Er.24h PO 60 mg DAILY SREEDHAR Administration Levothyroxine Sodium 100 mcg 05/07/25 06:30 05/09/25 04:37 Levothyroxine Sodium 100 Mcg Tablet PO 100 mcg DAILY@0630 SREEDHAR Administration Levothyroxine Sodium 75 mcg 05/07/25 06:30 05/09/25 04:37 Levothyroxine Sodium 75 Mcg Tablet PO 75 mcg DAILY@0630 SREEDHAR Administration Melatonin 5 mg 05/08/25 21:00 05/08/25 20:40 Melatonin 5 Mg Tablet PO 5 mg HS SREEDHAR Administration Metoprolol Succinate 100 mg 05/07/25 09:00 05/09/25 08:19 Metoprolol Succinate Ext Rel 100 Mg Tabcr PO 100 mg DAILY SREEDHAR Administration Pantoprazole Sodium 40 mg 05/07/25 09:00 05/09/25 17:09 Pantoprazole 40 Mg Tablet PO 40 mg BID SREEDHAR Administration Perflutren Lipid Microsphere 0 ml 05/06/25 21:13 Perflutren Lipid Microspheres 1.5 Ml Vial Diluted To 10 Ml Total Volume IV PUSH 05/09/25 21:15 ONCE PRN adequate visualization Protocol Quetiapine Fumarate 50 mg 05/06/25 21:20 05/09/25 08:20 Quetiapine Fumarate 25 Mg Tablet PO 50 mg Q12HR SREEDHAR Administration Venlafaxine HCl 150 mg 05/06/25 21:20 05/08/25 19:39 Venlafaxine Hcl Xr 75 Mg Cap.Er.24h PO 150 mg HS SREEDHAR Administration Radiology Results: ITS Impressions Renal Ultrasound 05/07/25 11:54 Impression: 1: The kidneys are enlarged with numerous renal cysts. However, the kidneys were not fully visualized due to limitations of this study. Consider a noncontrast CT for further assessment. Chest/Abdomen/Pelvis CT 05/09/25 12:25 IMPRESSION: 1. Numerous bilateral renal cysts, the largest cyst in the right kidney grossly measures 9.5 cm, the largest cyst in the left kidney grossly measures 5.7 cm. 2. There is an indeterminate 1.6 x 0.8 cm lucency in the left inferior pubic ramus. Dedicated x-rays of the pelvis are recommended. 3. There are a few small bandlike and reticular opacities in the lower lungs. Differential includes atelectasis/scarring or infiltrates. 4. Prior surgical change about the left breast which are new as compared to the study from 2016. Correlate clinically. Labs Labs: Laboratory Tests 05/09/25 04:21 05/09/25 04:21 Calcium 8.7 Phosphorus 4.4 Total Bilirubin 0.3 AST 58 H ALT 87 H Alkaline Phosphatase 90 NT-Pro-B Natriuret Pep 4160 H Total Protein 7.2 Albumin 3.9
[2025-05-09] MEDS: IRON SUCROSE COMPLEX 200 MG, IRON SUCROSE COMPLEX 100 MG in SODIUM CHLORIDE 0.9% IV 250 ML 176.67 MG IVPB (14:37)
[2025-05-09] MEDS: MELATONIN 5 MG TABLET PO (20:37)
[2025-05-09] MEDS: VENLAFAXINE HCL XR 75 MG CAP.ER.24H 150 MG PO (20:37)
[2025-05-09] MEDS: EPOETIN ALFA-EPBX 20,000 UNITS/ML VIAL 20000 UNITS SUB-Q (20:38)
[2025-05-10] VITALS (12 sets, daily range): BP systolic 120–138; BP diastolic 60–69; PULSE 60–80; RESP 16–20; TEMP 36.4–36.8; O2SAT 91–97
[2025-05-10 05:29] LABS: Hematocrit 26.0 % (37.0-47.0); Hemoglobin 8.2 g/dL (12.0-15.0); Immature Granulocyte Percent A 0.8 % (0-0.5); Lymphocytes Absolute Auto 1.31 K/mm3 (0.9-3.2); Mean Corpuscular HGB Conc 31.5 g/dl (32-36); Mean Corpuscular Hemoglobin 27.6 pg (26-34); Mean Corpuscular Volume 87.5 fl (80-100); Nucleated Red Blood Cells Absolute Auto 0.020 K/mm3 (0.0-0.012); Nucleated Red Blood Cells Perc 0.2 % (0.0-0.2); Platelet Count Result 235 k/mm3 (150-375); Red Blood Count 2.97 M/mm3 (4.2-5.4); White Blood Count 8.5 K/mm3 (4.5-10.0)
[2025-05-10] MEDS: LEVOTHYROXINE SODIUM 75 MCG TABLET PO (05:41)
[2025-05-10] MEDS: LEVOTHYROXINE SODIUM 100 MCG TABLET PO (05:41)
[2025-05-10 05:44] LABS: Alanine Aminotransferase 92 U/L (6-35); Albumin Level 4.0 g/dL (3.5-5.1); Alkaline Phosphatase 99 U/L (38-126); Anion Gap 8 mmol/L (4-12); Aspartate Amino Transferase 52 U/L (14-36); Bilirubin,Total 0.3 mg/dL (0.2-1.3); Blood Urea Nitrogen 70 mg/dL (7-17); Calcium 8.6 mg/dL (8.4-10.2); Carbon Dioxide 24 mmol/L (22-30); Chloride 105 mmol/L (98-107); Estimated CRCL calculation 15 ml/min; Estimated Glomerular Filt Rate 13; Glucose 78 mg/dL (65-110); Potassium 4.0 mmol/L (3.4-5.0); Sodium 137 mmol/L (137-145); Total Protein 7.2 g/dL (6.3-8.2)
[2025-05-10] MEDS: ASPIRIN 81 MG ENTERIC TABLET PO (08:33)
[2025-05-10] MEDS: ATORVASTATIN 40 MG TABLET 80 MG PO (08:33)
[2025-05-10] MEDS: EMPAGLIFLOZIN 10 MG TABLET PO (08:33)
[2025-05-10] MEDS: METOPROLOL SUCCINATE EXT REL 100 MG TABCR PO (08:33)
[2025-05-10] MEDS: EPOETIN ALFA-EPBX 10,000 UNITS/ML VIAL 10000 UNITS SUB-Q (08:33)
[2025-05-10] MEDS: PANTOPRAZOLE 40 MG TABLET PO ×2 (08:33→16:20)
[2025-05-10] MEDS: ISOSORBIDE MONONITRATE 60 MG TAB.ER.24H PO (08:33)
--- NOTE | 2025-05-10 12:12 | PM.IMPN ---
Progress Note: A&P Assessment and Plan (1) New onset of congestive heart failure: Code(s): I50.9 - Heart failure, unspecified Status: Inactive Assessment and Plan: Patient presents with is a worsening of lower extremity edema and shortness of breath, suspected for new onset CHF Elevated BNP> 1800, in the setting of ESRD Status post IV Lasix 20 mg once Cardiology consult in the ED EKG without ST wave changes Echo diastolic dysfunction and moderate pulmonary hypertension continuous telemetry, strict I and os, standing daily weight,Na<2gs Per cardiology, Lasix 40 mg IV b.i.d. Dietary consult, PT/OT (2) End-stage renal disease (ESRD): Code(s): N18.6 - End stage renal disease Status: Inactive Assessment and Plan: Patient reports her nephrology is in [facility] Patient she has polycystic kidney Follow renal ultrasound At baseline creatinine seems high 2.7, in this admission her creatinine is 2.86 Nephrology consult Blood pressure control (3) Anemia associated with chronic renal failure: Code(s): N18.9 - Chronic kidney disease, unspecified; D63.1 - Anemia in chronic kidney disease Status: Inactive Assessment and Plan: Anemia likely secondary to kidney disease Iron studies shows iron 31, TIBC 272 and % saturation 11 Will give iron IV x3 (4) Hyperlipidemia: Code(s): E78.5 - Hyperlipidemia, unspecified Status: Acute Assessment and Plan: Continue statin (5) Hypertension: Code(s): I10 - Essential (primary) hypertension Status: Chronic Assessment and Plan: Continue amlodipine and isosorbide BP goal <130/80 (6) Lytic bone lesions on xray: Code(s): M89.8X9 - Other specified disorders of bone, unspecified site Status: Acute Assessment and Plan: Mixed lytic and sclerotic lesion left inferior pubic ramus Consulted hematology/oncology appreciate recommendation Plan Subjective Date/time seen: 05/10/25 12:12 Interval history: Patient has evidence of lytic lesion in pelvic bone. Consulted for his opinion. Cr stable at 3.5.Echo shows 60-65%, grade 2 diastolic dysfunction and moderate pulmonary hypertension. Review of Systems Review of Systems: All systems reviewed & are unremarkable except as noted in HPI and below Exam Narrative: General: A well-developed, nontoxic-appearing female sitting up in bed. HEENT: PERRL, EOMI. Oral mucosa moist. Neck: Supple. No midline cervical tenderness. Respiratory: Respirations are non- labored and lungs are clear to auscultation bilaterally. Cardiovascular: Regular rate and rhythm with S1-S2. Gastrointestinal: Abdomen is soft, non-tender, and non-distended with positive bowel sounds. Skin: Warm and dry. No rash or lesions on limited exam. Extremities: Bilateral, +1 edema, left leg more pronounced than right leg Neurological: Alert and oriented. Cranial nerves 2-12 are grossly intact. No gross focal deficits to casual conversation. Psychiatric: Pleasant and cooperative with normal mood and affect. Judgment and insight intact. Objective Data Vital Signs Vital Signs: Vital Signs - 24 hr 05/09/25 14:18 05/09/25 16:00 05/09/25 16:00 Temperature 97.7 F Pulse Rate 63 63 Respiratory Rate 20 Blood Pressure 119/58 L Pulse Oximetry 94 95 Oxygen Delivery Room Air Fraction of Inspired Oxygen 05/09/25 20:00 05/09/25 20:37 05/09/25 22:45 Temperature Pulse Rate 64 Respiratory Rate Blood Pressure Pulse Oximetry 94 Oxygen Delivery Room Air Autopap Fraction of Inspired Oxygen 21 05/09/25 22:58 05/10/25 00:00 05/10/25 01:09 Temperature 98.6 F 97.8 F Pulse Rate 71 66 60 Respiratory Rate 16 16 Blood Pressure 115/65 120/61 Pulse Oximetry 93 93 Oxygen Delivery Fraction of Inspired Oxygen 05/10/25 04:00 05/10/25 05:48 05/10/25 08:00 Temperature 97.9 F Pulse Rate 67 75 65 Respiratory Rate 18 Blood Pressure 138/69 Pulse Oximetry 91 Oxygen Delivery Fraction of Inspired Oxygen 05/10/25 08:33 05/10/25 12:00 Temperature Pulse Rate 80 64 Respiratory Rate Blood Pressure Pulse Oximetry Oxygen Delivery Fraction of Inspired Oxygen Intake/Output Intake/Output: Intake & Output 05/07/25 05/08/25 05/09/25 05/10/25 23:59 23:59 23:59 23:59 Intake Total 1135 2185 720 880 Output Total 800 3200 600 1600 Balance 335 -1015 120 -720 Meds/Results Medications: Active Medications Generic Name Dose Route Start Last Admin Trade Name Freq PRN Reason Stop Dose Admin Acetaminophen 650 mg 05/06/25 22:20 08/26/25 05:09 Acetaminophen 325 Mg Tablet PO 650 mg Q6H PRN Administration Mild Pain (1-3) or Fever Amlodipine Besylate 10 mg 05/07/25 09:00 05/10/25 08:33 Amlodipine Besylate 10 Mg Tablet PO 10 mg DAILY SREEDHAR Administration Aspirin 81 mg 05/07/25 09:00 05/10/25 08:33 Aspirin 81 Mg Enteric Tablet PO 81 mg DAILY SREEDHAR Administration Atorvastatin Calcium 80 mg 05/07/25 09:00 05/10/25 08:33 Atorvastatin 40 Mg Tablet PO 80 mg DAILY SREEDHAR Administration Calcitriol 0.25 mcg 05/07/25 09:00 05/10/25 08:33 Calcitriol 0.25 Mcg Capsule PO 0.25 mcg DAILY SREEDHAR Administration Docusate Sodium 100 mg 05/06/25 21:12 Docusate Sodium 100 Mg Capsule PO DAILY PRN Constipation Empagliflozin 10 mg 05/10/25 09:00 05/10/25 08:33 Empagliflozin 10 Mg Tablet PO 10 mg DAILY SREEDHAR Administration Epoetin Chris-epbx 10,000 units 05/10/25 09:00 05/10/25 08:33 Epoetin Chris-Epbx 10,000 Units/Ml Vial SUB-Q 10,000 units TUTHSA@09 SREEDHAR Administration Heparin Sodium (Porcine) 5,000 units 05/07/25 09:00 05/10/25 08:33 Heparin Sodium 5,000 Units/Ml Vial SUB-Q 5,000 units Q12HR SREEDHAR Administration Isosorbide Mononitrate 60 mg 05/07/25 09:00 05/10/25 08:33 Isosorbide Mononitrate 60 Mg Tab.Er.24h PO 60 mg DAILY SREEDHAR Administration Levothyroxine Sodium 100 mcg 05/07/25 06:30 05/10/25 05:41 Levothyroxine Sodium 100 Mcg Tablet PO 100 mcg DAILY@0630 SREEDHAR Administration Levothyroxine Sodium 75 mcg 05/07/25 06:30 05/10/25 05:41 Levothyroxine Sodium 75 Mcg Tablet PO 75 mcg DAILY@0630 SREEDHAR Administration Melatonin 5 mg 05/08/25 21:00 05/09/25 20:37 Melatonin 5 Mg Tablet PO 5 mg HS SREEDHAR Administration Metoprolol Succinate 100 mg 05/07/25 09:00 05/10/25 08:33 Metoprolol Succinate Ext Rel 100 Mg Tabcr PO 100 mg DAILY SREEDHAR Administration Pantoprazole Sodium 40 mg 05/07/25 09:00 05/10/25 08:33 Pantoprazole 40 Mg Tablet PO 40 mg BID SREEDHAR Administration Quetiapine Fumarate 50 mg 05/06/25 21:20 05/10/25 08:33 Quetiapine Fumarate 25 Mg Tablet PO 50 mg Q12HR SREEDHAR Administration Venlafaxine HCl 150 mg 05/06/25 21:20 05/09/25 20:37 Venlafaxine Hcl Xr 75 Mg Cap.Er.24h PO 150 mg HS SREEDHAR Administration Radiology Results: ITS Impressions Renal Ultrasound 05/07/25 11:54 Impression: 1: The kidneys are enlarged with numerous renal cysts. However, the kidneys were not fully visualized due to limitations of this study. Consider a noncontrast CT for further assessment. Chest/Abdomen/Pelvis CT 05/09/25 12:25 IMPRESSION: 1. Numerous bilateral renal cysts, the largest cyst in the right kidney grossly measures 9.5 cm, the largest cyst in the left kidney grossly measures 5.7 cm. 2. There is an indeterminate 1.6 x 0.8 cm lucency in the left inferior pubic ramus. Dedicated x-rays of the pelvis are recommended. 3. There are a few small bandlike and reticular opacities in the lower lungs. Differential includes atelectasis/scarring or infiltrates. 4. Prior surgical change about the left breast which are new as compared to the study from 2016. Correlate clinically. Hip/Pelvis X-Ray 05/10/25 11:10 Impression: 1: Mixed lytic and sclerotic lesion left inferior pubic ramus. In a 70-year-old female, consider metastatic disease, lymphoma, Paget's disease. Consider correlation with bone scan or pet/CT examination. Labs Labs: Laboratory Results - last 24 hr 05/07/25 05/10/25 20:17 04:40 WBC 8.5 RBC 2.97 L Hgb 8.2 L Hct 26.0 L MCV 87.5 MCH 27.6 MCHC 31.5 L RDW 16.2 H Plt Count 235 MPV 9.8 Immature Gran % (Auto) 0.8 H Neut % (Auto) 73.3 H Lymph % (Auto) 15.4 L Sawyer % (Auto) 7.5 Eos % (Auto) 2.6 Baso % (Auto) 0.4 Lymph # (Auto) 1.31 Sawyer # (Auto) 0.6 Eos # (Auto) 0.2 Baso # (Auto) 0.0 Abs Immat Gran (auto) 0.07 H Absolute Neuts (auto) 6.2 Absolute Nucleated RBC 0.020 H Nucleated RBC % 0.2 Sodium 137 Potassium 4.0 Chloride 105 Carbon Dioxide 24 Anion Gap 8 BUN 70 H Creatinine 3.50 H Estim Creat Clear Calc 15 Estimated GFR 13 L Glucose 78 POC Capillary Glucose 168 H Calcium 8.6 Phosphorus 4.4 Total Bilirubin 0.3 AST 52 H ALT 92 H Alkaline Phosphatase 99 Total Protein 7.2 Albumin 4.0 Quality VTE Prophylaxis VTE prophylaxis: pharmacologic ordered (Heparin 5000 t.i.d.) Hospitalist MIPS Advance Care Plan I have confirmed that the patient's Advanced Care Plan is present, code status is documented, or surrogate decision maker is listed in patient medical record.: Yes Medication Reconciliation I have utilized all available resources to obtain, update and review the patients current medications (includes all prescriptions, OTC, herbals, cannabis, and nutritional supplements).: Yes
--- NOTE | 2025-05-10 12:50 | P.PNNP_ITS ---
Progress Note: A&P Assessment and Plan (1) Stage 4 chronic kidney disease: Code(s): N18.4 - Chronic kidney disease, stage 4 (severe) Status: Chronic Assessment and Plan: * creatinine worse in the context of IV diuresis * baseline creatinine running 2.3 - 2.8mg/dl * creatinine 2.79mg/dL in February 2025 * secondary to polycystic kidney disease along with contributions from hypertension and vascular disease * may have to accept a higher creatinine in the context of needed diuretic therapy to maintain respiratory status * follows with nephrology in [place], [place] for management of this issue (2) Shortness of breath: Code(s): R06.02 - Shortness of breath Status: Acute Assessment and Plan: * clinically better * suspect multifactorial: * diastolic CHF * advanced CKD * relative anemia * obesity(?) * other(?) * CXR clear but some peripheral edema noted * no evidence of hypoxia * CT of C/A/P results noted * follow respiratory status with current interventions (3) CHF exacerbation: Code(s): I50.9 - Heart failure, unspecified Status: Acute Assessment and Plan: * suspected and presumably playing a role with #2 * Echo results noted: * left ventricular ejection fraction is visually estimated to be 60 - 65% * there is grade 2 diastolic dysfunction * mitral valve leaflets are sclerotic * moderate mitral regurgitation * tricuspid valve is normal * moderate tricuspid regurgitation * moderate pulmonary hypertension -- pulmonary arterial systolic pressure is estimated at 51 mmHg * Cardiology following * s/p IV diuresis * oral diuretics on discharge? * follow daily weights, I/Os, and respiratory status * follow renal function (4) Anemia: Code(s): D64.9 - Anemia, unspecified Status: Acute Assessment and Plan: * partly related to underlying CKD * anemia studies also demonstrate iron deficiency * initiated on IV iron * NORRIS during hospital stay * follow trend of H/H (5) Hypertension: Code(s): I10 - Essential (primary) hypertension Status: Chronic Assessment and Plan: * elevated on presentation * however, appears to be doing better now * follow trend of hemodynamics (6) Autosomal dominant polycystic kidney disease: Code(s): Q61.2 - Polycystic kidney, adult type Status: Chronic Assessment and Plan: * known history * admission CT imaging consistent with this diagnosis/disease * also supported by family history: * mother with PCKD and required dialysis * sister with PCKD as well Will continue to follow. L Subjective Date/time seen: 05/10/25 12:50 Interval history: Follow-up for chronic kidney disease. Ongoing improvement noted in breathing/respiratory status -- denies any shortness of breath with rest or exertion/ambulation at this time; renal function/creatinine appears relatively stable; CT C/A/P results noted; no apparent distress noted at the time of my visit. Exam 2 Narrative: General: elderly but WD/WN female in NAD Heart: normal S1 and S2; no rub Lungs: clear anteriorly Abdomen: obese but soft, nontender, nondistended, positive bowel sounds Extremities: no cyanosis or clubbing; trace edema Skin: no rash or nodules Objective Data Vital Signs Vital Signs: Vital Signs Temp Pulse Resp BP Pulse Ox O2 Del Method FiO2 05/10/25 12:00 97.6 F 67 18 122/68 96 05/10/25 12:00 64 05/10/25 08:33 80 05/10/25 08:00 65 05/10/25 05:48 97.9 F 75 18 138/69 91 05/10/25 04:00 67 05/10/25 01:09 97.8 F 60 16 120/61 93 05/10/25 00:00 66 05/09/25 22:58 98.6 F 71 16 115/65 93 05/09/25 22:45 94 Autopap 05/09/25 20:37 Room Air 21 05/09/25 20:00 64 Intake/Output Intake/Output: Intake & Output 05/07/25 05/08/25 05/09/25 05/10/25 23:59 23:59 23:59 23:59 Intake Total 1135 2185 720 1120 Output Total 800 3200 600 1600 Balance 335 -1015 120 -480 Meds/Results Medications: Active Medications Generic Name Dose Route Start Last Admin Trade Name Freq PRN Reason Stop Dose Admin Acetaminophen 650 mg 05/06/25 22:20 05/08/25 05:09 Acetaminophen 325 Mg Tablet PO 650 mg Q6H PRN Administration Mild Pain (1-3) or Fever Amlodipine Besylate 10 mg 05/07/25 09:00 05/10/25 08:33 Amlodipine Besylate 10 Mg Tablet PO 10 mg DAILY SREEDHAR Administration Aspirin 81 mg 05/07/25 09:00 05/10/25 08:33 Aspirin 81 Mg Enteric Tablet PO 81 mg DAILY SREEDHAR Administration Atorvastatin Calcium 80 mg 05/07/25 09:00 05/10/25 08:33 Atorvastatin 40 Mg Tablet PO 80 mg DAILY SREEDHAR Administration Calcitriol 0.25 mcg 05/07/25 09:00 05/10/25 08:33 Calcitriol 0.25 Mcg Capsule PO 0.25 mcg DAILY SREEDHAR Administration Docusate Sodium 100 mg 05/06/25 21:12 Docusate Sodium 100 Mg Capsule PO DAILY PRN Constipation Empagliflozin 10 mg 05/10/25 09:00 05/10/25 08:33 Empagliflozin 10 Mg Tablet PO 10 mg DAILY SREEDHAR Administration Epoetin Chris-epbx 10,000 units 05/10/25 09:00 05/10/25 08:33 Epoetin Chris-Epbx 10,000 Units/Ml Vial SUB-Q 10,000 units TUTHSA@09 SREEDHAR Administration Heparin Sodium (Porcine) 5,000 units 05/07/25 09:00 05/10/25 08:33 Heparin Sodium 5,000 Units/Ml Vial SUB-Q 5,000 units Q12HR SREEDHAR Administration Isosorbide Mononitrate 60 mg 05/07/25 09:00 05/10/25 08:33 Isosorbide Mononitrate 60 Mg Tab.Er.24h PO 60 mg DAILY SREEDHAR Administration Levothyroxine Sodium 100 mcg 05/07/25 06:30 05/10/25 05:41 Levothyroxine Sodium 100 Mcg Tablet PO 100 mcg DAILY@0630 SREEDHAR Administration Levothyroxine Sodium 75 mcg 05/07/25 06:30 05/10/25 05:41 Levothyroxine Sodium 75 Mcg Tablet PO 75 mcg DAILY@0630 SREEDHAR Administration Melatonin 5 mg 05/08/25 21:00 05/09/25 20:37 Melatonin 5 Mg Tablet PO 5 mg HS SREEDHAR Administration Metoprolol Succinate 100 mg 05/07/25 09:00 05/10/25 08:33 Metoprolol Succinate Ext Rel 100 Mg Tabcr PO 100 mg DAILY SREEDHAR Administration Pantoprazole Sodium 40 mg 05/07/25 09:00 05/10/25 16:20 Pantoprazole 40 Mg Tablet PO 40 mg BID SREEDHAR Administration Quetiapine Fumarate 50 mg 05/06/25 21:20 05/10/25 08:33 Quetiapine Fumarate 25 Mg Tablet PO 50 mg Q12HR SREEDHAR Administration Venlafaxine HCl 150 mg 05/06/25 21:20 05/09/25 20:37 Venlafaxine Hcl Xr 75 Mg Cap.Er.24h PO 150 mg HS SREEDHAR Administration Radiology Results: ITS Impressions Renal Ultrasound 05/07/25 11:54 Impression: 1: The kidneys are enlarged with numerous renal cysts. However, the kidneys were not fully visualized due to limitations of this study. Consider a noncontrast CT for further assessment. Chest/Abdomen/Pelvis CT 05/09/25 12:25 IMPRESSION: 1. Numerous bilateral renal cysts, the largest cyst in the right kidney grossly measures 9.5 cm, the largest cyst in the left kidney grossly measures 5.7 cm. 2. There is an indeterminate 1.6 x 0.8 cm lucency in the left inferior pubic ramus. Dedicated x-rays of the pelvis are recommended. 3. There are a few small bandlike and reticular opacities in the lower lungs. Differential includes atelectasis/scarring or infiltrates. 4. Prior surgical change about the left breast which are new as compared to the study from 2016. Correlate clinically. Hip/Pelvis X-Ray 05/10/25 11:10 Impression: 1: Mixed lytic and sclerotic lesion left inferior pubic ramus. In a 70-year-old female, consider metastatic disease, lymphoma, Paget's disease. Consider correlation with bone scan or pet/CT examination. Labs Labs: Laboratory Tests 05/10/25 04:40 05/10/25 04:40 Calcium 8.6 Phosphorus 4.4 Total Bilirubin 0.3 AST 52 H ALT 92 H Alkaline Phosphatase 99 Total Protein 7.2 Albumin 4.0
--- NOTE | 2025-05-10 17:58 | WPDONCCN ---
Assessment and Plan Assessment and plan (1) Lytic bone lesions on xray: Code(s): M89.8X9 - Other specified disorders of bone, unspecified site Status: Acute Assessment and Plan: Bone lesions. Patient is the 70-year-old obese female with history of left-sided breast cancer status post left-sided mastectomy in 2019 and then endocrine therapy for 5 years duration. She did not receive radiation therapy or chemotherapy. Patient has a history of chronic kidney disease. She came into the hospital with shortness of breath and some chest discomfort without any fevers and chills. CT chest abdomen pelvis was done that showed 1.6 x 0.8 cm lucency in the left pubic ramus with some kidney cysts. She denies any neuropathy and bone pain. Denies any weight loss. Other labs showed anemia with hemoglobin of 8.2 and elevated creatinine. Calcium was normal. Liver enzymes were elevated. Iron levels were slightly low. ProBNP was elevated. At this time I will order the workup for lytic bone lesion that would include serum protein electrophoresis with immunofixation, quantitative immunoglobulin and serum free light chain studies. I will also order CA 15-3 for breast cancer as well as bone survey. Regarding her anemia I will check vitamin B12 level and will order iron infusion. After correction of iron deficiency will decide about Procrit injection for anemia from CKD. She will follow-up in the office. I have provided her my office information for follow-up. HPI Data of Consult Date/Time: 05/10/25 17:58 Requesting Physician: Kristian Meadows MD Primary Care Provider: Karly Valencia, AXLE TURNER Consult Narrative Narrative: Genna Fraga is a 70 year old female with history of left-sided breast cancer status post mastectomy done in 2019 and then 5 years of endocrine therapy without any chemotherapy. Patient also has history of end-stage renal disease but not on dialysis. Patient has a history of thyroid cancer as well. Came into the hospital due to shortness of breath and some chest discomfort with breathing. Patient had shortness of breath for 1 week duration without any fevers and chills. Labs showed hemoglobin of 8.2 creatinine of 3.5. Calcium was normal at 8.6. Iron was 31 with iron saturation of 11%. Liver enzymes were elevated as well as per proBNP. CT chest abdomen pelvis was performed that showed numerous renal cyst with is 1.6 x 0.8 cm lucency in the left pubic ramus. She denies any neuropathy and bone pain. Denies any weight loss. No other new complaints. Review of Systems Review of Systems: Twelve point review of system was reviewed [facility] Past Medical History Medical History Hx of thyroid cancer Breast cancer CKD (chronic kidney disease) Social History Social History Smoking status: Never smoker Alcohol intake: never Substance use: never Substance use type: does not use Lack of Transportation: No Lack of Food: Never True Current Housing: I Have Housing Concerned About Future Housing: No Difficulty Paying Gas/Electric Bills: No Difficulty Paying for Meds: No Currently Unemployed: No Education: High School Diploma/GED Difficulty w/ Childcare or Family Care: No Spiritual care concerns: No Meds Home Medications and Allergies Home Medications ?Medication ?Instructions ?Recorded ?Confirmed ?Type amlodipine 10 mg tablet 10 mg PO DAILY 05/06/25 05/06/25 History aspirin 81 mg tablet,delayed 81 mg PO DAILY 05/06/25 05/06/25 History release atorvastatin 80 mg tablet 80 mg PO DAILY 05/06/25 05/06/25 History calcitriol 0.25 mcg capsule 0.25 mcg PO DAILY 05/06/25 05/06/25 History docusate sodium 100 mg capsule 100 mg PO DAILY PRN constipation 05/06/25 05/06/25 History ergocalciferol (vitamin D2) 1,250 1,250 mcg PO MONTHLY 05/06/25 05/06/25 History mcg (50,000 unit) capsule famotidine 20 mg tablet 20 mg PO BID 05/06/25 05/06/25 History ferrous sulfate 325 mg (65 mg 325 mg PO BID 05/06/25 05/06/25 History iron) tablet (FeroSul) isosorbide mononitrate 60 mg 60 mg PO DAILY 05/06/25 05/06/25 History tablet,extended release 24 hr levothyroxine 175 mcg tablet 175 mcg PO DAILY 05/06/25 05/06/25 History metoprolol succinate 100 mg 100 mg PO DAILY 05/06/25 05/06/25 History tablet,extended release 24 hr omeprazole 40 mg capsule,delayed 40 mg PO DAILY 05/06/25 05/06/25 History release quetiapine 25 mg tablet 50 mg PO BID 05/06/25 05/06/25 History tizanidine 2 mg tablet 2 mg PO Q8H PRN muscle spasticity 05/06/25 05/06/25 History venlafaxine 150 mg 150 mg PO HS 05/06/25 05/06/25 History capsule,extended release 24 hr Allergies Allergy/AdvReac Type Severity Reaction Status Date / Time No Known Allergies Allergy Verified 05/06/25 14:56 Vital Signs Vital Signs - 24 hr 05/09/25 20:00 05/09/25 20:37 05/09/25 22:45 Temperature Pulse Rate 64 Respiratory Rate Blood Pressure Pulse Oximetry 94 Oxygen Delivery Room Air Autopap Fraction of Inspired Oxygen 21 05/09/25 22:58 05/10/25 00:00 05/10/25 01:09 Temperature 37.0 C 36.6 C Pulse Rate 71 66 60 Respiratory Rate 16 16 Blood Pressure 115/65 120/61 Pulse Oximetry 93 93 Oxygen Delivery Fraction of Inspired Oxygen 05/10/25 04:00 05/10/25 05:48 05/10/25 08:00 Temperature 36.6 C Pulse Rate 67 75 65 Respiratory Rate 18 Blood Pressure 138/69 Pulse Oximetry 91 Oxygen Delivery Fraction of Inspired Oxygen 05/10/25 08:33 05/10/25 12:00 05/10/25 12:00 Temperature 36.4 C Pulse Rate 80 64 67 Respiratory Rate 18 Blood Pressure 122/68 Pulse Oximetry 96 Oxygen Delivery Fraction of Inspired Oxygen 05/10/25 16:00 05/10/25 16:32 05/10/25 16:32 Temperature Pulse Rate 69 73 Respiratory Rate Blood Pressure 121/64 126/60 Pulse Oximetry 97 Oxygen Delivery Fraction of Inspired Oxygen Exam Narrative: Lungs are clear to auscultation bilaterally Cardiovascular regular rate rhythm no murmurs Abdomen soft nontender nondistended Extremities no edema Results Labs 05/10/25 04:40 05/10/25 04:40 Labs: Short CBC 05/10/25 Range/Units 04:40 WBC 8.5 (4.5-10.0) K/mm3 Hgb 8.2 L (12.0-15.0) g/dL Hct 26.0 L (37.0-47.0) % Plt Count 235 (150-375) k/mm3 BMP 05/10/25 04:40 Sodium 137 Potassium 4.0 Chloride 105 Carbon Dioxide 24 BUN 70 H Creatinine 3.50 H Glucose 78 Calcium 8.6 Liver Function 05/10/25 Range/Units 04:40 Total Bilirubin 0.3 (0.2-1.3) mg/dL AST 52 H (14-36) U/L ALT 92 H (6-35) U/L Alkaline Phosphatase 99 (38-126) U/L Albumin 4.0 (3.5-5.1) g/dL
[2025-05-10] MEDS: IRON SUCROSE COMPLEX 400 MG, IRON SUCROSE COMPLEX 100 MG in SODIUM CHLORIDE 0.9% IV 250 ML 78.57 MG IVPB (18:48)
[2025-05-10 19:18] LABS: Immunoglobulin A 180 mg/dL (70-400); Immunoglobulin G 1299 mg/dL (700-1600); Immunoglobulin M 54 mg/dL (40-230)
[2025-05-10 20:33] LABS: Vitamin B12 393.0 pg/mL (239-931)
[2025-05-10] MEDS: VENLAFAXINE HCL XR 75 MG CAP.ER.24H 150 MG PO (20:33)
[2025-05-10] MEDS: MELATONIN 5 MG TABLET PO (20:33)
[2025-05-11] VITALS (10 sets, daily range): BP systolic 125–152; BP diastolic 68–77; PULSE 70–85; RESP 16–22; TEMP 36.2–36.7; O2SAT 90–95
[2025-05-11 04:57] LABS: Hematocrit 27.5 % (37.0-47.0); Hemoglobin 8.5 g/dL (12.0-15.0); Immature Granulocyte Percent A 1.3 % (0-0.5); Lymphocytes Absolute Auto 1.06 K/mm3 (0.9-3.2); Mean Corpuscular HGB Conc 30.9 g/dl (32-36); Mean Corpuscular Hemoglobin 27.7 pg (26-34); Mean Corpuscular Volume 89.6 fl (80-100); Nucleated Red Blood Cells Absolute Auto 0.030 K/mm3 (0.0-0.012); Nucleated Red Blood Cells Perc 0.3 % (0.0-0.2); Platelet Count Result 239 k/mm3 (150-375); Red Blood Count 3.07 M/mm3 (4.2-5.4); White Blood Count 10.3 K/mm3 (4.5-10.0)
[2025-05-11 05:14] LABS: Alanine Aminotransferase 78 U/L (6-35); Albumin Level 4.2 g/dL (3.5-5.1); Alkaline Phosphatase 103 U/L (38-126); Anion Gap 10 mmol/L (4-12); Aspartate Amino Transferase 39 U/L (14-36); Bilirubin,Total 0.5 mg/dL (0.2-1.3); Blood Urea Nitrogen 66 mg/dL (7-17); Calcium 8.9 mg/dL (8.4-10.2); Carbon Dioxide 24 mmol/L (22-30); Chloride 104 mmol/L (98-107); Estimated CRCL calculation 17 ml/min; Estimated Glomerular Filt Rate 15; Glucose 96 mg/dL (65-110); Potassium 4.3 mmol/L (3.4-5.0); Sodium 138 mmol/L (137-145); Total Protein 7.4 g/dL (6.3-8.2)
[2025-05-11] MEDS: LEVOTHYROXINE SODIUM 100 MCG TABLET PO (05:29)
[2025-05-11] MEDS: LEVOTHYROXINE SODIUM 75 MCG TABLET PO (05:29)
[2025-05-11] MEDS: ASPIRIN 81 MG ENTERIC TABLET PO (08:29)
[2025-05-11] MEDS: EMPAGLIFLOZIN 10 MG TABLET PO (08:29)
[2025-05-11] MEDS: METOPROLOL SUCCINATE EXT REL 100 MG TABCR PO (08:30)
[2025-05-11] MEDS: PANTOPRAZOLE 40 MG TABLET PO ×2 (08:30→16:47)
[2025-05-11] MEDS: ATORVASTATIN 40 MG TABLET 80 MG PO (08:30)
[2025-05-11] MEDS: ISOSORBIDE MONONITRATE 60 MG TAB.ER.24H PO (08:30)
[2025-05-11] MEDS: FUROSEMIDE 40 MG TABLET PO (09:25)
--- NOTE | 2025-05-11 10:39 | P.DS_ITS ---
DS: Admitting Diagnosis Discharge Date 05/11/2025 Admitting Diagnosis Shortness of breath DS: Discharge Diagnosis Discharge Diagnosis (1) Hyperlipidemia: Code(s): E78.5 - Hyperlipidemia, unspecified Status: Acute Assessment and Plan: Continue statin (2) Hypertension: Code(s): I10 - Essential (primary) hypertension Status: Chronic Assessment and Plan: Continue amlodipine and isosorbide BP goal <130/80 (3) Lytic bone lesions on xray: Code(s): M89.8X9 - Other specified disorders of bone, unspecified site Status: Acute Assessment and Plan: Mixed lytic and sclerotic lesion left inferior pubic ramus Consulted hematology/oncology appreciate recommendation Plan DS: Summary Hospital Course Hospital Course: 70-year-old female here with a PMHx: CKD unknown stage at this time patient reports she has a history of ESRD, but is not on dialysis, citing she was told that if her kidney function should worsen she would need a kidney transplant or start dialysis. Patient was originally seen at outside emergency room then transferred here due to ongoing SOB and mild chest discomfort during her visit. Patient reports a history of worsening lower extremity edema and SOB that has been ongoing for the past week. She reports the SOB had been present for about a week it begin to worsening significantly over the past couple of days. The patient experienced increased difficulty while attending confucianist which led her daughter to take her to the emergency room for further evaluation. She denies any nausea vomiting fever chills at this time. Patient reports ongoing bilateral leg swelling, the patient noted left foot swelling which was reportedly more pronounced than the right. ED Work-up reveals: Who EKG tachycardia, sinus rhythm, no ectopic beats, nonspecific ST changes, normal QRS, normal QT. lab reveals chloride 109, carbon dioxide 17, anion gap 14, BUN 56, creatinine 2.86 with a GFR 16 calculated osmolality is 306, AST is 57, ALT 73 [id number], UA unremarkable for any infection or bacteria. 05/11/2025: Patient shortness of breath possibly due to volume overload in the setting of CKD, diastolic dysfunction and pulmonary hypertension. Patient has a history of polycystic kidney disease which contributes to the hypertension and vascular disease and she follows up with Nephrology in the [facility]. Patient also has a history of left-sided breast cancer status post left-sided mastectomy in 2019 and then endocrine therapy for 5 years duration. She did receive any radiation or chemotherapy. CT chest/abdomen/pelvis:1. Numerous bilateral renal cysts, the largest cyst in the right kidney grossly measures 9.5 cm, the largest cyst in the left kidney grossly measures 5.7 cm. 2. There is an indeterminate 1.6 x 0.8 cm lucency in the left inferior pubic r amus. Dedicated x-rays of the pelvis are recommended. 3. There are a few small bandlike and reticular opacities in the lower lungs. Differential includes atelectasis/scarring or infiltrates. 4. Prior surgical change about the left breast which are new as compared to the study from 2016. Correlate clinically Hip and pelvic x-ray:: Mixed lytic and sclerotic lesion left inferior pubic ramus. In a 70-year-old female, consider metastatic disease, lymphoma, Paget's disease. Consider correlation with bone scan or pet/CT examination. Due to the concerns of lytic lesions and oncology was consulted. He ordered workup for lytic bone lesion that would include serum protein electrophoresis with immunofixation, quantitative immunoglobulin and serum free light chain studies and CA 15 3 for breast cancer bone survey. Patient needs to follow-up with the oncologist for her iron deficiency anemia for which she will be receiving iron and will decide about Procrit injection for anemia from CKD. On the day of discharge, the patient was seen and examined. Vital signs were stable. Physical exam were stable and labs were reviewed at length. Discharge instructions, medications, and follow-up appointments were discussed with the patient at length and all day questions were answered. ER warnings were given. Status at Discharge Cognitive/behavioral status at discharge: Stable Time Spent with Patient Time attestation: Total time spent providing and/or coordinating discharge services: 45 minutes Exam Narrative: General: A well-developed, nontoxic-appearing female sitting up in bed. HEENT: PERRL, EOMI. Oral mucosa moist. Neck: Supple. No midline cervical tenderness. Respiratory: Respirations are non- labored and lungs are clear to auscultation bilaterally. Cardiovascular: Regular rate and rhythm with S1-S2. Gastrointestinal: Abdomen is soft, non-tender, and non-distended with positive bowel sounds. Skin: Warm and dry. No rash or lesions on limited exam. Extremities: Bilateral, +1 edema, left leg more pronounced than right leg Neurological: Alert and oriented. Cranial nerves 2-12 are grossly intact. No gross focal deficits to casual conversation. Psychiatric: Pleasant and cooperative with normal mood and affect. Judgment and insight intact. DS: Data Data Completed and Pending Labs on day of discharge: Labs from last 24 hours 05/11/25 05/10/25 05/10/25 04:34 04:40 04:40 WBC 10.3 H RBC 3.07 L Hgb 8.5 L Hct 27.5 L MCV 89.6 MCH 27.7 MCHC 30.9 L RDW 16.6 H Plt Count 239 MPV 9.7 Immature Gran % (Auto) 1.3 H Neut % (Auto) 79.8 H Lymph % (Auto) 10.3 L [place] % (Auto) 7.0 Eos % (Auto) 1.2 Baso % (Auto) 0.4 Lymph # (Auto) 1.06 [place] # (Auto) 0.7 H Eos # (Auto) 0.1 Baso # (Auto) 0.0 Abs Immat Gran (auto) 0.13 H Absolute Neuts (auto) 8.2 H Absolute Nucleated RBC 0.030 H Nucleated RBC % 0.3 H Sodium 138 Potassium 4.3 Chloride 104 Carbon Dioxide 24 Anion Gap 10 BUN 66 H Creatinine 3.11 H Estim Creat Clear Calc 17 Estimated GFR 15 L Glucose 96 Calcium 8.9 Phosphorus 3.8 Total Bilirubin 0.5 AST 39 H ALT 78 H Alkaline Phosphatase 103 Total Protein 7.4 Albumin 4.2 Vitamin B12 Folate IgG IgA Pending IgM Pending 54 JANETT Interpretation Pending 05/10/25 05/10/25 04:40 04:40 WBC RBC Hgb Hct MCV MCH MCHC RDW Plt Count MPV Immature Gran % (Auto) Neut % (Auto) Lymph % (Auto) [place] % (Auto) Eos % (Auto) Baso % (Auto) Lymph # (Auto) [place] # (Auto) Eos # (Auto) Baso # (Auto) Abs Immat Gran (auto) Absolute Neuts (auto) Absolute Nucleated RBC Nucleated RBC % Sodium Potassium Chloride Carbon Dioxide Anion Gap BUN Creatinine Estim Creat Clear Calc Estimated GFR Glucose Calcium Phosphorus Total Bilirubin AST ALT Alkaline Phosphatase Total Protein Albumin Vitamin B12 393.0 Folate 5.9 IgG Pending 1299 IgA 180 IgM JANETT Interpretation Imaging Radiologist's impression: ITS Impressions Renal Ultrasound 05/07/25 11:54 Impression: 1: The kidneys are enlarged with numerous renal cysts. However, the kidneys were not fully visualized due to limitations of this study. Consider a noncontrast CT for further assessment. Chest/Abdomen/Pelvis CT 05/09/25 12:25 IMPRESSION: 1. Numerous bilateral renal cysts, the largest cyst in the right kidney grossly measures 9.5 cm, the largest cyst in the left kidney grossly measures 5.7 cm. 2. There is an indeterminate 1.6 x 0.8 cm lucency in the left inferior pubic ramus. Dedicated x-rays of the pelvis are recommended. 3. There are a few small bandlike and reticular opacities in the lower lungs. Differential includes atelectasis/scarring or infiltrates. 4. Prior surgical change about the left breast which are new as compared to the study from 2016. Correlate clinically. Hip/Pelvis X-Ray 05/10/25 11:10 Impression: 1: Mixed lytic and sclerotic lesion left inferior pubic ramus. In a 70-year-old female, consider metastatic disease, lymphoma, Paget's disease. Consider correlation with bone scan or pet/CT examination. Discharge Plan Discharge Attending physician on discharge: Kristian Meadows Consulting providers: Tova Markham; Richard Gama; Marleen Simmons Discharging Clinician: Kristian Meadows Anticipated Discharge Date/Time: 05/11/25 08:37 Patient Disposition: Home Activity: as tolerated Diet: heart healthy and renal Discharge Instructions: Please follow-up with oncologist,anime designer ,and swing type lathe operator within 2 weeks upon discharge. Check blood pressure 1 to 2 times a day. Record and bring into your doctor for review. Call your doctor if your blood pressure is greater than 180/110 or less than 90/45. Walk with cane or other assist device. Take precautions to avoid falls. Rise slowly from a lying or sitting position. Pause before standing or walking. Contact your doctor or call 911 and come to the Emergency Room if you have any type of trauma, lightheadedness with standing or other worrisome symptoms. Avoid NSAIDs (ibuprofen, naproxen, Aleve). Tylenol is safe to take. Follow-up with your primary care provider in 1-2 weeks. Please call for appointment. Follow-up with Cardiology in 2-4 weeks. Please call for an appointment. Thank you for using [facility] for your health care needs. Patient Instructions: Antibiotic Form Patient Language: Cameroonian Stand Alone Forms: General Discharge Information Follow-up/Referrals: Richard Gama MD [Physician, Hematology] Annie,Karly Romero, APPARATUS LINEMAN [Primary Care Provider, Unknown] Tova Markham MD [Physician, Nephrology] Marleen Simmons APN-C [Advanced Practice Nurse, Cardiology] Discharge Medications: New Retacrit 10,000 unit/mL Solution 10,000 unit subcut TUTHSA@09 Qty: 10 0RF Rx Instructions: Please follow-up with the oncologist/anime designer for recommendation Jardiance 10 mg Tablet 10 mg PO DAILY Qty: 30 0RF furosemide [Lasix] 40 mg tablet 40 mg PO DAILY Qty: 90 0RF Continued amlodipine 10 mg tablet 10 mg PO DAILY quetiapine 25 mg tablet 50 mg PO BID levothyroxine 175 mcg tablet 175 mcg PO DAILY atorvastatin 80 mg tablet 80 mg PO DAILY tizanidine 2 mg tablet 2 mg PO Q8H PRN (Reason: muscle spasticity) metoprolol succinate 100 mg tablet extended release 24 hr 100 mg PO DAILY venlafaxine 150 mg capsule,extended release 24hr 150 mg PO HS omeprazole 40 mg capsule,delayed release(DR/EC) 40 mg PO DAILY aspirin 81 mg tablet,delayed release (DR/EC) 81 mg PO DAILY isosorbide mononitrate 60 mg tablet extended release 24 hr 60 mg PO DAILY famotidine 20 mg tablet 20 mg PO BID ferrous sulfate [FeroSul] 325 mg (65 mg iron) tablet 325 mg PO BID docusate sodium 100 mg capsule 100 mg PO DAILY PRN (Reason: constipation) ergocalciferol (vitamin D2) 1,250 mcg (50,000 unit) capsule 1,250 mcg PO MONTHLY calcitriol 0.25 mcg capsule 0.25 mcg PO DAILY Date of admission: 05/07/25 15:08 Primary Care Provider: Annie,Karly Romero Admitting Provider: Kristian Meadows Attending physician on admission: Kristian Meadows Condition: Stable
--- NOTE | 2025-05-11 12:47 | P.PNNP_ITS ---
Progress Note: A&P Assessment and Plan (1) Stage 4 chronic kidney disease: Code(s): N18.4 - Chronic kidney disease, stage 4 (severe) Status: Chronic Assessment and Plan: * creatinine worse in the context of IV diuresis * baseline creatinine running 2.3 - 2.8mg/dl * creatinine 2.79mg/dL in February 2025 * secondary to polycystic kidney disease along with contributions from hypertension and vascular disease * may have to accept a higher creatinine in the context of needed diuretic therapy to maintain respiratory status * follows with nephrology in [place], [place] for management of this issue (2) Shortness of breath: Code(s): R06.02 - Shortness of breath Status: Acute Assessment and Plan: * clinically better * suspect multifactorial: * diastolic CHF * advanced CKD * relative anemia * obesity(?) * other(?) * CXR clear but some peripheral edema noted * no evidence of hypoxia * CT of C/A/P results noted * follow respiratory status with current interventions (3) CHF exacerbation: Code(s): I50.9 - Heart failure, unspecified Status: Acute Assessment and Plan: * suspected and presumably playing a role with #2 * Echo results noted: * left ventricular ejection fraction is visually estimated to be 60 - 65% * there is grade 2 diastolic dysfunction * mitral valve leaflets are sclerotic * moderate mitral regurgitation * tricuspid valve is normal * moderate tricuspid regurgitation * moderate pulmonary hypertension -- pulmonary arterial systolic pressure is estimated at 51 mmHg * Cardiology following * s/p IV diuresis * oral diuretics on discharge? * follow daily weights, I/Os, and respiratory status * follow renal function (4) Anemia: Code(s): D64.9 - Anemia, unspecified Status: Acute Assessment and Plan: * partly related to underlying CKD * anemia studies also demonstrate iron deficiency * initiated on IV iron * NORRIS during hospital stay * follow trend of H/H (5) Hypertension: Code(s): I10 - Essential (primary) hypertension Status: Chronic Assessment and Plan: * elevated on presentation * however, appears to be doing better now * follow trend of hemodynamics (6) Autosomal dominant polycystic kidney disease: Code(s): Q61.2 - Polycystic kidney, adult type Status: Chronic Assessment and Plan: * known history * admission CT imaging consistent with this diagnosis/disease * also supported by family history: * mother with PCKD and required dialysis * sister with PCKD as well Will continue to follow. L Subjective Date/time seen: 05/11/25 12:47 Interval history: Follow-up for chronic kidney disease. Renal function/creatinine a bit better but likely due to IV lasix discontinued; started on oral lasix today after complaining of some shortness of breath earlier this morning; no other issues/events overnight or earlier this morning. Exam 2 Narrative: General: elderly but WD/WN female in NAD Heart: normal S1 and S2; no rub Lungs: clear anteriorly Abdomen: obese but soft, nontender, nondistended, positive bowel sounds Extremities: no cyanosis or clubbing; trace edema Skin: no nodules Objective Data Vital Signs Vital Signs: Vital Signs Temp Pulse Resp BP Pulse Ox O2 Del Method 05/11/25 12:00 74 18 125/69 92 05/11/25 12:00 73 05/11/25 09:10 85 22 H 148/72 H 95 05/11/25 09:05 84 20 150/73 H 94 05/11/25 09:00 78 18 141/68 H 92 05/11/25 08:30 80 05/11/25 08:00 97.2 F L 78 18 141/68 H 92 05/11/25 08:00 85 05/11/25 04:00 98.0 F 79 20 152/77 H 90 05/11/25 04:00 72 05/11/25 00:00 70 05/10/25 23:58 98.3 F 73 18 131/66 93 05/10/25 20:52 73 92 Autopap 05/10/25 20:25 Room Air 05/10/25 20:00 77 05/10/25 20:00 97.6 F 70 20 130/67 97 05/10/25 16:32 126/60 05/10/25 16:32 73 121/64 97 Intake/Output Intake/Output: Intake & Output 05/08/25 05/09/25 05/10/25 05/11/25 23:59 23:59 23:59 23:59 Intake Total 2185 720 1360 1100 Output Total 3200 600 2200 Balance -1015 120 -840 1100 Meds/Results Medications: Active Medications Generic Name Dose Route Start Last Admin Trade Name Freq PRN Reason Stop Dose Admin Acetaminophen 650 mg 05/06/25 22:20 05/08/25 05:09 Acetaminophen 325 Mg Tablet PO 650 mg Q6H PRN Administration Mild Pain (1-3) or Fever Amlodipine Besylate 10 mg 05/07/25 09:00 05/11/25 08:30 Amlodipine Besylate 10 Mg Tablet PO 10 mg DAILY SREEDHAR Administration Aspirin 81 mg 05/07/25 09:00 05/11/25 08:29 Aspirin 81 Mg Enteric Tablet PO 81 mg DAILY SREEDHAR Administration Atorvastatin Calcium 80 mg 05/07/25 09:00 05/11/25 08:30 Atorvastatin 40 Mg Tablet PO 80 mg DAILY SREEDHAR Administration Calcitriol 0.25 mcg 05/07/25 09:00 05/11/25 08:29 Calcitriol 0.25 Mcg Capsule PO 0.25 mcg DAILY SREEDHAR Administration Docusate Sodium 100 mg 05/06/25 21:12 Docusate Sodium 100 Mg Capsule PO DAILY PRN Constipation Empagliflozin 10 mg 05/10/25 09:00 05/11/25 08:29 Empagliflozin 10 Mg Tablet PO 10 mg DAILY SREEDHAR Administration Epoetin Chris-epbx 10,000 units 05/10/25 09:00 05/10/25 08:33 Epoetin Chris-Epbx 10,000 Units/Ml Vial SUB-Q 10,000 units TUTHSA@09 SREEDHAR Administration Furosemide 40 mg 05/11/25 09:25 05/11/25 09:25 Furosemide 40 Mg Tablet PO 40 mg QAM SREEDHAR Administration Heparin Sodium (Porcine) 5,000 units 05/07/25 09:00 05/11/25 08:33 Heparin Sodium 5,000 Units/Ml Vial SUB-Q 5,000 units Q12HR SREEDHAR Administration Isosorbide Mononitrate 60 mg 05/07/25 09:00 05/11/25 08:30 Isosorbide Mononitrate 60 Mg Tab.Er.24h PO 60 mg DAILY SREEDHAR Administration Levothyroxine Sodium 100 mcg 05/07/25 06:30 05/11/25 05:29 Levothyroxine Sodium 100 Mcg Tablet PO 100 mcg DAILY@0630 SREEDHAR Administration Levothyroxine Sodium 75 mcg 05/07/25 06:30 05/11/25 05:29 Levothyroxine Sodium 75 Mcg Tablet PO 75 mcg DAILY@0630 SREEDHAR Administration Melatonin 5 mg 05/08/25 21:00 05/10/25 20:33 Melatonin 5 Mg Tablet PO 5 mg HS SREEDHAR Administration Metoprolol Succinate 100 mg 05/07/25 09:00 05/11/25 08:30 Metoprolol Succinate Ext Rel 100 Mg Tabcr PO 100 mg DAILY SREEDHAR Administration Pantoprazole Sodium 40 mg 05/07/25 09:00 05/11/25 08:30 Pantoprazole 40 Mg Tablet PO 40 mg BID SREEDHAR Administration Quetiapine Fumarate 50 mg 05/06/25 21:20 05/11/25 08:30 Quetiapine Fumarate 25 Mg Tablet PO 50 mg Q12HR SREEDHAR Administration Venlafaxine HCl 150 mg 05/06/25 21:20 05/10/25 20:33 Venlafaxine Hcl Xr 75 Mg Cap.Er.24h PO 150 mg HS SREEDHAR Administration Radiology Results: ITS Impressions Renal Ultrasound 05/07/25 11:54 Impression: 1: The kidneys are enlarged with numerous renal cysts. However, the kidneys were not fully visualized due to limitations of this study. Consider a noncontrast CT for further assessment. Chest/Abdomen/Pelvis CT 05/09/25 12:25 IMPRESSION: 1. Numerous bilateral renal cysts, the largest cyst in the right kidney grossly measures 9.5 cm, the largest cyst in the left kidney grossly measures 5.7 cm. 2. There is an indeterminate 1.6 x 0.8 cm lucency in the left inferior pubic ramus. Dedicated x-rays of the pelvis are recommended. 3. There are a few small bandlike and reticular opacities in the lower lungs. Differential includes atelectasis/scarring or infiltrates. 4. Prior surgical change about the left breast which are new as compared to the study from 2016. Correlate clinically. Hip/Pelvis X-Ray 05/10/25 11:10 Impression: 1: Mixed lytic and sclerotic lesion left inferior pubic ramus. In a 70-year-old female, consider metastatic disease, lymphoma, Paget's disease. Consider correlation with bone scan or pet/CT examination. Labs Labs: Laboratory Tests 05/11/25 04:34 05/11/25 04:34 Calcium 8.9 Phosphorus 3.8 Total Bilirubin 0.5 AST 39 H ALT 78 H Alkaline Phosphatase 103 Total Protein 7.4 Albumin 4.2
--- NOTE | 2025-05-11 16:08 | P.PNIM_ITS ---
Progress Note: A&P Assessment and Plan (1) New onset of congestive heart failure: Code(s): I50.9 - Heart failure, unspecified Status: Inactive Assessment and Plan: Patient presents with is a worsening of lower extremity edema and shortness of breath, suspected for new onset CHF Elevated BNP> 1800, in the setting of ESRD Status post IV Lasix 20 mg once Started Lasix 40 mg p.o. q.d. Cardiology consult in the ED EKG without ST wave changes Echo diastolic dysfunction and moderate pulmonary hypertension continuous telemetry, strict I and os, standing daily weight,Na<2gs Per cardiology, Lasix 40 mg IV b.i.d. Dietary consult, PT/OT (2) End-stage renal disease (ESRD): Code(s): N18.6 - End stage renal disease Status: Inactive Assessment and Plan: Patient reports her nephrology is in [facility] Patient she has polycystic kidney Reviewed renal ultrasound At baseline creatinine seems high 2.7, in this admission her creatinine is 2.86 Nephrology consult Blood pressure control (3) Anemia associated with chronic renal failure: Code(s): N18.9 - Chronic kidney disease, unspecified; D63.1 - Anemia in chronic kidney disease Status: Inactive Assessment and Plan: Anemia likely secondary to kidney disease Iron studies shows iron 31, TIBC 272 and % saturation 11 Will give iron IV x3 (4) Hyperlipidemia: Code(s): E78.5 - Hyperlipidemia, unspecified Status: Acute Assessment and Plan: Continue statin (5) Hypertension: Code(s): I10 - Essential (primary) hypertension Status: Chronic Assessment and Plan: Continue amlodipine and isosorbide BP goal <130/80 (6) Lytic bone lesions on xray: Code(s): M89.8X9 - Other specified disorders of bone, unspecified site Status: Acute Assessment and Plan: Mixed lytic and sclerotic lesion left inferior pubic ramus Consulted hematology/oncology appreciate recommendation Plan Subjective Date/time seen: 05/11/25 16:08 Interval history: Holding discharge due to sudden episode of shortness of breath this morning. Patient started on Lasix 40 mg p.o. q.d.. 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 Review of Systems Review of Systems: All systems reviewed & are unremarkable except as noted in HPI and below Exam Narrative: General: A well-developed, nontoxic-appearing female sitting up in bed. HEENT: PERRL, EOMI. Oral mucosa moist. Neck: Supple. No midline cervical tenderness. Respiratory: Respirations are non- labored and lungs are clear to auscultation bilaterally. Cardiovascular: Regular rate and rhythm with S1-S2. Gastrointestinal: Abdomen is soft, non-tender, and non-distended with positive bowel sounds. Skin: Warm and dry. No rash or lesions on limited exam. Extremities: Bilateral, +1 edema, left leg more pronounced than right leg Neurological: Alert and oriented. Cranial nerves 2-12 are grossly intact. No gross focal deficits to casual conversation. Psychiatric: Pleasant and cooperative with normal mood and affect. Judgment and insight intact. Objective Data Vital Signs Vital Signs: Vital Signs - 24 hr 05/10/25 16:32 05/10/25 16:32 05/10/25 20:00 Temperature 97.6 F Pulse Rate 73 70 Respiratory Rate 20 Blood Pressure 121/64 126/60 130/67 Pulse Oximetry 97 97 Oxygen Delivery 05/10/25 20:00 05/10/25 20:25 05/10/25 20:52 Temperature Pulse Rate 77 73 Respiratory Rate Blood Pressure Pulse Oximetry 92 Oxygen Delivery Room Air Autopap 05/10/25 23:58 05/11/25 00:00 05/11/25 04:00 Temperature 98.3 F Pulse Rate 73 70 72 Respiratory Rate 18 Blood Pressure 131/66 Pulse Oximetry 93 Oxygen Delivery 05/11/25 04:00 05/11/25 08:00 05/11/25 08:00 Temperature 98.0 F 97.2 F L Pulse Rate 79 85 78 Respiratory Rate 20 18 Blood Pressure 152/77 H 141/68 H Pulse Oximetry 90 92 Oxygen Delivery 05/11/25 08:30 05/11/25 09:00 05/11/25 09:05 Temperature Pulse Rate 80 78 84 Respiratory Rate 18 20 Blood Pressure 141/68 H 150/73 H Pulse Oximetry 92 94 Oxygen Delivery 05/11/25 09:10 05/11/25 12:00 05/11/25 12:00 Temperature Pulse Rate 85 73 74 Respiratory Rate 22 H 18 Blood Pressure 148/72 H 125/69 Pulse Oximetry 95 92 Oxygen Delivery Intake/Output Intake/Output: Intake & Output 05/08/25 05/09/25 05/10/25 05/11/25 23:59 23:59 23:59 23:59 Intake Total 2185 720 1360 700 Output Total 3200 600 2200 Balance -1015 120 -840 700 Meds/Results Medications: Active Medications Generic Name Dose Route Start Last Admin Trade Name Freq PRN Reason Stop Dose Admin Acetaminophen 650 mg 05/06/25 22:20 05/08/25 05:09 Acetaminophen 325 Mg Tablet PO 650 mg Q6H PRN Administration Mild Pain (1-3) or Fever Amlodipine Besylate 10 mg 05/07/25 09:00 05/11/25 08:30 Amlodipine Besylate 10 Mg Tablet PO 10 mg DAILY SREEDHAR Administration Aspirin 81 mg 05/07/25 09:00 05/11/25 08:29 Aspirin 81 Mg Enteric Tablet PO 81 mg DAILY SREEDHAR Administration Atorvastatin Calcium 80 mg 05/07/25 09:00 05/11/25 08:30 Atorvastatin 40 Mg Tablet PO 80 mg DAILY SREEDHAR Administration Calcitriol 0.25 mcg 05/07/25 09:00 05/11/25 08:29 Calcitriol 0.25 Mcg Capsule PO 0.25 mcg DAILY SREEDHAR Administration Docusate Sodium 100 mg 05/06/25 21:12 Docusate Sodium 100 Mg Capsule PO DAILY PRN Constipation Empagliflozin 10 mg 05/10/25 09:00 05/11/25 08:29 Empagliflozin 10 Mg Tablet PO 10 mg DAILY SREEDHAR Administration Epoetin Chris-epbx 10,000 units 05/10/25 09:00 05/10/25 08:33 Epoetin Chris-Epbx 10,000 Units/Ml Vial SUB-Q 10,000 units TUTHSA@09 SREEDHAR Administration Furosemide 40 mg 05/11/25 09:25 05/11/25 09:25 Furosemide 40 Mg Tablet PO 40 mg QAM SREEDHAR Administration Heparin Sodium (Porcine) 5,000 units 05/07/25 09:00 05/11/25 08:33 Heparin Sodium 5,000 Units/Ml Vial SUB-Q 5,000 units Q12HR SREEDHAR Administration Isosorbide Mononitrate 60 mg 05/07/25 09:00 05/11/25 08:30 Isosorbide Mononitrate 60 Mg Tab.Er.24h PO 60 mg DAILY SREEDHAR Administration Levothyroxine Sodium 100 mcg 05/07/25 06:30 05/11/25 05:29 Levothyroxine Sodium 100 Mcg Tablet PO 100 mcg DAILY@0630 SEREDHAR Administration Levothyroxine Sodium 75 mcg 05/07/25 06:30 05/11/25 05:29 Levothyroxine Sodium 75 Mcg Tablet PO 75 mcg DAILY@0630 SREEDHAR Administration Melatonin 5 mg 05/08/25 21:00 05/10/25 20:33 Melatonin 5 Mg Tablet PO 5 mg HS SREEDHAR Administration Metoprolol Succinate 100 mg 05/07/25 09:00 05/11/25 08:30 Metoprolol Succinate Ext Rel 100 Mg Tabcr PO 100 mg DAILY SREEDHAR Administration Pantoprazole Sodium 40 mg 05/07/25 09:00 05/11/25 08:30 Pantoprazole 40 Mg Tablet PO 40 mg BID SREEDHAR Administration Quetiapine Fumarate 50 mg 05/06/25 21:20 05/11/25 08:30 Quetiapine Fumarate 25 Mg Tablet PO 50 mg Q12HR SREEDHAR Administration Venlafaxine HCl 150 mg 05/06/25 21:20 05/10/25 20:33 Venlafaxine Hcl Xr 75 Mg Cap.Er.24h PO 150 mg HS SREEDHAR Administration Radiology Results: ITS Impressions Renal Ultrasound 05/07/25 11:54 Impression: 1: The kidneys are enlarged with numerous renal cysts. However, the kidneys were not fully visualized due to limitations of this study. Consider a noncontrast CT for further assessment. Chest/Abdomen/Pelvis CT 05/09/25 12:25 IMPRESSION: 1. Numerous bilateral renal cysts, the largest cyst in the right kidney grossly measures 9.5 cm, the largest cyst in the left kidney grossly measures 5.7 cm. 2. There is an indeterminate 1.6 x 0.8 cm lucency in the left inferior pubic ramus. Dedicated x-rays of the pelvis are recommended. 3. There are a few small bandlike and reticular opacities in the lower lungs. Differential includes atelectasis/scarring or infiltrates. 4. Prior surgical change about the left breast which are new as compared to the study from 2016. Correlate clinically. Hip/Pelvis X-Ray 05/10/25 11:10 Impression: 1: Mixed lytic and sclerotic lesion left inferior pubic ramus. In a 70-year-old female, consider metastatic disease, lymphoma, Paget's disease. Consider correlation with bone scan or pet/CT examination. Labs Labs: Laboratory Results - last 24 hr 05/10/25 05/11/25 04:40 04:34 WBC 10.3 H RBC 3.07 L Hgb 8.5 L Hct 27.5 L MCV 89.6 MCH 27.7 MCHC 30.9 L RDW 16.6 H Plt Count 239 MPV 9.7 Immature Gran % (Auto) 1.3 H Neut % (Auto) 79.8 H Lymph % (Auto) 10.3 L Cottle % (Auto) 7.0 Eos % (Auto) 1.2 Baso % (Auto) 0.4 Lymph # (Auto) 1.06 Cottle # (Auto) 0.7 H Eos # (Auto) 0.1 Baso # (Auto) 0.0 Abs Immat Gran (auto) 0.13 H Absolute Neuts (auto) 8.2 H Absolute Nucleated RBC 0.030 H Nucleated RBC % 0.3 H Sodium 138 Potassium 4.3 Chloride 104 Carbon Dioxide 24 Anion Gap 10 BUN 66 H Creatinine 3.11 H Estim Creat Clear Calc 17 Estimated GFR 15 L Glucose 96 Calcium 8.9 Phosphorus 3.8 Total Bilirubin 0.5 AST 39 H ALT 78 H Alkaline Phosphatase 103 Total Protein 7.4 Albumin 4.2 Vitamin B12 393.0 Folate 5.9 IgG 1299 IgA 180 IgM 54 Quality VTE Prophylaxis VTE prophylaxis: pharmacologic ordered (Heparin 5000 t.i.d.) Hospitalist MIPS Advance Care Plan I have confirmed that the patient's Advanced Care Plan is present, code status is documented, or surrogate decision maker is listed in patient medical record.: Yes Medication Reconciliation I have utilized all available resources to obtain, update and review the patients current medications (includes all prescriptions, OTC, herbals, cannabis, and nutritional supplements).: Yes
[2025-05-11] MEDS: MELATONIN 5 MG TABLET PO (21:58)
[2025-05-11] MEDS: VENLAFAXINE HCL XR 75 MG CAP.ER.24H 150 MG PO (21:58)
[2025-05-12] VITALS (20 sets, daily range): BP systolic 117–168; BP diastolic 58–81; PULSE 65–87; RESP 16–24; TEMP 36.6–37; O2SAT 90–96
[2025-05-12 04:40] LABS: Hematocrit 28.0 % (37.0-47.0); Hemoglobin 8.6 g/dL (12.0-15.0); Immature Granulocyte Percent A 1.1 % (0-0.5); Lymphocytes Absolute Auto 1.24 K/mm3 (0.9-3.2); Mean Corpuscular HGB Conc 30.7 g/dl (32-36); Mean Corpuscular Hemoglobin 27.6 pg (26-34); Mean Corpuscular Volume 89.7 fl (80-100); Nucleated Red Blood Cells Absolute Auto 0.080 K/mm3 (0.0-0.012); Nucleated Red Blood Cells Perc 0.7 % (0.0-0.2); Platelet Count Result 253 k/mm3 (150-375); Red Blood Count 3.12 M/mm3 (4.2-5.4); White Blood Count 11.1 K/mm3 (4.5-10.0)
[2025-05-12 05:05] LABS: Alanine Aminotransferase 65 U/L (6-35); Albumin Level 4.1 g/dL (3.5-5.1); Alkaline Phosphatase 103 U/L (38-126); Anion Gap 9 mmol/L (4-12); Aspartate Amino Transferase 29 U/L (14-36); Bilirubin,Total 0.4 mg/dL (0.2-1.3); Blood Urea Nitrogen 66 mg/dL (7-17); Calcium 8.9 mg/dL (8.4-10.2); Carbon Dioxide 25 mmol/L (22-30); Chloride 105 mmol/L (98-107); Estimated CRCL calculation 17 ml/min; Estimated Glomerular Filt Rate 15; Glucose 95 mg/dL (65-110); Potassium 4.1 mmol/L (3.4-5.0); Sodium 139 mmol/L (137-145); Total Protein 7.5 g/dL (6.3-8.2)
[2025-05-12 05:09] LABS: NT Pro B Type Natriuretic Pept 8680 pg/mL (19.9-100)
[2025-05-12] MEDS: LEVOTHYROXINE SODIUM 75 MCG TABLET PO (05:47)
[2025-05-12] MEDS: LEVOTHYROXINE SODIUM 100 MCG TABLET PO (05:47)
[2025-05-12] MEDS: ATORVASTATIN 40 MG TABLET 80 MG PO (09:19)
[2025-05-12] MEDS: PANTOPRAZOLE 40 MG TABLET PO ×2 (09:20→17:21)
[2025-05-12] MEDS: ASPIRIN 81 MG ENTERIC TABLET PO (09:20)
[2025-05-12] MEDS: ISOSORBIDE MONONITRATE 60 MG TAB.ER.24H PO (09:20)
[2025-05-12] MEDS: METOPROLOL SUCCINATE EXT REL 100 MG TABCR PO (09:20)
[2025-05-12] MEDS: EMPAGLIFLOZIN 10 MG TABLET PO (09:20)
[2025-05-12] MEDS: FUROSEMIDE 40 MG TABLET PO (09:20)
[2025-05-12] MEDS: EPOETIN ALFA-EPBX 10,000 UNITS/ML VIAL 10000 UNITS SUB-Q (09:34)
--- NOTE | 2025-05-12 10:03 | P.PNIM_ITS ---
Progress Note: A&P Assessment and Plan (1) New onset of congestive heart failure: Code(s): I50.9 - Heart failure, unspecified Status: Inactive Assessment and Plan: Patient presents with is a worsening of lower extremity edema and shortness of breath, suspected for new onset CHF Elevated BNP> 1800, in the setting of ESRD Status post IV Lasix 20 mg once Started Lasix 40 mg p.o. q.d. Cardiology consult in the ED EKG without ST wave changes Echo diastolic dysfunction and moderate pulmonary hypertension continuous telemetry, strict I and os, standing daily weight,Na<2gs Per cardiology, Lasix 40 mg IV b.i.d. Dietary consult, PT/OT (2) End-stage renal disease (ESRD): Code(s): N18.6 - End stage renal disease Status: Inactive Assessment and Plan: Patient reports her nephrology is in [facility] Patient she has polycystic kidney Reviewed renal ultrasound At baseline creatinine seems high 2.7, in this admission her creatinine is 2.86 Nephrology consult Blood pressure control (3) Anemia associated with chronic renal failure: Code(s): N18.9 - Chronic kidney disease, unspecified; D63.1 - Anemia in chronic kidney disease Status: Inactive Assessment and Plan: Anemia likely secondary to kidney disease Iron studies shows iron 31, TIBC 272 and % saturation 11 Will give iron IV x3 (4) Hyperlipidemia: Code(s): E78.5 - Hyperlipidemia, unspecified Status: Acute Assessment and Plan: Continue statin (5) Hypertension: Code(s): I10 - Essential (primary) hypertension Status: Chronic Assessment and Plan: Continue amlodipine and isosorbide BP goal <130/80 (6) Lytic bone lesions on xray: Code(s): M89.8X9 - Other specified disorders of bone, unspecified site Status: Acute Assessment and Plan: Mixed lytic and sclerotic lesion left inferior pubic ramus Consulted hematology/oncology appreciate recommendation Plan Subjective Date/time seen: 05/12/25 10:03 Interval history: Patient started on oral Lasix 40 mg p.o. q.d. from yesterday. Patient creatinine is stable. Patient WBC has been increased from 8.5 to 11.1. No evidence of infection. Ordered a chest X ray. BNP is elevated but unreliable due to CKD Review of Systems Review of Systems: All systems reviewed & are unremarkable except as noted in HPI and below Exam Narrative: General: A well-developed, nontoxic-appearing female sitting up in bed. HEENT: PERRL, EOMI. Oral mucosa moist. Neck: Supple. No midline cervical tenderness. Respiratory: Respirations are non- labored and lungs are clear to auscultation bilaterally. Cardiovascular: Regular rate and rhythm with S1-S2. Gastrointestinal: Abdomen is soft, non-tender, and non-distended with positive bowel sounds. Skin: Warm and dry. No rash or lesions on limited exam. Extremities: Bilateral, +1 edema, left leg more pronounced than right leg Neurological: Alert and oriented. Cranial nerves 2-12 are grossly intact. No gross focal deficits to casual conversation. Psychiatric: Pleasant and cooperative with normal mood and affect. Judgment and insight intact. Objective Data Vital Signs Vital Signs: Vital Signs - 24 hr 05/11/25 12:00 05/11/25 12:00 05/11/25 16:00 Temperature Pulse Rate 73 74 70 Respiratory Rate 18 Blood Pressure 125/69 Pulse Oximetry 92 Oxygen Delivery 05/11/25 20:00 05/11/25 20:00 05/11/25 21:54 Temperature 97.7 F Pulse Rate 73 74 Respiratory Rate 16 Blood Pressure 139/69 Pulse Oximetry 92 Oxygen Delivery Room Air 05/12/25 00:00 05/12/25 01:04 05/12/25 04:00 Temperature 98.6 F Pulse Rate 73 76 72 Respiratory Rate 16 Blood Pressure 140/73 Pulse Oximetry 92 Oxygen Delivery 05/12/25 06:20 05/12/25 09:20 05/12/25 09:40 Temperature 98.0 F Pulse Rate 79 84 87 Respiratory Rate 18 24 H Blood Pressure 142/76 H 168/75 H Pulse Oximetry 92 90 Oxygen Delivery 05/12/25 09:45 05/12/25 09:48 05/12/25 09:51 Temperature Pulse Rate 86 86 86 Respiratory Rate 24 H 22 H 22 H Blood Pressure 168/75 H 160/74 H 151/81 H Pulse Oximetry 90 94 94 Oxygen Delivery Intake/Output Intake/Output: Intake & Output 05/09/25 05/10/25 05/11/25 05/12/25 23:59 23:59 23:59 23:59 Intake Total 720 1360 1580 640 Output Total 600 2200 800 200 Balance 120 -840 780 440 Meds/Results Medications: Active Medications Generic Name Dose Route Start Last Admin Trade Name Freq PRN Reason Stop Dose Admin Acetaminophen 650 mg 05/06/25 22:20 05/08/25 05:09 Acetaminophen 325 Mg Tablet PO 650 mg Q6H PRN Administration Mild Pain (1-3) or Fever Amlodipine Besylate 10 mg 05/07/25 09:00 05/12/25 09:19 Amlodipine Besylate 10 Mg Tablet PO 10 mg DAILY SREEDHAR Administration Aspirin 81 mg 05/07/25 09:00 05/12/25 09:20 Aspirin 81 Mg Enteric Tablet PO 81 mg DAILY SREEDHAR Administration Atorvastatin Calcium 80 mg 05/07/25 09:00 05/12/25 09:19 Atorvastatin 40 Mg Tablet PO 80 mg DAILY SREEDHAR Administration Calcitriol 0.25 mcg 05/07/25 09:00 05/12/25 09:20 Calcitriol 0.25 Mcg Capsule PO 0.25 mcg DAILY SREEDHAR Administration Docusate Sodium 100 mg 05/06/25 21:12 Docusate Sodium 100 Mg Capsule PO DAILY PRN Constipation Empagliflozin 10 mg 05/10/25 09:00 05/12/25 09:20 Empagliflozin 10 Mg Tablet PO 10 mg DAILY SREEDHAR Administration Epoetin Chris-epbx 10,000 units 05/10/25 09:00 05/12/25 09:34 Epoetin Chris-Epbx 10,000 Units/Ml Vial SUB-Q 10,000 units TUTHSA@09 SREEDHAR Administration Furosemide 40 mg 05/11/25 09:25 05/12/25 09:20 Furosemide 40 Mg Tablet PO 40 mg QAM SREEDHAR Administration Heparin Sodium (Porcine) 5,000 units 05/07/25 09:00 05/12/25 09:20 Heparin Sodium 5,000 Units/Ml Vial SUB-Q 5,000 units Q12HR SREEDHAR Administration Isosorbide Mononitrate 60 mg 05/07/25 09:00 05/12/25 09:20 Isosorbide Mononitrate 60 Mg Tab.Er.24h PO 60 mg DAILY SREEDHAR Administration Levothyroxine Sodium 100 mcg 05/07/25 06:30 05/12/25 05:47 Levothyroxine Sodium 100 Mcg Tablet PO 100 mcg DAILY@0630 SREEDHAR Administration Levothyroxine Sodium 75 mcg 05/07/25 06:30 05/12/25 05:47 Levothyroxine Sodium 75 Mcg Tablet PO 75 mcg DAILY@0630 SREEDHAR Administration Melatonin 5 mg 05/08/25 21:00 05/11/25 21:58 Melatonin 5 Mg Tablet PO 5 mg HS SREEDHAR Administration Metoprolol Succinate 100 mg 05/07/25 09:00 05/12/25 09:20 Metoprolol Succinate Ext Rel 100 Mg Tabcr PO 100 mg DAILY SREEDHAR Administration Pantoprazole Sodium 40 mg 05/07/25 09:00 05/12/25 09:20 Pantoprazole 40 Mg Tablet PO 40 mg BID SREEDHAR Administration Quetiapine Fumarate 50 mg 05/06/25 21:20 05/12/25 09:19 Quetiapine Fumarate 25 Mg Tablet PO 50 mg Q12HR SREEDHAR Administration Venlafaxine HCl 150 mg 05/06/25 21:20 05/11/25 21:58 Venlafaxine Hcl Xr 75 Mg Cap.Er.24h PO 150 mg HS SREEDHAR Administration Radiology Results: ITS Impressions Renal Ultrasound 05/07/25 11:54 Impression: 1: The kidneys are enlarged with numerous renal cysts. However, the kidneys were not fully visualized due to limitations of this study. Consider a noncontrast CT for further assessment. Chest/Abdomen/Pelvis CT 05/09/25 12:25 IMPRESSION: 1. Numerous bilateral renal cysts, the largest cyst in the right kidney grossly measures 9.5 cm, the largest cyst in the left kidney grossly measures 5.7 cm. 2. There is an indeterminate 1.6 x 0.8 cm lucency in the left inferior pubic ramus. Dedicated x-rays of the pelvis are recommended. 3. There are a few small bandlike and reticular opacities in the lower lungs. Differential includes atelectasis/scarring or infiltrates. 4. Prior surgical change about the left breast which are new as compared to the study from 2016. Correlate clinically. Hip/Pelvis X-Ray 05/10/25 11:10 Impression: 1: Mixed lytic and sclerotic lesion left inferior pubic ramus. In a 70-year-old female, consider metastatic disease, lymphoma, Paget's disease. Consider correlation with bone scan or pet/CT examination. Labs Labs: Laboratory Results - last 24 hr 05/12/25 04:24 WBC 11.1 H RBC 3.12 L Hgb 8.6 L Hct 28.0 L MCV 89.7 MCH 27.6 MCHC 30.7 L RDW 17.0 H Plt Count 253 MPV 9.5 Immature Gran % (Auto) 1.1 H Neut % (Auto) 80.1 H Lymph % (Auto) 11.2 L [place] % (Auto) 6.1 Eos % (Auto) 1.2 Baso % (Auto) 0.3 Lymph # (Auto) 1.24 [place] # (Auto) 0.7 H Eos # (Auto) 0.1 Baso # (Auto) 0.0 Abs Immat Gran (auto) 0.12 H Absolute Neuts (auto) 8.9 H Absolute Nucleated RBC 0.080 H Nucleated RBC % 0.7 H Sodium 139 Potassium 4.1 Chloride 105 Carbon Dioxide 25 Anion Gap 9 BUN 66 H Creatinine 3.07 H Estim Creat Clear Calc 17 Estimated GFR 15 L Glucose 95 Calcium 8.9 Phosphorus 3.6 Total Bilirubin 0.4 AST 29 ALT 65 H Alkaline Phosphatase 103 NT-Pro-B Natriuret Pep 8680 H Total Protein 7.5 Albumin 4.1 Quality VTE Prophylaxis VTE prophylaxis: pharmacologic ordered (Heparin 5000 t.i.d.) Hospitalist MIPS Advance Care Plan I have confirmed that the patient's Advanced Care Plan is present, code status is documented, or surrogate decision maker is listed in patient medical record.: Yes Medication Reconciliation I have utilized all available resources to obtain, update and review the patients current medications (includes all prescriptions, OTC, herbals, cannabis, and nutritional supplements).: Yes
--- NOTE | 2025-05-12 10:38 | P.PNNP_ITS ---
Progress Note: A&P Assessment and Plan (1) Stage 4 chronic kidney disease: Code(s): N18.4 - Chronic kidney disease, stage 4 (severe) Status: Chronic Assessment and Plan: * Chronic kidney disease secondary to polycystic kidneys * baseline creatinine running 2.3 - 2.8mg/dl * creatinine 2.79mg/dL in February 2025 * secondary to polycystic kidney disease along with contributions from hypertension and vascular disease * may have to accept a higher creatinine in the context of needed diuretic therapy to maintain respiratory status * follows with nephrology in [place], [place] for management of this issue * the creatinine has risen with diuresis. Today it is 3.07. * Intake/ output yesterday was 1580 in and 800 out. * Will check a chest x-ray. Will give a 1 time order for Lasix IV * Will let hospitalist know. Perhaps she needs a breathing treatment. (2) Shortness of breath: Code(s): R06.02 - Shortness of breath Status: Acute Assessment and Plan: * The patient still looks short of breath right now. * suspect multifactorial: * diastolic CHF * advanced CKD * relative anemia * obesity(?) * other(?) * Repeat the chest x-ray. * no evidence of hypoxia * CT of C/A/P results noted * follow respiratory status with current interventions (3) CHF exacerbation: Code(s): I50.9 - Heart failure, unspecified Status: Acute Assessment and Plan: * suspected and presumably playing a role with #2 * Echo results noted: * left ventricular ejection fraction is visually estimated to be 60 - 65% * there is grade 2 diastolic dysfunction * mitral valve leaflets are sclerotic * moderate mitral regurgitation * tricuspid valve is normal * moderate tricuspid regurgitation * moderate pulmonary hypertension -- pulmonary arterial systolic pressure is estimated at 51 mmHg * Cardiology following * the patient is currently on Lasix 40mg p.o. daily. * Intake/ output was positive. Will give a 1 time dose of 80mg IV now. (4) Anemia: Code(s): D64.9 - Anemia, unspecified Status: Acute Assessment and Plan: * partly related to underlying CKD * anemia studies also demonstrate iron deficiency * initiated on IV iron * NORRIS during hospital stay * Hemoglobin seems stable in the 8s. (5) Hypertension: Code(s): I10 - Essential (primary) hypertension Status: Chronic Assessment and Plan: * Systolic recently 120 to 160s. * Currently on amlodipine, and metoprolol. * Heart rate in the 80s * will increase metoprolol * follow trend of hemodynamics (6) Autosomal dominant polycystic kidney disease: Code(s): Q61.2 - Polycystic kidney, adult type Status: Chronic Assessment and Plan: * known history * admission CT imaging consistent with this diagnosis/disease * also supported by family history: * mother with PCKD and required dialysis * sister with PCKD as well Will continue to follow. Subjective Date/time seen: 05/12/25 10:38 Interval history: the patient is short of breath today. She says it is a little bit less so than yesterday but she looks uncomfortable. O2 sat is 90%. No swelling. Patient denies a smoking history or a history of COPD emphysema or asthma. Exam Narrative: General: elderly but WD/WN female in NAD Heart: normal S1 and S2; no rub Lungs: Increased expiratory phase with some wheezing. Abdomen: obese but soft, nontender, nondistended, positive bowel sounds Extremities: no cyanosis or clubbing; trace edema Skin: no nodules Objective Data Vital Signs Vital Signs: Vital Signs - 24 hr 05/11/25 12:00 05/11/25 12:00 05/11/25 16:00 Temperature Pulse Rate 73 74 70 Respiratory Rate 18 Blood Pressure 125/69 Pulse Oximetry 92 Oxygen Delivery 05/11/25 20:00 05/11/25 20:00 05/11/25 21:54 Temperature 97.7 F Pulse Rate 73 74 Respiratory Rate 16 Blood Pressure 139/69 Pulse Oximetry 92 Oxygen Delivery Room Air 05/12/25 00:00 05/12/25 01:04 05/12/25 04:00 Temperature 98.6 F Pulse Rate 73 76 72 Respiratory Rate 16 Blood Pressure 140/73 Pulse Oximetry 92 Oxygen Delivery 05/12/25 06:20 05/12/25 08:02 05/12/25 09:20 Temperature 98.0 F Pulse Rate 79 82 84 Respiratory Rate 18 Blood Pressure 142/76 H Pulse Oximetry 92 Oxygen Delivery 05/12/25 09:20 05/12/25 09:40 05/12/25 09:45 Temperature Pulse Rate 87 86 Respiratory Rate 24 H 24 H Blood Pressure 168/75 H 168/75 H Pulse Oximetry 90 90 Oxygen Delivery Room Air 05/12/25 09:48 05/12/25 09:51 Temperature Pulse Rate 86 86 Respiratory Rate 22 H 22 H Blood Pressure 160/74 H 151/81 H Pulse Oximetry 94 94 Oxygen Delivery Intake/Output Intake/Output: Intake & Output 05/09/25 05/10/25 05/11/25 05/12/25 23:59 23:59 23:59 23:59 Intake Total 720 1360 1580 640 Output Total 600 2200 800 200 Balance 120 -840 780 440 Meds/Results Medications: Active Medications Generic Name Dose Route Start Last Admin Trade Name Freq PRN Reason Stop Dose Admin Acetaminophen 650 mg 05/06/25 22:20 05/08/25 05:09 Acetaminophen 325 Mg Tablet PO 650 mg Q6H PRN Administration Mild Pain (1-3) or Fever Amlodipine Besylate 10 mg 05/07/25 09:00 05/12/25 09:19 Amlodipine Besylate 10 Mg Tablet PO 10 mg DAILY SREEDHAR Administration Aspirin 81 mg 05/07/25 09:00 05/12/25 09:20 Aspirin 81 Mg Enteric Tablet PO 81 mg DAILY SREEDHAR Administration Atorvastatin Calcium 80 mg 05/07/25 09:00 05/12/25 09:19 Atorvastatin 40 Mg Tablet PO 80 mg DAILY SREEDHAR Administration Calcitriol 0.25 mcg 05/07/25 09:00 05/12/25 09:20 Calcitriol 0.25 Mcg Capsule PO 0.25 mcg DAILY SREEDHAR Administration Docusate Sodium 100 mg 05/06/25 21:12 Docusate Sodium 100 Mg Capsule PO DAILY PRN Constipation Empagliflozin 10 mg 05/10/25 09:00 05/12/25 09:20 Empagliflozin 10 Mg Tablet PO 10 mg DAILY SREEDHAR Administration Epoetin Chris-epbx 10,000 units 05/10/25 09:00 05/12/25 09:34 Epoetin Chris-Epbx 10,000 Units/Ml Vial SUB-Q 10,000 units TUTA@09 SREEDHAR Administration Furosemide 40 mg 05/11/25 09:25 05/12/25 09:20 Furosemide 40 Mg Tablet PO 40 mg QAM SREEDHAR Administration Heparin Sodium (Porcine) 5,000 units 05/07/25 09:00 05/12/25 09:20 Heparin Sodium 5,000 Units/Ml Vial SUB-Q 5,000 units Q12HR SREEDHAR Administration Isosorbide Mononitrate 60 mg 05/07/25 09:00 05/12/25 09:20 Isosorbide Mononitrate 60 Mg Tab.Er.24h PO 60 mg DAILY SREEDHAR Administration Levothyroxine Sodium 100 mcg 05/07/25 06:30 05/12/25 05:47 Levothyroxine Sodium 100 Mcg Tablet PO 100 mcg DAILY@0630 SREEDHAR Administration Levothyroxine Sodium 75 mcg 05/07/25 06:30 05/12/25 05:47 Levothyroxine Sodium 75 Mcg Tablet PO 75 mcg DAILY@0630 SREEDHAR Administration Melatonin 5 mg 05/08/25 21:00 05/11/25 21:58 Melatonin 5 Mg Tablet PO 5 mg HS SREEDHAR Administration Metoprolol Succinate 100 mg 05/07/25 09:00 05/12/25 09:20 Metoprolol Succinate Ext Rel 100 Mg Tabcr PO 100 mg DAILY SREEDHAR Administration Pantoprazole Sodium 40 mg 05/07/25 09:00 05/12/25 09:20 Pantoprazole 40 Mg Tablet PO 40 mg BID SREEDHAR Administration Quetiapine Fumarate 50 mg 05/06/25 21:20 05/12/25 09:19 Quetiapine Fumarate 25 Mg Tablet PO 50 mg Q12HR SREEDHAR Administration Venlafaxine HCl 150 mg 05/06/25 21:20 05/11/25 21:58 Venlafaxine Hcl Xr 75 Mg Cap.Er.24h PO 150 mg HS SREEDHAR Administration Radiology Results: ITS Impressions Renal Ultrasound 05/07/25 11:54 Impression: 1: The kidneys are enlarged with numerous renal cysts. However, the kidneys were not fully visualized due to limitations of this study. Consider a noncontrast CT for further assessment. Chest/Abdomen/Pelvis CT 05/09/25 12:25 IMPRESSION: 1. Numerous bilateral renal cysts, the largest cyst in the right kidney grossly measures 9.5 cm, the largest cyst in the left kidney grossly measures 5.7 cm. 2. There is an indeterminate 1.6 x 0.8 cm lucency in the left inferior pubic ramus. Dedicated x-rays of the pelvis are recommended. 3. There are a few small bandlike and reticular opacities in the lower lungs. Differential includes atelectasis/scarring or infiltrates. 4. Prior surgical change about the left breast which are new as compared to the study from 2016. Correlate clinically. Hip/Pelvis X-Ray 05/10/25 11:10 Impression: 1: Mixed lytic and sclerotic lesion left inferior pubic ramus. In a 70-year-old female, consider metastatic disease, lymphoma, Paget's disease. Consider sarah elation with bone scan or pet/CT examination. Labs Labs: Laboratory Results - last 24 hr 05/12/25 04:24 WBC 11.1 H RBC 3.12 L Hgb 8.6 L Hct 28.0 L MCV 89.7 MCH 27.6 MCHC 30.7 L RDW 17.0 H Plt Count 253 MPV 9.5 Immature Gran % (Auto) 1.1 H Neut % (Auto) 80.1 H Lymph % (Auto) 11.2 L [place] % (Auto) 6.1 Eos % (Auto) 1.2 Baso % (Auto) 0.3 Lymph # (Auto) 1.24 [place] # (Auto) 0.7 H Eos # (Auto) 0.1 Baso # (Auto) 0.0 Abs Immat Gran (auto) 0.12 H Absolute Neuts (auto) 8.9 H Absolute Nucleated RBC 0.080 H Nucleated RBC % 0.7 H Sodium 139 Potassium 4.1 Chloride 105 Carbon Dioxide 25 Anion Gap 9 BUN 66 H Creatinine 3.07 H Estim Creat Clear Calc 17 Estimated GFR 15 L Glucose 95 Calcium 8.9 Phosphorus 3.6 Total Bilirubin 0.4 AST 29 ALT 65 H Alkaline Phosphatase 103 NT-Pro-B Natriuret Pep 8680 H Total Protein 7.5 Albumin 4.1
--- NOTE | 2025-05-12 11:40 | PCNFU ---
Nutrition Follow-Up Complete: Potential for inadequate oral intake related to loss of appetite as evidenced by report of weight loss Goal:Adequate PO intake >75% Pt meeting goal Pt current nutrition is Heart healthy, 1800ml fluid restriction, Ensure BID. Nutrition recommendation: continue with current plan of care Last recorded weight is 93 kg. Bowel Motility: +BM 05/11 Labs Reviewed: Hgb:8.6, HCT:28, BUN:66 Meds Noted: protonix, lasix Skin: WNL Additional Notes: Pt continues on a heart healthy diet, 1800ml fluid restriction. Intake 100% most all meals, Ensure BID in place. Continue with current plan of care Monitoring intakes, weights, labs, supplement tolerance, plan of care Follow up in 7 days
[2025-05-12] MEDS: FUROSEMIDE INJ 100 MG/10 ML VIAL 80 MG IV PUSH (11:47)
[2025-05-12] MEDS: IPRATROPIUM 0.5 MG/ALBUTEROL SULFATE 2.5 MG AMPUL.NEB 3 ML INHALATION ×2 (13:16→20:15)
--- NOTE | 2025-05-12 13:49 | WPDONCPN ---
Progress Note: A&P Assessment and Plan (1) Lytic bone lesions on xray: Code(s): M89.8X9 - Other specified disorders of bone, unspecified site Status: Acute Assessment and Plan: Patient with incidental finding of 1.6cm x 0.8cm lytic lesion in the left inferior pubic rami on a CT of abd/pelvis done during this admission. Patient has hx of left breast cancer in 2019. States that it was stage I and she decided for left mastectomy. It was node negative disease and did not get radiation or chemotherapy. She received 5 years of ER target therapy and completed the treatment. She had an oncologist in [place] but per patient her oncologist left the practice and she is in process of finding another one. Patient was seen by Dr. Gama during this admission and he left his card with patient. Plan is to follow up with bone scan. Additionally, SPE[facility], [employer] and immunoglobulin quantification was ordered by Dr. Gama to rule out monoclonal paraproteinemia and results are pending. If results are not back during this admission, I advised the patient to call Dr. Gama's office for follow up. (2) Anemia: Qualifiers: Anemia type: due to chronic kidney disease Code(s): D64.9 - Anemia, unspecified Status: Acute Assessment and Plan: Patient with CKD with elevated creatinine. Her anemia is likely from CKD. Iron panel done this admission showed Ferritin 126, TIBC 272, saturations 11%. She was given IV Iron sucrose 300mg on 05/09/25 and 500mg on 05/10/25. Patient has also been started on Epo Chris 10,000 units SubQ , and saturdays. We await the response to anemia. It takes at least 4-6 weeks to see full response. Subjective Date/time seen: 05/12/25 13:49 Interval history: no overnight events. Patient sitting and resting well on a recliner. States dyspnea is better and lower extremity swelling is better Review of Systems Review of Systems Patient admitted for lower extremity swelling and dypsnea. Found in CHF exacerbation and getting diuresis. States that she is feeling better with dyspnea then when he arrived. denies chest pain, cough or hemoptysis. Denies abdominal pain, n/v/d. Denies lower pelvic pain. Rest of 12 point ROS is negative. Exam Narrative: General: Alert and orientedx3, no acute distress HEENT: PERRL, EOMI, no scleral icterus CV: RRR, no m/g/r RESP: Coarse breath sounds in bases ABD: soft, NT, ND EXT: 1+ edema bilaterally Objective Data Vital Signs Vital Signs: Vital Signs - 24 hr 05/11/25 16:00 05/11/25 20:00 05/11/25 20:00 Temperature 36.5 C Pulse Rate 70 73 74 Respiratory Rate 16 Blood Pressure 139/69 Pulse Oximetry 92 Oxygen Delivery 05/11/25 21:54 05/12/25 00:00 05/12/25 01:04 Temperature 37.0 C Pulse Rate 73 76 Respiratory Rate 16 Blood Pressure 140/73 Pulse Oximetry 92 Oxygen Delivery Room Air 05/12/25 04:00 05/12/25 06:20 05/12/25 08:02 Temperature 36.7 C Pulse Rate 72 79 82 Respiratory Rate 18 Blood Pressure 142/76 H Pulse Oximetry 92 Oxygen Delivery 05/12/25 09:20 05/12/25 09:20 05/12/25 09:40 Temperature Pulse Rate 84 87 Respiratory Rate 24 H Blood Pressure 168/75 H Pulse Oximetry 90 Oxygen Delivery Room Air 05/12/25 09:45 05/12/25 09:48 05/12/25 09:51 Temperature Pulse Rate 86 86 86 Respiratory Rate 24 H 22 H 22 H Blood Pressure 168/75 H 160/74 H 151/81 H Pulse Oximetry 90 94 94 Oxygen Delivery 05/12/25 09:55 05/12/25 12:02 05/12/25 12:27 Temperature Pulse Rate 85 72 72 Respiratory Rate 20 18 Blood Pressure 121/58 L Pulse Oximetry 94 96 Oxygen Delivery Room Air 05/12/25 13:17 05/12/25 13:17 05/12/25 13:27 Temperature Pulse Rate 72 72 70 Respiratory Rate 20 20 20 Blood Pressure Pulse Oximetry 94 Oxygen Delivery Room Air Intake/Output Intake/Output: Intake & Output 05/09/25 05/10/25 05/11/25 05/12/25 23:59 23:59 23:59 23:59 Intake Total 720 1360 1580 880 Output Total 600 2200 800 200 Balance 120 -840 780 680 Meds/Results Medications: Active Medications Generic Name Dose Route Start Last Admin Trade Name Freq PRN Reason Stop Dose Admin Acetaminophen 650 mg 05/06/25 22:20 05/08/25 05:09 Acetaminophen 325 Mg Tablet PO 650 mg Q6H PRN Administration Mild Pain (1-3) or Fever Albuterol/Ipratropium 3 ml 05/12/25 14:00 05/12/25 13:16 Ipratropium 0.5 Mg/Albuterol Sulfate 2.5 Mg Ampul.Neb 3 Ml INHALATION 3 ml Q6HRT SREEDHAR Administration Amlodipine Besylate 10 mg 05/07/25 09:00 05/12/25 09:19 Amlodipine Besylate 10 Mg Tablet PO 10 mg DAILY SREEDHAR Administration Aspirin 81 mg 05/07/25 09:00 05/12/25 09:20 Aspirin 81 Mg Enteric Tablet PO 81 mg DAILY SREEDHAR Administration Atorvastatin Calcium 80 mg 05/07/25 09:00 05/12/25 09:19 Atorvastatin 40 Mg Tablet PO 80 mg DAILY SREEDHAR Administration Calcitriol 0.25 mcg 05/07/25 09:00 05/12/25 09:20 Calcitriol 0.25 Mcg Capsule PO 0.25 mcg DAILY SREEDHAR Administration Docusate Sodium 100 mg 05/06/25 21:12 Docusate Sodium 100 Mg Capsule PO DAILY PRN Constipation Empagliflozin 10 mg 05/10/25 09:00 05/12/25 09:20 Empagliflozin 10 Mg Tablet PO 10 mg DAILY SREEDHAR Administration Epoetin Chris-epbx 10,000 units 05/10/25 09:00 05/12/25 09:34 Epoetin Chris-Epbx 10,000 Units/Ml Vial SUB-Q 10,000 units TUTHSA@09 SREEDHAR Administration Furosemide 40 mg 05/11/25 09:25 05/12/25 09:20 Furosemide 40 Mg Tablet PO 40 mg QAM SREEDHAR Administration Heparin Sodium (Porcine) 5,000 units 05/07/25 09:00 05/12/25 09:20 Heparin Sodium 5,000 Units/Ml Vial SUB-Q 5,000 units Q12HR SREEDHAR Administration Isosorbide Mononitrate 60 mg 05/07/25 09:00 05/12/25 09:20 Isosorbide Mononitrate 60 Mg Tab.Er.24h PO 60 mg DAILY SREEDHAR Administration Levothyroxine Sodium 100 mcg 05/07/25 06:30 05/12/25 05:47 Levothyroxine Sodium 100 Mcg Tablet PO 100 mcg DAILY@0630 SREEDHAR Administration Levothyroxine Sodium 75 mcg 05/07/25 06:30 05/12/25 05:47 Levothyroxine Sodium 75 Mcg Tablet PO 75 mcg DAILY@0630 SREEDHAR Administration Melatonin 5 mg 05/08/25 21:00 05/11/25 21:58 Melatonin 5 Mg Tablet PO 5 mg HS SREEDHAR Administration Metoprolol Succinate 150 mg 05/13/25 09:00 Metoprolol Succinate Ext Rel 50 Mg Tabcr PO DAILY SREEDHAR Pantoprazole Sodium 40 mg 05/07/25 09:00 05/12/25 09:20 Pantoprazole 40 Mg Tablet PO 40 mg BID SREEDHAR Administration Quetiapine Fumarate 50 mg 05/06/25 21:20 05/12/25 09:19 Quetiapine Fumarate 25 Mg Tablet PO 50 mg Q12HR SREEDHAR Administration Venlafaxine HCl 150 mg 05/06/25 21:20 05/11/25 21:58 Venlafaxine Hcl Xr 75 Mg Cap.Er.24h PO 150 mg HS SREEDHAR Administration Radiology Results: ITS Impressions Renal Ultrasound 05/07/25 11:54 Impression: 1: The kidneys are enlarged with numerous renal cysts. However, the kidneys were not fully visualized due to limitations of this study. Consider a noncontrast CT for further assessment. Chest/Abdomen/Pelvis CT 05/09/25 12:25 IMPRESSION: 1. Numerous bilateral renal cysts, the largest cyst in the right kidney grossly measures 9.5 cm, the largest cyst in the left kidney grossly measures 5.7 cm. 2. There is an indeterminate 1.6 x 0.8 cm lucency in the left inferior pubic ramus. Dedicated x-rays of the pelvis are recommended. 3. There are a few small bandlike and reticular opacities in the lower lungs. Differential includes atelectasis/scarring or infiltrates. 4. Prior surgical change about the left breast which are new as compared to the study from 2016. Correlate clinically. Hip/Pelvis X-Ray 05/10/25 11:10 Impression: 1: Mixed lytic and sclerotic lesion left inferior pubic ramus. In a 70-year-old female, consider metastatic disease, lymphoma, Paget's disease. Consider correlation with bone scan or pet/CT examination. Labs Labs: Laboratory Results - last 24 hr 05/12/25 04:24 WBC 11.1 H RBC 3.12 L Hgb 8.6 L Hct 28.0 L MCV 89.7 MCH 27.6 MCHC 30.7 L RDW 17.0 H Plt Count 253 MPV 9.5 Immature Gran % (Auto) 1.1 H Neut % (Auto) 80.1 H Lymph % (Auto) 11.2 L Hyde % (Auto) 6.1 Eos % (Auto) 1.2 Baso % (Auto) 0.3 Lymph # (Auto) 1.24 Hyde # (Auto) 0.7 H Eos # (Auto) 0.1 Baso # (Auto) 0.0 Abs Immat Gran (auto) 0.12 H Absolute Neuts (auto) 8.9 H Absolute Nucleated RBC 0.080 H Nucleated RBC % 0.7 H Sodium 139 Potassium 4.1 Chloride 105 Carbon Dioxide 25 Anion Gap 9 BUN 66 H Creatinine 3.07 H Estim Creat Clear Calc 17 Estimated GFR 15 L Glucose 95 Calcium 8.9 Phosphorus 3.6 Total Bilirubin 0.4 AST 29 ALT 65 H Alkaline Phosphatase 103 NT-Pro-B Natriuret Pep 8680 H Total Protein 7.5 Albumin 4.1
[2025-05-12] MEDS: MELATONIN 5 MG TABLET PO (20:38)
[2025-05-12] MEDS: VENLAFAXINE HCL XR 75 MG CAP.ER.24H 150 MG PO (20:38)
[2025-05-13] VITALS (19 sets, daily range): BP systolic 102–131; BP diastolic 51–67; PULSE 63–80; RESP 14–20; TEMP 36.4–36.6; O2SAT 95–99
[2025-05-13] MEDS: IPRATROPIUM 0.5 MG/ALBUTEROL SULFATE 2.5 MG AMPUL.NEB 3 ML INHALATION ×3 (02:47→14:07)
[2025-05-13 04:44] LABS: Hematocrit 28.8 % (37.0-47.0); Hemoglobin 8.9 g/dL (12.0-15.0); Immature Granulocyte Percent A 0.9 % (0-0.5); Lymphocytes Absolute Auto 1.38 K/mm3 (0.9-3.2); Mean Corpuscular HGB Conc 30.9 g/dl (32-36); Mean Corpuscular Hemoglobin 27.6 pg (26-34); Mean Corpuscular Volume 89.2 fl (80-100); Nucleated Red Blood Cells Absolute Auto 0.090 K/mm3 (0.0-0.012); Nucleated Red Blood Cells Perc 1.0 % (0.0-0.2); Platelet Count Result 252 k/mm3 (150-375); Red Blood Count 3.23 M/mm3 (4.2-5.4); White Blood Count 9.4 K/mm3 (4.5-10.0)
[2025-05-13 05:06] LABS: Alanine Aminotransferase 55 U/L (6-35); Albumin Level 4.3 g/dL (3.5-5.1); Alkaline Phosphatase 102 U/L (38-126); Anion Gap 8 mmol/L (4-12); Aspartate Amino Transferase 26 U/L (14-36); Bilirubin,Total 0.7 mg/dL (0.2-1.3); Blood Urea Nitrogen 69 mg/dL (7-17); Calcium 9.3 mg/dL (8.4-10.2); Carbon Dioxide 28 mmol/L (22-30); Chloride 102 mmol/L (98-107); Estimated CRCL calculation 17 ml/min; Estimated Glomerular Filt Rate 14; Glucose 86 mg/dL (65-110); Potassium 3.8 mmol/L (3.4-5.0); Sodium 138 mmol/L (137-145); Total Protein 7.7 g/dL (6.3-8.2)
[2025-05-13] MEDS: LEVOTHYROXINE SODIUM 75 MCG TABLET PO (05:25)
[2025-05-13] MEDS: LEVOTHYROXINE SODIUM 100 MCG TABLET PO (05:25)
--- NOTE | 2025-05-13 08:37 | P.PNIM_ITS ---
Progress Note: A&P Assessment and Plan (1) New onset of congestive heart failure: Code(s): I50.9 - Heart failure, unspecified Status: Inactive Assessment and Plan: 70-year-old female here with a PMHx: CKD unknown stage at this time patient reports she has a history of ESRD, but is not on dialysis, citing she was told that if her kidney function should worsen she would need a kidney transplant or start dialysis. Patient was originally seen at outside emergency room then transferred here due to ongoing SOB and mild chest discomfort during her visit. Patient reports a history of worsening lower extremity edema and SOB that has been ongoing for the past week. She reports the SOB had been present for about a week it begin to worsening significantly over the past couple of days. The patient experienced increased difficulty while attending [employer] which led her daughter to take her to the emergency room for further evaluation. She denies any nausea vomiting fever chills at this time. Patient reports ongoing bilateral leg swelling, the patient noted left foot swelling which was reportedly more pronounced than the right. ED Work-up reveals: Who EKG tachycardia, sinus rhythm, no ectopic beats, nonspecific ST changes, normal QRS, normal QT. lab reveals chloride 109, carbon dioxide 17, anion gap 14, BUN 56, creatinine 2.86 with a GFR 16 calculated osmolality is 306, AST is 57, ALT 73 [id number], UA unremarkable for any infection or bacteria. 05/11/2025: Patient shortness of breath possibly due to volume overload in the setting of CKD, diastolic dysfunction and pulmonary hypertension. Patient has a history of polycystic kidney disease which contributes to the hypertension and vascular disease and she follows up with Nephrology in the [facility]. Patient also has a history of left-sided breast cancer status post left-sided mastectomy in 2019 and then endocrine therapy for 5 years duration. She did receive any radiation or chemotherapy. CT chest/abdomen/pelvis:1. Numerous bilateral renal cysts, the largest cyst in the right kidney grossly measures 9.5 cm, the largest cyst in the left kidney grossly measures 5.7 cm. 2. There is an indeterminate 1.6 x 0.8 cm lucency in the left inferior pubic ramus. Dedicated x-rays of the pelvis are recommended. 3. There are a few small bandlike and reticular opacities in the lower lungs. Differential includes atelectasis/scarring or infiltrates. 4. Prior surgical change about the left breast which are new as compared to the study from 2016. Correlate clinically Hip and pelvic x-ray:: Mixed lytic and sclerotic lesion left inferior pubic ramus. In a 70-year-old female, consider metastatic disease, lymphoma, Paget's disease. Consider correlation with bone scan or pet/CT examination. Due to the concerns of lytic lesions and oncology was consulted. He ordered workup for lytic bone lesion that would include serum protein electrophoresis w ith immunofixation, quantitative immunoglobulin and serum free light chain studies and CA 15 3 for breast cancer bone survey. Patient needs to follow-up with the oncologist for her iron deficiency anemia for which she will be receiving iron and will decide about Procrit injection for anemia from CKD. Patient presents with is a worsening of lower extremity edema and shortness of breath, suspected for new onset CHF Elevated BNP> 1800, in the setting of ESRD Status post IV Lasix 20 mg once Started Lasix 40 mg p.o. q.d. Cardiology consult in the ED EKG without ST wave changes Echo diastolic dysfunction and moderate pulmonary hypertension continuous telemetry, strict I and os, standing daily weight,Na<2gs Per cardiology, Lasix 40 mg IV b.i.d. Dietary consult, PT/OT 05/12: Given lasix 80mg IV by nephrology. Patient is currently on Lasix 40 mg p.o. q.d. 05/13: Positive fluid balance on 05/12 in spite of receiving extra dose of Lasix 80 mg IV (2) End-stage renal disease (ESRD): Code(s): N18.6 - End stage renal disease Status: Inactive Assessment and Plan: Patient reports her nephrology is in [facility] Patient she has polycystic kidney Reviewed renal ultrasound At baseline creatinine seems high 2.7, in this admission her creatinine is 2.86 Nephrology consult Blood pressure control (3) Anemia associated with chronic renal failure: Code(s): N18.9 - Chronic kidney disease, unspecified; D63.1 - Anemia in chronic kidney disease Status: Inactive Assessment and Plan: Anemia likely secondary to kidney disease Iron studies shows iron 31, TIBC 272 and % saturation 11 Will give iron IV x3 Patient also started on EPO Chris 10,000 units SubQ , and Saturdays (4) Hyperlipidemia: Code(s): E78.5 - Hyperlipidemia, unspecified Status: Acute Assessment and Plan: Continue statin (5) Hypertension: Code(s): I10 - Essential (primary) hypertension Status: Chronic Assessment and Plan: Continue amlodipine and isosorbide BP goal <130/80 (6) Lytic bone lesions on xray: Code(s): M89.8X9 - Other specified disorders of bone, unspecified site Status: Acute Assessment and Plan: Mixed lytic and sclerotic lesion left inferior pubic ramus She had an oncologist in [place] but per patient her oncologist left the practice and she is in process of finding another one. Follow-up bone scan as outpatient. Additionally, SPEP, [place] and immunoglobulin quantification was ordered by Dr. Gama to rule out monoclonal paraproteinemia and results are pending. Consulted hematology/oncology Plan Subjective Date/time seen: 05/13/25 08:37 Interval history: Interval history: 70-year-old female here with a PMHx: CKD unknown stage at this time patient reports she has a history of ESRD, but is not on dialysis, citing she was told that if her kidney function should worsen she would need a kidney transplant or start dialysis. Patient was originally seen at outside emergency room then transferred here due to ongoing SOB and mild chest discomfort during her visit. Patient reports a history of worsening lower extremity edema and SOB that has been ongoing for the past week. She reports the SOB had been present for about a week it begin to worsening significantly over the past couple of days. The patient experienced increased difficulty while attending [employer] which led her daughter to take her to the emergency room for further evaluation. She denies any nausea vomiting fever chills at this time. Patient reports ongoing bilateral leg swelling, the patient noted left foot swelling which was reportedly more pronounced than the right. ED Work-up reveals: Who EKG tachycardia, sinus rhythm, no ectopic beats, nonspecific ST changes, normal QRS, normal QT. lab reveals chloride 109, carbon dioxide 17, anion gap 14, BUN 56, creatinine 2.86 with a GFR 16 calculated osmolality is 306, AST is 57, ALT 73 [id number], UA unremarkable for any infection or bacteria. 05/11/2025: Patient shortness of breath possibly due to volume overload in the setting of CKD, diastolic dysfunction and pulmonary hypertension. Patient has a history of polycystic kidney disease which contributes to the hypertension and vascular disease and she follows up with Nephrology in the [facility]. Patient also has a history of left-sided breast cancer status post left-sided mastectomy in 2019 and then endocrine therapy for 5 years duration. She did receive any radiation or chemotherapy. CT chest/abdomen/pelvis:1. Numerous bilateral renal cysts, the largest cyst in the right kidney grossly measures 9.5 cm, the largest cyst in the left kidney grossly measures 5.7 cm. 2. There is an indeterminate 1.6 x 0.8 cm lucency in the left inferior pubic ramus. Dedicated x-rays of the pelvis are recommended. 3. There are a few small bandlike and reticular opacities in the lower lungs. Differential includes atelectasis/scarring or infiltrates. 4. Prior surgical change about the left breast which are new as compared to the study from 2016. Correlate clinically Hip and pelvic x-ray:: Mixed lytic and sclerotic lesion left inferior pubic ramus. In a 70-year-old female, consider metastatic disease, lymphoma, Paget's disease. Consider correlation with bone scan or pet/CT examination. Due to the concerns of lytic lesions and oncology was consulted. He ordered workup for lytic bone lesion that would include serum protein electrophoresis with immunofixation, quantitative immunoglobulin and serum free light chain studies and CA 15 3 for breast cancer bone survey. Patient needs to follow-up with the oncologist for her iron deficiency anemia for which she will be receiving iron and will decide about Procrit injection for anemia from CKD. 05/13: Patient reports not feeling good and want to be discharged tomorrow but reports her breathing is improved after breathing treatment. Patient fluid balance positive in spite of having extra dose of Lasix 80 mg IV. Patient is currently on Lasix 40 mg p.o. q.d.. Review of Systems Review of Systems: All systems reviewed & are unremarkable except as noted in HPI and below Exam Narrative: General: A well-developed, nontoxic-appearing female sitting up in bed. HEENT: PERRL, EOMI. Oral mucosa moist. Neck: Supple. No midline cervical tenderness. Respiratory: Respirations are non- labored and lungs are clear to auscultation bilaterally. Cardiovascular: Regular rate and rhythm with S1-S2. Gastrointestinal: Abdomen is soft, non-tender, and non-distended with positive bowel sounds. Skin: Warm and dry. No rash or lesions on limited exam. Extremities: Bilateral, +1 edema, left leg more pronounced than right leg Neurological: Alert and oriented. Cranial nerves 2-12 are grossly intact. No gross focal deficits to casual conversation. Psychiatric: Pleasant and cooperative with normal mood and affect. Judgment and insight intact. Objective Data Vital Signs Vital Signs: Vital Signs - 24 hr 05/12/25 09:20 05/12/25 09:20 05/12/25 09:40 Temperature Pulse Rate 84 87 Respiratory Rate 24 H Blood Pressure 168/75 H Pulse Oximetry 90 Oxygen Delivery Room Air Fraction of Inspired Oxygen 05/12/25 09:45 05/12/25 09:48 05/12/25 09:51 Temperature Pulse Rate 86 86 86 Respiratory Rate 24 H 22 H 22 H Blood Pressure 168/75 H 160/74 H 151/81 H Pulse Oximetry 90 94 94 Oxygen Delivery Fraction of Inspired Oxygen 05/12/25 09:55 05/12/25 12:02 05/12/25 12:27 Temperature Pulse Rate 85 72 72 Respiratory Rate 20 18 Blood Pressure 121/58 L Pulse Oximetry 94 96 Oxygen Delivery Room Air Fraction of Inspired Oxygen 05/12/25 13:17 05/12/25 13:17 05/12/25 13:27 Temperature Pulse Rate 72 72 70 Respiratory Rate 20 20 20 Blood Pressure Pulse Oximetry 94 Oxygen Delivery Room Air Fraction of Inspired Oxygen 05/12/25 16:02 05/12/25 20:00 05/12/25 20:00 Temperature 97.8 F Pulse Rate 70 65 73 Respiratory Rate 16 Blood Pressure 117/62 Pulse Oximetry 95 Oxygen Delivery Fraction of Inspired Oxygen 05/12/25 20:15 05/12/25 20:18 05/12/25 20:22 Temperature Pulse Rate 77 77 80 Respiratory Rate 16 16 18 Blood Pressure Pulse Oximetry 92 Oxygen Delivery Room Air Fraction of Inspired Oxygen 21 05/12/25 20:34 05/12/25 21:03 05/13/25 00:00 Temperature Pulse Rate 69 Respiratory Rate Blood Pressure Pulse Oximetry Oxygen Delivery Room Air Autopap Fraction of Inspired Oxygen 05/13/25 00:58 05/13/25 02:47 05/13/25 02:51 Temperature 97.6 F Pulse Rate 68 68 Respiratory Rate 16 16 Blood Pressure 120/65 Pulse Oximetry 96 Oxygen Delivery CPAP Fraction of Inspired Oxygen 05/13/25 04:00 05/13/25 06:23 05/13/25 08:28 Temperature 97.6 F Pulse Rate 65 72 68 Respiratory Rate 14 20 Blood Pressure 117/55 L Pulse Oximetry 95 95 Oxygen Delivery Room Air Fraction of Inspired Oxygen 05/13/25 08:28 Temperature Pulse Rate 68 Respiratory Rate 20 Blood Pressure Pulse Oximetry Oxygen Delivery Fraction of Inspired Oxygen Intake/Output Intake/Output: Intake & Output 05/10/25 05/11/25 05/12/25 05/13/25 23:59 23:59 23:59 23:59 Intake Total 1360 1580 1910 400 Output Total 2200 800 200 Balance -390 160 2323 400 Meds/Results Medications: Active Medications Generic Name Dose Route Start Last Admin Trade Name Freq PRN Reason Stop Dose Admin Acetaminophen 650 mg 05/06/25 22:20 05/08/25 05:09 Acetaminophen 325 Mg Tablet PO 650 mg Q6H PRN Administration Mild Pain (1-3) or Fever Albuterol/Ipratropium 3 ml 05/12/25 14:00 05/13/25 08:26 Ipratropium 0.5 Mg/Albuterol Sulfate 2.5 Mg Ampul.Neb 3 Ml INHALATION 3 ml Q6HRT SREEDHAR Administration Amlodipine Besylate 10 mg 05/07/25 09:00 05/12/25 09:19 Amlodipine Besylate 10 Mg Tablet PO 10 mg DAILY SREEDHAR Administration Aspirin 81 mg 05/07/25 09:00 05/12/25 09:20 Aspirin 81 Mg Enteric Tablet PO 81 mg DAILY SREEDHAR Administration Atorvastatin Calcium 80 mg 05/07/25 09:00 05/12/25 09:19 Atorvastatin 40 Mg Tablet PO 80 mg DAILY SREEDHAR Administration Calcitriol 0.25 mcg 05/07/25 09:00 05/12/25 09:20 Calcitriol 0.25 Mcg Capsule PO 0.25 mcg DAILY SREEDHAR Administration Docusate Sodium 100 mg 05/06/25 21:12 Docusate Sodium 100 Mg Capsule PO DAILY PRN Constipation Empagliflozin 10 mg 05/10/25 09:00 05/12/25 09:20 Empagliflozin 10 Mg Tablet PO 10 mg DAILY SREEDHAR Administration Epoetin Chris-epbx 10,000 units 05/10/25 09:00 05/12/25 09:34 Epoetin Chris-Epbx 10,000 Units/Ml Vial SUB-Q 10,000 units TUTHSA@09 SREEDHAR Administration Furosemide 40 mg 05/11/25 09:25 05/12/25 09:20 Furosemide 40 Mg Tablet PO 40 mg QAM SREEDHAR Administration Heparin Sodium (Porcine) 5,000 units 05/07/25 09:00 05/12/25 20:38 Heparin Sodium 5,000 Units/Ml Vial SUB-Q 5,000 units Q12HR SREEDHAR Administration Isosorbide Mononitrate 60 mg 05/07/25 09:00 05/12/25 09:20 Isosorbide Mononitrate 60 Mg Tab.Er.24h PO 60 mg DAILY SREEDHAR Administration Levothyroxine Sodium 100 mcg 05/07/25 06:30 05/13/25 05:25 Levothyroxine Sodium 100 Mcg Tablet PO 100 mcg DAILY@0630 SREEDHAR Administration Levothyroxine Sodium 75 mcg 05/07/25 06:30 05/13/25 05:25 Levothyroxine Sodium 75 Mcg Tablet PO 75 mcg DAILY@0630 SREEDHAR Administration Melatonin 5 mg 05/08/25 21:00 05/12/25 20:38 Melatonin 5 Mg Tablet PO 5 mg HS SREEDHAR Administration Metoprolol Succinate 150 mg 05/13/25 09:00 Metoprolol Succinate Ext Rel 50 Mg Tabcr PO DAILY SREEDHAR Pantoprazole Sodium 40 mg 05/07/25 09:00 05/12/25 17:21 Pantoprazole 40 Mg Tablet PO 40 mg BID SREEDHAR Administration Quetiapine Fumarate 50 mg 05/06/25 21:20 05/12/25 20:38 Quetiapine Fumarate 25 Mg Tablet PO 50 mg Q12HR SREEDHAR Administration Venlafaxine HCl 150 mg 05/06/25 21:20 05/12/25 20:38 Venlafaxine Hcl Xr 75 Mg Cap.Er.24h PO 150 mg HS SREEDHAR Administration Radiology Results: ITS Impressions Renal Ultrasound 05/07/25 11:54 Impression: 1: The kidneys are enlarged with numerous renal cysts. However, the kidneys were not fully visualized due to limitations of this study. Consider a noncontrast CT for further assessment. Chest/Abdomen/Pelvis CT 05/09/25 12:25 IMPRESSION: 1. Numerous bilateral renal cysts, the largest cyst in the right kidney grossly measures 9.5 cm, the largest cyst in the left kidney grossly measures 5.7 cm. 2. There is an indeterminate 1.6 x 0.8 cm lucency in the left inferior pubic ramus. Dedicated x-rays of the pelvis are recommended. 3. There are a few small bandlike and reticular opacities in the lower lungs. Differential includes atelectasis/scarring or infiltrates. 4. Prior surgical change about the left breast which are new as compared to the study from 2016. Correlate clinically. Hip/Pelvis X-Ray 05/10/25 11:10 Impression: 1: Mixed lytic and sclerotic lesion left inferior pubic ramus. In a 70-year-old female, consider metastatic disease, lymphoma, Paget's disease. Consider correlation with bone scan or pet/CT examination. Chest X-Ray 05/12/25 19:11 Impression: CHF. Superimposed early pneumonia Labs Labs: Laboratory Results - last 24 hr 05/13/25 04:29 WBC 9.4 RBC 3.23 L Hgb 8.9 L Hct 28.8 L MCV 89.2 MCH 27.6 MCHC 30.9 L RDW 17.1 H Plt Count 252 MPV 9.4 Immature Gran % (Auto) 0.9 H Neut % (Auto) 75.0 H Lymph % (Auto) 14.8 L Thayer % (Auto) 7.7 Eos % (Auto) 1.4 Baso % (Auto) 0.2 Lymph # (Auto) 1.38 Thayer # (Auto) 0.7 H Eos # (Auto) 0.1 Baso # (Auto) 0.0 Abs Immat Gran (auto) 0.08 H Absolute Neuts (auto) 7.0 H Absolute Nucleated RBC 0.090 H Nucleated RBC % 1.0 H Sodium 138 Potassium 3.8 Chloride 102 Carbon Dioxide 28 Anion Gap 8 BUN 69 H Creatinine 3.21 H Estim Creat Clear Calc 17 Estimated GFR 14 L Glucose 86 Calcium 9.3 Phosphorus 3.7 Total Bilirubin 0.7 AST 26 ALT 55 H Alkaline Phosphatase 102 Total Protein 7.7 Albumin 4.3 Quality VTE Prophylaxis VTE prophylaxis: pharmacologic ordered (Heparin 5000 t.i.d.) Hospitalist MIPS Advance Care Plan I have confirmed that the patient's Advanced Care Plan is present, code status is documented, or surrogate decision maker is listed in patient medical record.: Yes Medication Reconciliation I have utilized all available resources to obtain, update and review the patients current medications (includes all prescriptions, OTC, herbals, cannabis, and nutritional supplements).: Yes
[2025-05-13] MEDS: ISOSORBIDE MONONITRATE 60 MG TAB.ER.24H PO (09:12)
[2025-05-13] MEDS: ASPIRIN 81 MG ENTERIC TABLET PO (09:12)
[2025-05-13] MEDS: EMPAGLIFLOZIN 10 MG TABLET PO (09:13)
[2025-05-13] MEDS: ATORVASTATIN 40 MG TABLET 80 MG PO (09:13)
[2025-05-13] MEDS: PANTOPRAZOLE 40 MG TABLET PO ×2 (09:13→17:55)
[2025-05-13] MEDS: FUROSEMIDE 40 MG TABLET PO ×2 (09:13→17:55)
[2025-05-13] MEDS: METOPROLOL SUCCINATE EXT REL 50 MG TABCR 150 MG PO (09:14)
--- NOTE | 2025-05-13 11:51 | P.PNNP_ITS ---
Progress Note: A&P Assessment and Plan (1) Stage 4 chronic kidney disease: Code(s): N18.4 - Chronic kidney disease, stage 4 (severe) Status: Chronic Assessment and Plan: * Chronic kidney disease secondary to polycystic kidneys * baseline creatinine running 2.3 - 2.8mg/dl * creatinine 2.79mg/dL in February 2025 * secondary to polycystic kidney disease along with contributions from hypertension and vascular disease * may have to accept a higher creatinine in the context of needed diuretic therapy to maintain respiratory status * follows with nephrology in [place], [place] for management of this issue * the creatinine has risen with diuresis. Today it is 3.07. * Intake/ output yesterday was 1580 in and 800 out. However the not collecting all the urine. * The patient was short of breath yesterday. * chest x-ray showed fluid * pt received extra Lasix and some inhalers. * She is feeling better now. Will increase furosemide to twice a day * her creatinine did increase a little bit but I think she will need a higher creatinine to stay out of heart failure. (2) Shortness of breath: Code(s): R06.02 - Shortness of breath Status: Acute Assessment and Plan: * The patient still looks short of breath right now. * suspect multifactorial: * diastolic CHF * advanced CKD * relative anemia * obesity(?) * other(?) * Repeat the chest x-ray. * no evidence of hypoxia * CT of C/A/P results noted * improved with inhalers and an extra dose of Lasix. * Will continue the higher dose of Lasix and the inhalers. (3) CHF exacerbation: Code(s): I50.9 - Heart failure, unspecified Status: Acute Assessment and Plan: * suspected and presumably playing a role with #2 * Echo results noted: * left ventricular ejection fraction is visually estimated to be 60 - 65% * there is grade 2 diastolic dysfunction * mitral valve leaflets are sclerotic * moderate mitral regurgitation * tricuspid valve is normal * moderate tricuspid regurgitation * moderate pulmonary hypertension -- pulmonary arterial systolic pressure is estimated at 51 mmHg * Cardiology following * the patient is currently on Lasix 40mg p.o. daily. * Intake/ output was positive But she urinated 5 times And all the urine was not collected. * Will increase the Lasix to b.i.d. (4) Anemia: Qualifiers: Anemia type: due to chronic kidney disease Code(s): D64.9 - Anemia, unspecified Status: Acute Assessment and Plan: * partly related to underlying CKD * anemia studies also demonstrate iron deficiency * initiated on IV iron * NORRIS during hospital stay * Hemoglobin seems stable in the 8s. (5) Hypertension: Code(s): I10 - Essential (primary) hypertension Status: Chronic Assessment and Plan: * Systolic recently 110 to 131. * Currently on amlodipine, and higher dose of metoprolol. * Heart rate in the 80s * Blood pressure doing (6) Autosomal dominant polycystic kidney disease: Code(s): Q61.2 - Polycystic kidney, adult type Status: Chronic Assessment and Plan: * known history * admission CT imaging consistent with this diagnosis/disease * also supported by family history: * mother with PCKD and required dialysis * sister with PCKD as well Will continue to follow. Subjective Date/time seen: 05/13/25 11:51 Interval history: patient is alert. Sitting up in a chair. Feels okay today. No longer short of breath. Exam Narrative: General: elderly but WD/WN female in NAD Heart: normal S1 and S2; no rub Lungs: Fairly clear bilaterally. No more wheezes. Abdomen: obese but soft, nontender, nondistended, positive bowel sounds Extremities: no cyanosis or clubbing; trace edema Skin: no nodules Objective Data Vital Signs Vital Signs: Vital Signs - 24 hr 05/12/25 12:02 05/12/25 12:27 05/12/25 13:17 Temperature Pulse Rate 72 72 72 Respiratory Rate 18 20 Blood Pressure 121/58 L Pulse Oximetry 96 94 Oxygen Delivery Room Air Fraction of Inspired Oxygen 05/12/25 13:17 05/12/25 13:27 05/12/25 16:02 Temperature Pulse Rate 72 70 70 Respiratory Rate 20 20 Blood Pressure Pulse Oximetry Oxygen Delivery Fraction of Inspired Oxygen 05/12/25 20:00 05/12/25 20:00 05/12/25 20:15 Temperature 97.8 F Pulse Rate 65 73 77 Respiratory Rate 16 16 Blood Pressure 117/62 Pulse Oximetry 95 Oxygen Delivery Fraction of Inspired Oxygen 05/12/25 20:18 05/12/25 20:22 05/12/25 20:34 Temperature Pulse Rate 77 80 Respiratory Rate 16 18 Blood Pressure Pulse Oximetry 92 Oxygen Delivery Room Air Room Air Fraction of Inspired Oxygen 21 05/12/25 21:03 05/13/25 00:00 05/13/25 00:58 Temperature 97.6 F Pulse Rate 69 68 Respiratory Rate 16 Blood Pressure 120/65 Pulse Oximetry 96 Oxygen Delivery Autopap Fraction of Inspired Oxygen 05/13/25 02:47 05/13/25 02:51 05/13/25 04:00 Temperature Pulse Rate 68 65 Respiratory Rate 16 Blood Pressure Pulse Oximetry Oxygen Delivery CPAP Fraction of Inspired Oxygen 05/13/25 06:23 05/13/25 08:00 05/13/25 08:00 Temperature 97.6 F 97.9 F Pulse Rate 72 67 76 Respiratory Rate 14 16 Blood Pressure 117/55 L 129/57 L Pulse Oximetry 95 99 Oxygen Delivery Fraction of Inspired Oxygen 05/13/25 08:00 05/13/25 08:05 05/13/25 08:28 Temperature Pulse Rate 76 78 68 Respiratory Rate 16 16 20 Blood Pressure 129/57 L 130/51 L Pulse Oximetry 99 98 95 Oxygen Delivery Room Air Fraction of Inspired Oxygen 05/13/25 08:28 05/13/25 08:39 05/13/25 08:48 Temperature Pulse Rate 68 75 80 Respiratory Rate 20 20 18 Blood Pressure 131/52 L Pulse Oximetry 98 Oxygen Delivery Fraction of Inspired Oxygen 05/13/25 09:10 05/13/25 09:14 Temperature Pulse Rate 75 Respiratory Rate Blood Pressure Pulse Oximetry Oxygen Delivery Room Air Fraction of Inspired Oxygen Intake/Output Intake/Output: Intake & Output 05/10/25 05/11/25 05/12/25 05/13/25 23:59 23:59 23:59 23:59 Intake Total 1360 1580 1910 718 Output Total 2200 800 200 Balance -890 936 4766 718 Meds/Results Medications: Active Medications Generic Name Dose Route Start Last Admin Trade Name Freq PRN Reason Stop Dose Admin Acetaminophen 650 mg 05/06/25 22:20 05/08/25 05:09 Acetaminophen 325 Mg Tablet PO 650 mg Q6H PRN Administration Mild Pain (1-3) or Fever Albuterol/Ipratropium 3 ml 05/12/25 14:00 05/13/25 08:26 Ipratropium 0.5 Mg/Albuterol Sulfate 2.5 Mg Ampul.Neb 3 Ml INHALATION 3 ml Q6HRT SREEDHAR Administration Amlodipine Besylate 10 mg 05/07/25 09:00 05/13/25 09:12 Amlodipine Besylate 10 Mg Tablet PO 10 mg DAILY SREEDHAR Administration Aspirin 81 mg 05/07/25 09:00 05/13/25 09:12 Aspirin 81 Mg Enteric Tablet PO 81 mg DAILY SREEDHAR Administration Atorvastatin Calcium 80 mg 05/07/25 09:00 05/13/25 09:13 Atorvastatin 40 Mg Tablet PO 80 mg DAILY SREEDHAR Administration Calcitriol 0.25 mcg 05/07/25 09:00 05/13/25 09:13 Calcitriol 0.25 Mcg Capsule PO 0.25 mcg DAILY SREEDHAR Administration Docusate Sodium 100 mg 05/06/25 21:12 Docusate Sodium 100 Mg Capsule PO DAILY PRN Constipation Empagliflozin 10 mg 05/10/25 09:00 05/13/25 09:13 Empagliflozin 10 Mg Tablet PO 10 mg DAILY SREEDHAR Administration Epoetin Chris-epbx 10,000 units 05/10/25 09:00 05/12/25 09:34 Epoetin Chris-Epbx 10,000 Units/Ml Vial SUB-Q 10,000 units TUTHSA@09 SREEDHAR Administration Furosemide 40 mg 05/11/25 09:25 05/13/25 09:13 Furosemide 40 Mg Tablet PO 40 mg QAM SREEDHAR Administration Heparin Sodium (Porcine) 5,000 units 05/07/25 09:00 05/13/25 09:14 Heparin Sodium 5,000 Units/Ml Vial SUB-Q 5,000 units Q12HR SREEDHAR Administration Isosorbide Mononitrate 60 mg 05/07/25 09:00 05/13/25 09:12 Isosorbide Mononitrate 60 Mg Tab.Er.24h PO 60 mg DAILY SREEDHAR Administration Levothyroxine Sodium 100 mcg 05/07/25 06:30 05/13/25 05:25 Levothyroxine Sodium 100 Mcg Tablet PO 100 mcg DAILY@0630 SREEDHAR Administration Levothyroxine Sodium 75 mcg 05/07/25 06:30 05/13/25 05:25 Levothyroxine Sodium 75 Mcg Tablet PO 75 mcg DAILY@0630 SREEDHAR Administration Melatonin 5 mg 05/08/25 21:00 05/12/25 20:38 Melatonin 5 Mg Tablet PO 5 mg HS SREEDHAR Administration Metoprolol Succinate 150 mg 05/13/25 09:00 05/13/25 09:14 Metoprolol Succinate Ext Rel 50 Mg Tabcr PO 150 mg DAILY SREEDHAR Administration Pantoprazole Sodium 40 mg 05/07/25 09:00 05/13/25 09:13 Pantoprazole 40 Mg Tablet PO 40 mg BID SREEDHAR Administration Quetiapine Fumarate 50 mg 05/06/25 21:20 05/13/25 09:13 Quetiapine Fumarate 25 Mg Tablet PO 50 mg Q12HR SREEDHAR Administration Venlafaxine HCl 150 mg 05/06/25 21:20 05/12/25 20:38 Venlafaxine Hcl Xr 75 Mg Cap.Er.24h PO 150 mg HS SREEDHAR Administration Radiology Results: ITS Impressions Renal Ultrasound 05/07/25 11:54 Impression: 1: The kidneys are enlarged with numerous renal cysts. However, the kidneys were not fully visualized due to limitations of this study. Consider a noncontrast CT for further assessment. Chest/Abdomen/Pelvis CT 05/09/25 12:25 IMPRESSION: 1. Numerous bilateral renal cysts, the largest cyst in the right kidney grossly measures 9.5 cm, the largest cyst in the left kidney grossly measures 5.7 cm. 2. There is an indeterminate 1.6 x 0.8 cm lucency in the left inferior pubic ramus. Dedicated x-rays of the pelvis are recommended. 3. There are a few small bandlike and reticular opacities in the lower lungs. Differential includes atelectasis/scarring or infiltrates. 4. Prior surgical change about the left breast which are new as compared to the study from 2016. Correlate clinically. Hip/Pelvis X-Ray 05/10/25 11:10 Impression: 1: Mixed lytic and sclerotic lesion left inferior pubic ramus. In a 70-year-old female, consider metastatic disease, lymphoma, Paget's disease. Consider correlation with bone scan or pet/CT examination. Chest X-Ray 05/12/25 19:11 Impression: CHF. Superimposed early pneumonia Labs Labs: Laboratory Results - last 24 hr 05/13/25 04:29 WBC 9.4 RBC 3.23 L Hgb 8.9 L Hct 28.8 L MCV 89.2 MCH 27.6 MCHC 30.9 L RDW 17.1 H Plt Count 252 MPV 9.4 Immature Gran % (Auto) 0.9 H Neut % (Auto) 75.0 H Lymph % (Auto) 14.8 L [place] % (Auto) 7.7 Eos % (Auto) 1.4 Baso % (Auto) 0.2 Lymph # (Auto) 1.38 [place] # (Auto) 0.7 H Eos # (Auto) 0.1 Baso # (Auto) 0.0 Abs Immat Gran (auto) 0.08 H Absolute Neuts (auto) 7.0 H Absolute Nucleated RBC 0.090 H Nucleated RBC % 1.0 H Sodium 138 Potassium 3.8 Chloride 102 Carbon Dioxide 28 Anion Gap 8 BUN 69 H Creatinine 3.21 H Estim Creat Clear Calc 17 Estimated GFR 14 L Glucose 86 Calcium 9.3 Phosphorus 3.7 Total Bilirubin 0.7 AST 26 ALT 55 H Alkaline Phosphatase 102 Total Protein 7.7 Albumin 4.3
--- NOTE | 2025-05-13 14:16 | WPDONCPN ---
Progress Note: A&P Assessment and Plan (1) Lytic bone lesions on xray: Code(s): M89.8X9 - Other specified disorders of bone, unspecified site Status: Acute Assessment and Plan: Patient with incidental finding of 1.6cm x 0.8cm lytic lesion in the left inferior pubic rami on a CT of abd/pelvis done during this admission. Patient has hx of left breast cancer in 2019. States that it was stage I and she decided for left mastectomy. It was node negative disease and did not get radiation or chemotherapy. She received 5 years of ER target therapy and completed the treatment. She had an oncologist in [place] but per patient her oncologist left the practice and she is in process of finding another one. Patient was seen by Dr. Gama during this admission and he left his card with patient. Plan is to follow up with bone scan. Additionally, SPEP, [place]/[facility] F[facility] and immunoglobulin quantification was ordered by Dr. Gama to rule out monoclonal paraproteinemia and results are pending. If results are not back during this admission, I advised the patient to call Dr. Gama's office for follow up. (2) Anemia: Qualifiers: Anemia type: due to chronic kidney disease Code(s): D64.9 - Anemia, unspecified Status: Acute Assessment and Plan: Patient with CKD with elevated creatinine. Her anemia is likely from CKD. Iron panel done this admission showed Ferritin 126, TIBC 272, saturations 11%. She was given IV Iron sucrose 300mg on 05/09/25 and 500mg on 05/10/25. Patient has also been started on Epo Chris 10,000 units SubQ , and saturdays. We await the response to anemia. It takes at least 4-6 weeks to see full response. Subjective Date/time seen: 05/13/25 14:16 Interval history: patient resting well on bed. No overnight events. Review of Systems Review of Systems Patient admitted for lower extremity swelling and dypsnea. Found in CHF exacerbation and getting diuresis. States that she is feeling better with dyspnea then when he arrived. denies chest pain, cough or hemoptysis. Denies abdominal pain, n/v/d. Denies lower pelvic pain. Rest of 12 point ROS is negative. Exam Narrative: General: Alert and orientedx3, no acute distress HEENT: PERRL, EOMI, no scleral icterus CV: RRR, no m/g/r RESP: Coarse breath sounds in bases ABD: soft, NT, ND EXT: 1+ edema bilaterally Objective Data Vital Signs Vital Signs: Vital Signs - 24 hr 05/12/25 16:02 05/12/25 20:00 05/12/25 20:00 Temperature 36.6 C Pulse Rate 70 65 73 Respiratory Rate 16 Blood Pressure 117/62 Pulse Oximetry 95 Oxygen Delivery Fraction of Inspired Oxygen 05/12/25 20:15 05/12/25 20:18 05/12/25 20:22 Temperature Pulse Rate 77 77 80 Respiratory Rate 16 16 18 Blood Pressure Pulse Oximetry 92 Oxygen Delivery Room Air Fraction of Inspired Oxygen 21 05/12/25 20:34 05/12/25 21:03 05/13/25 00:00 Temperature Pulse Rate 69 Respiratory Rate Blood Pressure Pulse Oximetry Oxygen Delivery Room Air Autopap Fraction of Inspired Oxygen 05/13/25 00:58 05/13/25 02:47 05/13/25 02:51 Temperature 36.4 C Pulse Rate 68 68 Respiratory Rate 16 16 Blood Pressure 120/65 Pulse Oximetry 96 Oxygen Delivery CPAP Fraction of Inspired Oxygen 05/13/25 04:00 05/13/25 06:23 05/13/25 08:00 Temperature 36.4 C Pulse Rate 65 72 67 Respiratory Rate 14 Blood Pressure 117/55 L Pulse Oximetry 95 Oxygen Delivery Fraction of Inspired Oxygen 05/13/25 08:00 05/13/25 08:00 05/13/25 08:05 Temperature 36.6 C Pulse Rate 76 76 78 Respiratory Rate 16 16 16 Blood Pressure 129/57 L 129/57 L 130/51 L Pulse Oximetry 99 99 98 Oxygen Delivery Fraction of Inspired Oxygen 05/13/25 08:28 05/13/25 08:28 05/13/25 08:39 Temperature Pulse Rate 68 68 75 Respiratory Rate 20 20 20 Blood Pressure Pulse Oximetry 95 Oxygen Delivery Room Air Fraction of Inspired Oxygen 05/13/25 08:48 05/13/25 09:10 05/13/25 09:14 Temperature Pulse Rate 80 75 Respiratory Rate 18 Blood Pressure 131/52 L Pulse Oximetry 98 Oxygen Delivery Room Air Fraction of Inspired Oxygen 05/13/25 12:00 05/13/25 12:00 05/13/25 14:08 Temperature Pulse Rate 79 64 64 Respiratory Rate 18 20 Blood Pressure 121/55 L Pulse Oximetry 99 95 Oxygen Delivery Room Air Fraction of Inspired Oxygen 05/13/25 14:08 05/13/25 14:16 Temperature Pulse Rate 64 65 Respiratory Rate 20 20 Blood Pressure Pulse Oximetry Oxygen Delivery Fraction of Inspired Oxygen Intake/Output Intake/Output: Intake & Output 05/10/25 05/11/25 05/12/25 05/13/25 23:59 23:59 23:59 23:59 Intake Total 1360 1580 1910 958 Output Total 2200 800 200 Balance -556 735 0961 958 Meds/Results Medications: Active Medications Generic Name Dose Route Start Last Admin Trade Name Freq PRN Reason Stop Dose Admin Acetaminophen 650 mg 05/06/25 22:20 05/08/25 05:09 Acetaminophen 325 Mg Tablet PO 650 mg Q6H PRN Administration Mild Pain (1-3) or Fever Albuterol/Ipratropium 3 ml 05/12/25 14:00 05/13/25 14:07 Ipratropium 0.5 Mg/Albuterol Sulfate 2.5 Mg Ampul.Neb 3 Ml INHALATION 3 ml Q6HRT SREEDHAR Administration Amlodipine Besylate 10 mg 05/07/25 09:00 05/13/25 09:12 Amlodipine Besylate 10 Mg Tablet PO 10 mg DAILY SREEDHAR Administration Aspirin 81 mg 05/07/25 09:00 05/13/25 09:12 Aspirin 81 Mg Enteric Tablet PO 81 mg DAILY SREEDHAR Administration Atorvastatin Calcium 80 mg 05/07/25 09:00 05/13/25 09:13 Atorvastatin 40 Mg Tablet PO 80 mg DAILY SREEDHAR Administration Calcitriol 0.25 mcg 05/07/25 09:00 05/13/25 09:13 Calcitriol 0.25 Mcg Capsule PO 0.25 mcg DAILY SREEDHAR Administration Docusate Sodium 100 mg 05/06/25 21:12 Docusate Sodium 100 Mg Capsule PO DAILY PRN Constipation Empagliflozin 10 mg 05/10/25 09:00 05/13/25 09:13 Empagliflozin 10 Mg Tablet PO 10 mg DAILY SREEDHAR Administration Epoetin Chris-epbx 10,000 units 05/10/25 09:00 05/12/25 09:34 Epoetin Chris-Epbx 10,000 Units/Ml Vial SUB-Q 10,000 units TUTA@09 SREEDHAR Administration Furosemide 40 mg 05/13/25 17:00 Furosemide 40 Mg Tablet PO BID SREEDHAR Heparin Sodium (Porcine) 5,000 units 05/07/25 09:00 05/13/25 09:14 Heparin Sodium 5,000 Units/Ml Vial SUB-Q 5,000 units Q12HR SREEDHAR Administration Isosorbide Mononitrate 60 mg 05/07/25 09:00 05/13/25 09:12 Isosorbide Mononitrate 60 Mg Tab.Er.24h PO 60 mg DAILY SREEDHAR Administration Levothyroxine Sodium 100 mcg 05/07/25 06:30 05/13/25 05:25 Levothyroxine Sodium 100 Mcg Tablet PO 100 mcg DAILY@0630 SREEDHAR Administration Levothyroxine Sodium 75 mcg 05/07/25 06:30 05/13/25 05:25 Levothyroxine Sodium 75 Mcg Tablet PO 75 mcg DAILY@0630 SREEDHAR Administration Melatonin 5 mg 05/08/25 21:00 05/12/25 20:38 Melatonin 5 Mg Tablet PO 5 mg HS SREEDHAR Administration Metoprolol Succinate 150 mg 05/13/25 09:00 05/13/25 09:14 Metoprolol Succinate Ext Rel 50 Mg Tabcr PO 150 mg DAILY SREEDHAR Administration Pantoprazole Sodium 40 mg 05/07/25 09:00 05/13/25 09:13 Pantoprazole 40 Mg Tablet PO 40 mg BID SREEDHAR Administration Quetiapine Fumarate 50 mg 05/06/25 21:20 05/13/25 09:13 Quetiapine Fumarate 25 Mg Tablet PO 50 mg Q12HR SREEDHAR Administration Venlafaxine HCl 150 mg 05/06/25 21:20 05/12/25 20:38 Venlafaxine Hcl Xr 75 Mg Cap.Er.24h PO 150 mg HS SREEDHAR Administration Radiology Results: ITS Impressions Renal Ultrasound 05/07/25 11:54 Impression: 1: The kidneys are enlarged with numerous renal cysts. However, the kidneys were not fully visualized due to limitations of this study. Consider a noncontrast CT for further assessment. Chest/Abdomen/Pelvis CT 05/09/25 12:25 IMPRESSION: 1. Numerous bilateral renal cysts, the largest cyst in the right kidney grossly measures 9.5 cm, the largest cyst in the left kidney grossly measures 5.7 cm. 2. There is an indeterminate 1.6 x 0.8 cm lucency in the left inferior pubic ramus. Dedicated x-rays of the pelvis are recommended. 3. There are a few small bandlike and reticular opacities in the lower lungs. Differential includes atelectasis/scarring or infiltrates. 4. Prior surgical change about the left breast which are new as compared to the study from 2016. Correlate clinically. Hip/Pelvis X-Ray 05/10/25 11:10 Impression: 1: Mixed lytic and sclerotic lesion left inferior pubic ramus. In a 70-year-old female, consider metastatic disease, lymphoma, Paget's disease. Consider correlation with bone scan or pet/CT examination. Chest X-Ray 05/12/25 19:11 Impression: CHF. Superimposed early pneumonia Labs Labs: Laboratory Results - last 24 hr 05/13/25 04:29 WBC 9.4 RBC 3.23 L Hgb 8.9 L Hct 28.8 L MCV 89.2 MCH 27.6 MCHC 30.9 L RDW 17.1 H Plt Count 252 MPV 9.4 Immature Gran % (Auto) 0.9 H Neut % (Auto) 75.0 H Lymph % (Auto) 14.8 L [place] % (Auto) 7.7 Eos % (Auto) 1.4 Baso % (Auto) 0.2 Lymph # (Auto) 1.38 [place] # (Auto) 0.7 H Eos # (Auto) 0.1 Baso # (Auto) 0.0 Abs Immat Gran (auto) 0.08 H Absolute Neuts (auto) 7.0 H Absolute Nucleated RBC 0.090 H Nucleated RBC % 1.0 H Sodium 138 Potassium 3.8 Chloride 102 Carbon Dioxide 28 Anion Gap 8 BUN 69 H Creatinine 3.21 H Estim Creat Clear Calc 17 Estimated GFR 14 L Glucose 86 Calcium 9.3 Phosphorus 3.7 Total Bilirubin 0.7 AST 26 ALT 55 H Alkaline Phosphatase 102 Total Protein 7.7 Albumin 4.3
[2025-05-13] MEDS: MELATONIN 5 MG TABLET PO (20:13)
[2025-05-13] MEDS: VENLAFAXINE HCL XR 75 MG CAP.ER.24H 150 MG PO (20:14)
[2025-05-14] VITALS (12 sets, daily range): BP systolic 100–115; BP diastolic 53–84; PULSE 59–82; RESP 16–20; TEMP 36.4–36.8; O2SAT 95–100
[2025-05-14 04:40] LABS: Hematocrit 29.8 % (37.0-47.0); Hemoglobin 9.1 g/dL (12.0-15.0); Immature Granulocyte Percent A 0.8 % (0-0.5); Lymphocytes Absolute Auto 1.30 K/mm3 (0.9-3.2); Mean Corpuscular HGB Conc 30.5 g/dl (32-36); Mean Corpuscular Hemoglobin 27.7 pg (26-34); Mean Corpuscular Volume 90.6 fl (80-100); Nucleated Red Blood Cells Absolute Auto 0.070 K/mm3 (0.0-0.012); Nucleated Red Blood Cells Perc 0.8 % (0.0-0.2); Platelet Count Result 285 k/mm3 (150-375); Red Blood Count 3.29 M/mm3 (4.2-5.4); White Blood Count 8.3 K/mm3 (4.5-10.0)
[2025-05-14 05:05] LABS: Alanine Aminotransferase 42 U/L (6-35); Albumin Level 4.1 g/dL (3.5-5.1); Alkaline Phosphatase 97 U/L (38-126); Anion Gap 10 mmol/L (4-12); Aspartate Amino Transferase 24 U/L (14-36); Bilirubin,Total 0.6 mg/dL (0.2-1.3); Blood Urea Nitrogen 77 mg/dL (7-17); Calcium 8.9 mg/dL (8.4-10.2); Carbon Dioxide 27 mmol/L (22-30); Chloride 101 mmol/L (98-107); Estimated CRCL calculation 16 ml/min; Estimated Glomerular Filt Rate 13; Glucose 80 mg/dL (65-110); Potassium 3.7 mmol/L (3.4-5.0); Sodium 138 mmol/L (137-145); Total Protein 7.5 g/dL (6.3-8.2)
[2025-05-14] MEDS: LEVOTHYROXINE SODIUM 100 MCG TABLET PO (05:36)
[2025-05-14] MEDS: LEVOTHYROXINE SODIUM 75 MCG TABLET PO (05:36)
[2025-05-14 08:18] LABS: Magnesium 2.4 mg/dL (1.6-2.3)
[2025-05-14] MEDS: EMPAGLIFLOZIN 10 MG TABLET PO (09:02)
[2025-05-14] MEDS: PANTOPRAZOLE 40 MG TABLET PO ×2 (09:02→17:19)
[2025-05-14] MEDS: ATORVASTATIN 40 MG TABLET 80 MG PO (09:02)
[2025-05-14] MEDS: METOPROLOL SUCCINATE EXT REL 50 MG TABCR 150 MG PO (09:02)
[2025-05-14] MEDS: ASPIRIN 81 MG ENTERIC TABLET PO (09:02)
[2025-05-14] MEDS: ISOSORBIDE MONONITRATE 60 MG TAB.ER.24H PO (09:02)
[2025-05-14] MEDS: FUROSEMIDE 40 MG TABLET PO (09:02)
--- NOTE | 2025-05-14 09:36 | P.PNNP_ITS ---
Progress Note: A&P Assessment and Plan (1) Stage 4 chronic kidney disease: Code(s): N18.4 - Chronic kidney disease, stage 4 (severe) Status: Chronic Assessment and Plan: * Chronic kidney disease secondary to polycystic kidneys * baseline creatinine running 2.3 - 2.8mg/dl * creatinine 2.79mg/dL in February 2025 * secondary to polycystic kidney disease along with contributions from hypertension and vascular disease * may have to accept a higher creatinine in the context of needed diuretic therapy to maintain respiratory status * follows with nephrology in [place], [place] for management of this issue * the creatinine has risen again with diuresis. Today it is 3.44. * Intake/ output yesterday was 1580 in and 800 out. she did have 6 or more voids yesterday. * The patient was short of breath Before but is good now. * chest x-ray showed fluid . * pt received extra Lasix and some inhalers on Wednesday. * She is feeling better now. on Wednesday she got Lasix 40mg p.o. than Lasix 8 0mg IV. Yesterday she received Lasix 40mg twice a day. Her creatinine is continuing to rise. She is not on oxygen is breathing comfortably right now so will cut the Lasix down to40mg once a day. (2) Shortness of breath: Code(s): R06.02 - Shortness of breath Status: Acute Assessment and Plan: * The patient still looks short of breath right now. * suspect multifactorial: * diastolic CHF * advanced CKD * relative anemia * obesity(?) * other(?) * Repeat Chest x-ray showed fluid. * no evidence of hypoxia * CT of C/A/P results noted * improved with inhalers and an extra dose of Lasix. * Patient feels better now. We will resume the former once a day Lasix dose (3) CHF exacerbation: Code(s): I50.9 - Heart failure, unspecified Status: Acute Assessment and Plan: * suspected and presumably playing a role with #2 * Echo results noted: * left ventricular ejection fraction is visually estimated to be 60 - 65% * there is grade 2 diastolic dysfunction * mitral valve leaflets are sclerotic * moderate mitral regurgitation * tricuspid valve is normal * moderate tricuspid regurgitation * moderate pulmonary hypertension -- pulmonary arterial systolic pressure is estimated at 51 mmHg * Cardiology following * the patient is currently on Lasix 40mg p.o. daily. * Intake/ output was positive But she urinated 6+ times; all the urine was not collected. (4) Anemia: Qualifiers: Anemia type: due to chronic kidney disease Code(s): D64.9 - Anemia, unspecified Status: Acute Assessment and Plan: * partly related to underlying CKD * anemia studies also demonstrate iron deficiency * initiated on IV iron * NORRIS during hospital stay * Hemoglobin up a little bit at 9.1 (5) Hypertension: Code(s): I10 - Essential (primary) hypertension Status: Chronic Assessment and Plan: * Systolic recently 110 to 131. * Currently on amlodipine, and higher dose of metoprolol. * Heart rate in the 80s * Blood pressure doing well (6) Autosomal dominant polycystic kidney disease: Code(s): Q61.2 - Polycystic kidney, adult type Status: Chronic Assessment and Plan: * known history * admission CT imaging consistent with this diagnosis/disease * also supported by family history: * mother with PCKD and required dialysis * sister with PCKD as well Will continue to follow. Subjective Date/time seen: 05/14/25 09:36 Interval history: Patient is sitting up in a chair. No shortness of breath. Exam Narrative: General: elderly but WD/WN female in NAD Heart: normal S1 and S2; no rub Lungs: Fairly clear bilaterally. No more wheezes. Abdomen: obese but soft, nontender, nondistended, positive bowel sounds Extremities: no cyanosis or clubbing; trace edema Skin: no nodules Objective Data Vital Signs Vital Signs: Vital Signs - 24 hr 05/13/25 12:00 05/13/25 12:00 05/13/25 14:08 Temperature Pulse Rate 79 64 64 Respiratory Rate 18 20 Blood Pressure 121/55 L Pulse Oximetry 99 95 Oxygen Delivery Room Air 05/13/25 14:08 05/13/25 14:16 05/13/25 16:00 Temperature Pulse Rate 64 65 68 Respiratory Rate 20 20 Blood Pressure Pulse Oximetry Oxygen Delivery 05/13/25 16:38 05/13/25 19:37 05/13/25 20:21 Temperature 97.9 F Pulse Rate 66 72 Respiratory Rate 18 20 Blood Pressure 124/67 119/65 Pulse Oximetry 98 98 Oxygen Delivery Room Air 05/13/25 20:21 05/13/25 20:21 05/13/25 23:54 Temperature 97.6 F Pulse Rate 66 63 Respiratory Rate 20 Blood Pressure 102/61 Pulse Oximetry 98 Oxygen Delivery Autopap 05/14/25 00:00 05/14/25 03:20 05/14/25 04:00 Temperature Pulse Rate 64 60 Respiratory Rate Blood Pressure Pulse Oximetry Oxygen Delivery Autopap 05/14/25 04:00 05/14/25 07:20 05/14/25 07:22 Temperature 97.7 F Pulse Rate 60 71 64 Respiratory Rate 20 18 18 Blood Pressure 107/60 108/56 L 114/55 L Pulse Oximetry 100 99 97 Oxygen Delivery 05/14/25 07:25 05/14/25 07:27 05/14/25 09:02 Temperature 98.2 F Pulse Rate 71 75 70 Respiratory Rate 18 18 Blood Pressure 108/56 L 115/66 Pulse Oximetry 99 95 Oxygen Delivery Intake/Output Intake/Output: Intake & Output 05/11/25 05/12/25 05/13/25 05/14/25 23:59 23:59 23:59 23:59 Intake Total 1580 1910 1588 1460 Output Total 800 200 Balance 780 1710 1588 1460 Meds/Results Medications: Active Medications Generic Name Dose Route Start Last Admin Trade Name Freq PRN Reason Stop Dose Admin Acetaminophen 650 mg 05/06/25 22:20 05/08/25 05:09 Acetaminophen 325 Mg Tablet PO 650 mg Q6H PRN Administration Mild Pain (1-3) or Fever Albuterol/Ipratropium 3 ml 05/13/25 16:34 Ipratropium 0.5 Mg/Albuterol Sulfate 2.5 Mg Ampul.Neb 3 Ml INHALATION Q6HRT PRN Wheezing Amlodipine Besylate 10 mg 05/07/25 09:00 05/14/25 09:02 Amlodipine Besylate 10 Mg Tablet PO 10 mg DAILY SREEDHAR Administration Aspirin 81 mg 05/07/25 09:00 05/14/25 09:02 Aspirin 81 Mg Enteric Tablet PO 81 mg DAILY SREEDHAR Administration Atorvastatin Calcium 80 mg 05/07/25 09:00 05/14/25 09:02 Atorvastatin 40 Mg Tablet PO 80 mg DAILY SREEDHAR Administration Calcitriol 0.25 mcg 05/07/25 09:00 05/14/25 09:02 Calcitriol 0.25 Mcg Capsule PO 0.25 mcg DAILY SREEDHAR Administration Docusate Sodium 100 mg 05/06/25 21:12 Docusate Sodium 100 Mg Capsule PO DAILY PRN Constipation Empagliflozin 10 mg 05/10/25 09:00 05/14/25 09:02 Empagliflozin 10 Mg Tablet PO 10 mg DAILY SREEDHAR Administration Epoetin Chris-epbx 10,000 units 05/10/25 09:00 05/12/25 09:34 Epoetin Chris-Epbx 10,000 Units/Ml Vial SUB-Q 10,000 units TUTHSA@09 SREEDHAR Administration Furosemide 40 mg 05/13/25 17:00 05/14/25 09:02 Furosemide 40 Mg Tablet PO 40 mg BID SREEDHAR Administration Heparin Sodium (Porcine) 5,000 units 05/07/25 09:00 05/14/25 09:03 Heparin Sodium 5,000 Units/Ml Vial SUB-Q 5,000 units Q12HR SREEDHAR Administration Isosorbide Mononitrate 60 mg 05/07/25 09:00 05/14/25 09:02 Isosorbide Mononitrate 60 Mg Tab.Er.24h PO 60 mg DAILY SREEDHAR Administration Levothyroxine Sodium 100 mcg 05/07/25 06:30 05/14/25 05:36 Levothyroxine Sodium 100 Mcg Tablet PO 100 mcg DAILY@0630 SREEDHAR Administration Levothyroxine Sodium 75 mcg 05/07/25 06:30 05/14/25 05:36 Levothyroxine Sodium 75 Mcg Tablet PO 75 mcg DAILY@0630 SREEDHAR Administration Melatonin 5 mg 05/08/25 21:00 05/13/25 20:13 Melatonin 5 Mg Tablet PO 5 mg HS SREEDHAR Administration Metoprolol Succinate 150 mg 05/13/25 09:00 05/14/25 09:02 Metoprolol Succinate Ext Rel 50 Mg Tabcr PO 150 mg DAILY SREEDHAR Administration Pantoprazole Sodium 40 mg 05/07/25 09:00 05/14/25 09:02 Pantoprazole 40 Mg Tablet PO 40 mg BID SREEDHAR Administration Quetiapine Fumarate 50 mg 05/06/25 21:20 05/14/25 09:02 Quetiapine Fumarate 25 Mg Tablet PO 50 mg Q12HR SREEDHAR Administration Venlafaxine HCl 150 mg 05/06/25 21:20 05/13/25 20:14 Venlafaxine Hcl Xr 75 Mg Cap.Er.24h PO 150 mg HS SREEDHAR Administration Radiology Results: ITS Impressions Renal Ultrasound 05/07/25 11:54 Impression: 1: The kidneys are enlarged with numerous renal cysts. However, the kidneys were not fully visualized due to limitations of this study. Consider a noncontrast CT for further assessment. Chest/Abdomen/Pelvis CT 05/09/25 12:25 IMPRESSION: 1. Numerous bilateral renal cysts, the largest cyst in the right kidney grossly measures 9.5 cm, the largest cyst in the left kidney grossly measures 5.7 cm. 2. There is an indeterminate 1.6 x 0.8 cm lucency in the left inferior pubic ramus. Dedicated x-rays of the pelvis are recommended. 3. There are a few small bandlike and reticular opacities in the lower lungs. Differential includes atelectasis/scarring or infiltrates. 4. Prior surgical change about the left breast which are new as compared to the study from 2016. Correlate clinically. Hip/Pelvis X-Ray 05/10/25 11:10 Impression: 1: Mixed lytic and sclerotic lesion left inferior pubic ramus. In a 70-year-old female, consider metastatic disease, lymphoma, Paget's disease. Consider correlation with bone scan or pet/CT examination. Chest X-Ray 05/12/25 19:11 Impression: CHF. Superimposed early pneumonia Labs Labs: Laboratory Results - last 24 hr 05/14/25 03:54 WBC 8.3 RBC 3.29 L Hgb 9.1 L Hct 29.8 L MCV 90.6 MCH 27.7 MCHC 30.5 L RDW 17.5 H Plt Count 285 MPV 9.5 Immature Gran % (Auto) 0.8 H Neut % (Auto) 71.1 Lymph % (Auto) 15.6 L [place] % (Auto) 9.1 H Eos % (Auto) 2.9 Baso % (Auto) 0.5 Lymph # (Auto) 1.30 [place] # (Auto) 0.8 H Eos # (Auto) 0.2 Baso # (Auto) 0.0 Abs Immat Gran (auto) 0.07 H Absolute Neuts (auto) 5.9 Absolute Nucleated RBC 0.070 H Nucleated RBC % 0.8 H Sodium 138 Potassium 3.7 Chloride 101 Carbon Dioxide 27 Anion Gap 10 BUN 77 H Creatinine 3.44 H Estim Creat Clear Calc 16 Estimated GFR 13 L Glucose 80 Calcium 8.9 Phosphorus 4.5 Magnesium 2.4 H Total Bilirubin 0.6 AST 24 ALT 42 H Alkaline Phosphatase 97 Total Protein 7.5 Albumin 4.1
--- NOTE | 2025-05-14 09:41 | P.PNIM_ITS ---
Progress Note: A&P Assessment and Plan (1) New onset of congestive heart failure: Code(s): I50.9 - Heart failure, unspecified Status: Inactive Assessment and Plan: 70-year-old female here with a PMHx: CKD unknown stage at this time patient reports she has a history of ESRD, but is not on dialysis, citing she was told that if her kidney function should worsen she would need a kidney transplant or start dialysis. Patient was originally seen at outside emergency room then transferred here due to ongoing SOB and mild chest discomfort during her visit. Patient reports a history of worsening lower extremity edema and SOB that has been ongoing for the past week. She reports the SOB had been present for about a week it begin to worsening significantly over the past couple of days. The patient experienced increased difficulty while attending jew which led her daughter to take her to the emergency room for further evaluation. She denies any nausea vomiting fever chills at this time. Patient reports ongoing bilateral leg swelling, the patient noted left foot swelling which was reportedly more pronounced than the right. ED Work-up reveals: Who EKG tachycardia, sinus rhythm, no ectopic beats, nonspecific ST changes, normal QRS, normal QT. lab reveals chloride 109, carbon dioxide 17, anion gap 14, BUN 56, creatinine 2.86 with a GFR 16 calculated osmolality is 306, AST is 57, ALT 73 [id number], UA unremarkable for any infection or bacteria. 05/11/2025: Patient shortness of breath possibly due to volume overload in the setting of CKD, diastolic dysfunction and pulmonary hypertension. Patient has a history of polycystic kidney disease which contributes to the hypertension and vascular disease and she follows up with Nephrology in the [facility]. Patient also has a history of left-sided breast cancer status post left-sided mastectomy in 2019 and then endocrine therapy for 5 years duration. She did receive any radiation or chemotherapy. CT chest/abdomen/pelvis:1. Numerous bilateral renal cysts, the largest cyst in the right kidney grossly measures 9.5 cm, the largest cyst in the left kidney grossly measures 5.7 cm. 2. There is an indeterminate 1.6 x 0.8 cm lucency in the left inferior pubic ramus. Dedicated x-rays of the pelvis are recommended. 3. There are a few small bandlike and reticular opacities in the lower lungs. Differential includes atelectasis/scarring or infiltrates. 4. Prior surgical change about the left breast which are new as compared to the study from 2016. Correlate clinically Hip and pelvic x-ray:: Mixed lytic and sclerotic lesion left inferior pubic ramus. In a 70-year-old female, consider metastatic disease, lymphoma, Paget's disease. Consider correlation with bone scan or pet/CT examination. Due to the concerns of lytic lesions and oncology was consulted. He ordered workup for lytic bone lesion that would include serum protein electrophoresis w ith immunofixation, quantitative immunoglobulin and serum free light chain studies and CA 15 3 for breast cancer bone survey. Patient needs to follow-up with the oncologist for her iron deficiency anemia for which she will be receiving iron and will decide about Procrit injection for anemia from CKD. Patient presents with is a worsening of lower extremity edema and shortness of breath, suspected for new onset CHF Elevated BNP> 1800, in the setting of ESRD Status post IV Lasix 20 mg once Started Lasix 40 mg p.o. q.d. Cardiology consult in the ED EKG without ST wave changes Echo diastolic dysfunction and moderate pulmonary hypertension continuous telemetry, strict I and os, standing daily weight,Na<2gs Per cardiology, Lasix 40 mg IV b.i.d. Dietary consult, PT/OT 05/12: Given lasix 80mg IV by nephrology. Patient is currently on Lasix 40 mg p.o. q.d. 05/13: Positive fluid balance on 05/12 in spite of receiving extra dose of Lasix 80 mg IV 05/14:Creatinine increased to 3.44. Sa02 95% RA. Nephrology decreased Furosemide 60 mg PO daily. Monitor kidney function. Strict I&O's. (2) End-stage renal disease (ESRD): Code(s): N18.6 - End stage renal disease Status: Inactive Assessment and Plan: * Patient reports her nephrology is in [facility] * Patient she has polycystic kidney * Reviewed renal ultrasound * At baseline creatinine seems high 2.7, in this admission her creatinine is 2.86. Creatinine 3.44 today. * Nephrology consulted, appreciate recommendations. * Blood pressure control, 108/56. * Fluid restriction 1,800 ml. (3) Anemia associated with chronic renal failure: Code(s): N18.9 - Chronic kidney disease, unspecified; D63.1 - Anemia in chronic kidney disease Status: Inactive Assessment and Plan: * Anemia likely secondary to kidney disease * Iron studies shows iron 31, TIBC 272 and % saturation 11 * Will give iron IV x3 * Patient also started on EPO Chris 10,000 units SubQ , and Saturdays. (4) Hyperlipidemia: Code(s): E78.5 - Hyperlipidemia, unspecified Status: Acute Assessment and Plan: * Continue Statin. (5) Hypertension: Code(s): I10 - Essential (primary) hypertension Status: Chronic Assessment and Plan: * Continue Amlodipine 10 mg PO daily and Isosorbide Mononitrate 60 mg PO daily. * BP goal <130/80 (6) Lytic bone lesions on xray: Code(s): M89.8X9 - Other specified disorders of bone, unspecified site Status: Acute Assessment and Plan: * Mixed lytic and sclerotic lesion left inferior pubic ramus. * She had an oncologist in [place] but per patient her oncologist left the practice and she is in process of finding another one. * Follow-up bone scan as outpatient. * Additionally, SPEP, [place]/[facility] and immunoglobulin quantification was ordered by Dr. Gama to rule out monoclonal paraproteinemia and results are pending. * Consulted hematology/oncology Subjective Date/time seen: 05/14/25 09:41 Interval history: Patient sitting up in chair. Asking when she will get to go home. Patient denies chest pain, palpitations, headache, dizziness, nausea, vomiting, or difficulty urinating. Review of Systems Review of Systems: All systems reviewed & are unremarkable except as noted in HPI and below Exam Const: General: comfortable and no acute distress Resp: Effort & Inspection: normal respiratory effort Auscultation: clear to auscultation bilaterally Cardio: Rate: regular rate Rhythm: regular rhythm Other: Telemetry- SR 70. GI: GI Palp: Yes Soft to palpation Auscultation: normal bowel sounds Neuro: Speech: normal speech Extrem: General: pedal edema bilaterally (trace) Psych: Affect: normal affect Objective Data Vital Signs Vital Signs: Vital Signs - 24 hr 05/13/25 12:00 05/13/25 12:00 05/13/25 14:08 Temperature Pulse Rate 79 64 64 Respiratory Rate 18 20 Blood Pressure 121/55 L Pulse Oximetry 99 95 Oxygen Delivery Room Air 05/13/25 14:08 05/13/25 14:16 05/13/25 16:00 Temperature Pulse Rate 64 65 68 Respiratory Rate 20 20 Blood Pressure Pulse Oximetry Oxygen Delivery 05/13/25 16:38 05/13/25 19:37 05/13/25 20:21 Temperature 97.9 F Pulse Rate 66 72 Respiratory Rate 18 20 Blood Pressure 124/67 119/65 Pulse Oximetry 98 98 Oxygen Delivery Room Air 05/13/25 20:21 05/13/25 20:21 05/13/25 23:54 Temperature 97.6 F Pulse Rate 66 63 Respiratory Rate 20 Blood Pressure 102/61 Pulse Oximetry 98 Oxygen Delivery Autopap 05/14/25 00:00 05/14/25 03:20 05/14/25 04:00 Temperature Pulse Rate 64 60 Respiratory Rate Blood Pressure Pulse Oximetry Oxygen Delivery Autopap 05/14/25 04:00 05/14/25 07:20 05/14/25 07:22 Temperature 97.7 F Pulse Rate 60 71 64 Respiratory Rate 20 18 18 Blood Pressure 107/60 108/56 L 114/55 L Pulse Oximetry 100 99 97 Oxygen Delivery 05/14/25 07:25 05/14/25 07:27 05/14/25 09:02 Temperature 98.2 F Pulse Rate 71 75 70 Respiratory Rate 18 18 Blood Pressure 108/56 L 115/66 Pulse Oximetry 99 95 Oxygen Delivery Intake/Output Intake/Output: Intake & Output 05/11/25 05/12/25 05/13/25 05/14/25 23:59 23:59 23:59 23:59 Intake Total 1580 1910 1588 1460 Output Total 800 200 Balance 780 1710 1588 1460 Meds/Results Medications: Active Medications Generic Name Dose Route Start Last Admin Trade Name Freq PRN Reason Stop Dose Admin Acetaminophen 650 mg 05/06/25 22:20 05/08/25 05:09 Acetaminophen 325 Mg Tablet PO 650 mg Q6H PRN Administration Mild Pain (1-3) or Fever Albuterol/Ipratropium 3 ml 05/13/25 16:34 Ipratropium 0.5 Mg/Albuterol Sulfate 2.5 Mg Ampul.Neb 3 Ml INHALATION Q6HRT PRN Wheezing Amlodipine Besylate 10 mg 05/07/25 09:00 05/14/25 09:02 Amlodipine Besylate 10 Mg Tablet PO 10 mg DAILY SREEDHAR Administration Aspirin 81 mg 05/07/25 09:00 05/14/25 09:02 Aspirin 81 Mg Enteric Tablet PO 81 mg DAILY SREEDHAR Administration Atorvastatin Calcium 80 mg 05/07/25 09:00 05/14/25 09:02 Atorvastatin 40 Mg Tablet PO 80 mg DAILY [facility] Administration Calcitriol 0.25 mcg 05/07/25 09:00 05/14/25 09:02 Calcitriol 0.25 Mcg Capsule PO 0.25 mcg DAILY [facility] Administration Docusate Sodium 100 mg 05/06/25 21:12 Docusate Sodium 100 Mg Capsule PO DAILY PRN Constipation Empagliflozin 10 mg 05/10/25 09:00 05/14/25 09:02 Empagliflozin 10 Mg Tablet PO 10 mg DAILY [facility] Administration Epoetin Chris-epbx 10,000 units 05/10/25 09:00 05/12/25 09:34 Epoetin Chris-Epbx 10,000 Units/Ml Vial SUB-Q 10,000 units TUTHSA@09 [facility] Administration Furosemide 40 mg 05/15/25 09:00 Furosemide 40 Mg Tablet PO DAILY [facility] Heparin Sodium (Porcine) 5,000 units 05/07/25 09:00 05/14/25 09:03 Heparin Sodium 5,000 Units/Ml Vial SUB-Q 5,000 units Q12HR SREEDHAR Administration Isosorbide Mononitrate 60 mg 05/07/25 09:00 05/14/25 09:02 Isosorbide Mononitrate 60 Mg Tab.Er.24h PO 60 mg DAILY SREEDHAR Administration Levothyroxine Sodium 100 mcg 05/07/25 06:30 05/14/25 05:36 Levothyroxine Sodium 100 Mcg Tablet PO 100 mcg DAILY@0630 SREEDHAR Administration Levothyroxine Sodium 75 mcg 05/07/25 06:30 05/14/25 05:36 Levothyroxine Sodium 75 Mcg Tablet PO 75 mcg DAILY@0630 SREEDHAR Administration Melatonin 5 mg 05/08/25 21:00 05/13/25 20:13 Melatonin 5 Mg Tablet PO 5 mg HS SREEDHAR Administration Metoprolol Succinate 150 mg 05/13/25 09:00 05/14/25 09:02 Metoprolol Succinate Ext Rel 50 Mg Tabcr PO 150 mg DAILY SREEDHAR Administration Pantoprazole Sodium 40 mg 05/07/25 09:00 05/14/25 09:02 Pantoprazole 40 Mg Tablet PO 40 mg BID SREEDHAR Administration Quetiapine Fumarate 50 mg 05/06/25 21:20 05/14/25 09:02 Quetiapine Fumarate 25 Mg Tablet PO 50 mg Q12HR SREEDHAR Administration Venlafaxine HCl 150 mg 05/06/25 21:20 05/13/25 20:14 Venlafaxine Hcl Xr 75 Mg Cap.Er.24h PO 150 mg HS SREEDHAR Administration Radiology Results: ITS Impressions Renal Ultrasound 05/07/25 11:54 Impression: 1: The kidneys are enlarged with numerous renal cysts. However, the kidneys were not fully visualized due to limitations of this study. Consider a noncontrast CT for further assessment. Chest/Abdomen/Pelvis CT 05/09/25 12:25 IMPRESSION: 1. Numerous bilateral renal cysts, the largest cyst in the right kidney grossly measures 9.5 cm, the largest cyst in the left kidney grossly measures 5.7 cm. 2. There is an indeterminate 1.6 x 0.8 cm lucency in the left inferior pubic ramus. Dedicated x-rays of the pelvis are recommended. 3. There are a few small bandlike and reticular opacities in the lower lungs. Differential includes atelectasis/scarring or infiltrates. 4. Prior surgical change about the left breast which are new as compared to the study from 2016. Correlate clinically. Hip/Pelvis X-Ray 05/10/25 11:10 Impression: 1: Mixed lytic and sclerotic lesion left inferior pubic ramus. In a 70-year-old female, consider metastatic disease, lymphoma, Paget's disease. Consider correlation with bone scan or pet/CT examination. Chest X-Ray 05/12/25 19:11 Impression: CHF. Superimposed early pneumonia Labs Labs: Laboratory Results - last 24 hr 05/14/25 03:54 WBC 8.3 RBC 3.29 L Hgb 9.1 L Hct 29.8 L MCV 90.6 MCH 27.7 MCHC 30.5 L RDW 17.5 H Plt Count 285 MPV 9.5 Immature Gran % (Auto) 0.8 H Neut % (Auto) 71.1 Lymph % (Auto) 15.6 L [place] % (Auto) 9.1 H Eos % (Auto) 2.9 Baso % (Auto) 0.5 Lymph # (Auto) 1.30 [place] # (Auto) 0.8 H Eos # (Auto) 0.2 Baso # (Auto) 0.0 Abs Immat Gran (auto) 0.07 H Absolute Neuts (auto) 5.9 Absolute Nucleated RBC 0.070 H Nucleated RBC % 0.8 H Sodium 138 Potassium 3.7 Chloride 101 Carbon Dioxide 27 Anion Gap 10 BUN 77 H Creatinine 3.44 H Estim Creat Clear Calc 16 Estimated GFR 13 L Glucose 80 Calcium 8.9 Phosphorus 4.5 Magnesium 2.4 H Total Bilirubin 0.6 AST 24 ALT 42 H Alkaline Phosphatase 97 Total Protein 7.5 Albumin 4.1 Quality VTE Prophylaxis VTE prophylaxis: pharmacologic ordered
--- NOTE | 2025-05-14 13:23 | P.PNONC_ITS ---
Progress Note: A&P Assessment and Plan (1) Lytic bone lesions on xray: Code(s): M89.8X9 - Other specified disorders of bone, unspecified site Status: Acute Assessment and Plan: Patient with incidental finding of 1.6cm x 0.8cm lytic lesion in the left inferior pubic rami on a CT of abd/pelvis done during this admission. Patient has hx of left breast cancer in 2019. States that it was stage I and she decided for left mastectomy. It was node negative disease and did not get radiation or chemotherapy. She received 5 years of ER target therapy and completed the treatment. She had an oncologist in [place] but per patient her oncologist left the practice and she is in process of finding another one. Patient was seen by Dr. Gama during this admission and he left his card with patient. Plan is to follow up with bone scan. Additionally, SPEP, [place] and immunoglobulin quantification was ordered by Dr. Gama to rule out monoclonal paraproteinemia and results are pending. If results are not back during this admission, I advised the patient to call Dr. Gama's office for follow up. (2) Anemia: Qualifiers: Anemia type: due to chronic kidney disease Code(s): D64.9 - Anemia, unspecified Status: Acute Assessment and Plan: Patient with CKD with elevated creatinine. Her anemia is likely from CKD. Iron panel done this admission showed Ferritin 126, TIBC 272, saturations 11%. She was given IV Iron sucrose 300mg on 05/09/25 and 500mg on 05/10/25. Patient has also been started on Epo Chris 10,000 units SubQ , and saturdays. Hemoglobin is now improving. It takes at least 4-6 weeks to see full response. Subjective Date/time seen: 05/14/25 13:23 Interval history: Patient walking in the room. States that she is ready to go home. No shortness of breath. Review of Systems Review of Systems Feels well today, walking in room without oxygen. States that she feels that she is ready to go home today. Denies dyspnea on exertion. no cough or hemoptysis. no chest pain. Denies abdominal pain, n/v/d. Denies hematochezia or melena. Rest o 12 point ROS is negative Exam Narrative: General: Alert and orientedx3, no acute distress HEENT: PERRL, EOMI, no scleral icterus CV: RRR, no m/g/r RESP: Coarse breath sounds in bases ABD: soft, NT, ND EXT: 1+ edema bilaterally Objective Data Vital Signs Vital Signs: Vital Signs - 24 hr 05/13/25 14:08 05/13/25 14:08 05/13/25 14:16 Temperature Pulse Rate 64 64 65 Respiratory Rate 20 20 20 Blood Pressure Pulse Oximetry 95 Oxygen Delivery Room Air 05/13/25 16:00 05/13/25 16:38 05/13/25 19:37 Temperature 36.6 C Pulse Rate 68 66 72 Respiratory Rate 18 20 Blood Pressure 124/67 119/65 Pulse Oximetry 98 98 Oxygen Delivery 05/13/25 20:21 05/13/25 20:21 05/13/25 20:21 Temperature Pulse Rate 66 Respiratory Rate Blood Pressure Pulse Oximetry Oxygen Delivery Room Air Autopap 05/13/25 23:54 05/14/25 00:00 05/14/25 03:20 Temperature 36.4 C Pulse Rate 63 64 Respiratory Rate 20 Blood Pressure 102/61 Pulse Oximetry 98 Oxygen Delivery Autopap 05/14/25 04:00 05/14/25 04:00 05/14/25 07:20 Temperature 36.5 C Pulse Rate 60 60 71 Respiratory Rate 20 18 Blood Pressure 107/60 108/56 L Pulse Oximetry 100 99 Oxygen Delivery 05/14/25 07:22 05/14/25 07:25 05/14/25 07:27 Temperature 36.8 C Pulse Rate 64 71 75 Respiratory Rate 18 18 18 Blood Pressure 114/55 L 108/56 L 115/66 Pulse Oximetry 97 99 95 Oxygen Delivery 05/14/25 08:55 05/14/25 09:02 05/14/25 12:00 Temperature Pulse Rate 70 63 Respiratory Rate 18 Blood Pressure 108/56 L Pulse Oximetry 97 Oxygen Delivery Room Air Intake/Output Intake/Output: Intake & Output 05/11/25 05/12/25 05/13/25 05/14/25 23:59 23:59 23:59 23:59 Intake Total 1580 1910 1588 1700 Output Total 800 200 Balance 780 1710 1588 1700 Meds/Results Medications: Active Medications Generic Name Dose Route Start Last Admin Trade Name Freq PRN Reason Stop Dose Admin Acetaminophen 650 mg 05/06/25 22:20 05/08/25 05:09 Acetaminophen 325 Mg Tablet PO 650 mg Q6H PRN Administration Mild Pain (1-3) or Fever Albuterol/Ipratropium 3 ml 05/13/25 16:34 Ipratropium 0.5 Mg/Albuterol Sulfate 2.5 Mg Ampul.Neb 3 Ml INHALATION Q6HRT PRN Wheezing Amlodipine Besylate 10 mg 05/07/25 09:00 05/14/25 09:02 Amlodipine Besylate 10 Mg Tablet PO 10 mg DAILY [facility] Administration Aspirin 81 mg 05/07/25 09:00 05/14/25 09:02 Aspirin 81 Mg Enteric Tablet PO 81 mg DAILY [facility] Administration Atorvastatin Calcium 80 mg 05/07/25 09:00 05/14/25 09:02 Atorvastatin 40 Mg Tablet PO 80 mg DAILY [facility] Administration Calcitriol 0.25 mcg 05/07/25 09:00 05/14/25 09:02 Calcitriol 0.25 Mcg Capsule PO 0.25 mcg DAILY [facility] Administration Docusate Sodium 100 mg 05/06/25 21:12 Docusate Sodium 100 Mg Capsule PO DAILY PRN Constipation Empagliflozin 10 mg 05/10/25 09:00 05/14/25 09:02 Empagliflozin 10 Mg Tablet PO 10 mg DAILY [facility] Administration Epoetin Chris-epbx 10,000 units 05/10/25 09:00 05/12/25 09:34 Epoetin Chris-Epbx 10,000 Units/Ml Vial SUB-Q 10,000 units TUTHSA@09 [facility]REED[facility]AR Administration Furosemide 40 mg 05/15/25 09:00 Furosemide 40 Mg Tablet PO DAILY [facility] Heparin Sodium (Porcine) 5,000 units 05/07/25 09:00 05/14/25 09:03 Heparin Sodium 5,000 Units/Ml Vial SUB-Q 5,000 units Q12HR [facility] Administration Isosorbide Mononitrate 60 mg 05/07/25 09:00 05/14/25 09:02 Isosorbide Mononitrate 60 Mg Tab.Er.24h PO 60 mg DAILY [facility] Administration Levothyroxine Sodium 100 mcg 05/07/25 06:30 05/14/25 05:36 Levothyroxine Sodium 100 Mcg Tablet PO 100 mcg DAILY@0630 [facility] Administration Levothyroxine Sodium 75 mcg 05/07/25 06:30 05/14/25 05:36 Levothyroxine Sodium 75 Mcg Tablet PO 75 mcg DAILY@0630 [facility] Administration Melatonin 5 mg 05/08/25 21:00 05/13/25 20:13 Melatonin 5 Mg Tablet PO 5 mg HS [facility] Administration Metoprolol Succinate 150 mg 05/13/25 09:00 05/14/25 09:02 Metoprolol Succinate Ext Rel 50 Mg Tabcr PO 150 mg DAILY [facility] Administration Pantoprazole Sodium 40 mg 05/07/25 09:00 05/14/25 09:02 Pantoprazole 40 Mg Tablet PO 40 mg BID [facility] Administration Quetiapine Fumarate 50 mg 05/06/25 21:20 05/14/25 09:02 Quetiapine Fumarate 25 Mg Tablet PO 50 mg Q12HR [facility] Administration Venlafaxine HCl 150 mg 05/06/25 21:20 05/13/25 20:14 Venlafaxine Hcl Xr 75 Mg Cap.Er.24h PO 150 mg HS [facility]REEDHAR Administration Radiology Results: ITS Impressions Renal Ultrasound 05/07/25 11:54 Impression: 1: The kidneys are enlarged with numerous renal cysts. However, the kidneys were not fully visualized due to limitations of this study. Consider a noncontrast CT for further assessment. Chest/Abdomen/Pelvis CT 05/09/25 12:25 IMPRESSION: 1. Numerous bilateral renal cysts, the largest cyst in the right kidney grossly measures 9.5 cm, the largest cyst in the left kidney grossly measures 5.7 cm. 2. There is an indeterminate 1.6 x 0.8 cm lucency in the left inferior pubic ramus. Dedicated x-rays of the pelvis are recommended. 3. There are a few small bandlike and reticular opacities in the lower lungs. Differential includes atelectasis/scarring or infiltrates. 4. Prior surgical change about the left breast which are new as compared to the study from 2016. Correlate clinically. Hip/Pelvis X-Ray 05/10/25 11:10 Impression: 1: Mixed lytic and sclerotic lesion left inferior pubic ramus. In a 70-year-old female, consider metastatic disease, lymphoma, Paget's disease. Consider correlation with bone scan or pet/CT examination. Chest X-Ray 05/12/25 19:11 Impression: CHF. Superimposed early pneumonia Labs Labs: Laboratory Results - last 24 hr 05/14/25 03:54 WBC 8.3 RBC 3.29 L Hgb 9.1 L Hct 29.8 L MCV 90.6 MCH 27.7 MCHC 30.5 L RDW 17.5 H Plt Count 285 MPV 9.5 Immature Gran % (Auto) 0.8 H Neut % (Auto) 71.1 Lymph % (Auto) 15.6 L [place] % (Auto) 9.1 H Eos % (Auto) 2.9 Baso % (Auto) 0.5 Lymph # (Auto) 1.30 [place] # (Auto) 0.8 H Eos # (Auto) 0.2 Baso # (Auto) 0.0 Abs Immat Gran (auto) 0.07 H Absolute Neuts (auto) 5.9 Absolute Nucleated RBC 0.070 H Nucleated RBC % 0.8 H Sodium 138 Potassium 3.7 Chloride 101 Carbon Dioxide 27 Anion Gap 10 BUN 77 H Creatinine 3.44 H Estim Creat Clear Calc 16 Estimated GFR 13 L Glucose 80 Calcium 8.9 Phosphorus 4.5 Magnesium 2.4 H Total Bilirubin 0.6 AST 24 ALT 42 H Alkaline Phosphatase 97 Total Protein 7.5 Albumin 4.1
[2025-05-14] MEDS: MELATONIN 5 MG TABLET PO (20:23)
[2025-05-14] MEDS: VENLAFAXINE HCL XR 75 MG CAP.ER.24H 150 MG PO (20:23)
[2025-05-15] VITALS (8 sets, daily range): BP systolic 112–133; BP diastolic 53–104; PULSE 59–77; RESP 18–70; TEMP 36–36.7; O2SAT 95–100
[2025-05-15 04:46] LABS: Hematocrit 32.0 % (37.0-47.0); Hemoglobin 9.9 g/dL (12.0-15.0); Immature Granulocyte Percent A 0.8 % (0-0.5); Lymphocytes Absolute Auto 1.69 K/mm3 (0.9-3.2); Mean Corpuscular HGB Conc 30.9 g/dl (32-36); Mean Corpuscular Hemoglobin 27.7 pg (26-34); Mean Corpuscular Volume 89.6 fl (80-100); Nucleated Red Blood Cells Absolute Auto 0.040 K/mm3 (0.0-0.012); Nucleated Red Blood Cells Perc 0.5 % (0.0-0.2); Platelet Count Result 285 k/mm3 (150-375); Red Blood Count 3.57 M/mm3 (4.2-5.4); White Blood Count 8.3 K/mm3 (4.5-10.0)
[2025-05-15 05:09] LABS: Alanine Aminotransferase 36 U/L (6-35); Albumin Level 4.2 g/dL (3.5-5.1); Alkaline Phosphatase 103 U/L (38-126); Anion Gap 9 mmol/L (4-12); Aspartate Amino Transferase 25 U/L (14-36); Bilirubin,Total 0.6 mg/dL (0.2-1.3); Blood Urea Nitrogen 78 mg/dL (7-17); Calcium 9.2 mg/dL (8.4-10.2); Carbon Dioxide 28 mmol/L (22-30); Chloride 100 mmol/L (98-107); Estimated CRCL calculation 15 ml/min; Estimated Glomerular Filt Rate 13; Glucose 76 mg/dL (65-110); Magnesium 2.3 mg/dL (1.6-2.3); Potassium 3.8 mmol/L (3.4-5.0); Sodium 137 mmol/L (137-145); Total Protein 7.7 g/dL (6.3-8.2)
[2025-05-15] MEDS: LEVOTHYROXINE SODIUM 100 MCG TABLET PO (06:02)
[2025-05-15] MEDS: LEVOTHYROXINE SODIUM 75 MCG TABLET PO (06:02)
[2025-05-15] MEDS: ASPIRIN 81 MG ENTERIC TABLET PO (08:12)
[2025-05-15] MEDS: FUROSEMIDE 40 MG TABLET PO (08:12)
[2025-05-15] MEDS: METOPROLOL SUCCINATE EXT REL 50 MG TABCR 150 MG PO (08:12)
[2025-05-15] MEDS: ATORVASTATIN 40 MG TABLET 80 MG PO (08:12)
[2025-05-15] MEDS: PANTOPRAZOLE 40 MG TABLET PO (08:12)
[2025-05-15] MEDS: ISOSORBIDE MONONITRATE 60 MG TAB.ER.24H PO (08:13)
[2025-05-15] MEDS: EMPAGLIFLOZIN 10 MG TABLET PO (08:13)
[2025-05-15] MEDS: EPOETIN ALFA-EPBX 10,000 UNITS/ML VIAL 10000 UNITS SUB-Q (08:16)
--- NOTE | 2025-05-15 09:42 | P.PNNP_ITS ---
Progress Note: A&P Assessment and Plan (1) Stage 4 chronic kidney disease: Code(s): N18.4 - Chronic kidney disease, stage 4 (severe) Status: Chronic Assessment and Plan: * creatinine worse in the context of IV diuresis * baseline creatinine running 2.3 - 2.8mg/dl * creatinine 2.79mg/dL in February 2025 * secondary to polycystic kidney disease along with contributions from hypertension and vascular disease * may have to accept a higher creatinine in the context of needed diuretic therapy to maintain respiratory status * follows with nephrology in [place], [place] for management of this issue (2) Shortness of breath: Code(s): R06.02 - Shortness of breath Status: Acute Assessment and Plan: * clinically better * suspect multifactorial: * diastolic CHF * advanced CKD * relative anemia * obesity(?) * other(?) * CXR clear but some peripheral edema noted * no evidence of hypoxia * CT of C/A/P results noted * follow respiratory status with current interventions (3) CHF exacerbation: Code(s): I50.9 - Heart failure, unspecified Status: Acute Assessment and Plan: * suspected and presumably playing a role with #2 * Echo results noted: * left ventricular ejection fraction is visually estimated to be 60 - 65% * there is grade 2 diastolic dysfunction * mitral valve leaflets are sclerotic * moderate mitral regurgitation * tricuspid valve is normal * moderate tricuspid regurgitation * moderate pulmonary hypertension -- pulmonary arterial systolic pressure is estimated at 51 mmHg * Cardiology following * s/p IV diuresis * on lasix 40mg po qday * follow daily weights, I/Os, and respiratory status * follow renal function (4) Anemia: Qualifiers: Anemia type: due to chronic kidney disease Code(s): D64.9 - Anemia, unspecified Status: Acute Assessment and Plan: * partly related to underlying CKD * anemia studies also demonstrate iron deficiency * s/p IV venofer * NORRIS during hospital stay * follow trend of H/H (5) Hypertension: Code(s): I10 - Essential (primary) hypertension Status: Chronic Assessment and Plan: * elevated on presentation * however, appears to be doing better now * follow trend of hemodynamics (6) Autosomal dominant polycystic kidney disease: Code(s): Q61.2 - Polycystic kidney, adult type Status: Chronic Assessment and Plan: * known history * admission CT imaging consistent with this diagnosis/disease * also supported by family history: * mother with PCKD and required dialysis * sister with PCKD as well Not opposed to discharge from renal perspective if otherwise medically stable -- would continues oral lasix on discharge and she will need to follow-up with her primary travelers' aid worker for ongoing monitoring of her renal function/chronic kidney disease given higher creatinine due to the need for diuretic therapy. Will continue to follow. L Subjective Date/time seen: 05/15/25 09:42 Interval history: Follow-up for chronic kidney disease. Chart reviewed since last seen -- ongoing issues with shortness of breath over the last few days necessitating titration of diuretic therapy; improvement in breathing/respiratory status has improved/stabilized with more aggressive diuretic therapy but at the expense of renal function/creatinine; asking me about possible discharge today. Exam 2 Narrative: General: elderly but WD/WN female in NAD Heart: normal S1 and S2; no rub Lungs: clear anteriorly Abdomen: obese but soft, nontender, nondistended, positive bowel sounds Extremities: no cyanosis or clubbing; trace edema Skin: warm and dry Objective Data Vital Signs Vital Signs: Vital Signs Temp Pulse Resp BP Pulse Ox O2 Del Method FiO2 05/15/25 08:15 Room Air 05/15/25 08:12 65 05/15/25 08:00 96.8 F L 70 70 H 133/62 95 05/15/25 08:00 62 05/15/25 04:00 97.7 F 77 20 126/58 L 100 05/15/25 04:00 63 05/15/25 02:05 Autopap 05/15/25 00:00 59 L 05/14/25 23:52 97.6 F 82 18 100/84 95 05/14/25 21:05 Autopap 05/14/25 20:00 66 05/14/25 20:00 64 20 97 Room Air 21 05/14/25 20:00 97.6 F 64 20 110/53 L 97 05/14/25 16:00 61 05/14/25 16:00 59 L 16 108/60 97 Intake/Output Intake/Output: Intake & Output 05/12/25 05/13/25 05/14/25 05/15/25 23:59 23:59 23:59 23:59 Intake Total 1910 1588 2570 770 Output Total 200 800 Balance 1710 1588 1770 770 Meds/Results Medications: Active Medications Generic Name Dose Route Start Last Admin Trade Name Freq PRN Reason Stop Dose Admin Acetaminophen 650 mg 05/06/25 22:20 05/08/25 05:09 Acetaminophen 325 Mg Tablet PO 650 mg Q6H PRN Administration Mild Pain (1-3) or Fever Albuterol/Ipratropium 3 ml 05/13/25 16:34 Ipratropium 0.5 Mg/Albuterol Sulfate 2.5 Mg Ampul.Neb 3 Ml INHALATION Q6HRT PRN Wheezing Amlodipine Besylate 10 mg 05/07/25 09:00 05/15/25 08:13 Amlodipine Besylate 10 Mg Tablet PO 10 mg DAILY [facility] Administration Aspirin 81 mg 05/07/25 09:00 05/15/25 08:12 Aspirin 81 Mg Enteric Tablet PO 81 mg DAILY [facility] Administration Atorvastatin Calcium 80 mg 05/07/25 09:00 05/15/25 08:12 Atorvastatin 40 Mg Tablet PO 80 mg DAILY [facility] Administration Calcitriol 0.25 mcg 05/07/25 09:00 05/15/25 08:12 Calcitriol 0.25 Mcg Capsule PO 0.25 mcg DAILY [facility] Administration Docusate Sodium 100 mg 05/06/25 21:12 Docusate Sodium 100 Mg Capsule PO DAILY PRN Constipation Empagliflozin 10 mg 05/10/25 09:00 05/15/25 08:13 Empagliflozin 10 Mg Tablet PO 10 mg DAILY [facility] Administration Epoetin Chris-epbx 10,000 units 05/10/25 09:00 05/15/25 08:16 Epoetin Chris-Epbx 10,000 Units/Ml Vial SUB-Q 10,[address] [facility]@09 [facility] Administration Furosemide 40 mg 05/15/25 09:00 05/15/25 08:12 Furosemide 40 Mg Tablet PO 40 mg DAILY [facility] Administration Heparin Sodium (Porcine) 5,000 units 05/07/25 09:00 05/15/25 08:15 Heparin Sodium 5,000 Units/Ml Vial SUB-Q 5,000 units Q12HR [facility] Administration Isosorbide Mononitrate 60 mg 05/07/25 09:00 05/15/25 08:13 Isosorbide Mononitrate 60 Mg Tab.Er.24h PO 60 mg DAILY [facility] Administration Levothyroxine Sodium 100 mcg 05/07/25 06:30 05/15/25 06:02 Levothyroxine Sodium 100 Mcg Tablet PO 100 mcg DAILY@0630 [facility] Administration Levothyroxine Sodium 75 mcg 05/07/25 06:30 05/15/25 06:02 Levothyroxine Sodium 75 Mcg Tablet PO 75 mcg DAILY@0630 [facility] Administration Melatonin 5 mg 05/08/25 21:00 05/14/25 20:23 Melatonin 5 Mg Tablet PO 5 mg HS [facility]AR Administration Metoprolol Succinate 150 mg 05/13/25 09:00 05/15/25 08:12 Metoprolol Succinate Ext Rel 50 Mg Tabcr PO 150 mg DAILY [facility] Administration Pantoprazole Sodium 40 mg 05/07/25 09:00 05/15/25 08:12 Pantoprazole 40 Mg Tablet PO 40 mg BID [facility] Administration Quetiapine Fumarate 50 mg 05/06/25 21:20 05/15/25 08:13 Quetiapine Fumarate 25 Mg Tablet PO 50 mg Q12HR SREED[facility]AR Administration Venlafaxine HCl 150 mg 05/06/25 21:20 05/14/25 20:23 Venlafaxine Hcl Xr 75 Mg Cap.Er.24h PO 150 mg HS SREEDHAR Administration Radiology Results: ITS Impressions Renal Ultrasound 05/07/25 11:54 Impression: 1: The kidneys are enlarged with numerous renal cysts. However, the kidneys were not fully visualized due to limitations of this study. Consider a noncontrast CT for further assessment. Chest/Abdomen/Pelvis CT 05/09/25 12:25 IMPRESSION: 1. Numerous bilateral renal cysts, the largest cyst in the right kidney grossly measures 9.5 cm, the largest cyst in the left kidney grossly measures 5.7 cm. 2. There is an indeterminate 1.6 x 0.8 cm lucency in the left inferior pubic ramus. Dedicated x-rays of the pelvis are recommended. 3. There are a few small bandlike and reticular opacities in the lower lungs. Differential includes atelectasis/scarring or infiltrates. 4. Prior surgical change about the left breast which are new as compared to the study from 2016. Correlate clinically. Hip/Pelvis X-Ray 05/10/25 11:10 Impression: 1: Mixed lytic and sclerotic lesion left inferior pubic ramus. In a 70-year-old female, consider metastatic disease, lymphoma, Paget's disease. Consider correlation with bone scan or pet/CT examination. Chest X-Ray 05/12/25 19:11 Impression: CHF. Superimposed early pneumonia Labs Labs: Laboratory Tests 05/15/25 04:17 05/15/25 04:17 Calcium 9.2 Phosphorus 4.0 Magnesium 2.3 Total Bilirubin 0.6 AST 25 ALT 36 H Alkaline Phosphatase 103 Total Protein 7.7 Albumin 4.2
--- NOTE | 2025-05-15 12:53 | P.DS_ITS ---
DS: Admitting Diagnosis Discharge Date 05/15/2025 Admitting Diagnosis Shortness of breath DS: Discharge Diagnosis Discharge Diagnosis (1) New onset of congestive heart failure: Code(s): I50.9 - Heart failure, unspecified Status: Inactive (2) End-stage renal disease (ESRD): Code(s): N18.6 - End stage renal disease Status: Inactive (3) Anemia associated with chronic renal failure: Code(s): N18.9 - Chronic kidney disease, unspecified; D63.1 - Anemia in chronic kidney disease Status: Inactive (4) Hyperlipidemia: Code(s): E78.5 - Hyperlipidemia, unspecified Status: Acute (5) Hypertension: Code(s): I10 - Essential (primary) hypertension Status: Chronic (6) Lytic bone lesions on xray: Code(s): M89.8X9 - Other specified disorders of bone, unspecified site Status: Acute DS: Summary Hospital Course Hospital Course: # New onset of congestive heart failure: 70-year-old female here with a PMHx: CKD unknown stage at this time patient reports she has a history of ESRD, but is not on dialysis, citing she was told that if her kidney function should worsen she would need a kidney transplant or start dialysis. Patient was originally seen at outside emergency room then transferred here due to ongoing SOB and mild chest discomfort during her visit. Patient reports a history of worsening lower extremity edema and SOB that has been ongoing for the past week. She reports the SOB had been present for about a week it begin to worsening significantly over the past couple of days. The patient experienced increased difficulty while attending yazidism which led her daughter to take her to the emergency room for further evaluation. She denies any nausea vomiting fever chills at this time. Patient reports ongoing bilateral leg swelling, the patient noted left foot swelling which was reportedly more pronounced than the right. ED Work-up reveals: EKG tachycardia, sinus rhythm, no ectopic beats, nonspecific ST changes, normal QRS, normal QT. lab reveals chloride 109, carbon dioxide 17, anion gap 14, BUN 56, creatinine 2.86 with a GFR 16 calculated osmolality is 306, AST is 57, ALT 73 [id number], UA unremarkable for any infection or bacteria. Patient has a history of polycystic kidney disease and follows with Nephrology in [facility]. Also has history of left-sided breast cancer status post left-sided mastectomy in 2019 and since then had been on endocrine therapy for 5 years. Patient was started with IV Lasix. Echo with diastolic dysfunction moderate pulmonary hypertension. Cardiology was also consulted. With IV diuresis her creatinine bumped up and hence diuresis was held in switched to oral eventually. Creatinine continues to remain high however stable. This will need to be followed up with Nephrology follow-up as an outpatient basis. Continue fluid restriction [address] chest/abdomen/pelvis:1. Numerous bilateral renal cysts, the largest cyst in the right kidney grossly measures 9.5 cm, the largest cyst in the left kidney grossly measures 5.7 cm. 2. There is an indeterminate 1.6 x 0.8 cm lucency in the left inferior pubic ramus. Dedicated x-rays of the pelvis are recommended. 3. There are a few small bandlike and reticular opacities in the lower lungs. Differential includes atelectasis/scarring or infiltrates. 4. Prior surgical change about the left breast which are new as compared to the study from 2016. Correlate clinically Hip and pelvic x-ray:: Mixed lytic and sclerotic lesion left inferior pubic ramus. In a 70-year-old female, consider metastatic disease, lymphoma, Paget's disease. Consider correlation with bone scan or pet/CT examination. Due to the concerns of lytic lesions and oncology was consulted. He ordered workup for lytic bone lesion that would include serum protein electrophoresis with immunofixation, quantitative immunoglobulin and serum free light chain studies and CA 15 3 for breast cancer bone survey. Patient needs to follow-up with the oncologist for her iron deficiency anemia for which she will be receiving iron and will decide about Procrit injection for anemia from CKD. She also has anemia chronic disease. Iron study shows iron 31 TIBC 272 and% saturation 11 suggestive of iron deficiency anemia. Patient was started on Procrit injection. Received IV iron while inpatient Hyperlipidemia on statin Hypertension on amlodipine and isosorbide mononitrate Lytic bone lesions on x-ray seen oncologist in the past. Hematology-Oncology consulted. SPEP, UPEP, light chain ordered to rule out monoclonal paraproteinemia. Results are pending and she should follow up with Hematology as outpatient basis. Time Spent with Patient Time attestation: Total time spent providing and/or coordinating discharge services: 45 minutes Exam Narrative: General: A well-developed, nontoxic-appearing female sitting up in bed. HEENT: PERRL, EOMI. Oral mucosa moist. Neck: Supple. No midline cervical tenderness. Respiratory: Respirations are non- labored and lungs are clear to auscultation bilaterally. Cardiovascular: Regular rate and rhythm with S1-S2. Gastrointestinal: Abdomen is soft, non-tender, and non-distended with positive bowel sounds. Skin: Warm and dry. No rash or lesions on limited exam. Extremities: Bilateral, +1 edema, left leg more pronounced than right leg Neurological: Alert and oriented. Cranial nerves 2-12 are grossly intact. No gross focal deficits to casual conversation. Psychiatric: Pleasant and cooperative with normal mood and affect. Judgment and insight intact. DS: Data Data Completed and Pending Completed studies during hospitalization: Exam Type: CA echo doppler color flow Complete two-dimensional, color flow and Doppler transthoracic echocardiogram is performed. Staff Referring Physician: Carlita Knight Research And Development Manager: Krys Haddad Attending Provider: Kristian Meadows Summary 1. Complete two-dimensional, color flow and Doppler transthoracic echocardiogram is performed. 2. The left ventricle is normal in size and systolic function. There is severe concentric left ventricular hypertrophy. The left ventricular ejection fraction is visually estimated to be 60-65%. There is grade 2 diastolic dysfunction. 3. The right ventricle is normal in size and systolic function. 4. The mitral valve leaflets are sclerotic. There is moderate mitral regurgitation. 5. The tricuspid valve is normal. There is moderate tricuspid regurgitation. 6. There is moderate pulmonary hypertension. Pulmonary arterial systolic pressure is estimated at 51 mmHg. Left Ventricle The left ventricle is normal in size and systolic function. There is severe concentric left ventricular hypertrophy. The left ventricular ejection fraction is visually estimated to be 60-65%. There is grade 2 diastolic dysfunction. Right Ventricle The right ventricle is normal in size and systolic function. Left Atria The left atrium is mildly dilated. Right Atria The right atrium is normal size. Atrial Septum The atrial septum is not well visualized. Aortic Valve The aortic valve is trileaflet and opens well. There is no aortic regurgitation. Pulmonic Valve The pulmonic valve is grossly normal. There is no color Doppler evidence of pulmonic valve regurgitation. Mitral Valve The mitral valve leaflets are sclerotic. There is moderate mitral regurgitation. Tricuspid Valve The tricuspid valve is normal. There is moderate tricuspid regurgitation. Pulmonary Arteries There is moderate pulmonary hypertension. Pulmonary arterial systolic pressure is estimated at 51 mmHg. Pericardium/Pleural Pericardium is normal in appearance with no evidence for significant pericardial effusion. Inferior Vena Cava Normal inferior vena cava with <50% collapse upon inspiration consistent with elevated right atrial pressure, 8 mmHg. Aorta The aortic root at the level of the sinus of Valsalva measures 2.6 cm in diameter. Labs on day of discharge: Labs from last 24 hours 05/15/25 04:17 WBC 8.3 RBC 3.57 L Hgb 9.9 L Hct 32.0 L MCV 89.6 MCH 27.7 MCHC 30.9 L RDW 17.6 H Plt Count 285 MPV 9.4 Immature Gran % (Auto) 0.8 H Neut % (Auto) 67.0 Lymph % (Auto) 20.4 Canadian % (Auto) 8.4 Eos % (Auto) 2.9 Baso % (Auto) 0.5 Lymph # (Auto) 1.69 Canadian # (Auto) 0.7 H Eos # (Auto) 0.2 Baso # (Auto) 0.0 Abs Immat Gran (auto) 0.07 H Absolute Neuts (auto) 5.6 Absolute Nucleated RBC 0.040 H Nucleated RBC % 0.5 H Sodium 137 Potassium 3.8 Chloride 100 Carbon Dioxide 28 Anion Gap 9 BUN 78 H Creatinine 3.46 H Estim Creat Clear Calc 15 Estimated GFR 13 L Glucose 76 Calcium 9.2 Phosphorus 4.0 Magnesium 2.3 Total Bilirubin 0.6 AST 25 ALT 36 H Alkaline Phosphatase 103 Total Protein 7.7 Albumin 4.2 Imaging Radiologist's impression: ITS Impressions Renal Ultrasound 05/07/25 11:54 Impression: 1: The kidneys are enlarged with numerous renal cysts. However, the kidneys were not fully visualized due to limitations of this study. Consider a noncontrast CT for further assessment. Chest/Abdomen/Pelvis CT 05/09/25 12:25 IMPRESSION: 1. Numerous bilateral renal cysts, the largest cyst in the right kidney grossly measures 9.5 cm, the largest cyst in the left kidney grossly measures 5.7 cm. 2. There is an indeterminate 1.6 x 0.8 cm lucency in the left inferior pubic ramus. Dedicated x-rays of the pelvis are recommended. 3. There are a few small bandlike and reticular opacities in the lower lungs. Differential includes atelectasis/scarring or infiltrates. 4. Prior surgical change about the left breast which are new as compared to the study from 2016. Correlate clinically. Hip/Pelvis X-Ray 05/10/25 11:10 Impression: 1: Mixed lytic and sclerotic lesion left inferior pubic ramus. In a 70-year-old female, consider metastatic disease, lymphoma, Paget's disease. Consider correlation with bone scan or pet/CT examination. Chest X-Ray 05/12/25 19:11 Impression: CHF. Superimposed early pneumonia Discharge Plan Discharge Attending physician on discharge: Jez Quintanilla Consulting providers: Tova Markham; Richard Gama; Marleen Simmons Discharging Clinician: Jez Quintanilla Anticipated Discharge Date/Time: 05/15/25 13:01 Patient Disposition: Home Activity: as tolerated Diet: heart healthy and renal Discharge Instructions: Please follow-up with oncologist,drafting instructor ,and salvage mechanic within 2 weeks upon discharge. Check blood pressure 1 to 2 times a day. Record and bring into your doctor for review. Call your doctor if your blood pressure is greater than 180/110 or less than 90/45. Walk with cane or other assist device. Take precautions to avoid falls. Rise slowly from a lying or sitting position. Pause before standing or walking. Contact your doctor or call 911 and come to the Emergency Room if you have any type of trauma, lightheadedness with standing or other worrisome symptoms. Avoid NSAIDs (ibuprofen, naproxen, Aleve). Tylenol is safe to take. Follow-up with your primary care provider in 1-2 weeks. Please call for appointment. Follow-up with Cardiology in 2-4 weeks. Please call for an appointment. Thank you for using [facility] for your health care needs. Patient Instructions: Antibiotic Form Patient Language: Citizen Of [place] Stand Alone Forms: General Discharge Information Follow-up/Referrals: Richard Gama MD [Physician, Hematology] Annie,Karly Romero APRN [Primary Care Provider, Unknown] Tova Markham MD [Physician, Nephrology] Mraleen Simmons, CREATIVE ENGAGEMENT DIRECTOR-C [Advanced Practice Nurse, Cardiology] Discharge Medications: New Jardiance 10 mg Tablet 10 mg PO DAILY Qty: 30 0RF furosemide [Lasix] 40 mg tablet 40 mg PO DAILY Qty: 90 0RF Continued amlodipine 10 mg tablet 10 mg PO DAILY quetiapine 25 mg tablet 50 mg PO BID levothyroxine 175 mcg tablet 175 mcg PO DAILY atorvastatin 80 mg tablet 80 mg PO DAILY tizanidine 2 mg tablet 2 mg PO Q8H PRN (Reason: muscle spasticity) metoprolol succinate 100 mg tablet extended release 24 hr 100 mg PO DAILY venlafaxine 150 mg capsule,extended release 24hr 150 mg PO HS omeprazole 40 mg capsule,delayed release(DR/EC) 40 mg PO DAILY aspirin 81 mg tablet,delayed release (DR/EC) 81 mg PO DAILY isosorbide mononitrate 60 mg tablet extended release 24 hr 60 mg PO DAILY famotidine 20 mg tablet 20 mg PO BID ferrous sulfate [FeroSul] 325 mg (65 mg iron) tablet 325 mg PO BID docusate sodium 100 mg capsule 100 mg PO DAILY PRN (Reason: constipation) ergocalciferol (vitamin D2) 1,250 mcg (50,000 unit) capsule 1,250 mcg PO MONTHLY calcitriol 0.25 mcg capsule 0.25 mcg PO DAILY Other Ambulatory Orders: Basic Metabolic Panel (Routine) Timeframe: 1 Week Location: Determined by Patient Ordered By: Jez Quintanilla Complete Blood Count with Diff (Routine) Timeframe: 1 Week Location: Determined by Patient Ordered By: Jez Quintanilla Date of admission: 05/07/25 15:08 Primary Care Provider: AnnieKarly Admitting Provider: Kristian Meadows Attending physician on admission: Kristian Meadows Condition: Stable
--- NOTE | 2025-05-15 13:08 | PC.NURSE ---
On 05/15/25, the student, [Ludy Zhu], provided care and completed [facility] documentation on this patient. I have reviewed the student's documentation and agree with the findings.
[2025-05-16 14:08] LABS: Immunoglobulin A, Qn 203 mg/dL (87-352); Immunoglobulin G, Qn 1291 mg/dL (586-1602); Immunoglobulin M, Qn 56 mg/dL (26-217)
== END 2025-05-15 15:00 | disposition home or self-care (01) | DRG 291 ==
PROVIDERS: Internal Medicine; Internal Medicine Hematology & Oncology; Internal Medicine Nephrology; Nurse Practitioner; Student in an Organized Health Care Education/Training Program; Admitting Provider General Practice; PCP Nurse Practitioner Family; Visit Provider Internal Medicine
DX: I13.2 Hypertensive heart and chronic kidney disease with heart failure and with stage 5 chronic kidney disease, or end stage renal disease (principal); I50.31 Acute diastolic (congestive) heart failure; N18.6 End stage renal disease; Q61.2 Polycystic kidney, adult type; D50.9 Iron deficiency anemia, unspecified; D63.1 Anemia in chronic kidney disease; E78.5 Hyperlipidemia, unspecified; M89.8X9 Other specified disorders of bone, unspecified site; Z85.3 Personal history of malignant neoplasm of breast; Z85.850 Personal history of malignant neoplasm of thyroid; Z20.822 Contact with and (suspected) exposure to COVID-19
CPT/HCPCS: 36415; 71045; 71250; 73521; 74176; 76770; 80053; 80069; 82607; 82728; 82746; 82784; 82948; 83036; 83540; 83550; 83735; 83880; 84100; 84238; 85025; 86334; 87637; 93306; 94002; 94640; A9270; G0378; J1644; J1756; J1938; J7050; Q5105

== ENCOUNTER 2025-05-18 09:58 | Emergency (ER) | payer MEDICARE, MEDICAID, SELFPAY ==
--- OUTSIDE RECORDS SUMMARY | 2024-04-06 11:00 | XMS_ITS ---
Author Organization [facility] Address [address] [place], [place] [id number] Care Team Providers Care Tailings Worker Name Role Phone RODDY KUO Unavailable [phone] Marleen Gee Unavailable Unavailable EMILY CARVAJAL Unavailable [phone] REASON FOR VISIT *General care Encounters Encounter Location Date Provider Diagnosis [facility] [address], [place] [id number] 04/06/2024 EMILY CARVAJAL Plan Of Treatment No Information Progress Notes * Genna KEENEDOB: (70 yo F)Acc No.[id number]:04/06/2024 Patient: Genna MCPHERSON Provider: Camille CARVAJAL :1955 A ge:68 Y S ex:Female Date:04/06/2024 Address:[address] [place] [id number] Subjective: * Chief Complaints: * 1 . *General care. * Medical History: Objective: * Vitals: Assessment: Plan: * Treatment: * Billing Information: * Visit Code: * Procedure Codes: * Electronic signature of DEBBY CARVAJAL DPM on 05/18/2025 at 10:11 AM CDT Sign off status: Pending * Provider: Camille CARVAJAL Date: 0 04/06/2024 Generated for Stacey gee/Juice/eTransmitting on: 0 05/18/2025 10:11 AM CDT
--- NOTE | ~2025-05-18 | US_ITS ---
Right Upper Extremity Venous Doppler Technique: Real-time sonographic and color Doppler images of the upper extremity veins were performed. Spectral waveform analysis was performed. Findings: Acute thrombus in left basilic vein. The internal jugular and subclavian veins are patent without intraluminal filling defect to suggest thrombus. There is normal venous outflow. The axillary, brachial, radial, and ulnar veins demonstrate normal venous flow without occlusion. There is normal compressibility and augmentation. Impression: Acute thrombus in left basilic vein. Reviewed, dictated and finalized at location N. Impression: Acute thrombus in left basilic vein.
[2025-05-18 09:58] VITALS: BP 164/88; PULSE 101; RESP 18; TEMP 36.2; O2SAT 97
--- NOTE | 2025-05-18 10:08 | ED.EXTPRO ---
HPI - Extremity Problem General Chief complaint: Extremity Problem,Nontraumatic Stated complaint: swollen spot on right arm Time Seen by Provider: 05/18/25 10:06 Source: patient Mode of arrival: ambulatory Limitations: no limitations History of Present Illness HPI Narrative: patient is a 70-year-old female with a right upper extremity forearm redness and pain and a nodular area where she had a IV placed 1 week ago for CHF exacerbation. MD Complaint: extremity pain ( Right forearm) and extremity swelling ( right forearm) Onset (ago): week(s) ( 1) Pain Consistency: constant Location: right and upper extremity ( forearm) Severity scale (1-10): 4 Quality: sharp and constant Radiation: proximal Relieving factors: nothing Exacerbating factors: range of motion and palpation Associated symptoms: denies other symptoms Context: recent illness ( CHF exacerbation and IV site placement) Related Data Home Medications ?Medication ?Instructions ?Recorded ?Confirmed ?Last Taken ?Type amlodipine 10 mg tablet 10 mg PO DAILY 05/06/25 05/06/25 05/06/25 08:00 History aspirin 81 mg tablet,delayed 81 mg PO DAILY 05/06/25 05/06/25 05/06/25 08:00 History release atorvastatin 80 mg tablet 80 mg PO DAILY 05/06/25 05/06/25 05/06/25 08:00 History calcitriol 0.25 mcg capsule 0.25 mcg PO DAILY 05/06/25 05/06/25 05/06/25 08:00 History docusate sodium 100 mg capsule 100 mg PO DAILY PRN constipation 05/06/25 05/06/25 05/05/25 21:00 History ergocalciferol (vitamin D2) 1,250 1,250 mcg PO MONTHLY 05/06/25 05/06/25 04/13/25 08:00 History mcg (50,000 unit) capsule famotidine 20 mg tablet 20 mg PO BID 05/06/25 05/06/25 05/06/25 08:00 History ferrous sulfate 325 mg (65 mg 325 mg PO BID 05/06/25 05/06/25 05/06/25 08:00 History iron) tablet (FeroSul) isosorbide mononitrate 60 mg 60 mg PO DAILY 05/06/25 05/06/25 05/06/25 08:00 History tablet,extended release 24 hr levothyroxine 175 mcg tablet 175 mcg PO DAILY 05/06/25 05/06/25 05/06/25 07:00 History metoprolol succinate 100 mg 100 mg PO DAILY 05/06/25 05/06/25 05/06/25 08:00 History tablet,extended release 24 hr omeprazole 40 mg capsule,delayed 40 mg PO DAILY 05/06/25 05/06/25 05/06/25 08:00 History release quetiapine 25 mg tablet 50 mg PO BID 05/06/25 05/06/25 05/06/25 08:00 History tizanidine 2 mg tablet 2 mg PO Q8H PRN muscle spasticity 05/06/25 05/06/25 05/05/25 21:00 History venlafaxine 150 mg 150 mg PO HS 05/06/25 05/06/25 05/05/25 21:00 History capsule,extended release 24 hr Allergies Allergy/AdvReac Type Severity Reaction Status Date / Time No Known Allergies Allergy Verified 05/18/25 10:03 Review of Systems Review of Systems: All systems reviewed & are unremarkable except as noted in HPI and below Constitutional: Constitutional: Reports no additional constitutional complaints Eyes: Eyes: Reports no additional eye complaints ENT: Reports system reviewed and no additional complaints, except as documented Cardiovascular: Cardiovascular: Reports no additional cardiovascular complaints Respiratory: Respiratory: Reports no additional respiratory complaints Gastrointestinal: Gastrointestinal: Reports no additional gastrointestinal complaints Genitourinary: Genitourinary: Reports no additional female genitourinary complaints Musculoskeletal: Musculoskeletal: Reports no additional musculoskeletal complaints Integumentary/Breasts: Skin/Breast: Reports system reviewed and no additional complaints, except as docu Neurologic: Reports system reviewed and no additional complaints, except as documented Psychiatric: Psychiatric: Reports no additional psychiatric complaints Endocrine: Endocrine: Reports no additional endocrine complaints Hematologic/Lymphatic: Hematologic/Lymphatic: Reports no additional hematologic/lymphatic complaints Allergic/Immunologic: Allergic/Immunologic: Reports no additional allergic/immunologic complaints [facility] Past Medical History Medical History Hx of thyroid cancer Breast cancer CKD (chronic kidney disease) Social History Social History Smoking status: Never smoker Alcohol intake: never Substance use: never Substance use type: does not use Lack of Transportation: No Lack of Food: Never True Current Housing: I Have Housing Concerned About Future Housing: No Difficulty Paying Gas/Electric Bills: No Difficulty Paying for Meds: No Currently Unemployed: No Education: High School Diploma/GED Difficulty w/ Childcare or Family Care: No Spiritual care concerns: No Exam Const: General: healthy appearing Nutritional Appearance: well nourished Orientation/consciousness: patient oriented x3 HENMT: Head: normal to inspection Ears: external ears normal Face/Nose/Sinus: Normal external nose present Eyes: Conjunctivae: conjunctivae normal Pupils: Equal, round and reactive pupils present EOM: EOMs intact bilaterally Neck: Neck: normal visual inspection Chest: Chest palpation & inspection: normal inspection of the chest Resp: Effort & Inspection: normal respiratory effort and not labored Auscultation: clear to auscultation bilaterally and no crackles Cardio: Rate: regular rate Rhythm: regular rhythm Heart sounds: no murmurs GI: Inspection: non-distended GI Palp: Yes Soft to palpation and No Tenderness to palpation present (GI) Auscultation: normal bowel sounds : General: Yes bladder normal to palpation Back/Spine/Pelvis: Back: no CVA tenderness Skin: General skin exam: No normal color Rashes: no rashes Wounds: no wounds Other: right forearm near AC proximal forearm has IV site with a 1 cm nodular area with ecchymosis and distal erythema in a linear fashion Neuro: General: patient oriented x3, moves all extremities and no meningeal signs Extrem: General: normal to inspection Psych: Mental Status: mental status grossly normal Affect: normal affect Attitude: cooperative Course Vital Signs Vital signs: Vital Signs Temperature 36.2 C L 05/18/25 09:58 Pulse Rate 101 H 05/18/25 09:58 Respiratory Rate 18 05/18/25 09:58 Blood Pressure 164/88 H 05/18/25 09:58 Pulse Oximetry 97 05/18/25 09:58 Oxygen Delivery Room Air 05/18/25 09:58 Temperature 36.2 C L 05/18/25 09:58 Pulse Rate 101 H 05/18/25 09:58 Respiratory Rate 18 05/18/25 09:58 Blood Pressure 164/88 H 05/18/25 09:58 Pulse Oximetry 97 05/18/25 09:58 Oxygen Delivery Room Air 05/18/25 09:58 MDM - Extremity (Nontraumatic) MDM Narrative Medical decision making narrative: patient is a 70-year-old female with a right upper extremity pain and swelling with nodularity after IV placement 1 week ago. We will get venous ultrasound at this time. Imaging Data Attestation: I personally reviewed and interpreted this imaging study as follows: Radiologist's impression: ultrasound right upper extremity venous shows a basilic vein which is superficial having a thrombosis Discharge Plan Discharge Clinical Impression: Superficial venous thrombosis of arm Qualifiers: Laterality: right Qualified Code(s): I82.611 - Acute embolism and thrombosis of superficial veins of right upper extremity Patient Disposition: Home Condition: Stable Instructions: Superficial Thrombophlebitis (ED) Patient Language: Beninese Prescriptions: No Action amlodipine 10 mg tablet 10 mg PO DAILY quetiapine 25 mg tablet 50 mg PO BID levothyroxine 175 mcg tablet 175 mcg PO DAILY atorvastatin 80 mg tablet 80 mg PO DAILY tizanidine 2 mg tablet 2 mg PO Q8H PRN (Reason: muscle spasticity) metoprolol succinate 100 mg tablet extended release 24 hr 100 mg PO DAILY venlafaxine 150 mg capsule,extended release 24hr 150 mg PO HS omeprazole 40 mg capsule,delayed release(DR/EC) 40 mg PO DAILY aspirin 81 mg tablet,delayed release (DR/EC) 81 mg PO DAILY isosorbide mononitrate 60 mg tablet extended release 24 hr 60 mg PO DAILY famotidine 20 mg tablet 20 mg PO BID ferrous sulfate [FeroSul] 325 mg (65 mg iron) tablet 325 mg PO BID docusate sodium 100 mg capsule 100 mg PO DAILY PRN (Reason: constipation) ergocalciferol (vitamin D2) 1,250 mcg (50,000 unit) capsule 1,250 mcg PO MONTHLY calcitriol 0.25 mcg capsule 0.25 mcg PO DAILY Jardiance 10 mg Tablet 10 mg PO DAILY Qty: 30 0RF furosemide [Lasix] 40 mg tablet 40 mg PO DAILY Qty: 90 0RF Follow-up/Referrals: Annie,Karly Romero, INSOLE COVERER [Primary Care Provider, Unknown] Time of Disposition: 11:24
--- OUTSIDE RECORDS SUMMARY | 2025-05-18 10:12 | XMS_ITS | Patient Health Record ---
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 Plotter Operator Name Role Phone RODDY KUO Unavailable [phone] Marleen Gee Unavailable Unavailable Allergies No Known [...] Days Active Vitamin D (Ergocalciferol) 1.25 MG (75154 UT) TAKE 1 CAPSULE BY MOUTH WEEKLY [...] Date Coverage End Date [employer] [address] [place] [phone] [id number] Genna Fraga Self - patient is the insured Medical (General) History Medical History History ICD Code acid reflux Blood transfusion anemia Cancer (type of cancer) Arthritis Gout rheumatoid arthritis Sleep apnea Thyroid Disease Back Trouble Psychiatric Disorder hypertension Surgical History Surgery Date(Month/Year) left breast lumpectomy Thyroid Removed
--- OUTSIDE RECORDS SUMMARY | 2025-05-18 10:12 | XMS_ITS | Patient Health Record ---
Author Organization [facility] [employer] Address [address] [facility] [address] [place] [address] Care Team Providers Care Auto Glass Installer Name Role Phone Kristopher Almaraz Unavailable [phone] NickCharlana Unavailable [phone] Allergies No Known Allergies Results Component Value Reference Range Notes UDT Reviewed date:05/24/2024 09:24:32 AM Interpretation: Performing Lab: Notes/Report: THC N 0 - 50 ng/ml Cocaine N 0 - 300 ng/ml Amphetamine N 0 - 1000 ng/ml Buprenorphine (BUP) N 0 - 10 ng/ml Secobarbital (Bar) N 0 - 300 ng/ml Oxazepam (BZO) N 0 - 300 ng/ml 4-qklvscylrf-0,9-jssizuxw-6,3-diphenylpyrrolidine (YE P) N 0 - 300 ng/ml Methamphetamine (MET) N 0 - 1000 ng/ml Methylenedioxymethamphetamine (MDMA) N 0 - 500 ng/ml Morphine (MOP 300/OBU1570) N 0 - 300 ng/ml Methadone (MTD) [...] bedtime Active Vitamin D (Ergocalciferol) 1.25 MG (84353 UT) Capsule TAKE 1 CAPSULE BY MOUTH [...] decision-maker Yes Do you have Power of Information Assurance Specialist for Health or [facility]? No Safety issues: Are there any [...] Risk Notes Problem Moderate recurrent major depression (91810906) Major depressive disorder, recurrent, moderate (F33.1) Active confirmed Problem Generalized anxiety disorder (21335238) Generalized anxiety disorder (F41.1) Active confirmed Problem Posttraumatic stress disorder (02136318) PTSD (post-traumatic stress disorder) (F43.10) Active confirmed Problem Essential hypertension (21471415) Essential (primary) hypertension (I10) 3 Active confirmed Problem Malignant neoplasm of upper-outer quadrant of female breast (249214294) Malignant neoplasm of upper-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 ([facility]) (C50.412) 9 Active confirmed Problem Obesity (924310038) Class 1 obesity without serious comorbidity in adult (E66.9) 9 Active confirmed Problem History of malignant neoplasm of thyroid (473999244) History of thyroid cancer (Z85.850) 9 Active confirmed Problem Anemia due to stage 3a chronic kidney disease ([facility]) (N18.31) 1 Active confirmed Problem Chest pain (45236868) Chest pain, unspecified type (R07.9) 3 Active confirmed Problem Chronic kidney disease stage 4 (612951794) Stage 4 chronic kidney disease ([facility]) (N18.4) 3 Active confirmed Vital Signs Heart Rate 78 /min 04/02/2025 Height-cm 162.56 cm 04/02/2025 Blood pressure diastolic 80 mm Hg 04/02/2025 Weight-kg 91.17 kg 01/01/2025 Height 64 in 04/02/2025 Blood pressure systolic 115 mm Hg 04/02/2025 Weight 201 lbs 01/01/2025 BMI 34.5 kg/m2 01/01/2025 Encounters Encounter Location Date Provider Diagnosis [facility] [employer] [facility] [address] [facility] [address] [place] [address] 05/24/2024 Kristopher Almaraz Major depressive disorder, recurrent, moderate F33.1 ; PTSD (post-traumatic stress disorder) F43.10 ; Essential (primary) hypertension I10 ; Malignant neoplasm of upper-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 (CMS/HCC HHS/HCC) C50.412 and History of thyroid cancer Z85.[address] [address] 06/21/2024 Kristopher Sung Major depressive disorder, recurrent, moderate F33.1 ; PTSD (post-traumatic stress disorder) F43.10 ; Essential (primary) hypertension I10 ; Malignant neoplasm of upper-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 (CMS/HCC HHS/HCC) C50.412 and History of thyroid cancer Z85.[address] [address] 07/26/2024 Nuzhat Nick Major depressive disorder, recurrent, moderate F33.1 ; PTSD (post-traumatic stress disorder) F43.10 and Generalized anxiety disorder F41.[address] [address] 08/21/2024 Kristopher Sung Major depressive disorder, recurrent, moderate F33.1 ; PTSD (post-traumatic stress disorder) F43.10 ; Essential (primary) hypertension I10 ; Malignant neoplasm of upper-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 (CMS/HCC HHS/HCC) C50.412 and History of thyroid cancer Z85.[address] [address] 10/09/2024 Nuzhat Nick Major depressive disorder, recurrent, moderate F33.1 ; PTSD (post-traumatic stress disorder) F43.10 and Generalized anxiety disorder F41.[address] [address] 10/09/2024 Kristopher Sung Major depressive disorder, recurrent, moderate F33.1 ; Stage 4 chronic kidney disease (CMS/HCC HHS/HCC) N18.4 ; PTSD (post-traumatic stress disorder) F43.10 ; Essential (primary) hypertension I10 ; Malignant neoplasm of upper-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 (CMS/HCC HHS/HCC) C50.412 and History of thyroid cancer Z85.[address] [address] 01/01/2025 Nuzhat Romero Encounter for screen ing for depression Z13.31 ; Major depressive disorder, recurrent, moderate F33.1 ; Generalized anxiety disorder F41.1 and PTSD (post-traumatic stress disorder) F43.10 [facility] [address] [address] 01/01/2025 Kristopher Almaraz Major depressive disorder, recurrent, moderate F33.1 ; Stage 4 chronic kidney disease ([facility] HHS/HCC) N18.4 ; PTSD (post-traumatic stress disorder) F43.10 ; Essential (primary) hypertension I10 ; Malignant neoplasm of upper-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 ([facility] HHS/HCC) C50.412 ; History of thyroid cancer Z85.850 ; Encounter for screening for depression Z13.31 and Encounter for screening for cardiovascular disorders Z13.[address] [address] 04/02/2025 Kristopher Almaraz Major depressive disorder, recurrent, moderate F33.1 ; Stage 4 chronic kidney disease ([facility] HHS/HCC) N18.4 ; PTSD (post-traumatic stress disorder) F43.10 ; Essential (primary) hypertension I10 ; Malignant neoplasm of upper-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 ([facility] HHS/HCC) C50.412 and Generalized anxiety disorder F41.1 [facility] [employer] [address] [address] 05/24/2024 Kristopher Almaraz [address] [address] 06/12/2024 Kristopher Sung [address] [address] 07/25/2024 Kristopher Almaraz Assessments Encounter Date Diagnosis (ICD Code) Assessment Notes Treatment Notes Treatment Clinical Notes Section Notes 06/21/2024 Major depressive disorder, recurrent, moderate (ICD-10 [...] meet new people. Expresses desire to visit [place] and meet a fan. - Plan: - [...] 4th of 12 chldren and grewup in [place], [place]. In her younger years, childhood was [...] 4th of 12 chldren and grewup in [place]. In her younger years, childhood was [...] primary care physician, Dr. Fredo Gee in [place]. Social Support and Activities - Assessment: Patient reports limited phone access and mainly uses [employer]. No social media usage due to past [...] F33.1) 10/09/2024 Stage 4 chronic kidney disease ([facility]) (ICD-10 - N18.4) 01/01/2025 Major depressive disorder, [...] needed. 04/02/2025 Stage 4 chronic kidney disease ([facility]) (ICD-10 - N18.4) 05/24/2024 Major depressive disorder, recurrent, moderate (ICD-10 [...] her support network, including her cousin in [place] and her family.Medical Management: Follow up with [...] the potential benefits of a trip to [place], as she is interested in traveling for [...] her support network, including her cousin in [place] and her family.Medical Management: Follow up with [...] the potential benefits of a trip to [place], as she is interested in traveling for [...] her kidney disease and potential malignancy. 05/24/2024 Essential (primary) hypertension (ICD-10 - I10) [...] her support network, including her cousin in [place] and her family.Medical Management: Follow up with [...] the potential benefits of a trip to [place], as she is interested in traveling for [...] particularly her kidney disease and potential malignancy. 01/01/2025 Stage 4 chronic kidney disease ([facility]/HCC [facility]/HCC) (ICD-10 - N18.4) 04/02/2025 PTSD (post-traumatic stress [...] primary care physician, Dr. Fredo Gee in [place]. Social Support and Activities - Assessment: Patient reports limited phone access and mainly uses [employer]. No social media usage due to past [...] ), who is retired (about 1995) from [employer] work. Client is the 4th of 12 chldren and grewup in [place], [place]. In her younger years, childhood was [...] in 2015. Client has had breast cancer (2015 and [...] meet new people. Expresses desire to visit [place] and meet a fan. - Plan: - [...] conflicts. - Follow up in two months. 06/21/2024 Essential (primary) hypertension (ICD-10 - I10) [...] meet new people. Expresses desire to visit [place] and meet a fan. - Plan: - [...] primary care physician, Dr. Fredo Gee in [place]. Social Support and Activities - Assessment: Patient reports limited phone access and mainly uses [employer]. No social media usage due to past [...] - Monitor blood pressure regularly at home. 01/01/2025 PTSD (post-traumatic stress disorder) (ICD-10 - F43.10) 05/24/2024 Malignant neoplasm of upper-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 ([facility]/HCC HHS/HCC) (ICD-10 - C50.412) Assessment: Major Depressive Disorder [...] PTSD to address flashbacks and trauma-related distress.Berenicelianne dailey continued open communication with her support network, including her cousin in [place] and her family.Medical Management: Follow up with [...] the potential benefits of a trip to [place], as she is interested in traveling for [...] her kidney disease and potential malignancy. 05/24/2024 History of thyroid cancer (ICD-10 - [...] her support network, including her cousin in [place] and her family.Medical Management: Follow up with [...] the potential benefits of a trip to [place], as she is interested in traveling for [...] particularly her kidney disease and potential malignancy. 04/02/2025 Malignant neoplasm of upper-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 (CMS/HCC HHS/HCC) (ICD-10 - C50.412) 01/01/2025 Essential (primary) hypertension (ICD-10 - I10) 10/09/2024 Malignant neoplasm of upper-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 ([facility] HHS/HCC) (ICD-10 - C50.412) 08/21/2024 Malignant neoplasm of upper-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 ([facility]/HCC) (ICD-10 - C50.412) Mental Health Status Depression [...] primary care physician, Dr. Fredo Gee in [place]. Social Support and Activities - Assessment: Patient reports limited phone access and mainly uses [employer]. No social media usage due to past [...] of upper-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 ([facility] HHS/HCC) (ICD-10 - C50.412) Major Depressive Disorder - [...] meet new people. Expresses desire to visit [place] and meet a fan. - Plan: - [...] conflicts. - Follow up in two months. 06/21/2024 History of thyroid cancer (ICD-10 - [...] meet new people. Expresses desire to visit [place] and meet a fan. - Plan: - [...] primary care physician, Dr. Fredo Gee in [place]. Social Support and Activities - Assessment: Patient reports limited phone access and mainly uses [employer]. No social media usage due to past [...] her support network, including her cousin in [place] and her family.Medical Management: Follow up with [...] the potential benefits of a trip to [place], as she is interested in traveling for [...] 4th of 12 chldren and grewup in [place], [place]. In her younger years, childhood was [...] kidney function and symptoms. - Collaborate with child care director for ongoing management. - Educate patient on [...] engagement. - Consider referral to a social media assistant or therapist for additional support and resources. [...] ensure accuracy, there may be errors, including equipment operator wage hand inaccuracies and misspellings of medication names. This document should not be considered a verbatim record, and any discrepancies should be verified with the provider. Plan Of Treatment Next Appt Details Provider Name:Kristopher Almaraz , 07/02/2025 08:45:00 AM, [address] [facility] [address] [facility] [address], [place], [address], Insurance Providers Payer Name Payer Address Payer Phone Subscriber Number Group Number Insured Name Patient Relationship to Insured Coverage Start Date Coverage End Date [employer] Medicare Supplement [address] [place] [address] [id number] Genna Fraga Self - patient is the insured [place] [address] [address] [place] [address] [id number] Genna Fraga Self - patient is the [...]
[2025-05-18 11:30] VITALS: BP 129/91; PULSE 89; RESP 18; TEMP 36.6; O2SAT 98
== END 2025-05-18 11:30 | disposition home or self-care (01) ==
PROVIDERS: Emergency Provider Emergency Medicine; PCP Nurse Practitioner Family
DX: I82.611 Acute embolism and thrombosis of superficial veins of right upper extremity (principal); N18.9 Chronic kidney disease, unspecified; I50.9 Heart failure, unspecified; Z85.3 Personal history of malignant neoplasm of breast
CPT/HCPCS: 93971; 99284